=== PATIENT | male | born 1975 | race Caucasian/White ===

== ENCOUNTER 2018-10-02 03:48 | Inpatient (IN) ==
--- NOTE | 2018-10-02 04:05 | Emergency Department Note ---
ED Disposition Clinical Impression: STEMI (ST elevation myocardial infarction) Qualifiers: Involved coronary artery: unspecified coronary artery Qualified Code(s): I21.3 - ST elevation (STEMI) myocardial infarction of unspecified site Disposition: Admitted As Inpatient Condition on Discharge: Serious Referrals: Provider,Referral, [Primary Care Provider] - - Critical Care Critical Care Time: Yes Attestation: On , the high probability of a clinically significant, sudden or life threatening deterioration of the following system(s) required my full and direct attention, intervention and personal management. The time I documented below is in addition to time spent performing reported procedures but includes the following listed in this critical care notation. Total Critical Care Time: 35 Vital system(s) involved:: Circulatory Failure My critical care processes included: Assessment & monitoring of V/S, Initial and Re-exams, Data Review/Interpretation, Coordinating Care, Medication Orders and management, Documentation Medical Decision Making - Meek Inquiry Pt receiving controlled substance: No Vital Signs: 10/02/18 03:48 10/02/18 04:00 10/02/18 04:10 Temperature 98.1 F Temperature Source Temporal Artery Scan Pulse Rate Pulse Rate [Left Radial] 110 H 108 H 101 H Respiratory Rate 20 20 18 Blood Pressure Blood Pressure [Right Arm] 164/136 H 188/127 H 148/105 H Blood Pressure Mean [Right Arm] 145 147 119 Blood Pressure Source Blood Pressure Source [Right Arm] Automatic Cuff Automatic Cuff Automatic Cuff Blood Pressure Position Blood Pressure Position [Right Arm] Sitting Sitting Sitting 02 Sat by Pulse Oximetry 94 L 96 97 Oxygen Delivery Method Room Air Nasal Cannula Nasal Cannula Oxygen Flow Rate (LPM) 4 4 10/02/18 04:16 10/02/18 04:18 10/02/18 04:25 Temperature 97.9 F Temperature Source Temporal Artery Scan Pulse Rate 91 H Pulse Rate [Left Radial] 93 H 91 H Respiratory Rate 18 18 18 Blood Pressure 140/100 H Blood Pressure [Right Arm] 136/103 H 162/89 H Blood Pressure Mean [Right Arm] 114 113 Blood Pressure Source Automatic Cuff Blood Pressure Source [Right Arm] Automatic Cuff Automatic Cuff Blood Pressure Position Sitting Blood Pressure Position [Right Arm] Sitting Sitting 02 Sat by Pulse Oximetry 94 L 94 L Oxygen Delivery Method Nasal Cannula Nasal Cannula Nasal Cannula Oxygen Flow Rate (LPM) 4 4 4 - Lab Data Lab Results 10/02/18 03:58: WBC 9.2, RBC 6.23 H, Hgb 18.3 H*, Hct 52.4 H, MCV 84.0, MCH 29.3, MCHC 34.9, RDW 13.2, Plt Count 237, MPV 7.7, Neut % (Auto) 53.2, Lymph % (Auto) 36.2, [place] % (Auto) 5.6, Eos % (Auto) 3.9, Baso % (Auto) 1.1, Neut # (Auto) 4.9, Lymph # (Auto) 3.3, [place] # (Auto) 0.5, Eos # (Auto) 0.4, Baso # (Auto) 0.1 10/02/18 03:58: PT 9.7, INR 0.94, APTT 30.1 10/02/18 03:58: Sodium 133 L, Potassium 4.1, Chloride 97 L, Carbon Dioxide 27, Anion Gap 13.1, BUN 18, Creatinine 1.15, Estimated Creat Clear 99, Estimated GFR 69, Est GFR ( Amer) 83, Glucose 458 H*, Calcium 8.7, Total Creatine K inase 146, CK-MB (CK-2) 1.3, CK-MB (CK-2) Rel Index 0.9, Troponin I 0.48 H 10/02/18 04:26: Urine Opiates Screen Negative, Urine Methadone Screen Negative, Ur Barbituates Screen Negative, Ur Phencyclidine Scrn Negative, Ur Amphetamines Screen Negative, U Benzodiazepines Scrn Negative, Urine Cocaine Screen Positive H, U Marijuana (THC) Screen Positive H Result diagrams: 10/02/18 03:58 10/02/18 03:58 Orders (Tests/Meds): ED MEDICATIONS Generic Name Dose Route Start Last Admin Trade Name Freq PRN Reason Stop Dose Admin Fentanyl Citrate 25 mcg 10/02/18 04:19 Fentanyl 250mcg/5ml Vial IV 10/03/18 04:19 Q3MINP PRN Moderate to Severe Pain Fentanyl Citrate 50 mcg 10/02/18 04:19 Fentanyl 250mcg/5ml Vial IV 10/03/18 04:19 Q3MINP PRN Moderate to Severe Pain Fentanyl Citrate 50 mcg 10/02/18 04:19 Fentanyl 100mcg/2ml Vial IV 10/03/18 04:20 Q3MINP PRN Moderate to Severe Pain Fentanyl Citrate 25 mcg 10/02/18 04:19 Fentanyl 100mcg/2ml Vial IV 10/03/18 04:20 Q3MINP PRN Moderate to Severe Pain Flumazenil 0.2 mg 10/02/18 04:19 Romazicon 0.1mg/Ml 5ml Vial IV 10/02/18 23:00 NEEDED PRN Sedation Heparin Sodium (Porcine) 10,000 unit 10/02/18 04:19 Heparin 1,000 Units/Ml 10ml Vial (Merchant Seaman) IV 10/02/18 08:19 NEEDED PRN Emergency Box Tool Design Engineer Sodium Chloride 1,000 mls @ 25 mls/hr 10/02/18 04:30 10/02/18 04:37 Sod Chlor 0.9% 1000ml Bag IV 10/03/18 04:19 25 mls/hr .Q25H SANCHEZ Administration Midazolam HCl 1 mg 10/02/18 04:19 Midazolam 2mg/2ml Vial IV 10/03/18 04:19 Q3MINP PRN Sedation Midazolam HCl 1 mg 10/02/18 04:19 Midazolam 1mg/Ml 5ml Vial IV 10/03/18 04:19 Q3MINP PRN Sedation Naloxone HCl 0.4 mg 10/02/18 04:19 Narcan 0.4mg/Ml Vial IV 10/03/18 04:19 Q5MINP PRN Decreased respirations Nitroglycerin 800 mcg 10/02/18 04:19 10/02/18 04:37 Nitroglycerin 800mcg/8ml Syr (Merchant Seaman) IV 10/03/18 04:19 800 mcg NEEDED PRN Administration Emergency Box Tool Design Engineer Discontinued Medications Generic Name Dose Route Start Last Admin Trade Name Freq PRN Reason Stop Dose Admin Aspirin 324 mg 10/02/18 04:07 10/02/18 04:08 Aspirin 81mg Chewable Tablet PO 10/02/18 04:08 324 mg ONCE ONE Administration Diphenhydramine HCl 50 mg 10/02/18 04:19 10/02/18 04:37 Benadryl 50mg/1ml Vial IV 10/02/18 04:20 50 mg ONCE ONE Administration Heparin Sodium (Porcine) 8,600 unit 10/02/18 04:00 10/02/18 04:06 Heparin Sodium 5,000 Units/Ml Vial 100 unit/kg (8600 unit) 10/02/18 04:01 8,600 unit IV Administration ONCE ONE Heparin Sodium/Sodium Chloride 3,000 unit 10/02/18 04:19 10/02/18 04:37 Heparin 1000 Units/500ml Ns (Merchant Seaman) IV 10/02/18 04:20 3,000 unit ONCE ONE Administration Lidocaine HCl 20 ml 10/02/18 04:19 10/02/18 04:37 Lidocaine 1% 20ml Mdv IJ 10/02/18 04:20 10 ml ONCE ONE Administration Nitroglycerin 0.4 mg 10/02/18 04:07 10/02/18 04:07 Nitrostat 0.4mg Sl Tablet SL 10/02/18 04:08 0.4 mg ONCE ONE Administration Nitroglycerin 0.4 mg 10/02/18 04:14 10/02/18 04:15 Nitrostat 0.4mg Sl Tablet SL 10/02/18 04:15 0.4 mg ONCE ONE Administration Ticagrelor 180 mg 10/02/18 04:00 10/02/18 04:06 Brilinta 90mg Tablet PO 10/02/18 04:01 180 mg ONCE ONE Administration Verapamil HCl 2.5 mg 10/02/18 04:19 10/02/18 04:37 Verapamil 2.5mg/Ml 2ml Vial IV 10/02/18 04:20 2.5 mg ONCE ONE Administration ORDERS Category Date Time Status XR chest portable Routine Exams 10/02/18 04:00 Taken BNP [B-Type Natriuretic Peptide] Stat Lab 10/02/18 03:58 Received - Radiology Data #1 Image(s): Chest Image Reviewed: Yes I reviewed the patient's radiology image Increased interstitial markings in the bases, especially the right base - ECG Data Tracing #1 EKG interpreted by Luis E Houston MD: Rhythm: sinus tachycardia Rate: 120 Perry: normal Ectopy: none Conduction: normal ST Segment Changes: ST elevation V1, V2, V3. Minimal ST depression in V5 and V6. T Wave Changes: none Q Waves: V1, V2 ST elevation in the septal leads is new compared to most recent EKG of 2015 - Physician Consults Physician Consulted: Trisha Time: 04:00 Reason -: Cardiology Eval/Care Comment/Response: Give heparin 100 units/kg bolus, Brilinta 180 mg oral. He is coming into the emergency room. Additional Consult: David Time: 04:38 Reason -: Admission Comment/Response: Agrees to admit the patient to the hospital. We discussed the patient's clinical information, including history, exam, laboratory and radiology results and ED course. Per hospital procedure, I will write temporary bridge inpatient orders on the patient. Specific orders requested by the admitting physician: Requests admission to Dr. Muller. Sliding scale insulin. - Reevaluation(s) Time: 04:13 Reevaluation #1: Chest pain is now 5/10 after 1st ntg (/10 on arrival) - LANDY Score for Stemi Age of Patient: 40-49 years old Heart Rate: 110-149 bpm Systolic Blood Pressure: 160-199 mmHg Serum Creatinine: 0.80-1.19 mg/dl CHF [place] Class: I-No CHF Other Risk Factors: ST Segment Deviation Stemi Risk Score: 94 General Adult HPI - General Chief complaint: Chest Pain Stated complaint: Chest Pain Time Seen by Provider: 10/02/18 03:48 Mode of Arrival: Ambulatory Limitations: No Limitations Description of Symptoms (Recalled from ER Triage Doc. by RN): pt c/o chest pain in the center of his chest described as "pressure" associated diaphoresis, shortness of breath, non radiating pain, states he woke up approx 45 minutes ago to get a snack and that is when chest pain started - History of Present Illness HPI narrative: 30 to 45 minutes ago woke up from sleep to use the bathroom and get a drink. Started having precordial chest pressure, diaphoresis, shortness of breath, and nausea. Denies radiation. Feels similar to previous heart attacks. Says he has had "a few" heart attacks. He says he has 7 stents. First 2 stents were placed by Dr. Richards, the last [address] Rico. Last stent was 2014. Admits to recreational drug use. Used crack cocaine on 09/30/2018. Also uses some Percocet and took one half of a Suboxone yesterday 10/01/2018. He is a smoker. He says that he has not seen a family doctor or campus administrator in a couple of years, he was seeing Dr. Muller. The only medication he takes a daily is aspirin. He took 325 mg of aspirin 15 minutes ago prior to coming to the emergency room. - Related Data Home Medications Medication Instructions Recorded Confirmed Aspirin [Aspirin 81mg EC Tab] 81 mg PO DAILY 10/02/18 10/02/18 Allergies Allergy/AdvReac Type Severity Reaction Status Date / Time ANESTHETICS,GENERAL Allergy Unknown I-RASH Uncoded 05/25/17 14:24 [facility] History - Hepatitis A Screen Drug use history?: Yes High risk sexual behaviors?: No History of sexually transmitted infection?: No Currently employed?: No Childcare worker?: No Do you have indoor plumbing?: Yes Do you have electricity?: Yes Attestation statement:: This patient has been screened for Hepatitis A risk factors. I have reviewed the patient's past medical history: Yes - Social History Smoking Status: Current every day smoker # Packs/Day (cigarettes): 1 Alcohol Intake: never Substance Use Type: crack/cocaine, painkillers Occupational Status: other - Psychiatric History Expresses thoughts of harming self/others: None Suicide Plan Description: No Plan ROS Obtained: Yes All systems reviewed & no additional complaints - Constitutional Constitutional: Denies fever(s) - Cardiovascular Cardiovascular: Reports chest pain, Reports diaphoresis - Respiratory Respiratory: Yes dyspnea - Gastrointestinal Gastrointestingal: Reports: nausea Physical Exam - General General appearance: alert, in distress Comment: diaphoretic, in pain - Head Head exam: atraumatic, normocephalic - Eye Eye exam: Present: normal appearance, EOMI - ENT ENT exam: Present: mucous membranes moist - Neck Neck exam: Present: normal inspection, trachea midline - Chest Chest inspection: Present: normal inspection, symmetric chest wall rise - Respiratory Respiratory exam: Present: normal lung sounds bilaterally. Absent: respiratory distress - Cardiovascular Cardiovascular exam: Present: regular rate, normal rhythm, normal heart sounds - Abdominal Exam Abdominal exam: Present: soft. Absent: distention, tenderness, guarding, rebound, rigidity - Extremities Exam Extremities exam: Present: normal inspection - Neurological Exam Neurological exam: Present: alert, oriented X3 - Psychiatric Psychiatric exam: Present: anxious - Skin Skin exam: Present: diaphoresis
[2018-10-02 04:13] LABS: Basophils # 0.1 K/mm3 (0-0.2); Basophils % 1.1 % (0.1-2.0); Eosinophils # 0.4 K/mm3 (0.0-0.4); Eosinophils % 3.9 % (0.1-12.0); Hematocrit 52.4 % (42.0-52.0); Lymphocytes # 3.3 K/mm3 (0.7-4.5); Lymphocytes % 36.2 % (10-50); Mean Corpuscular HGB Conc 34.9 g/dL (31.8-35.4); Mean Corpuscular Hemoglobin 29.3 pg (27.0-31.2); Mean Platelet Volume 7.7 fl (7.4-10.4); Monocytes # 0.5 K/mm3 (0.1-1.0); Monocytes % 5.6 % (1.7-9.3); Neutrophils # 4.9 K/mm3 (1.8-7.8); Neutrophils % 53.2 % (37.0-80.0); Platelet Count 237 K/mm3 (142-424); Red Blood Count 6.23 M/mm3 (4.60-6.20); Red Cell Distribution Width 13.2 % (11.5-17.5); White Blood Count 9.2 K/mm3 (4.8-10.8)
[2018-10-02 04:17] LABS: Hemoglobin 18.3 g/dL (14.1-18.0)
[2018-10-02 04:21] LABS: Activated Partial Thrombo Time 30.1 seconds (23.6-34.0); INR 0.94 (0.9-1.1); Prothrombin Time 9.7 seconds (9.4-11.8)
[2018-10-02 04:29] LABS: Anion Gap 13.1 mEq/L (5-15); Potassium 4.1 mmoL/L (3.5-5.1)
[2018-10-02 04:37] LABS: Calcium 8.7 mg/dL (8.5-10.1)
[2018-10-02 04:42] LABS: Amphetamine/Metha Screen,Urine Negative ng/mL (<1000); Barbiturates Screen,Urine Negative ng/mL (<200); Benzodiazepines Screen,Urine Negative ng/mL (<200); Cannabinoid Screen,Urine Positive ng/mL (<50); Cocaine Screen,Urine Positive ng/mL (<300); Methadone Screen,Urine Negative ng/mL (<300); Opiate Screen,Urine Negative ng/mL (<300); Phencyclidine Screen,Urine Negative ng/mL (<25)
--- NOTE | 2018-10-02 10:55 | History & Physical Report ---
*Admission Date: 10/02/18 *Chief complaint: chest pain *History of present illness: 43 yr old male presents to ed with c/o chest pressure, diaphoresis, shortness of breath, and nausea. pt states he woke up to go to bathroom when he started having pressure and stated symptoms was like his other heart attacks.Hx of mi, states he has 7 stents. First 2 stents were placed by Dr. Richards, the last [address] Rico. Last stent was 2014. Admits to recreational drug use. Pt admitted cardiology consult, heart cath pt denies cp at this time [facility] History I have reviewed the patient's past medical history: Yes Medical History: Reports:: Diabetes Mellitus Type 2, Hyperlipidemia, Hypertension Denies:: Cancer, MRSA *Have you ever received a pneumonia vaccine?: No *Have you received a flu vaccine this season?: No Other Medical History: Reports: Arthritis Other Surgeries: Yes: Cardiac Catheterization - *Social History Educational Level: Completed High School Smoking Status: Current every day smoker Tobacco Type: cigarettes # Packs/Day (cigarettes): 1 Alcohol Intake: current Alcohol Intake Frequency:: holidays/special occasions only Substance Use Type: marijuana, crack/cocaine, amphetamines, sedatives, opiates *Occupational Status:: unemployed Household Members: spouse, children *Travel in the last 8 weeks: None - Psychiatric History Expresses thoughts of harming self/others: None Suicide Plan Description: No Plan Family Hx:: Unable to obtain Review of Systems - Review of Systems Review of systems:: pertinent systems reviewed and negative unless documented below - Constitutional Denies body ache(s) - Eyes Denies blurry vision - ENT Denies change in voice - *Cardiovascular Reports chest pain, Reports chest pain at rest, Reports chest pain with activity, Reports excessive sweating, Reports shortness of breath with activity - *Respiratory Denies chest congestion - *Gastrointestinal Denies bloating, Denies change in bowel habits - *Genitourinary Reports difficulty with ejaculations, Denies urinary frequency - *Musculoskeletal Denies decreased muscle mass - Integumentary/Breasts Denies rash - *Neurologic Denies abnormal movements - Psychiatric Denies lack of enjoyment - Endocrine Denies flushing - Hematologic/Lymphatic Denies enlarged lymph nodes - Allergic/Immunologic Denies lip swelling Meds Home Medications Medication Instructions Recorded Confirmed Type Aspirin [Aspirin 81mg EC Tab] 81 mg PO DAILY 10/02/18 10/02/18 History Allergies Allergy/AdvReac Type Severity Reaction Status Date / Time ANESTHETICS,GENERAL Allergy Unknown I-RASH Uncoded 05/25/17 14:24 Exam Vital signs and Labs for Last 24 Hours: Temp Pulse Resp BP Pulse Ox 97.8 F 79 18 142/89 H 93 L 10/02/18 10:00 10/02/18 10:00 10/02/18 10:00 10/02/18 10:00 10/02/18 10:00 Laboratory Results - last 24 hr 10/02/18 03:58: WBC 9.2, RBC 6.23 H, Hgb 18.3 H*, Hct 52.4 H, MCV 84.0, MCH 29.3, MCHC 34.9, RDW 13.2, Plt Count 237, MPV 7.7, Neut % (Auto) 53.2, Lymph % (Auto) 36.2, [place] % (Auto) 5.6, Eos % (Auto) 3.9, Baso % (Auto) 1.1, Neut # (Auto) 4.9, Lymph # (Auto) 3.3, [place] # (Auto) 0.5, Eos # (Auto) 0.4, Baso # ( Auto) 0.1 10/02/18 03:58: PT 9.7, INR 0.94, APTT 30.1 10/02/18 03:58: Sodium 133 L, Potassium 4.1, Chloride 97 L, Carbon Dioxide 27, Anion Gap 13.1, BUN 18, Creatinine 1.15, Estimated Creat Clear 99, Estimated GFR 69, Est GFR ( Amer) 83, Glucose 458 H*, Calcium 8.7, Total Creatine Kinase 146, CK-MB (CK-2) 1.3, CK-MB (CK-2) Rel Index 0.9, Troponin I 0.48 H 10/02/18 03:58: B-Natriuretic Peptide 136 H 10/02/18 04:26: Urine Opiates Screen Negative, Urine Methadone Screen Negative, Ur Barbituates Screen Negative, Ur Phencyclidine Scrn Negative, Ur Amphetamines Screen Negative, U Benzodiazepines Scrn Negative, Urine Cocaine Screen Positive H, U Marijuana (THC) Screen Positive H 10/02/18 04:42: Activated Clotting Time 258 H* 10/02/18 04:57: Activated Clotting Time 335 H* D I & O for Last 24 hours: Intake & Output 09/29/18 09/30/18 10/01/18 10/02/18 11:59 11:59 11:59 11:59 Intake Total 360 / 360 Output Total 700 / 700 Balance -340 / -340 Weight 219 lb 9.286 oz - Constitutional no acute distress - *Routine HEENT Exam Head: Present: normocephalic Eye: Present: PERRL ENT: Present: mucous membranes moist - *Routine Neck Exam Present: supple. Absent: lymphadenopathy - *Routine Respiratory Exam Present: CTA bilaterally - *Routine Cardiovascular Exam Present: RRR - *Routine Abdominal Exam Present: soft, normoactive bowel sounds. Absent: tenderness - *Routine Extremities Exam Absent: cyanosis, clubbing, edema - *Routine Skin Exam Present: warm. Absent: rash - *Routine Neurological Exam Present: alert, oriented X3 - Routine Psychiatric Exam Present: normal affect Assessment and Plan (1) Stented coronary artery Current visit: Yes Status: Acute Category: Surgical Code(s): Z95.5 - Presence of coronary angioplasty implant and graft (2) Noncompliance Current visit: Yes Status: Acute Category: Medical Code(s): Z91.19 - Patient's noncompliance with other medical treatment and regimen (3) Diabetes Current visit: Yes Status: Acute Qualifiers: Diabetes mellitus type: type 2 Diabetes mellitus snf insulin use: without vermin exterminator use Diabetes mellitus complication status: with circulatory complication Diabetes mellitus complication detail: with other circulatory complications Qualified Code(s): E11.59 - Type 2 diabetes mellitus with other circulatory complications Category: Medical Code(s): E11.9 - Type 2 diabetes mellitus without complications (4) Drug use Current visit: Yes Status: Acute Category: Medical Code(s): F19.90 - Other psychoactive substance use, unspecified, uncomplicated (5) STEMI (ST elevation myocardial infarction) Current visit: Yes Status: Acute Qualifiers: Involved coronary artery: unspecified coronary artery Qualified Code(s): I21.3 - ST elevation (STEMI) myocardial infarction of unspecified site Category: Medical Code(s): I21.3 - ST elevation (STEMI) myocardial infarction of unspecified site - Assessment and plan all Dx Assessment and Plan for all problems:: discussed with socrates, all orders per socrates crowell will round later today.
--- NOTE | 2018-10-02 12:02 | Pharmacy Consult Notes ---
[facility] Pharmacy VTE Monitoring - Patient Demographics Admission date: 10/02/18 Report Date: 10/02/18 Time: 12:02 Allergies/Adverse Reactions: Patient Allergies ANESTHETICS,GENERAL Allergy (Unknown, Uncoded 05/25/17 14:24) I-RASH Height: 1.75 m Weight: 99.6 kg Patient Problems: Current Active Problems (Updated 10/02/18 @ 11:01 by Kvng Gonsalez APRN) STEMI (ST elevation myocardial infarction) (Acute) Stented coronary artery (Acute) Noncompliance (Acute) Diabetes (Acute) Drug use (Acute) - VTE Risk Labs: VTE Related Lab Results Hgb 18.3 g/dL (14.1-18.0) H* 10/02/18 03:58 Hct 52.4 % (42.0-52.0) H 10/02/18 03:58 Plt Count 237 K/mm3 (142-424) 10/02/18 03:58 PT 9.7 seconds (9.4-11.8) 10/02/18 03:58 INR 0.94 (0.9-1.1) 10/02/18 03:58 APTT 30.1 seconds (23.6-34.0) 10/02/18 03:58 BUN 18 mg/dL (7-18) 10/02/18 03:58 Creatinine 1.15 mg/dL (0.70-1.30) 10/02/18 03:58 Estimated Creat Clear 99 mL/min (50-200) 10/02/18 03:58 Was VTE Risk Assessment Performed: Yes VTE Score: 5 VTE Risk Level: Low Risk - Prophylaxis Types of VTE Prophylaxis: TEDS Knee High (ADAMARIS HOSE ORDER PLACED)
--- NOTE | 2018-10-03 08:34 | Consult Report ---
History of Present Illness Consult date: 10/03/18 Requesting physician: Fernando Muller Consult reason: chest pain Chief complaint: STEMI Additional Medical History:: 1. CAD A. Previous coronary stents by Dr. Richards and Dr. Rico with last ones in 2014 2. Polysubstance abuse 3. Tobacco use 4. Strong FH of CAD in father and brothers in their 40's 5. Medication non-compliance 6. DM, type 2 History of present illness: 43 yr old male presents to ed with c/o chest pressure, diaphoresis, shortness of breath, and nausea. pt states he woke up to go to bathroom when he started having pressure and stated symptoms was like his other heart attacks.Hx of mi, states he has 7 stents. First 2 stents were placed by Dr. Richards, the last [address] Rico. Last stent was 2014. Admits to recreational drug use. Pt admitted cardiology consult, heart cath pt denies cp at this time The above per Kvng Gonsalez APRN for Dr. Muller Today, 10/03/2018, The patient is without chest pain and adament about going home. Relates released from incarceration 2 months ago and admits to cocaine use the night before admission. [facility] History Medical History: Reports:: Diabetes Mellitus Type 2, Hyperlipidemia, Hypertension Denies:: Cancer, MRSA *Have you ever received a pneumonia vaccine?: No *Have you received a flu vaccine this season?: No Other Medical History: Reports: Arthritis Other Surgeries: Yes: Cardiac Catheterization - *Social History Educational Level: Completed High School Smoking Status: Current every day smoker Tobacco Type: cigarettes # Packs/Day (cigarettes): 1 Alcohol Intake: current Alcohol Intake Frequency:: holidays/special occasions only Substance Use Type: marijuana, crack/cocaine, amphetamines, sedatives, opiates *Occupational Status:: unemployed Household Members: spouse, children *Travel in the last 8 weeks: None - Psychiatric History Expresses thoughts of harming self/others: None Suicide Plan Description: No Plan Family Hx:: Unable to obtain Meds Home Medications Medication Instructions Recorded Confirmed Type Aspirin [Aspirin 81mg EC Tab] 81 mg PO DAILY 10/02/18 10/02/18 History Allergies Allergy/AdvReac Type Severity Reaction Status Date / Time ANESTHETICS,GENERAL Allergy Unknown I-RASH Uncoded 05/25/17 14:24 Review of Systems - *Cardiovascular Reports chest pain, Denies shortness of breath - *Respiratory Denies cough, Denies shortness of breath - *Gastrointestinal Denies abdominal pain, Denies change in stools, Denies loose stools - *Genitourinary Denies blood in urine, Denies decreased urination - *Musculoskeletal Denies joint pain, Denies back pain - *Neurologic Denies abnormal movements, Denies loss of vision, Denies numbness Exam Vital signs and Labs for Last 24 Hours: Temp Pulse Resp BP Pulse Ox 97.8 F 60 20 103/52 L 97 10/03/18 02:27 10/03/18 06:00 10/03/18 02:27 10/03/18 06:00 10/03/18 06:00 Laboratory Results - last 24 hr 10/02/18 12:13: POC Glucose 224 H 10/02/18 16:11: POC Glucose 266 H 10/02/18 21:17: POC Glucose 293 H I & O for Last 24 hours: Intake & Output 09/30/18 10/01/18 10/02/18 10/03/18 11:59 11:59 11:59 11:59 Intake Total 360 / 360 720 / 720 Output Total 700 / 700 Balance -340 / -340 720 / 720 Weight 219 lb 9.286 oz - *Routine HEENT Exam Head: Present: normocephalic Eye: Present: EOMI, PERRL ENT: Present: mucous membranes moist - *Routine Neck Exam Present: supple. Absent: JVD, carotid bruit - *Routine Respiratory Exam Present: CTA bilaterally. Absent: accessory muscle use, rales, rhonchi, wheezes - *Routine Cardiovascular Exam Present: RRR. Absent: murmur, gallop, rubs - *Routine Abdominal Exam Present: soft. Absent: tenderness, distended, guarding - *Routine Extremities Exam Absent: edema, calf tenderness - *Routine Neurological Exam Present: alert, oriented X3, moving all extremities Assessment and Plan (1) Stented coronary artery Current visit: Yes Status: Acute Category: Surgical Code(s): Z95.5 - Presence of coronary angioplasty implant and graft (2) Noncompliance Current visit: Yes Status: Acute Category: Medical Code(s): Z91.19 - Patient's noncompliance with other medical treatment and regimen (3) Diabetes Current visit: Yes Status: Acute Qualifiers: Diabetes mellitus type: type 2 Diabetes mellitus predatory 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 insulin use: without predatory 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 use Diabetes mellitus complication status: with circulatory complication Diabetes mellitus complication detail: with other circulatory complications Qualified Code(s): E11.59 - Type 2 diabetes mellitus with other circulatory complications Category: Medical Code(s): E11.9 - Type 2 diabetes mellitus without complications (4) Drug use Current visit: Yes Status: Acute Category: Medical Code(s): F19.90 - Other psychoactive substance use, unspecified, uncomplicated (5) STEMI (ST elevation myocardial infarction) Current visit: Yes Status: Acute Qualifiers: Involved coronary artery: unspecified coronary artery Qualified Code(s): I21.3 - ST elevation (STEMI) myocardial infarction of unspecified site Category: Medical Code(s): I21.3 - ST elevation (STEMI) myocardial infarction of unspecified site - Assessment and plan all Dx Assessment and Plan for all problems:: 1. STEMI, s/p JAYDE to LAD. On ASA 81 mg daily and Brilinta 90 mgBID along with bisoprolol 5 mg daily and ramipril 5 mg daily. 2. Continue statin therapy with atorvastatin 40 mg daily. 3. Encouraged him to seek help for substance abuse and to be compliant with taking meds. 4. Preliminary echo this AM shows LVEF of 45%. 5. OK for discharge home from cardiology standpoint. Follow up in 1-2 wks in our office.
--- NOTE | 2018-10-03 09:57 | Discharge Summary ---
General - General Admission date:: 10/02/18 Discharge date: 10/03/18 HPI HPI: 43 yr old male presents to ed with c/o chest pressure, diaphoresis, shortness of breath, and nausea. pt states he woke up to go to bathroom when he started having pressure and stated symptoms was like his other heart attacks.Hx of mi, states he has 7 stents. First 2 stents were placed by Dr. Richards, the last [address] Rico. Last stent was 2014. Admits to recreational drug use. Pt admitted cardiology consult, heart cath pt denies cp at this time Hospital Course Hospital Course: pt with recent chest pain and was seen in the ed 0 to 45 minutes ago woke up from sleep to use the bathroom and get a drink. Started having precordial chest pressure, diaphoresis, shortness of breath, and nausea. Denies radiation. Feels similar to previous heart attacks. Says he has had "a few" heart attacks. He says he has 7 stents. First 2 stents were placed by Dr. Richards, the last [address] Rico. Last stent was 2014. Admits to recreational drug use. Used crack cocaine on 09/30/2018. Also uses some Percocet and took one half of a Suboxone yesterday 10/01/2018. He is a smoker. He says that he has not seen a family doctor or php engineer in a couple of years, he was seeing Dr. Muller. The only medication he takes a daily is aspirin. He took 325 mg of aspirin 15 minutes ago prior to coming to the emergency room. he had heart cath-e left main artery has a distal 10-20% stenosis 2. The left anterior descending artery has a very proximal 50-60% stenosis followed by subtotal occlusion at mid segment. The entire mid LAD is small caliber. The first diagonal artery has ostial proximal 90% stenosis. This is a small caliber vasculopathic vessel. The second diagonal artery is a larger branch and has mid vessel 70-80% stenosis and small vessel vasculopathic disease. The third diagonal artery is a small branch and patent. The distal LAD is a patent vessel and wraps the apex. The distal LAD is a small caliber vasculopathic vessel with multiple 80 and 90% stenoses in this a proximally 1 mm throughout its distal course. 3. The circumflex artery is a dominant vessel and has mid vessel diffuse 40-50% stenoses. Gives rise to a large terminal obtuse marginal artery. The mid segment of the circumflex artery has diffuse vasculopathic lesions small caliber but does open to a 2.5 mm distal terminal artery which is patent. The first obtuse marginal artery is a small to medium vessel and has diffuse vasculopathic disease from the proximal mid and distal segment 4. The right coronary artery is a nondominant 2 mm vessel and has proximal 20-30% stenoses mid vessel 40% stenoses. Distally the vessels vasculopathic with small vessel disease and poor myocardial blushing 5. The JARA ventriculogram reveals preserved 60% 6. The left ventricular end-diastolic pressure 25 mmHg ubtotal occlusion of the mid LAD with successful stenting opening the vessel to 10% stenosed. 2. 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 3. Preserved ejection fraction 4. Elevated LVEDP PLAN: 1. Brilinta and aspirin 2. LDL less than 55 3. Risk factor modification 4. Echocardiogram Wednesday 5. Beta blockers zamzam inhibitors as tolerated 6. Avoidance of tobacco products 7. Cardiac rehabilitation 8. Absolute avoidance of sympathomimetic illegal drug such as methamphetamine and crack cocaine as patient admits to using 9. Consideration to an overall and an inpatient detoxification program if vital signs suggest 10. Patient's small vessel vasculopathy will be treated medically. He does have a significant proximal LAD lesion which should be evaluated in 6 weeks with Lexiscan Myoview. Given this was not the infarct lesion I felt trying to reduce the stenosis could jeopardize the first diagonal artery and possibly extend myocardial infarction. The infarct vessel was revascularized and patient now has VIKRAM-3 flow. pt has remained stable with some sob A. Previous coronary stents by Dr. Richards and Dr. Rico with last ones in 2014 2. Polysubstance abuse 3. Tobacco use 4. Strong FH of CAD in father and brothers in their 40's 5. Medication non-compliance 6. DM, type 2 History of present illness: 43 yr old male presents to ed with c/o chest pressure, diaphoresis, shortness of breath, and nausea. pt states he woke up to go to bathroom when he started having pressure and stated symptoms was like his other heart attacks.Hx of mi, states he has 7 stents. First 2 stents were placed by Dr. Richards, the last [address] Rico. Last stent was 2014. Admits to recreational drug use. Pt admitted cardiology consult, heart cath pt denies cp at this time The above per Kvng Gonsalez APRN for Dr. Muller Today, 10/03/2018, The patient is without chest pain and adament about going home. Relates released from incarceration 2 months ago and admits to cocaine use the night before admission. s/p JAYDE to LAD. On ASA 81 mg daily and Brilinta 90 mgBID along with bisoprolol 5 mg daily and ramipril 5 mg daily. 2. Continue statin therapy with atorvastatin 40 mg daily. 3. Encouraged him to seek help for substance abuse and to be compliant with taking meds. 4. Preliminary echo this AM shows LVEF of 45%. 5. OK for discharge home from cardiology standpoint. Follow up in 1-2 wks in our office. pt will be d/c and we discussed drug use and tob use and compliance Objective Vital signs: Temp Pulse Resp BP Pulse Ox 97.8 F 60 20 103/52 L 97 10/03/18 02:27 10/03/18 06:00 10/03/18 02:27 10/03/18 06:00 10/03/18 06:00 no acute distress, obese - *Routine HEENT Exam Head: Present: normocephalic Eye: Present: EOMI, PERRL ENT: Present: mucous membranes dry - *Routine Neck Exam Present: supple - *Routine Respiratory Exam Present: CTA bilaterally - *Routine Cardiovascular Exam Present: RRR, murmur - *Routine Abdominal Exam Present: soft - *Routine Extremities Exam Present: full ROM - *Routine Skin Exam Present: intact - *Routine Neurological Exam Present: alert, oriented X3, CN II-XII intact - Routine Psychiatric Exam Present: normal affect Results Labs on day of discharge: Labs from last 24 hours 10/03/18 10/02/18 10/02/18 06:29 21:17 16:11 POC Glucose 196 H 293 H 266 H 10/02/18 12:13 POC Glucose 224 H DS: Diagnosis - Discharge Diagnosis (1) Stented coronary artery Status: Acute (2) Noncompliance Status: Acute (3) Diabetes Status: Acute (4) Drug use Status: Acute (5) STEMI (ST elevation myocardial infarction) Status: Acute (6) Obesity (BMI 30.0-34.9) Status: Acute (7) Interstitial pulmonary disease Status: Acute (8) Cocaine abuse Status: Acute (9) Tobacco use Status: Acute (10) Hyperlipidemia Status: Acute (11) HTN (hypertension) Status: Acute Discharge Plan - Patient Discharge Instructions ACTIVITY: Continue current activity DIET: continue same diet Patient Instructions: Heart Attack, Drug Abuse and Drug Addiction, Cardiac Catheterization, Heart-Healthy Diet, DI for Cardiac Catheterization, DI for Surgical Site Infection, Surgical Site Infection - Follow up Plan Follow up with: Provider,Referral, MD [Primary Care Provider] - Disposition: Home, Self-[facility] Medications: Home Medications Medication Instructions Recorded Confirmed Type Aspirin [Aspirin 81mg EC Tab] 81 mg PO DAILY 10/02/18 10/02/18 History Aspirin [Aspirin 81mg EC Tab] 81 mg PO DAILY #90 tablet. 10/03/18 Rx Atorvastatin Calcium [Lipitor 40mg 40 mg PO HS #90 tab 10/03/18 Rx Tablet] Bisoprolol Fumarate [Zebeta 5mg 5 mg PO QD #90 tab 10/03/18 Rx tablet] Clopidogrel Bisulfate [Plavix 75mg 75 mg PO DAILY #30 tab 10/03/18 Rx Tab] Nicotine [Nicoderm 21mg/24hr 21 mg TD DAILYP PRN #30 patch.td24 10/03/18 Rx patch] Ramipril [Altace 5mg capsule] 5 mg PO DAILY #90 cap 10/03/18 Rx Prescriptions/Medication Reconciliation: New Aspirin [Aspirin 81mg EC Tab] 81 mg PO DAILY #90 tablet. Atorvastatin Calcium [Lipitor 40mg Tablet] 40 mg PO HS #90 tab Nicotine [Nicoderm 21mg/24hr patch] 21 mg TD DAILYP PRN #30 patch.td24 PRN Reason: Nicotine Cravings Clopidogrel Bisulfate [Plavix 75mg Tab] 75 mg PO DAILY #30 tab Ramipril [Altace 5mg capsule] 5 mg PO DAILY #90 cap Bisoprolol Fumarate [Zebeta 5mg tablet] 5 mg PO QD #90 tab Continued Aspirin [Aspirin 81mg EC Tab] 81 mg PO DAILY
--- NOTE | 2018-10-03 18:40 | Cardiology Report ---
PROCEDURE: 2-D M-mode and color Doppler study INDICATIONS FOR THE TEST: Chest pain+ COPD Heart Murmur Tobacco Smoking+ Palpitations Fatigue Syncope Edema Hypertension+Diabetes Mellitus+ Rheumatic Fever SOB+BUENO Obesity Hyperlipidemia+ Family History HD Additional History STENTS, DRUG USE PATIENT INFORMATION HEIGHT:69 WEIGHT:219 GENDER: Male B/P:142/89 2-D/M-MODE INTERPRETATION: 2-D MEASUREMENTS OBSERVED VALUES IN CMS Right Ventricular Dimension (RVDd) 2.2 Interventricular Septum (Thickness)(IVsd) 1.7 Left Ventricular Internal Dimensions(LVIDd) 6.3 Left Ventricular Posterior Wall (Thickness)(LVPWd) 1.2 Aortic Root 3.0 Aortic Cusp Separation 2.0 Left Atrial Dimensions (LAD) 5.7 2D 1. Left atrium is moderately enlarged, left ventricle is mildly dilated, mild concentric left ventricular hypertrophy, visually estimated ejection fraction 45%, there is moderate hypokinesis involving the distal septum and apical wall. 2. The right atrium and right ventricle are normal size and contractility. 3. The aortic valve is minimally thickened and fibrosed. 4. The mitral and tricuspid valve leaflets are minimally thickened. 5. The pulmonic valve is poorly visualized. 6. No significant pericardial effusion noted. DOPPLER INTERROGATION: Doppler interrogation of the aortic, mitral and tricuspid valvular presence of moderate mitral and mild tricuspid regurgitation, tricuspid regurgitation jet velocity is inadequate for calculation of the right ventricle is pressure, grade 1 diastolic dysfunction seen with tissue Doppler evidence of raised left atrial pressure. CONCLUSION: 1. Moderately enlarged left atrium, mildly dilated ventricle, mild concentric left ventricular hypertrophy, visually estimated ejection fraction 45% with multiple segmental wall motion abnormality described above, grade 1 diastolic dysfunction seen with tissue Doppler evidence of raised left atrial pressure. 2. Moderate mitral and mild tricuspid regurgitation 3. No significant pericardial effusion noted.
== END 2018-10-03 10:40 | disposition home or self-care (01) | DRG 247 ==
LOC: ER 03:48 → CATHLAB 04:49 → 2ND 05:35
PROVIDERS: ADMIT Internal Medicine Adolescent Medicine; ATTEND Emergency Medicine
CPT/HCPCS: 71010; 71045; 80048; 80305; 82550; 82553; 82962; 83880; 84484; 85025; 85347; 85610; 85730; 92928; 93005; 93306; 93458; 96374; 96375; 99152; 99285; C1725; C1769; C1876; C9600; J1644; Q9967

== ENCOUNTER → 2018-10-11 10:12 | Outpatient (CLI) | payer MEDICAID, SELFPAY ==
[2018-10-11 11:00] LABS: Basophils # 0.1 K/mm3 (0-0.2); Basophils % 1.4 % (0.1-2.0); Eosinophils # 0.2 K/mm3 (0.0-0.4); Eosinophils % 2.5 % (0.1-12.0); Hematocrit 50.3 % (42.0-52.0); Hemoglobin 17.8 g/dL (14.1-18.0); Lymphocytes # 2.9 K/mm3 (0.7-4.5); Mean Corpuscular HGB Conc 35.5 g/dL (31.8-35.4); Mean Corpuscular Hemoglobin 29.4 pg (27.0-31.2); Mean Corpuscular Volume 82.8 fl (80-94); Mean Platelet Volume 7.9 fl (7.4-10.4); Monocytes # 0.5 K/mm3 (0.1-1.0); Monocytes % 6.6 % (1.7-9.3); Neutrophils # 4.3 K/mm3 (1.8-7.8); Neutrophils % 53.5 % (37.0-80.0); Platelet Count 225 K/mm3 (142-424); Red Blood Count 6.07 M/mm3 (4.60-6.20); Red Cell Distribution Width 13.1 % (11.5-17.5); White Blood Count 8.1 K/mm3 (4.8-10.8)
[2018-10-11 12:13] LABS: Anion Gap 11.3 mEq/L (5-15); Blood Urea Nitrogen 16 mg/dL (7-18); Calcium 9.2 mg/dL (8.5-10.1); Carbon Dioxide 31 mmol/L (21.0-32.0); Chloride 95 mmol/L (98-107); Creatinine,Serum 1.01 mg/dL (0.70-1.30); Estimated Glomerular Filt Rate 80 ml/min (>60); GFR (African American) 97 ML/MIN (>60); Glucose 312 mg/dL (74-106); Potassium 4.3 mmoL/L (3.5-5.1); Sodium 133 mmol/L (136-145)
== END ==
PROVIDERS: Visit Provider Nurse Practitioner Family
DX: E11.9 Type 2 diabetes mellitus without complications (principal); E78.5 Hyperlipidemia, unspecified; F19.90 Other psychoactive substance use, unspecified, uncomplicated; I10 Essential (primary) hypertension; Z95.5 Presence of coronary angioplasty implant and graft
CPT/HCPCS: 36415; 80048; 83880; 85025

== ENCOUNTER 2019-05-14 01:22 | Inpatient (IN) ==
[2019-05-14 02:07] LABS: Microscopic, Urine URINE MICROSCOPIC (MICROSCOPIC)
[2019-05-14 02:10] LABS: Basophils # 0.1 K/mm3 (0-0.2); Basophils % 1.1 % (0.1-2.0); Eosinophils # 0.3 K/mm3 (0.0-0.4); Eosinophils % 3.8 % (0.1-12.0); Hematocrit 51.9 % (42.0-52.0); Hemoglobin 17.4 g/dL (14.1-18.0); Lymphocytes # 2.7 K/mm3 (0.7-4.5); Lymphocytes % 31.5 % (10-50); Mean Corpuscular HGB Conc 33.5 g/dL (31.8-35.4); Mean Corpuscular Volume 90.2 fl (80-94); Mean Platelet Volume 8.7 fl (7.4-10.4); Monocytes # 0.5 K/mm3 (0.1-1.0); Neutrophils # 4.9 K/mm3 (1.8-7.8); Neutrophils % 57.6 % (37.0-80.0); Platelet Count 192 K/mm3 (142-424); Red Blood Count 5.76 M/mm3 (4.60-6.20); Red Cell Distribution Width 13.1 % (11.5-17.5); White Blood Count 8.6 K/mm3 (4.8-10.8)
[2019-05-14 02:12] LABS: Appearance,Urine CLEAR (Clear); Bilirubin,Urine Negative (Negative); Blood, Urine TRACE-I (Negative); Color,Urine YELLOW (Yellow); Glucose,Urine (UA) 3+ (Negative); Ketones,Urine Negative (Negative); Leukocyte Esterase,Urine Negative (Negative); Protein,Urine TRACE (Negative); Specific Gravity, Urine <= 1.005 (1.005-1.030); Urobilinogen,Urine 0.2 EU/dl (0.2)
[2019-05-14 02:17] LABS: Amorphous Sediment,Urine Trace /lpf
[2019-05-14 02:26] LABS: Calcium 8.7 mg/dL (8.5-10.1)
[2019-05-14 02:30] LABS: C-Reactive Protein < 0.2 mg/dL (0.0-0.9)
--- NOTE | 2019-05-14 02:55 | Emergency Department Note ---
ED Disposition Clinical Impression: Tobacco use Chest pain Qualifiers: Chest pain type: precordial pain Qualified Code(s): R07.2 - Precordial pain A-fib Qualifiers: Atrial fibrillation type: unspecified Qualified Code(s): I48.91 - Unspecified atrial fibrillation CAP (community acquired pneumonia) Qualifiers: Laterality: right Lung location: middle lobe of lung Qualified Code(s): J18.9 - Pneumonia, unspecified organism Diabetes Qualifiers: Diabetes mellitus type: type 2 Diabetes mellitus intermediate designer insulin use: unspecified retirement insulin use status Diabetes mellitus complication status: without complication Qualified Code(s): E11.9 - Type 2 diabetes mellitus without complications Disposition: Admitted as Observation Condition on Discharge: Good Referrals: Provider,Referral, MD [Primary Care Provider] - - Critical Care Critical Care Time: No Attestation: On 05/14/19, the high probability of a clinically significant, sudden or life threatening deterioration of the following system(s) required my full and direct attention, intervention and personal management. The time I documented below is in addition to time spent performing reported procedures but includes the following listed in this critical care notation. Medical Decision Making - Medical Records Medical records reviewed: Yes: I reviewed the patient's medical records. - [place] Inquiry Pt receiving controlled substance: No Vital Signs: 05/14/19 01:23 05/14/19 02:24 Temperature 97.8 F Temperature Source Oral Pulse Rate [Left Radial] 144 H 79 Respiratory Rate 16 15 Blood Pressure [Right Arm] 145/101 H 105/69 L Blood Pressure Mean [Right Arm] 115 81 Blood Pressure Source [Right Arm] Automatic Cuff Automatic Cuff Blood Pressure Position [Right Arm] Sitting Supine 02 Sat by Pulse Oximetry 91 L 97 Oxygen Delivery Method Room Air Room Air - Lab Data Lab results reviewed: Yes: I reviewed the patient's lab results. Lab Results 05/14/19 01:45: Urine Color Yellow, Urine Appearance Clear, Urine pH 6.0, Ur Specific [place] <= 1.005, Urine Protein Trace, Urine Glucose (UA) 3+, Urine Ketones Negative, Urine Blood Trace-i, Urine Nitrate Negative, Urine Bilirubin Negative, Urine Urobilinogen 0.2, Ur Leukocyte Esterase Negative, Urine RBC 3-5, Amorphous Sediment Trace 05/14/19 01:45: WBC 8.6, RBC 5.76, Hgb 17.4, Hct 51.9, MCV 90.2, MCH 30.2, MCHC 33.5, RDW 13.1, Plt Count 192, MPV 8.7, Neut % (Auto) 57.6, Lymph % (Auto) 31.5, [place] % (Auto) 6.0, Eos % (Auto) 3.8, Baso % (Auto) 1.1, Neut # (Auto) 4.9, Lymph # (Auto) 2.7, [place] # (Auto) 0.5, Eos # (Auto) 0.3, Baso # (Auto) 0.1 05/14/19 01:45: Sodium 138, Potassium 4.0, Chloride 100, Carbon Dioxide 24, Anion Gap 18.0 H, BUN 22 H, Creatinine 0.97, Estimated Creat Clear 89, Estimated GFR 84, Est GFR ( Amer) 101, Glucose 419 H*, Calcium 8.7 05/14/19 01:45: Urine Opiates Screen Negative, Urine Methadone Screen Negative, Ur Barbituates Screen Negative, Ur Phencyclidine Scrn Negative, Ur Amphetamines Screen Negative, U Benzodiazepines Scrn Negative, Urine Cocaine Screen Negative, U Marijuana (THC) Screen Positive H 05/14/19 01:57: ESR 3 05/14/19 01:57: Troponin I 0.08 H, C-Reactive Protein < 0.2 05/14/19 01:57: TSH 4.07 H, Thyroxine (T4) 7.7 05/14/19 01:57: Hemoglobin A1c 8.9 H Result diagrams: 05/14/19 01:45 05/14/19 01:45 Orders (Tests/Meds): ED MEDICATIONS Generic Name Dose Route Start Last Admin Trade Name Freq PRN Reason Stop Dose Admin Sodium Chloride 3 ml 05/14/19 02:34 Sodium Chloride 3% 15ml Neb IH 06/13/19 02:33 ONCE PRN INDUCE SPUTUM COLLECTION Discontinued Medications Generic Name Dose Route Start Last Admin Trade Name Freq PRN Reason Stop Dose Admin Aspirin 81 mg 05/14/19 01:47 05/14/19 01:48 Aspirin 81mg Chewable Tablet PO 05/14/19 01:48 81 mg ONCE ONE Administration Ioversol 70 ml 05/14/19 04:15 05/14/19 04:17 Rad-Optiray 350 100ml Vial IV 05/14/19 04:16 70 ml ONCE ONE Administration Protocol Nitroglycerin 0.4 mg 05/14/19 01:47 05/14/19 01:48 Nitrostat 0.4mg Sl Tablet SL 05/14/19 01:48 0.4 % ONCE ONE Administration Sodium Chloride 40 ml 05/14/19 04:15 05/14/19 04:17 Rad-Ns 50ml Vial IV 05/14/19 04:16 40 ml ONCE ONE Administration Sodium Chloride 10 ml 05/14/19 04:15 05/14/19 04:17 Rad-Saline Flush 10ml Syringe IV 05/14/19 04:16 10 ml ONCE ONE Administration ORDERS Category Date Time Status CT Chest w/PE protocol [CT angio chest] Stat Cat Scan 05/14/19 03:32 Taken XR chest 2V Stat Exams 05/14/19 02:01 Taken Troponin I Q3H Lab 05/14/19 05:15 Ordered Troponin I Q3H Lab 05/14/19 08:15 Ordered Sputum Culture & Gram Stain Stat Micro 05/14/19 01:46 Results - Radiology Data #1 Image(s): Chest Image Reviewed: Yes I reviewed the patient's radiology image Preliminary Findings: Abnormal (fluid in fissure) - CT Data CT Scan: Chest Time Received: 04:[address] Reviewed: Yes: I have viewed the radiologist's interpretation Preliminary Findings: Abnormal (rml inflitrate ) - ECG Data Tracing #1 Arrhythmias present: afib Ischemic changes: non-specific ST-T wave changes Tracing #2 Arrhythmias present: afib Ischemic changes: non-specific ST-T wave changes Chest Pain HPI - General Chief Complaint: Chest Pain Stated Complaint: chest pain Time Seen by Provider: 05/14/19 01:45 Mode of Arrival: Ambulatory Source of Information: Patient, Medical Record Limitations: No Limitations Description of Symptoms (Recalled from ER Triage Doc. by RN): pt stated he started having chest pain about an hour ago that he described as a tight/ pressure like pain currently rating a 7. pt also stated he has been spitting up blood since yesterday. - History of Present Illness HPI narrative: pt with episode of chest tightness tonight - known hx of cardiac disease - also has few episodes of hemoptysis - no fever and no melena - pt reports compliant with meds - MD complaint: chest pain indicative of cardiac Onset (ago): hour(s) Duration: now resolved Activity at onset: during rest Pain location: substernal Severity: similar to previous episodes Quality: tightness Relieving factors: nitroglycerin Risk Factors for CAD: Hypertension, Hypercholesterolemia, Family Hx of CAD, Diabetes, Smoking Treatments prior to or on arrival for Cardiac Chest Pain: aspirin - LANDY Score for Non-Stemi Age of Patient: 40-49 years old Heart Rate: 110-149 bpm Systolic Blood Pressure: 140-159 mmHg Serum Creatinine: 0.80-1.19 mg/dl CHF [place] Class: I-No CHF Other Risk Factors: None Non-Stemi Risk Score: 80 - Related Data Prior Cardiac Testing/Procedures: Stenting Home Medications Medication Instructions Recorded Confirmed Aspirin [Aspirin 81mg EC Tab] 81 mg PO DAILY 05/14/19 05/14/19 Atorvastatin Calcium [Lipitor 40mg 40 mg PO HS 05/14/19 05/14/19 Tablet] Clopidogrel Bisulfate [Plavix 75mg 75 mg PO DAILY 05/14/19 05/14/19 Tab] Furosemide [Furosemide 20mg Tab] 20 mg PO DAILY 05/14/19 05/14/19 Gabapentin [Gabapentin 300mg Cap] 300 mg PO BID 05/14/19 05/14/19 Metformin HCl [Metformin 1000mg 1,000 mg PO BID 05/14/19 05/14/19 Tablets] Nicotine [Nicotine Patch 1 patch TRANSDERMAL DAILY 05/14/19 05/14/19 21mg/24hrs] Ramipril 10 mg PO DAILY 05/14/19 05/14/19 Spironolactone [Spironolactone 25 mg PO DAILY 05/14/19 05/14/19 25mg Tablet] bisoproloL fumarate [Zebeta 5mg 5 mg PO QD 05/14/19 05/14/19 tablet] glipiZIDE [Glucotrol] 5 mg PO DAILY 05/14/19 05/14/19 Previous Rx's Medication Instructions Recorded Nicotine [Nicoderm 21mg/24hr 21 mg TD DAILYP PRN #30 patch.td24 10/03/18 patch] Allergies Allergy/AdvReac Type Severity Reaction Status Date / Time ANESTHETICS,GENERAL Allergy Unknown I-RASH Uncoded 04/04/19 13:38 [facility] History - Hepatitis A Screen Drug use history?: No High risk sexual behaviors?: No History of sexually transmitted infection?: No Currently employed?: No Childcare worker?: No Do you have indoor plumbing?: Yes Do you have electricity?: Yes Attestation statement:: This patient has been screened for Hepatitis A risk factors. I have reviewed the patient's past medical history: Yes Medical History: Reports:: Coronary Artery Disease, Diabetes Mellitus Type 2, Heart Murmur, Hyperlipidemia, Hypertension Denies:: Cancer, MRSA Other Medical History: Reports: Arthritis Other Surgeries: Yes: Cardiac Catheterization, Coronary Stent Amputation: No Fractures: No - Social History Smoking Status: Current every day smoker Tobacco Type: cigarettes # Packs/Day (cigarettes): 1 #Yrs smoked (if former smoker): 31 Alcohol Intake: never Alcohol Intake Frequency:: holidays/special occasions only Substance Use Type: marijuana, crack/cocaine, amphetamines, sedatives, opiates, former substance user Occupational Status: unemployed Household Members: spouse, children Family Hx:: Coronary Artery Disease, Heart Attack Comment: Maternal Uncle- of [email or web address]. Maternal Grandmother-CHF. M aternal Aunt-CAD ROS Obtained: Yes All systems reviewed & no additional complaints - Constitutional Constitutional: Denies fever(s) - Eyes Eyes: Denies change in vision - ENT Ears, Nose, Mouth, and Throat: Denies sore throat - Cardiovascular Cardiovascular: Reports chest pain, Reports chest pain at rest, Denies dyspnea, Reports rapid heart rate - Respiratory Respiratory: Yes as per HPI, No cough, Yes coughing up blood - Gastrointestinal Gastrointestingal: Denies: abdominal pain, vomiting - Genitourinary Male Genitourinary: Denies hematuria - Musculoskeletal Musculoskeletal: Denies joint pain - Integumentary/Breasts Skin/Breast: Denies rash - Neurologic Neurologic: Denies seizure-like activity Physical Exam - General General appearance: alert - Head Head exam: normocephalic - Eye Eye exam: Present: PERRL, EOMI. Absent: scleral icterus - ENT ENT exam: Present: mucous membranes dry - Neck Neck exam: Present: trachea midline - Respiratory Respiratory exam: Present: other (rhonchi). Absent: respiratory distress - Cardiovascular Cardiovascular exam: Present: irregular rhythm, systolic murmur, +S4 - Abdominal Exam Abdominal exam: Present: soft - Extremities Exam Extremities exam: Absent: calf tenderness - Neurological Exam Neurological exam: Present: alert, oriented X3, CN II-XII intact - Psychiatric Psychiatric exam: Present: normal affect - Skin Skin exam: Absent: rash
[2019-05-14 03:11] LABS: Amphetamine/Metha Screen,Urine Negative ng/mL (<1000); Barbiturates Screen,Urine Negative ng/mL (<200); Benzodiazepines Screen,Urine Negative ng/mL (<200); Cannabinoid Screen,Urine Positive ng/mL (<50); Cocaine Screen,Urine Negative ng/mL (<300); Methadone Screen,Urine Negative ng/mL (<300); Opiate Screen,Urine Negative ng/mL (<300); Phencyclidine Screen,Urine Negative ng/mL (<25)
[2019-05-14 03:41] LABS: Thyroid Stimulating Hormone 4.07 uIU/ml (0.358-3.740)
--- NOTE | 2019-05-14 07:13 | H&P/Discharge Summary ---
General - General Admission date:: 05/14/19 Discharge date: 05/14/19 *Admission Date: 05/14/19 *Chief complaint: chest pain *History of present illness: pt with chest pain and has hx of cad - pt was noted to have new onset of a fib and also had cough - nonproductive - he had issue of hemoptysis- pt had ct chest in ed with rml cap but no pul emboli- had wells score of 5 - [facility] History Medical History: Reports:: Coronary Artery Disease, Diabetes Mellitus Type 2, Heart Murmur, Hyperlipidemia, Hypertension Denies:: Cancer, MRSA *Have you ever received a pneumonia vaccine?: No *Have you received a flu vaccine this season?: No Other Medical History: Reports: Arthritis Other Surgeries: Yes: Cardiac Catheterization, Coronary Stent Amputation: No Fractures: No - *Social History Smoking Status: Current every day smoker Tobacco Type: cigarettes # Packs/Day (cigarettes): 1 #Yrs smoked (if former smoker): 31 Alcohol Intake: never Alcohol Intake Frequency:: holidays/special occasions only Substance Use Type: marijuana, crack/cocaine, amphetamines, sedatives, opiates, former substance user *Occupational Status:: unemployed Household Members: spouse, children *Travel in the last 8 weeks: None Family Hx:: Coronary Artery Disease, Heart Attack Review of Systems - *Neurologic Denies seizure-like activity Exam Vital signs and Labs for Last 24 Hours: Temp Pulse Resp BP Pulse Ox 97.8 F 79 15 105/69 L 97 05/14/19 06:57 05/14/19 06:57 05/14/19 06:57 05/14/19 06:57 05/14/19 02:24 Laboratory Results - last 24 hr 05/14/19 01:45: Urine Color Yellow, Urine Appearance Clear, Urine pH 6.0, Ur Sp ecific [place] <= 1.005, Urine Protein Trace, Urine Glucose (UA) 3+, Urine Ketones Negative, Urine Blood Trace-i, Urine Nitrate Negative, Urine Bilirubin Negative, Urine Urobilinogen 0.2, Ur Leukocyte Esterase Negative, Urine RBC 3-5, Amorphous Sediment Trace 05/14/19 01:45: WBC 8.6, RBC 5.76, Hgb 17.4, Hct 51.9, MCV 90.2, MCH 30.2, MCHC 33.5, RDW 13.1, Plt Count 192, MPV 8.7, Neut % (Auto) 57.6, Lymph % (Auto) 31.5, [place] % (Auto) 6.0, Eos % (Auto) 3.8, Baso % (Auto) 1.1, Neut # (Auto) 4.9, Lymph # (Auto) 2.7, [place] # (Auto) 0.5, Eos # (Auto) 0.3, Baso # (Auto) 0.1 05/14/19 01:45: Sodium 138, Potassium 4.0, Chloride 100, Carbon Dioxide 24, Anion Gap 18.0 H, BUN 22 H, Creatinine 0.97, Estimated Creat Clear 89, Estimated GFR 84, Est GFR ( Amer) 101, Glucose 419 H*, Calcium 8.7 05/14/19 01:45: Urine Opiates Screen Negative, Urine Methadone Screen Negative, Ur Barbituates Screen Negative, Ur Phencyclidine Scrn Negative, Ur Amphetamines Screen Negative, U Benzodiazepines Scrn Negative, Urine Cocaine Screen Negative, U Marijuana (THC) Screen Positive H 05/14/19 01:57: ESR 3 05/14/19 01:57: Troponin I 0.08 H, C-Reactive Protein < 0.2 05/14/19 01:57: TSH 4.07 H, Thyroxine (T4) 7.7 05/14/19 01:57: Hemoglobin A1c 8.9 H 05/14/19 05:35: Troponin I 2.13 H I & O for Last 24 hours: Intake & Output 05/11/19 05/12/19 05/13/19 05/14/19 11:59 11:59 11:59 11:59 Weight 200 lb Microbiology Reports for the Last 24 Hours: Microbiology 05/14/19 01:46 Sputum - Expectorated Sputum Gram Stain - Final Results Labs on day of discharge: Labs from last 24 hours 05/14/19 05/14/19 05/14/19 05:35 01:57 01:57 WBC RBC Hgb Hct MCV MCH MCHC RDW Plt Count MPV Neut % (Auto) Lymph % (Auto) [place] % (Auto) Eos % (Auto) Baso % (Auto) Neut # (Auto) Lymph # (Auto) [place] # (Auto) Eos # (Auto) Baso # (Auto) ESR Sodium Potassium Chloride Carbon Dioxide Anion Gap BUN Creatinine Estimated Creat Clear Estimated GFR Est GFR ( Amer) Glucose Hemoglobin A1c 8.9 H Calcium Troponin I 2.13 H C-Reactive Protein TSH 4.07 H Thyroxine (T4) 7.7 Urine Color Urine Appearance Urine pH Ur Specific [place] Urine Protein Urine Glucose (UA) Urine Ketones Urine Blood Urine Nitrate Urine Bilirubin Urine Urobilinogen Ur Leukocyte Esterase Urine RBC Amorphous Sediment Urine Opiates Screen Urine Methadone Screen Ur Barbituates Screen Ur Phencyclidine Scrn Ur Amphetamines Screen U Benzodiazepines Scrn Urine Cocaine Screen U Marijuana (THC) Screen 05/14/19 05/14/19 05/14/19 01:57 01:57 01:45 WBC RBC Hgb Hct MCV MCH MCHC RDW Plt Count MPV Neut % (Auto) Lymph % (Auto) [place] % (Auto) Eos % (Auto) Baso % (Auto) Neut # (Auto) Lymph # (Auto) [place] # (Auto) Eos # (Auto) Baso # (Auto) ESR 3 Sodium Potassium Chloride Carbon Dioxide Anion Gap BUN Creatinine Estimated Creat Clear Estimated GFR Est GFR ( Amer) Glucose Hemoglobin A1c Calcium Troponin I 0.08 H C-Reactive Protein < 0.2 TSH Thyroxine (T4) Urine Color Urine Appearance Urine pH Ur Specific [place] Urine Protein Urine Glucose (UA) Urine Ketones Urine Blood Urine Nitrate Urine Bilirubin Urine Urobilinogen Ur Leukocyte Esterase Urine RBC Amorphous Sediment Urine Opiates Screen Negative Urine Methadone Screen Negative Ur Barbituates Screen Negative Ur Phencyclidine Scrn Negative Ur Amphetamines Screen Negative U Benzodiazepines Scrn Negative Urine Cocaine Screen Negative U Marijuana (THC) Screen Positive H 05/14/19 05/14/19 05/14/19 01:45 01:45 01:45 WBC 8.6 RBC 5.76 Hgb 17.4 Hct 51.9 MCV 90.2 MCH 30.2 MCHC 33.5 RDW 13.1 Plt Count 192 MPV 8.7 Neut % (Auto) 57.6 Lymph % (Auto) 31.5 [place] % (Auto) 6.0 Eos % (Auto) 3.8 Baso % (Auto) 1.1 Neut # (Auto) 4.9 Lymph # (Auto) 2.7 [place] # (Auto) 0.5 Eos # (Auto) 0.3 Baso # (Auto) 0.1 ESR Sodium 138 Potassium 4.0 Chloride 100 Carbon Dioxide 24 Anion Gap 18.0 H BUN 22 H Creatinine 0.97 Estimated Creat Clear 89 Estimated GFR 84 Est GFR ( Amer) 101 Glucose 419 H* Hemoglobin A1c Calcium 8.7 Troponin I C-Reactive Protein TSH Thyroxine (T4) Urine Color Yellow Urine Appearance Clear Urine pH 6.0 Ur Specific [place] <= 1.005 Urine Protein Trace Urine Glucose (UA) 3+ Urine Ketones Negative Urine Blood Trace-i Urine Nitrate Negative Urine Bilirubin Negative Urine Urobilinogen 0.2 Ur Leukocyte Esterase Negative Urine RBC 3-5 Amorphous Sediment Trace Urine Opiates Screen Urine Methadone Screen Ur Barbituates Screen Ur Phencyclidine Scrn Ur Amphetamines Screen U Benzodiazepines Scrn Urine Cocaine Screen U Marijuana (THC) Screen Discharge Plan - Patient Discharge Instructions - Follow up Plan Home Medications: Home Medications Medication Instructions Recorded Confirmed Type Nicotine [Nicoderm 21mg/24hr 21 mg TD DAILYP PRN #30 patch.td24 10/03/18 05/14/19 Rx patch] Aspirin [Aspirin 81mg EC Tab] 81 mg PO DAILY 05/14/19 05/14/19 History Atorvastatin Calcium [Lipitor 40mg 40 mg PO HS 05/14/19 05/14/19 History Tablet] Clopidogrel Bisulfate [Plavix 75mg 75 mg PO DAILY 05/14/19 05/14/19 History Tab] Furosemide [Furosemide 20mg Tab] 20 mg PO DAILY 05/14/19 05/14/19 History Gabapentin [Gabapentin 300mg Cap] 300 mg PO BID 05/14/19 05/14/19 History Metformin HCl [Metformin 1000mg 1,000 mg PO BID 05/14/19 05/14/19 History Tablets] Nicotine [Nicotine Patch 1 patch TRANSDERMAL DAILY 05/14/19 05/14/19 History 21mg/24hrs] Ramipril 10 mg PO DAILY 05/14/19 05/14/19 History Spironolactone [Spironolactone 25 mg PO DAILY 05/14/19 05/14/19 History 25mg Tablet] bisoproloL fumarate [Zebeta 5mg 5 mg PO QD 05/14/19 05/14/19 History tablet] glipiZIDE [Glucotrol] 5 mg PO DAILY 05/14/19 05/14/19 History Prescriptions/Medication Reconciliation: No Action Nicotine [Nicoderm 21mg/24hr patch] 21 mg TD DAILYP PRN #30 patch.td24 PRN Reason: Nicotine Cravings Ramipril 10 mg PO DAILY Nicotine [Nicotine Patch 21mg/24hrs] 1 patch TRANSDERMAL DAILY glipiZIDE [Glucotrol] 5 mg PO DAILY Gabapentin [Gabapentin 300mg Cap] 300 mg PO BID Furosemide [Furosemide 20mg Tab] 20 mg PO DAILY Clopidogrel Bisulfate [Plavix 75mg Tab] 75 mg PO DAILY bisoproloL fumarate [Zebeta 5mg tablet] 5 mg PO QD Atorvastatin Calcium [Lipitor 40mg Tablet] 40 mg PO HS Spironolactone [Spironolactone 25mg Tablet] 25 mg PO DAILY Metformin HCl [Metformin 1000mg Tablets] 1,000 mg PO BID Aspirin [Aspirin 81mg EC Tab] 81 mg PO DAILY - Problem Reconciliation Problems Reviewed?: Yes
--- NOTE | 2019-05-14 09:14 | History & Physical Report ---
*Admission Date: 05/14/19 *Chief complaint: chest pain *History of present illness: this pt presents with episode of chest pain at home and presented to ed -pt with known card dis and has tob use and diabetes - pt with irreg heart rhythm - pt was admitted for card eval and treated for a fib [facility] History I have reviewed the patient's past medical history: Yes Medical History: Reports:: Coronary Artery Disease, Diabetes Mellitus Type 2, Heart Murmur, Hyperlipidemia, Hypertension Denies:: Cancer, MRSA *Have you ever received a pneumonia vaccine?: No *Have you received a flu vaccine this season?: No Other Medical History: Reports: Arthritis Other Surgeries: Yes: Cardiac Catheterization, Coronary Stent Amputation: No Fractures: No - *Social History Educational Level: Completed High School Smoking Status: Current every day smoker Tobacco Type: cigarettes # Packs/Day (cigarettes): 25 #Yrs smoked (if former smoker): 31 Alcohol Intake: never Alcohol Intake Frequency:: 0-2 drinks per day Substance Use Type: marijuana, crack/cocaine, opiates, other *Occupational Status:: unemployed Household Members: spouse, children *Travel in the last 8 weeks: None Family Hx:: Coronary Artery Disease, Heart Attack Review of Systems - Review of Systems Review of systems:: pertinent systems reviewed and negative unless documented below - Constitutional Denies fever(s) - Eyes Denies change in vision - ENT Denies sore throat - *Cardiovascular Reports chest pain at rest, Reports rapid, pounding, or irregular heartbeat - *Respiratory Denies cough - *Gastrointestinal Denies abdominal pain - *Genitourinary Denies blood in urine - *Musculoskeletal Denies joint pain - Integumentary/Breasts Denies lesions - *Neurologic Denies seizure-like activity Meds Home Medications Medication Instructions Recorded Confirmed Type Nicotine [Nicoderm 21mg/24hr 21 mg TD DAILYP PRN #30 patch.td24 10/03/18 05/14/19 Rx patch] Aspirin [Aspirin 81mg EC Tab] 81 mg PO DAILY 05/14/19 05/14/19 History Atorvastatin Calcium [Lipitor 40mg 40 mg PO HS 05/14/19 05/14/19 History Tablet] Clopidogrel Bisulfate [Plavix 75mg 75 mg PO DAILY 05/14/19 05/14/19 History Tab] Furosemide [Furosemide 20mg Tab] 20 mg PO DAILY 05/14/19 05/14/19 History Gabapentin [Gabapentin 300mg Cap] 300 mg PO BID 05/14/19 05/14/19 History Metformin HCl [Metformin 1000mg 1,000 mg PO BID 05/14/19 05/14/19 History Tablets] Nicotine [Nicotine Patch 1 patch TRANSDERMAL DAILY 05/14/19 05/14/19 History 21mg/24hrs] Ramipril 10 mg PO DAILY 05/14/19 05/14/19 History Spironolactone [Spironolactone 25 mg PO DAILY 05/14/19 05/14/19 History 25mg Tablet] bisoproloL fumarate [Zebeta 5mg 5 mg PO QD 05/14/19 05/14/19 History tablet] glipiZIDE [Glucotrol] 5 mg PO DAILY 05/14/19 05/14/19 History Allergies Allergy/AdvReac Type Severity Reaction Status Date / Time ANESTHETICS,GENERAL Allergy Unknown I-RASH Uncoded 04/04/19 13:38 Exam Vital signs and Labs for Last 24 Hours: Temp Pulse Resp BP Pulse Ox 98.0 F 72 18 125/59 L 97 05/14/19 08:12 05/14/19 08:12 05/14/19 08:12 05/14/19 08:12 05/14/19 08:12 Laboratory Results - last 24 hr 05/14/19 01:45: Urine Color Yellow, Urine Appearance Clear, Urine pH 6.0, Ur Specific [place] <= 1.005, Urine Protein Trace, Urine Glucose (UA) 3+, Urine Ketones Negative, Urine Blood Trace-i, Urine Nitrate Negative, Urine Bilirubin Negative, Urine Urobilinogen 0.2, Ur Leukocyte Esterase Negative, Urine RBC 3-5, Amorphous Sediment Trace 05/14/19 01:45: WBC 8.6, RBC 5.76, Hgb 17.4, Hct 51.9, MCV 90.2, MCH 30.2, MCHC 33.5, RDW 13.1, Plt Count 192, MPV 8.7, Neut % (Auto) 57.6, Lymph % (Auto) 31.5, [place] % (Auto) 6.0, Eos % (Auto) 3.8, Baso % (Auto) 1.1, Neut # (Auto) 4.9, Lymph # (Auto) 2.7, [place] # (Auto) 0.5, Eos # (Auto) 0.3, Baso # (Auto) 0.1 05/14/19 01:45: Sodium 138, Potassium 4.0, Chloride 100, Carbon Dioxide 24, Anion Gap 18.0 H, BUN 22 H, Creatinine 0.97, Estimated Creat Clear 89, Estimated GFR 84, Est GFR ( Amer) 101, Glucose 419 H*, Calcium 8.7 05/14/19 01:45: Urine Opiates Screen Negative, Urine Methadone Screen Negative, Ur Barbituates Screen Negative, Ur Phencyclidine Scrn Negative, Ur Amphetamines Screen Negative, U Benzodiazepines Scrn Negative, Urine Cocaine Screen Negative, U Marijuana (THC) Screen Positive H 05/14/19 01:57: ESR 3 05/14/19 01:57: Troponin I 0.08 H, C-Reactive Protein < 0.2 05/14/19 01:57: TSH 4.07 H, Thyroxine (T4) 7.7 05/14/19 01:57: Hemoglobin A1c 8.9 H 05/14/19 05:35: Troponin I 2.13 H I & O for Last 24 hours: Intake & Output 05/11/19 05/12/19 05/13/19 05/14/19 11:59 11:59 11:59 11:59 Weight 218 lb 3 oz Microbiology Reports for the Last 24 Hours: Microbiology 05/14/19 01:46 Sputum - Expectorated Sputum Gram Stain - Final - Constitutional no acute distress - *Routine HEENT Exam Head: Present: normocephalic Eye: Present: EOMI, PERRL. Absent: conjunctival icterus ENT: Present: mucous membranes dry - *Routine Neck Exam Present: supple. Absent: JVD - *Routine Respiratory Exam Present: CTA bilaterally - *Routine Cardiovascular Exam Present: murmur, S4, irregular rhythm - *Routine Abdominal Exam Present: soft - *Routine Extremities Exam Absent: calf tenderness - *Routine Skin Exam Present: intact - *Routine Neurological Exam Present: alert, oriented X3, CN II-XII intact - Routine Psychiatric Exam Present: normal affect Assessment and Plan (1) Overweight (BMI 25.0-29.9) Current visit: Yes Status: Acute Category: Medical Code(s): E66.3 - Overweight (2) Tobacco use Current visit: Yes Status: Acute Category: Medical Code(s): Z72.0 - Tobacco use (3) Chest pain Current visit: Yes Status: Acute Qualifiers: Chest pain type: precordial pain Qualified Code(s): R07.2 - Precordial pain Category: Medical Code(s): R07.9 - Chest pain, unspecified (4) A-fib Current visit: Yes Status: Acute Qualifiers: Atrial fibrillation type: unspecified Qualified Code(s): I48.91 - Unspecified atrial fibrillation Category: Medical Code(s): I48.91 - Unspecified atrial fibrillation (5) CAP (community acquired pneumonia) Current visit: Yes Status: Acute Qualifiers: Laterality: right Lung location: middle lobe of lung Qualified Code(s): J18.9 - Pneumonia, unspecified organism Category: Medical Code(s): J18.9 - Pneumonia, unspecified organism (6) Diabetes Current visit: Yes Status: Chronic Qualifiers: Diabetes mellitus type: type 2 Diabetes mellitus long-term insulin use: unspecified long-term insulin use status Diabetes mellitus complication status: without complication Qualified Code(s): E11.9 - Type 2 diabetes mellitus without complications Category: Medical Code(s): E11.9 - Type 2 diabetes mellitus without complications (7) Hyperlipidemia Current visit: No Status: Chronic Qualifiers: Hyperlipidemia type: unspecified Qualified Code(s): E78.5 - Hyperlipidemia, unspecified Category: Medical Code(s): E78.5 - Hyperlipidemia, unspecified (8) Elevated troponin Current visit: Yes Status: Acute Category: Medical Code(s): R79.89 - Other specified abnormal findings of blood chemistry
--- NOTE | 2019-05-14 11:50 | Pharmacy Consult Notes ---
[facility] Pharmacy VTE Monitoring - Patient Demographics Admission date: 05/14/19 Report Date: 05/14/19 Time: 11:49 Allergies/Adverse Reactions: Patient Allergies ANESTHETICS,GENERAL Allergy (Unknown, Uncoded 04/04/19 13:38) I-RASH Height: 1.83 m Weight: 98.968 kg Patient Problems: Current Active Problems Tobacco use (Acute) Chest pain (Acute) A-fib (Acute) CAP (community acquired pneumonia) (Acute) Overweight (BMI 25.0-29.9) (Acute) Elevated troponin (Acute) Diabetes (Chronic) - VTE Risk Labs: VTE Related Lab Results Hgb 17.4 g/dL (14.1-18.0) 05/14/19 01:45 Hct 51.9 % (42.0-52.0) 05/14/19 01:45 Plt Count 192 K/mm3 (142-424) 05/14/19 01:45 BUN 22 mg/dL (7-18) H 05/14/19 01:45 Creatinine 0.97 mg/dL (0.70-1.30) 05/14/19 01:45 Estimated Creat Clear 89 mL/min (50-200) 05/14/19 01:45 Was VTE Risk Assessment Performed: Yes VTE Score: 5 VTE Risk Level: Low Risk - Prophylaxis VTE Prophylaxis Ordered?: Yes Types of VTE Prophylaxis: Pharmacological (1 DOSE OF LOVENOX, THEN XARELTO 20 MG DAILY) Location of Applied Device: Not Applicable Pharmacologic Type: Other (XARELTO)
--- NOTE | 2019-05-14 16:50 | Electrocardiograph Report ---
APPROVED REPORT Exam: Resting ECG HR:91 bpm ECG Measurements Heart Rate 91 AXES QRSd 90 QRS 5 QT 356 T123 QTc 437 <Conclusion> Atrial fibrillation Minimal voltage criteria for LVH, may be normal variant Inferior infarct, old ST & T wave abnormality, consider lateral ischemia or digitalis effect Abnormal ECG Electronically signed by : Gustavo Bingham, 05/14/2019 16:50:17
--- NOTE | 2019-05-15 07:47 | Consult Report ---
History of Present Illness Consult date: 05/15/19 Requesting physician: Fernando Muller Consult reason: chest pain Chief complaint: NSTEMI, A. fib with RVR Additional Medical History:: 1. CAD A. Previous coronary stents by Dr. Richards and Dr. Rico with last ones in 2014 B. STEMI, 09/2018 C. C, 09/2018, ANGIOGRAPHIC RESULTS: 1. The left main artery has a distal 10-20% stenosis 2. The left anterior descending artery has a very proximal 50-60% stenosis followed by subtotal occlusion at mid segment. The entire mid LAD is small caliber. The first diagonal artery has ostial proximal 90% stenosis. This is a small caliber vasculopathic vessel. The second diagonal artery is a larger branch and has mid vessel 70-80% stenosis and small vessel vasculopathic disease. The third diagonal artery is a small branch and patent. The distal LAD is a patent vessel and wraps the apex. The distal LAD is a small caliber vasculopathic vessel with multiple 80 and 90% stenoses in this a proximally 1 mm throughout its distal course. 3. The circumflex artery is a dominant vessel and has mid vessel diffuse 40-50% stenoses. Gives rise to a large terminal obtuse marginal artery. The mid segment of the circumflex artery has diffuse vasculopathic lesions small caliber but does open to a 2.5 mm distal terminal artery which is patent. The first obtuse marginal artery is a small to medium vessel and has diffuse vasculopathic disease from the proximal mid and distal segment 4. The right coronary artery is a nondominant 2 mm vessel and has proximal 20-30% stenoses mid vessel 40% stenoses. Distally the vessels vasculopathic with small vessel disease and poor myocardial blushing 5. The JARA ventriculogram reveals preserved 60% 6. The left ventricular end-diastolic pressure 25 mmHg IMPRESSION: 1. Subtotal occlusion of the mid LAD with successful stenting opening the vessel to 10% stenosed. 2. 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 3. Preserved ejection fraction 4. Elevated LVEDP 2. Polysubstance abuse including cocaine 3. Tobacco use, continued with previous 1.5-2 ppd use 4. Strong FH of CAD in father and brothers in their 40's 5. Medication non-compliance 6. DM, type 2, treated for a couple of years 7. Hemoptysis, 05/2019 A. Pneumonia, 05/[address] of chest, 05/2019, 1. Right middle lobe pneumonia. 2. There are few other small parenchymal opacities in the right upper lobe, superior segment right lower lobe, and left upper lobe which could be due to inflammatory/infectious changes as well. Recommend 3 month follow-up to confirm resolution. 3. Scattered small axillary lymph nodes. Residual thymic tissue suspected 8. HTN A. Echo, 05/2019, 2D 1. Left atrium is moderately enlarged, left ventricle is mildly dilated, mild concentric left ventricular hypertrophy, visually estimated ejection fraction 45%, there is moderate hypokinesis involving the distal septum and apical wall. 2. The right atrium and right ventricle are normal size and contractility. 3. The aortic valve is minimally thickened and fibrosed. 4. The mitral and tricuspid valve leaflets are minimally thickened. 5. The pulmonic valve is poorly visualized. 6. No significant pericardial effusion noted. DOPPLER INTERROGATION: Doppler interrogation of the aortic, mitral and tricuspid valvular presence of moderate mitral and mild tricuspid regurgitation, tricuspid regurgitation jet velocity is inadequate for calculation of the right ventricle is pressure, grade 1 diastolic dysfunction seen with tissue Doppler evidence of raised left atrial pressure. CONCLUSION: 1. Moderately enlarged left atrium, mildly dilated ventricle, mild concentric left ventricular hypertrophy, visually estimated ejection fraction 45% with multiple segmental wall motion abnormality described above, grade 1 diastolic dysfunction seen with tissue Doppler evidence of raised left atrial pressure. 2. Moderate mitral and mild tricuspid regurgitation 3. No significant pericardial effusion noted 9. Hyperlipidemia 10. New onset A. fib with RVR, 05/2019 A. CHADS-VASC score of 2 (HTN, CAD) History of present illness: 43-year-old white male with known coronary artery disease presented to the hospital for evaluation of chest pressure/tightness reminiscent of prior myocardial infarctions. Patient recently had an ST elevation IA earlier this year with subsequent LAD stenting. He has maintained compliance on aspirin and Plavix. He previously had admitted to cocaine use but denies any since his admission earlier this year for STEMI. He does take Suboxone. Recently was seen in the office and [facility] on remaining coronary artery disease but never did follow through with this and relates chest discomfort with exertion that resolves with rest recently. The patient does continue to smoke. On admission to the ER patient did have atrial Fib with a rapid ventricular response which has spontaneously converted to sinus rhythm during his stay. Symptoms of chest pressure resolved with nitroglycerin in the ER. He's had no further chest discomfort during his hospital stay. His troponin peak is 3.8. EKG's showed atrial fibrillation with rapid ventricular response. Telemetry shows A. fib that is converted to sinus rhythm. No acute ST segment changes are noted. Cardiology consulted for evaluation and recommendations. Patient relates some blood tinged phlegm with cough recently as well. [facility] History Medical History: Reports:: Coronary Artery Disease, Diabetes Mellitus Type 2, Heart Murmur, Hyperlipidemia, Hypertension Denies:: Cancer, MRSA *Have you ever received a pneumonia vaccine?: No *Have you received a flu vaccine this season?: No Other Medical History: Reports: Arthritis Other Surgeries: Yes: Cardiac Catheterization, Coronary Stent Amputation: No Fractures: No - *Social History Educational Level: Completed High School Smoking Status: Current every day smoker Tobacco Type: cigarettes # Packs/Day (cigarettes): 25 #Yrs smoked (if former smoker): 31 Alcohol Intake: never Alcohol Intake Frequency:: 0-2 drinks per day Substance Use Type: marijuana, crack/cocaine, opiates, other *Occupational Status:: unemployed Household Members: spouse, children *Travel in the last 8 weeks: None Family Hx:: Coronary Artery Disease, Heart Attack Meds Home Medications Medication Instructions Recorded Confirmed Type Nicotine [Nicoderm 21mg/24hr 21 mg TD DAILYP PRN #30 patch.td24 10/03/18 05/14/19 Rx patch] Aspirin [Aspirin 81mg EC Tab] 81 mg PO DAILY 05/14/19 05/14/19 History Atorvastatin Calcium [Lipitor 40mg 40 mg PO HS 05/14/19 05/14/19 History Tablet] Buprenorphine HCl/Naloxone HCl 2 tab SL DAILY 05/14/19 05/14/19 History [Buprenorphin-Naloxon 8-2 mg Sl] Clopidogrel Bisulfate [Plavix 75mg 75 mg PO DAILY 05/14/19 05/14/19 History Tab] Furosemide [Furosemide 20mg Tab] 20 mg PO DAILY 05/14/19 05/14/19 History Gabapentin [Gabapentin 300mg Cap] 300 mg PO BID 05/14/19 05/14/19 History Metformin HCl [Metformin 1000mg 1,000 mg PO BID 05/14/19 05/14/19 History Tablets] Ramipril 10 mg PO DAILY 05/14/19 05/14/19 History Spironolactone [Spironolactone 25 mg PO DAILY 05/14/19 05/14/19 History 25mg Tablet] bisoproloL fumarate [Zebeta 5mg 5 mg PO DAILY 05/14/19 05/14/19 History tablet] glipiZIDE [Glucotrol] 5 mg PO DAILY 05/14/19 05/14/19 History Allergies Allergy/AdvReac Type Severity Reaction Status Date / Time ANESTHETICS,GENERAL Allergy Unknown I-RASH Uncoded 04/04/19 13:38 Review of Systems - Review of Systems Review of systems:: pertinent systems reviewed and negative unless documented below - *Cardiovascular Reports chest pain, Reports chest pain with activity, Reports shortness of breath with activity - *Respiratory Reports cough, Reports shortness of breath with activity, Reports coughing up blood - *Gastrointestinal Denies abdominal pain, Denies nausea, Denies vomiting - *Genitourinary Denies blood in urine - *Musculoskeletal Denies joint pain, Denies back pain - *Neurologic Denies dizziness, Denies seizure-like activity, Denies fainting Exam Vital signs and Labs for Last 24 Hours: Temp Pulse Resp BP Pulse Ox 97.6 F 58 L 18 108/63 L 95 05/15/19 04:00 05/15/19 04:00 05/15/19 04:00 05/15/19 04:00 05/15/19 04:00 Laboratory Results - last 24 hr 05/14/19 08:16: Troponin I 3.80 H 05/14/19 10:33: POC Glucose 259 H 05/14/19 17:16: POC Glucose 164 H 05/14/19 20:03: POC Glucose 237 H 05/15/19 05:24: POC Glucose 165 H 05/15/19 06:30: Magnesium 1.5 I & O for Last 24 hours: Intake & Output 05/12/19 05/13/19 05/14/19 05/15/19 11:59 11:59 11:59 11:59 Intake Total 9309 / 2769 Balance 2769 / 2769 Weight 218 lb 3 oz 215 lb 8 oz Microbiology Reports for the Last 24 Hours: Microbiology 05/14/19 01:46 Sputum - Expectorated Sputum Gram Stain - Final - *Routine Neck Exam Present: supple. Absent: JVD, carotid bruit - *Routine Respiratory Exam Present: CTA bilaterally. Absent: accessory muscle use, rales, rhonchi, wheezes - *Routine Cardiovascular Exam Present: RRR. Absent: murmur, gallop, rubs - *Routine Abdominal Exam Present: soft. Absent: tenderness, distended, guarding - *Routine Extremities Exam Absent: edema, calf tenderness - *Routine Neurological Exam Present: alert, oriented X3, moving all extremities Assessment and Plan (1) Overweight (BMI 25.0-29.9) Current visit: Yes Status: Acute Category: Medical Code(s): E66.3 - Ove rweight (2) Tobacco use Current visit: Yes Status: Acute Category: Medical Code(s): Z72.0 - Tobacco use (3) Chest pain Current visit: Yes Status: Acute Qualifiers: Chest pain type: precordial pain Qualified Code(s): R07.2 - Precordial pain Category: Medical Code(s): R07.9 - Chest pain, unspecified (4) A-fib Current visit: Yes Status: Acute Qualifiers: Atrial fibrillation type: unspecified Qualified Code(s): I48.91 - Unspecified atrial fibrillation Category: Medical Code(s): I48.91 - Unspecified atrial fibrillation (5) CAP (community acquired pneumonia) Current visit: Yes Status: Acute Qualifiers: Laterality: right Lung location: middle lobe of lung Qualified Code(s): J18.9 - Pneumonia, unspecified organism Category: Medical Code(s): J18.9 - Pneumonia, unspecified organism (6) Diabetes Current visit: Yes Status: Chronic Qualifiers: Diabetes mellitus type: type 2 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 Diabetes mellitus complication status: without complication Qualified Code(s): E11.9 - Type 2 diabetes mellitus without complications Category: Medical Code(s): E11.9 - Type 2 diabetes mellitus without complications (7) Hyperlipidemia Current visit: No Status: Chronic Qualifiers: Hyperlipidemia type: unspecified Qualified Code(s): E78.5 - Hyperlipidemia, unspecified Category: Medical Code(s): E78.5 - Hyperlipidemia, unspecified (8) Elevated troponin Current visit: Yes Status: Acute Category: Medical Code(s): R79.89 - Other specified abnormal findings of blood chemistry - Assessment and plan all Dx Assessment and Plan for all problems:: 1. Non-ST elevation IA. Recommend proceeding with cardiac catheterization to reevaluate coronary artery disease. Continue aspirin and Plavix along with statin beta-troy, MAX inhibitor and diltiazem. 2. New onset atrial fibrillation, converted to sinus rhythm on medical therapy. Will need consideration for long-term anticoagulation therapy versus outpatient monitoring for recurrent A. fib. Will discuss after cardiac catheterization. 3. Tobacco cessation recommended. 4. Pneumonia, treatment per Dr. Muller 5. Diabetes mellitus, will hold metformin post-cath. Continue insulin and glipizide. 6. Further recommendations to follow pending cardiac cath results.
--- NOTE | 2019-05-15 14:10 | Discharge Summary ---
General - General Admission date:: 05/14/19 Discharge date: 05/15/19 HPI HPI: this pt presents with episode of chest pain at home and presented to ed -pt with known card dis and has tob use and diabetes - pt with irreg heart rhythm - pt was admitted for card eval and treated for a fib Hospital Course Hospital Course: pt has did well in hospital and no pain and converted to nsr - he was seen by card-ief complaint: NSTEMI, A. fib with RVR Additional Medical History:: 1. CAD A. Previous coronary stents by Dr. Richards and Dr. Rico with last ones in 2014 B. STEMI, 09/2018 C. LHC, 09/2018, ANGIOGRAPHIC RESULTS: 1. The left main artery has a distal 10-20% stenosis 2. The left anterior descending artery has a very proximal 50-60% stenosis followed by subtotal occlusion at mid segment. The entire mid LAD is small caliber. The first diagonal artery has ostial proximal 90% stenosis. This is a small caliber vasculopathic vessel. The second diagonal artery is a larger branch and has mid vessel 70-80% stenosis and small vessel vasculopathic disease. The third diagonal artery is a small branch and patent. The distal LAD is a patent vessel and wraps the apex. The distal LAD is a small caliber vasculopathic vessel with multiple 80 and 90% stenoses in this a proximally 1 mm throughout its distal course. 3. The circumflex artery is a dominant vessel and has mid vessel diffuse 40-50% stenoses. Gives rise to a large terminal obtuse marginal artery. The mid segment of the circumflex artery has diffuse vasculopathic lesions small caliber but does open to a 2.5 mm distal terminal artery which is patent. The first obtuse marginal artery is a small to medium vessel and has diffuse vasculopathic disease from the proximal mid and distal segment 4. The right coronary artery is a nondominant 2 mm vessel and has proximal 20-30% stenoses mid vessel 40% stenoses. Distally the vessels vasculopathic with small vessel disease and poor myocardial blushing 5. The JARA ventriculogram reveals preserved 60% 6. The left ventricular end-diastolic pressure 25 mmHg IMPRESSION: 1. Subtotal occlusion of the mid LAD with successful stenting opening the vessel to 10% stenosed. 2. 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 3. Preserved ejection fraction 4. Elevated LVEDP olysubstance abuse including cocaine 3. Tobacco use, continued with previous 1.5-2 ppd use 4. Strong FH of CAD in father and brothers in their 40's 5. Medication non-compliance 6. DM, type 2, treated for a couple of years 7. Hemoptysis, 05/2019 A. Pneumonia, 05/[address] of chest, 05/2019, 1. Right middle lobe pneumonia. 2. There are few other small parenchymal opacities in the right upper lobe, superior segment right lower lobe, and left upper lobe which could be due to inflammatory/infectious changes as well. Recommend 3 month follow-up to confirm resolution. 3. Scattered small axillary lymph nodes. Residual thymic tissue suspected 8. HTN A. Echo, 05/2019, 2D 1. Left atrium is moderately enlarged, left ventricle is mildly dilated, mild concentric left ventricular hypertrophy, visually estimated ejection fraction 45%, there is moderate hypokinesis involving the distal septum and apical wall. 2. The right atrium and right ventricle are normal size and contractility. 3. The aortic valve is minimally thickened and fibrosed. 4. The mitral and tricuspid valve leaflets are minimally thickened. 5. The pulmonic valve is poorly visualized. 6. No significant pericardial effusion noted. DOPPLER INTERROGATION: Doppler interrogation of the aortic, mitral and tricuspid valvular presence of moderate mitral and mild tricuspid regurgitation, tricuspid regurgitation jet velocity is inadequate for calculation of the right ventricle is pressure, grade 1 diastolic dysfunction seen with tissue Doppler evidence of raised left atrial pressure. ONCLUSION: 1. Moderately enlarged left atrium, mildly dilated ventricle, mild concentric left ventricular hypertrophy, visually estimated ejection fraction 45% with multiple segmental wall motion abnormality described above, grade 1 diastolic dysfunction seen with tissue Doppler evidence of raised left atrial pressure. 2. Moderate mitral and mild tricuspid regurgitation 3. No significant pericardial effusion noted 9. Hyperlipidemia 10. New onset A. fib with RVR, 05/2019 A. CHADS-VASC score of 2 (HTN, CAD) History of present illness: 43-year-old white male with known coronary artery disease presented to the hospital for evaluation of chest pressure/tightness reminiscent of prior myocardial infarctions. Patient recently had an ST elevation FL earlier this year with subsequent LAD stenting. He has maintained compliance on aspirin and Plavix. He previously had admitted to cocaine use but denies any since his admission earlier this year for STEMI. He does take Suboxone. Recently was seen in the office and [facility] remaining coronary artery disease but never did follow through with this and relates chest discomfort with exertion that resolves with rest recently. The patient does continue to smoke. On admission to the ER patient did have atrial Fib with a rapid ventricular response which has spontaneously converted to sinus rhythm during his stay. Symptoms of chest pressure resolved with nitroglycerin in the ER. He's had no further chest discomfort during his hospital stay. His troponin peak is 3.8. EKG's showed atrial fibrillation with rapid ventricular response. Telemetry shows A. fib that is converted to sinus rhythm. No acute ST segment changes are noted. Cardiology consulted for evaluation and recommendations. Patient relates some blood tinged phlegm with cough recently as well. Non-ST elevation FL. Recommend proceeding with cardiac catheterization to reevaluate coronary artery disease. Continue aspirin and Plavix along with statin beta-troy, MAX inhibitor and diltiazem. 2. New onset atrial fibrillation, converted to sinus rhythm on medical therapy. Will need consideration for long-term anticoagulation therapy versus outpatient monitoring for recurrent A. fib. Will discuss after cardiac catheterization. 3. Tobacco cessation recommended. 4. Pneumonia, treatment per Dr. Muller 5. Diabetes mellitus, will hold metformin post-cath. Continue insulin and glipizide. 6. Further recommendations to follow pending cardiac cath results. pt had card cath he left main artery Has a distal 40% stenosis The left anterior descending artery Has proximal eccentric 40 to 50% stenosis followed by mid vessel stent which has severe greater than 90% in-stent restenosis. Distally the vessel is patent however VIKRAM II flow is present. A large first diagonal artery has proximal 90% stenosis. The circumflex artery Is a codominant vessel and has an ostial 30% stenosis with diffuse mid vessel 30% stenoses. Distally in the vessel there is a 60 and 70% stenosis in the proximal portion of the terminal obtuse marginal artery The right coronary artery Is codominant and has a mid vessel 80% stenosis within a stent. Distally there is an 80 to 90% stenosis also representing in-stent restenosis. The distal branches of the right coronary artery has proximal 90% stenosis. There is a large proximal branch which appears to be the posterior descending artery which has proximal 80 to 90% stenosis and a mid vessel 90% stenosis. This is a large branch The JARA ventriculogram reveals Left ventricular dilatation with ejection fraction of 40% The left ventricular end-diastolic pressure 30 mmHg IMPRESSION Severe coronary artery disease as described above Reduced ejection fraction Elevated LVEDP PLAN 1. Patient should be transferred to [facility] for surgical revascularization consideration 2. Recommend avoidance of polysubstance abuse which is in patient's history 3. LDL less than 55 4. Avoidance of tobacco products Objective Vital signs: Temp Pulse Resp BP Pulse Ox 97.8 F 58 L 19 148/79 H 96 05/15/19 12:05 05/15/19 12:05 05/15/19 12:05 05/15/19 12:05 05/15/19 12:05 no acute distress - *Routine HEENT Exam Head: Present: normocephalic Eye: Present: EOMI, PERRL ENT: Present: mucous membranes dry - *Routine Neck Exam Present: supple. Absent: JVD - *Routine Respiratory Exam Present: CTA bilaterally - *Routine Cardiovascular Exam Present: RRR, murmur - *Routine Abdominal Exam Present: soft - *Routine Extremities Exam Absent: calf tenderness - *Routine Skin Exam Present: intact - *Routine Neurological Exam Present: alert, oriented X3, CN II-XII intact - Routine Psychiatric Exam Present: anxious. Absent: good insight Results Labs on day of discharge: Labs from last 24 hours 05/15/19 05/15/19 05/15/19 11:39 08:50 06:30 POC Glucose 181 H Magnesium 1.5 Troponin I 1.86 H 05/15/19 05/14/19 05/14/19 05:24 20:03 17:16 POC Glucose 165 H 237 H 164 H Magnesium Troponin I Preliminary micro results at discharge 05/14/19 01:46 Sputum Culture - Preliminary Sputum - Expectorated Sputum DS: Diagnosis - Discharge Diagnosis (1) Overweight (BMI 25.0-29.9) Status: Acute (2) Tobacco use Status: Acute (3) Chest pain Status: Acute (4) A-fib Status: Acute (5) CAP (community acquired pneumonia) Status: Acute (6) Diabetes Status: Chronic (7) Hyperlipidemia Status: Chronic (8) Elevated troponin Status: Acute (9) CAD (coronary artery disease) Status: Acute (10) Non-ST elevated myocardial infarction (non-STEMI) Status: Acute Discharge Plan - Patient Discharge Instructions ACTIVITY: Continue current activity DIET: continue same diet Patient Instructions: Atrial Fibrillation, DI for Atrial Fibrillation, DI for Chest Pain - Follow up Plan Disposition: Xfer Short-Term Hosp Home Medications: Home Medications Medication Instructions Recorded Confirmed Type Nicotine [Nicoderm 21mg/24hr 21 mg TD DAILYP PRN #30 patch.td24 10/03/18 05/14/19 Rx patch] Aspirin [Aspirin 81mg EC Tab] 81 mg PO DAILY 05/14/19 05/14/19 History Atorvastatin Calcium [Lipitor 40mg 40 mg PO HS 05/14/19 05/14/19 History Tablet] Buprenorphine HCl/Naloxone HCl 2 tab SL DAILY 05/14/19 05/14/19 History [Buprenorphin-Naloxon 8-2 mg Sl] Clopidogrel Bisulfate [Plavix 75mg 75 mg PO DAILY 05/14/19 05/14/19 History Tab] Furosemide [Furosemide 20mg Tab] 20 mg PO DAILY 05/14/19 05/14/19 History Gabapentin [Gabapentin 300mg Cap] 300 mg PO BID 05/14/19 05/14/19 History Metformin HCl [Metformin 1000mg 1,000 mg PO BID 05/14/19 05/14/19 History Tablets] Ramipril 10 mg PO DAILY 05/14/19 05/14/19 History Spironolactone [Spironolactone 25 mg PO DAILY 05/14/19 05/14/19 History 25mg Tablet] bisoproloL fumarate [Zebeta 5mg 5 mg PO DAILY 05/14/19 05/14/19 History tablet] glipiZIDE [Glucotrol] 5 mg PO DAILY 05/14/19 05/14/19 History Prescriptions/Medication Reconciliation: New dilTIAZem HCL [Cardizem 180mg ER capsule] 180 mg PO DAILY cap.er.24h Levofloxacin/D5w [Levaquin 500mg/100mL Premix IVPB] 500 mg IV Q24H piggyback Levofloxacin/D5w [Levaquin 500mg/100mL Premix IVPB] 500 mg IV Q24H piggyback buprenorphine HCL [Subutex 8mg ODT] 16 mg SL DAILY tab.subl Rivaroxaban [Xarelto 10mg tablet] 20 mg PO DAILY tablet Continued Nicotine [Nicoderm 21mg/24hr patch] 21 mg TD DAILYP PRN #30 patch.td24 PRN Reason: Nicotine Cravings Ramipril 10 mg PO DAILY glipiZIDE [Glucotrol] 5 mg PO DAILY Gabapentin [Gabapentin 300mg Cap] 300 mg PO BID Furosemide [Furosemide 20mg Tab] 20 mg PO DAILY Clopidogrel Bisulfate [Plavix 75mg Tab] 75 mg PO DAILY bisoproloL fumarate [Zebeta 5mg tablet] 5 mg PO DAILY Atorvastatin Calcium [Lipitor 40mg Tablet] 40 mg PO HS Buprenorphine HCl/Naloxone HCl [Buprenorphin-Naloxon 8-2 mg Sl] 2 tab SL DAILY Spironolactone [Spironolactone 25mg Tablet] 25 mg PO DAILY Aspirin [Aspirin 81mg EC Tab] 81 mg PO DAILY Discontinued Metformin HCl [Metformin 1000mg Tablets] 1,000 mg PO BID - Problem Reconciliation Problems Reviewed?: Yes
--- OUTSIDE RECORDS SUMMARY | 2019-05-15 15:23 | External Medical Summary | Continuity of Care Document ---
:1975 Author Organization [facility] Address [address] [facility] [address] [place] [address] Phone Care Team Providers Name Role Phone Remington Muller Primary Care Provider Remington Muller Attending Provider Allergies, Adverse Reactions, Alerts Allergen Type Severity Reaction Last Updated Verified Status ANESTHETICS,G Allergy Unknown I-RASH No Active ENERAL Medications Medication Status Dose Units Route Sig Qty Days Start End Instruct ions Date Date Nicotine Active 21 MG TRANSDERM Daily 04 October as 2018 10:06am Aspirin Active 81 MG Oral Daily May 14, 2019 3:01am Atorvastatin Active 40 MG Oral At May Calcium bedtime 2018 nightly 3:01am Bisoprolol Active 5 MG Oral Daily May 3:01am Furosemide Active 20 MG Oral Daily May 14, 2019 3:01am Gabapentin Active 300 MG Oral Twice a May 3:01am Glipizide Active 5 MG Oral Daily May 14, 2019 3:01am Metformin Hcl Active 1000 MG Oral Twice a May 3:01am Clopidogrel Active 75 MG Oral Daily May Bisulf2018 3:01am Ramipril Active 10 MG Oral Daily May 14, 2019 3:01am Spironolactone Active 25 MG Oral Daily May 14, 2019 3:01am Buprenorphine Active 2 TAB SUBLINGUA Daily May SUBOXONE 01/06 Hcl/Naloxone L 2018 MG TABLETS. Hcl 10:10am TAKE 2 TABLETS DAILY PER [facility] ([place]). Problems Active Problems Medical Problem Onset Date Status Noncompliance Active Stented coronary artery Active Diabetes Active Cocaine abuse Active CAD (coronary artery disease) Active CAD (coronary artery disease) Active A-fib Active Pulmonary HTN Active History of abuse of recreational Active drug Recent ST elevation myocardial Active infarction (STEMI) Hyperlipidemia Active CAP (community acquired pneumonia) Activ e Obesity (BMI 30.0-34.9) Active Non-ST elevated myocardial Active infarction (non-STEMI) STEMI (ST elevation myocardial Active infarction) Elevated troponin Active Tobacco abuse Active LV dysfunction Active Overweight (BMI 25.0-29.9) Active Drug use Active Tobacco use Active Chest pain Active HTN (hypertension) Active Interstitial pulmonary disease Active Procedures Procedure Date Performed Status XR chest 2V May 14, 2019 completed ECG initial Zachery May 14, [address] angio chest May 14, 2019 completed ECG Request by /Chi May 15, 2019 active ECG repeat same Zachery May 14, 2019 completed Gram Stain May 14, 2019 completed Sputum Culture May 14, 2019 active Cardiac Cath May 15, 2019 9:45am completed Relevant Diagnostic Tests and/or Laboratory Data Laboratory Results Test Date/Time Result Interpretation Reference Result Comment Performing Range Site Glucose March 280 (Fingerstick) 2018 1:46pm White Blood May 8.6 K/mm3 4.8-10.8 [place] [address] E Count 2018 José PACHECO [address] 1:45am Red Blood Count May 5.76 4.60-6.20 [facility], [address] [place] [address] 36 E 2018 M/mm3 José [place] 22614 1:45am Hemoglobin May 17.4 g/dL 14.1-18.[address] 36 E 2018 José [place] [address] 1:45am Hematocrit May 51.9 % 42.0-52.0 [place] [address] E 2018 José PACHE[place] [address]43 1:45am Mean Corpuscular May 90.2 fl 80-94 [place] [address] E Volume 2018 José PACHE[place] [address]141 1:45am Mean Corpuscular May 30.2 pg 27.0-31.[address] 36 E Hemoglobin 2018 [place] [address] 1:45am Mean Corpuscular Madhu 33.5 g/dL 31.8-35.4 [facility], [address] [place] [address] 36 E Hemoglobin 2018 [place] [address] Concent 1:45am Red Cell Madhu 13.1 % 11.5-17.5 [facility], [address] [place] [address] 36 E Distribution 2018 Alfredachelsie PACHE[place] [address] Width 1:45am Platelet Count May 192 K/mm3 142-424 [facility], [address] [place] [address] 36 E 2018 [place] [address] 1:45am Mean Platelet Madhu 8.7 fl 7.4-10.4 [facility], [address] [place] [address] 36 E Volume 2018 [place] [address] 1:45am Neutrophils (%) May 57.6 % 37.0-80.0 [facility], [address] [place] [address] 36 E (Auto) 2018 [place] 31 1:45am Lymphocytes (%) May 31.5 % 10-50 [facility], [address] [place] [address] 36 E (Auto) 2018 [place] [address] 1:45am Monocytes (%) Madhu 6.0 % 1.7-9.3 [facility], [address] [place] [address] 36 E (Auto) 2018 [place] [address] 1:45am Eosinophils (%) Madhu 3.8 % 0.1-12.0 [facility], [address] [place] [address] 36 E (Auto) 2018 [place] 31 1:45am Basophils (%) Madhu 1.1 % 0.1-2.0 [facility], [address] [place] [address] 36 E (Auto) 2018 [place] 31 1:45am Neutrophils # Madhu 4.9 K/mm3 1.8-7.8 [facility], [address] [place] [address] 36 E (Auto) 2018 [place] 31 1:45am Lymphocytes # Madhu 2.7 K/mm3 0.7-4.5 [facility], [address] [place] [address] 36 E (Auto) 2018 [place] 31 1:45am Monocytes # Madhu 0.5 K/mm3 0.1-1.0 [facility], [address] 36 E (Auto) 2018 José [place] [address] 1:45am Eosinophils # Madhu 0.3 K/mm3 0.0-0.4 [facility], [address] [place] [address] 36 E (Auto) 2018 [place] [address] 1:45am Basophils # Madhu 0.1 K/mm3 0-0.2 [facility], [address] [place] [address] 36 E (Auto) 2018 José [place] [address] 1:45am Erythrocyte Madhu 3 mm/hr 0-15 [facility], [address] [place] [address] 36 E Sedimentation 2018 Ramy [place] [address] Rate 1:57am Urine Color Amdhu Yellow Yellow [facility], [address] [place] [address] 36 E 2018 José [place] [address] 1:45am Urine Appearance Madhu Clear Clear Sandoval [facility], [address] [place] [address] 36 E 2018 José [place] [address] 1:45am Urine pH Madhu 6.0 5.0-8.5 [facility], [address] [place] [address] 36 E 2018 José [place] [address] 1:45am Urine Specific Madhu <= 1.005 1.005-1.03 [facility], [address] [place] [address] 36 E [place] 2018 0 José [place] [address] 1:45am Urine Protein Madhu Trace Negative [facility], [address] [place] [address] 36 E 2018 José [place] [address] 1:45am Urine Glucose Madhu 3+ Negative [facility], [address] [place] [address] 36 E (UA) 2018 José [place] [address] 1:45am Urine Ketones Madhu Negative Negative [facility], [address] [place] [address] 36 E 2018 José [place] [address] 1:45am Urine Blood Madhu Trace-i Negative [facility], [address] [place] [address] 36 E 2018 José [place] [address] 1:45am Urine Nitrate Madhu Negative Negative [facility], [address] [place] [address] 36 E 2018 José [place] [address] 1:45am Urine Bilirubin Madhu Negative Negative [facility], [address] [place] [address] 36 E 2018 José [place] [address] 1:45am Urine Madhu 0.2 EU/dl [facility], [address] [place] [address] 36 E Urobilinogen 2018 Alfreda [place] [address] 1:45am Urine Leukocyte May Negative Negative [facility], [address] [place] [address] 36 E Esterase 2018 José [place] [address] 1:45am Urine RBC May 3-5 #/hpf [facility], [address] [place] [address] 36 E 2018 [place] [address] 1:45am Urine Amorphous May Trace None [facility], [address] [place] [address] E Sediment 2018 /lpf José [place] [address] 1:45am Troponin I May 1.86 0.00-0.06 [facility], [address] [place] [address] E 2018 ng/ml CRITICAL [place] [facility] 8:50am RESULT Results called to: ERIKA by Karen Knox 0956 on 05/15/19>0.5 is consistent with Myocardial Ischemiaor infarction. Sodium Level May 138 136-145 [facility], [address] [place] [address] 36 E 2018 mmol/[place] [address] 1:45am Potassium Level May 4.0 3.5-5.1 [facility], [address] [place] [address] 36 E 2018 mmoL/L [place] [address] 1:45am Chloride Level May 100 98-107 [facility], [address] [place] [address] 36 E 2018 mmol/L [place] [address] 1:45am Carbon Dioxide May 24 mmol/L 21.0-32.0 [facility], [address] [place] [address] 36 E Level 2018 José [place] [address] 1:45am Anion Gap May 18.0 5-15 [facility], [address] [place] [address] E 2018 mEq/L [place] [address] 1:45am Blood Urea May 22 mg/dL 7-18 [facility], [address] [place] [address] 36 E Nitrogen 2018 José [place] [address] 1:45am Creatinine May 0.97 0.70-1.30 [facility], [address] [place] [address] E 2018 mg/[place] [address] 1:45am Estimated Madhu 89 mL/min 0-300 [facility], [address] [place] [address] 36 E Creatinine 2018 [place] [address] Clearance 1:45am Estimated GFR May 101 >59 [facility], [address] [place] [address] 36 E ( 2018 ML/MIN [place] [address] [facility] [place]) 1:45am Estimat May 84 ml/min >59 [facility], [address] [place] [address] 36 E Glomerular 2018 [place] [address] Filtration Rate 1:45am Glucose Level May 419 mg/dL 74-106 [facility], [address] [place] [address] 36 E 2018 CRITICAL José [place] [address] 1:45am RESULT Results called to: Nati ANAND RN by Joe Greene 0224 on 05/14/19 Bedside Glucose May 181 70-110 [facility] 2018 re (RALS) 11:39am Hemoglobin A1c May 8.9 % 0.0-7.0 < 6% [facility], [address] [place] [address] 36 E 2018 Non-Diabetic Alfreda partha [place] [address] 1:57am Level< 7% Controlled Diabetic Level> 8% Poorly Controlled Diabetic Level Calcium Level May 8.7 mg/dL 8.5-10.1 SERUM [facility], [address] [place] [address] 36 E 2018 [place] [address] 1:45am LIPEMIC Magnesium Level May 1.5 mg/dL 1.4-2.2 [facility], [address] [place] [address] 36 E 2018 [place] [address] 6:30am C-Reactive Madhu < 0.2 0.0-0.[address] 36 E Protein 2018 mg/[place] [address] 1:57am LIPEMIC Thyroxine (T4) May 7.7 ug/dl 4.7-13.3 [facility], [address] [place] [address] 36 E 2018 [place] [address] 1:57am Thyroid May 4.07 0.358-3.74 serum [facility], [address] [place] [address] 36 E Stimulating 2018 uIU/ml 0 [place] [address] Hormone (TSH) 1:57am lipemicPlease note the potential for biotin to falsely depress the TSH result when high levels of biotin surpassing the daily recommended dose are administered. Urine Opiates Madhu Negative [facility], [address] [place] [address] 36 E Screen 2018 ng/[place] [address] 1:45am Urine Madhu Negative [facility], [address] [place] [address] 36 E Barbituates 2018 ng/[place] [address] Screen 1:45am Urine Madhu Negative [facility], [address] [place] [address] 36 E Phencyclidine 2018 ng/[place] [address] Screen 1:45am Urine Madhu Negative [facility], [address] [place] [address] 36 E Amphetamines 2018 ng/[place] [address] Screen 1:45am Urine Methadone Madhu Negative [facility], [address] [place] [address] [facility] [place] 36 E Screen 2018 ng/[place] [address] 1:45am Urine Madhu Negative [facility], [address] [place] [address] 36 E Benzodiazepines 2018 ng/[place] [address] Screen 1:45am Urine Cocaine Madhu Negative [facility], [address] [place] [address] [facility] [place] 36 E Screen 2018 ng/[place] [address] 1:45am Urine Marijuana May Positive This is an [facility], [address] [place] [address] 36 E (THC) Screen 2018 ng/[place] [address] 1:45am result. This result is for medical purposes and/or treatment only. Microbiology Results Procedure Source Result Collection Result Result Performin g Date/Time Date/Time Comment Site Gram Stain Sputum, May 14May [facility] [place] [facility] [place] 36 E Expectorated 2018 1:46am 2018 [place] [address] Sputum 3:13am Diagnostic Imaging Reports Report Dictated Date/Time Dictated By Status Radiology Report May 14, 2019 Anand Crowder MD completed 2:10am [address] 36 [place] [address] XRay R eport Sig felicita Patient: Sixto Rodriguez MR#: [id number] : 1975 Acct:[id number] Age/Sex: 43 / M ADM Date: 9 Loc: 2ND I-[address]: Fernando Muller MD Ordering Physician: Fernando Muller MD Date of Service: 05/14/19 Procedure(s): XR chest 2V Accession Number(s): [id number] cc: Anand Crowder MD; Fernando Muller MD~ PROCEDURE: XR CHEST 2V CLINICAL HISTORY: chest pain Left lower chest pain, heart disease, s moker COMPARISON: CXR CHEST(2 VIEWS-NOT PORT ABLE) from 11/04/2014 CXR CHEST(2 VIEWS-NOT PORTABLE) from 11/22/2014 FINDINGS: The cardiomediastinal silhouette and pu lmonary vascularity are within normal limits. There is consolidation within the super ior aspect of the right middle lobe consistent with pneumonia. No eff usions. Coronary artery stents are noted No acute bony abnormalities. IMPRESSION: Right middle lobe pneumonia. Recommend following till clear Dictated by: Anand Crowder MD 05/14/2019 06:16 Electronically signed by Anand Crowder in OV 05/14/2019 06:16 Radiology Report May 14, 2019 Anand Crowder MD completed 3:58am [facility] [address] [place] [facility] [address] E [place] [address] [address] Scan Report Sig felicita Patient: Sixto Rodriguez MR#: [id number] : 1975 Acct:[id number] Age/Sex: 43 / M ADM Date: 9 Loc: 2ND 201I-[address]: Fernando Muller MD Ordering Physician: Fernando Muller MD Date of Service: 05/14/19 Procedure(s): CT angio chest Accession Number(s): [id number] cc: Anand Crowder MD; Fernando Muller MD~ PROCEDURE: CT ANGIO CHEST CLINCIAL INDICATION: sob/hemoptysis Left lower chest pain with hemoptysis a nd shortness of breath COMPARISON: CXR CHEST(2 VIEWS-NOT PORT ABLE) from 11/22/2014 TECHNIQUE: IV Contrast: 70ML OPTIRAY 350 Axial images obtained with sagittal and coronal reformats. All CT scans at the facility use one or more d ose reduction, viz: automated exposure control, ma/kV adjustment per patient size (including targeted exams where dose is matched to indication, i.e. head), or iterative reconstruction technique. FINDINGS: There is mild atheromatous changes of t he aorta. No evidence of aortic dissection or aneurysm. No evid ence of pulmonary embolus. Scattered small nodes are present in th e axilla. There is consolidation in the posterior aspect o f the right middle lobe consistent with pneumonia. Patchy infi ltrate is present in the superior segment of the right lower lob e and there are few other small parenchymal opacities in the righ t upper lobe as well as the left upper lobe which may be due to are as of inflammation/infection. Follow-up suggested to confirm resoluti on. There is slight increased density within the anterior mediastinal fat. This is nonspecific and may be related to residual thymic tissu e. There is mild bronchial thickening in the right perihilar regio n. Upper abdominal images show no acute finding There is mild wedging involving the T6 vertebral body which may be chronic. IMPRESSION: 1. Right middle lobe pneumonia. 2. There are few other small parenchyma l opacities in the right upper lobe, superior segment right lower lobe , and left upper lobe which could be due to inflammatory/infectious changes as well. Recommend 3 month follow-up to confirm resolution. 3. Scattered small axillary lymph nodes . Residual thymic tissue suspected Dictated by: Anand Crowder MD 05/14/2019 07:24 Electronically signed by Anand Crowder in OV 05/14/2019 07:24 Interventional Radiology May 15, 2019 randi Bailey ompleted Report 11:30am [facility] [address] [facility] [address] [place] [address] Interventional Radiology Rpt Sig felicita Patient: Sixto Rodriguez MR#: [id number] : 1975 Acct:[id number] Age/Sex: 43 / M ADM Date: 9 Loc: 2ND 201I-[address]: Fernando Muller MD Ordering Physician: Zhou Rico MD Date of Service: 05/15/19 Procedure(s): CL lhc w ventricle Accession Number(s): [id number] cc: Fernando Muller MD; Jennifer Rico MD~ APPROVED REPORT -------- ------ Patient Location: Inpatient Supervisor [facility] Track Vehicle: Nati Augustin RN ACCESS RT (R) PROCEDURES Left heart catheterization Left ventri culogram Selective coronary angiogram INDICATION Known coronary artery disease, Acute no n-ST elevation myocardial infarction Informed consent was obtained prior to the procedure. COMPLICATIONS None Estimated Blood Loss: less than 10 ml TECHNIQUE One percent lidocaine used to anestheti ze the right anterior aspect of the wrist. The right radial artery w as accessed via the Seldinger technique. A [address] d in the right radial artery. 2.5 mg of verapamil, 800 mcg of nitrogl ycerin, 1mg Lidocaine and 5000 U Heparin were given through the arteri al sheath. The trap catheter and 6 Swiss JL 3 catheter were also us ed to perform left heart catheterization, left ventriculogram an d selective coronary angiogram. At the end of the procedur e the sheath was removed good hemostasis was achieved using Traclet b and, patient was transferred to the postop holding area in stable co ndition. ANGIOGRAPHIC RESULTS The left main artery Has a distal 40% s tenosis The left anterior descending artery Has proximal eccentric 40 to 50% stenosis followed by mid vessel stent w hich has severe greater than 90% in-stent restenosis. Distally the vessel is patent however VIKRAM II flow is present. A large first diag onal artery has proximal 90% stenosis. The circumflex artery Is a codominant v essel and has an ostial 30% stenosis with diffuse mid vessel 30% st enoses. Distally in the vessel there is a 60 and 70% stenosis i n the proximal portion of the terminal obtuse marginal artery The right coronary artery Is codominant and has a mid vessel 80% stenosis within a stent. Distally ther e is an 80 to 90% stenosis also representing in-stent restenosis. The distal branches of the right coronary artery has proximal 90% stenosis. There is a large proximal branch which appears to be the posterior descending artery which has proximal 80 to 90% stenosis a nd a mid vessel 90% stenosis. This is a large branch The JARA ventriculogram reveals Left fabian tricular dilatation with ejection fraction of 40% The left ventricular end-diastolic pres sure 30 mmHg IMPRESSION Severe coronary artery disease as descr ibed above Reduced ejection fraction Elevated LVEDP PLAN 1. Patient should be transferred to [facility] for surgical revascularization consideratio n 2. Recommend avoidance of polysubstance abuse which is in patient's history 3. LDL less than 55 4. Avoidance of tobacco products 5. Aggressive risk factor modification Electronically signed by : Zhou Espinoza muna, 05/15/2019 11:07:46 Advance Directives Advance Directive Response Recorded Date/Time Living Will No May 14, 2019 5 :27am Does the patient have an No April 04 019 5:26pm advanced directive on file? Living Will No April 04, 2019 5 :26pm Chief Complaint and Reason for Visit Chief Complaint 3 month follow up New onset of A Fib,Community Acquired Pneumonia Reason for Visit A-fib CAD (coronary artery disease ) CAP (community acquired pneu monia) Chest pain Elevated troponin Non-ST elevated myocardial i nfarction (non-STEMI) Overweight (BMI 25.0-29.9) Tobacco use Diabetes Encounters Encounter Location(s) Arrival/Admit Date Discharge/Depart Date Provider(s) Departed [facility] Physician April 04, 2019 April 04, 2019 Delphine Macedo Physician/Provi Group-Primary 1:05pm 2:13pm MD Renzo claudia Office Care-Renzo Visit Admitted [facility] Physician May 14, 2019 Fernando Macedo Inpatient Group-Second 7:00am MD Renzo Floor Registered [facility] Physician May 15, 2019 Fernando Macedo Inpatient Group- 3:18pm MD Renzo Recent Diagnosis Onset Date A-fib CAD (coronary artery disease) CAP (community acquired pneumonia) Chest pain Elevated troponin Non-ST elevated myocardial infarction (non-STEMI) Overweight (BMI 25.0-29.9) Tobacco use Diabetes Assessments See care plan goals Functional Status Observation Response Date Recorded Oral Care Ability Independent May 14, 2019 5 :27am Bathing Ability Independent May 14, 2019 5 :27am Eating (Feeding) Ability Independent May 14 019 5:27am Toileting Ability Independent May 14, 2019 5 :27am Ambulation Ability Independent May 14, 2019 5 :27am Functional status ambulatory April 04, 2019 5 :26pm Goals Acute Goals Nursing Diagnosis: Knowledge Deficit D isease/Condition Goal(s): Education of di sease process Instruction(s): Follow provider p tree/instructions (See attached discharge education) Follow/up with primary care provider as instructed in discharge packet Ambulatory Goals Pt verbalized understanding of disease p rocess. Pt to follow plan of care. Education provided. Immunizations Immunization Event Date Not Given Dose Logistics Project Manager Lot Vac cine Reason Number Number Informatio n Statement (VIS) Deta il Hepatitis A November Vaccine, adult 2017 dosage Mental Status Observation Response Date Recorded Comprehension Ability No Impairment May 15, 2019 3:07pm Able to Read Yes May 14, 2019 5 :27am Able to Write Yes May 14, 2019 5 :27am Ability to Follow Directions Good May 5:27am Eye Contact No Eye Contact May 14, 2019 5 :27am Oral Expression Ability No Impairment May 14 5:27am Medical Equipment Implanted Devices Device Date Implanted ALINA Number RESOLUTE ONIEL STENT 2.50 X 38 October 02, 2018 Insurance Providers Guarantor Sixto Rodriguez Address [address] [place] [address] Contact Info. Home Phone: Payer Policy Id Coverage Id Subscriber's Subscriber Effective Expi ration Name Id Date Date [employer] [id number] Sixto Walker [id number] [facility] [id number] Sixto Walker [id number] July [employer] Plan Rodriguez 2015 Self Pay Self N/A Plan of Treatment Follow up as ordered by primary care provider will add glipizide and refill meds Future Tests Future scheduled test information is unavailable Pending Tests Pending diagnostic test information is unavailable Future Visits Future appointment information is unavailable Referrals to Other Providers Reason for Referral Start Provider Provider Contact Provider Address Referral Date Information Admission to [facility] May [address] Future Procedures Future procedure information is unavailable Future Medications Future medication information is unavailable Patient Instructions Peripheral Neuropathy Type 2 Diabetes Nicotine Addiction Balanced Diet How to Quit Smoking Atrial Fibrillation DI for Atrial Fibrillation DI for Chest Pain Social History Assigned Sex Male Vital Signs Vital Reading Result Reference Range Collection Date/ Time Height 180.34 cm April 04 1:26pm Weight 99.79 kg April 04 1:26pm Body Temperature 96.8 [degF] 97.6-99.6 April 04, 2 019 1:26pm Heart Rate 88 /min 60-90 April 04 1:26pm Respiratory rate 16 /min 12-24 October 29th, 2 019 1:26pm Oxygen saturation by 98 % 95-100 March Pulse oximetry 1:26pm BP Systolic 142 mm[Hg] 110-140 April 04 1:26pm BP Diastolic 82 mm[Hg] 60-90 April 04 1:26pm BMI (Body Mass Index) 30.7 kg/m2 April 042018 1:26pm Height 182.88 cm May 15 6:52am Weight 97.74 kg May 15 6:52am Body Temperature 97.8 [degF] 97.6-99.6 May 15, 2 019 12:05pm Heart Rate 58 /min -May 15 12:05pm Respiratory rate 19 /min 05-30May 15, 2 019 12:05pm Oxygen saturation by 96 % 95-100 May Pulse oximetry 12:05pm BP Systolic 148 mm[Hg] 110-140 May 15 12:05pm BP Diastolic 79 mm[Hg] 60-90 May 15 12:05pm BMI (Body Mass Index) 29.2 kg/m2 May 152018 6:52am
--- NOTE | 2019-05-16 07:35 | Progress Note ---
Subjective Date: 05/16/19 Time: 07:31 Principal diagnosis: NSTEMI Interval history: 43 yo WM at bedside in NAD. No complaints overnight. called recently with bed so patient awaiting transfer. Exam Vital signs and Labs for Last 24 Hours: Temp Pulse Resp BP Pulse Ox 97.8 F 60 17 144/74 H 96 05/16/19 04:00 05/16/19 04:00 05/16/19 04:00 05/16/19 04:00 05/16/19 04:00 Laboratory Results - last 24 hr 05/15/19 08:50: Troponin I 1.86 H 05/15/19 11:39: POC Glucose 181 H 05/15/19 16:31: POC Glucose 184 H 05/15/19 20:49: POC Glucose 163 H 05/16/19 06:10: POC Glucose 244 H I & O for Last 24 hours: Intake & Output 05/13/19 05/14/19 05/15/19 05/16/19 11:59 11:59 11:59 11:59 Intake Total 3349 / 3349 960 / 960 Balance 3349 / 3349 960 / 960 Weight 218 lb 3 oz 215 lb 8 oz 215 lb 8 oz Microbiology Reports for the Last 24 Hours: Microbiology 05/14/19 01:46 Sputum - Expectorated Sputum Gram Stain - Final 05/14/19 01:46 Sputum - Expectorated Sputum Sputum Culture - Preliminary - *Routine Respiratory Exam Present: CTA bilaterally. Absent: accessory muscle use, rales, rhonchi, wheezes - *Routine Cardiovascular Exam Present: RRR. Absent: murmur, gallop, rubs Progress Note: A&P (1) Overweight (BMI 25.0-29.9) Status: Acute Current Visit: Yes (2) Tobacco use Status: Acute Current Visit: Yes (3) Chest pain Status: Acute Current Visit: Yes (4) A-fib Status: Acute Current Visit: Yes (5) CAP (community acquired pneumonia) Status: Acute Current Visit: Yes (6) Diabetes Status: Chronic Current Visit: Yes (7) Hyperlipidemia Status: Chronic Current Visit: No (8) Elevated troponin Status: Acute Current Visit: Yes Assessment and Plan for All Diagnoses:: Transfer to Cardiology for CABG. On ASA, plavix, bisoprolol, altace, diltiazem, furosemide, spironolactone and atorvastatin. Last dose of Xarelto was 05/14/2019.
--- NOTE | 2019-05-16 17:51 | Electrocardiograph Report ---
APPROVED REPORT Exam: Resting ECG HR:113 bpm ECG Measurements Heart Rate 113 AXES QRSd 94 QRS 5 QT 346 T72 QTc 474 <Conclusion> Atrial fibrillation with rapid ventricular response with premature ventricular or aberrantly conducted beats Poor R Wave Progression Abnormal ECG Electronically signed by : Gustavo Bingham, 05/16/2019 17:51:27
--- NOTE | 2019-05-16 17:52 | Electrocardiograph Report ---
APPROVED REPORT Exam: Resting ECG HR:113 bpm ECG Measurements Heart Rate 113 AXES QRSd 94 QRS 5 QT 346 T72 QTc 474 <Conclusion> Atrial fibrillation with rapid ventricular response with premature ventricular or aberrantly conducted complexes Poor R Wave Progression Abnormal ECG Electronically signed by : Gustavo Bingham, 05/16/2019 17:52:22
== END 2019-05-16 11:10 | disposition short-term general hospital (02) | DRG 280 ==
LOC: ER 01:22 → 2ND 01:22 → OBSVTOIN 07:00
PROVIDERS: ADMIT Emergency Medicine; ATTEND Emergency Medicine
CPT/HCPCS: 36415; 71020; 71046; 71275; 80048; 80305; 81001; 82962; 83036; 83735; 84436; 84443; 84484; 85025; 85651; 86140; 87070; 87205; 93005; 93458; 96365; 96366; 96372; 99152; 99285; C1725; C1769; J0571; J1644; J1956; Q9967

== ENCOUNTER → 2019-06-19 11:49 | Outpatient (CLI) | payer OTHER, SELFPAY ==
[2019-06-19 12:28] LABS: Basophils # 0.1 K/mm3 (0-0.2); Eosinophils # 2.7 K/mm3 (0.0-0.4); Eosinophils % 23.9 % (0.1-12.0); Hematocrit 40.6 % (42.0-52.0); Lymphocytes # 2.1 K/mm3 (0.7-4.5); Lymphocytes % 18.7 % (10-50); Mean Corpuscular HGB Conc 31.9 g/dL (31.8-35.4); Mean Corpuscular Hemoglobin 28.2 pg (27.0-31.2); Mean Corpuscular Volume 88.2 fl (80-94); Mean Platelet Volume 7.5 fl (7.4-10.4); Monocytes # 0.6 K/mm3 (0.1-1.0); Monocytes % 4.9 % (1.7-9.3); Neutrophils # 5.8 K/mm3 (1.8-7.8); Neutrophils % 51.5 % (37.0-80.0); Platelet Count 333 K/mm3 (142-424); Red Blood Count 4.61 M/mm3 (4.60-6.20); Red Cell Distribution Width 12.9 % (11.5-17.5); White Blood Count 11.3 K/mm3 (4.8-10.8)
[2019-06-19 13:09] LABS: Anion Gap 17.1 mEq/L (5-15); Blood Urea Nitrogen 22 mg/dL (7-18); Calcium 9.1 mg/dL (8.5-10.1); Carbon Dioxide 25 mmol/L (21.0-32.0); Chloride 96 mmol/L (98-107); Creatinine,Serum 0.84 mg/dL (0.70-1.30); Estimated Glomerular Filt Rate 99 ml/min (>60); GFR (African American) 120 ML/MIN (>60); Glucose 272 mg/dL (74-106); Potassium 4.1 mmoL/L (3.5-5.1); Sodium 134 mmol/L (136-145)
== END ==
PROVIDERS: Visit Provider Thoracic Surgery (Cardiothoracic Vascular Surgery)
DX: I25.10 Atherosclerotic heart disease of native coronary artery without angina pectoris (principal)
CPT/HCPCS: 36415; 80048; 85025

== ENCOUNTER 2019-08-11 13:36 | Outpatient (RCR) | payer OTHER, SELFPAY | END 2019-09-06 10:28 | disposition home or self-care (01) | LOC: PT 13:36 | PROVIDERS: Visit Provider Thoracic Surgery (Cardiothoracic Vascular Surgery) | DX: Z95.1 Presence of aortocoronary bypass graft (principal) | CPT/HCPCS: 93798 ==

== ENCOUNTER → 2020-11-05 14:06 | Outpatient (CLI) | payer OTHER, SELFPAY ==
[2020-11-05 16:52] LABS: Barbiturates Screen,Urine Negative ng/ml (<200)
[2020-11-05 16:53] LABS: Benzodiazepines Screen,Urine Negative ng/ml (<200)
[2020-11-05 16:54] LABS: Cannabinoid Screen,Urine Negative ng/ml (<50); Cocaine Screen,Urine Negative ng/ml (<300)
[2020-11-05 16:55] LABS: Methadone Screen,Urine Negative ng/ml (<300)
[2020-11-05 16:56] LABS: Opiate Screen,Urine Negative ng/ml (<300)
[2020-11-05 21:18] LABS: Amphetamine/Metha Screen,Urine Negative ng/ml (<1000); Phencyclidine Screen,Urine Negative ng/ml (<25)
== END ==
PROVIDERS: Visit Provider Emergency Medicine
DX: M54.9 Dorsalgia, unspecified (principal)
CPT/HCPCS: 80305

== ENCOUNTER → 2021-02-03 08:09 | Outpatient (CLI) | payer OTHER, SELFPAY ==
[2021-02-03 08:50] LABS: Basophils # 0.1 K/mm3 (0-0.2); Basophils % 1.4 % (0.1-2.0); Eosinophils # 0.3 K/mm3 (0.0-0.4); Eosinophils % 3.9 % (0.1-12.0); Hematocrit 47.7 % (42.0-52.0); Hemoglobin 16.3 g/dL (14.1-18.0); Lymphocytes # 2.9 K/mm3 (0.7-4.5); Lymphocytes % 34.2 % (10-50); Mean Corpuscular HGB Conc 34.2 g/dL (31.8-35.4); Mean Corpuscular Volume 87.8 fl (80-94); Mean Platelet Volume 8.9 fl (7.4-10.4); Monocytes # 0.5 K/mm3 (0.1-1.0); Monocytes % 6.1 % (1.7-9.3); Neutrophils # 4.6 K/mm3 (1.8-7.8); Neutrophils % 54.4 % (37.0-80.0); Platelet Count 236 K/mm3 (142-424); Red Blood Count 5.43 M/mm3 (4.60-6.20); White Blood Count 8.4 K/mm3 (4.8-10.8)
[2021-02-03 09:09] LABS: Chloride 99 mmol/L (98-107); Sodium 137 mmol/L (136-145)
[2021-02-03 09:12] LABS: Alanine Aminotransferase 33 U/L (12-78); Alkaline Phosphatase 76 U/L (38-126); Aspartate Amino Transferase 27 U/L (17-59); Bilirubin,Total 0.6 mg/dl (0.2-1.3); Blood Urea Nitrogen 17 mg/dl (9-20); Carbon Dioxide 25 mmol/L (22.0-30.0); Estimated Glomerular Filt Rate 121 ml/min (>60); GFR (African American) 146 ML/MIN (>60)
[2021-02-03 09:13] LABS: Albumin Level 4.6 g/dl (3.5-5.0); Albumin/Globulin Ratio 1.5 (1.1-1.8); Calcium 9.4 mg/dl (8.4-10.2); Globulin 3.1 g/dL (1.3-3.2); Glucose 232 mg/dl (74-100); Total Protein,Serum 7.7 g/dl (6.3-8.2)
[2021-02-04 11:14] LABS: HIV Screen 4th Generation wRfx Non Reactive (Non Reactive); Hep A Ab, IgM Negative (Negative); Hepatitis B Core Antibody IgM Positive (Negative); Hepatitis B Surface Antigen Negative (Negative); Hepatitis C Antibody 0.2 s/co ratio (0.0-0.9)
== END ==
PROVIDERS: Visit Provider Nurse Practitioner Family
DX: Z01.89 Encounter for other specified special examinations (principal); Z11.4 Encounter for screening for human immunodeficiency virus [HIV]
CPT/HCPCS: 36415; 80053; 80074; 85025; 86703; G0432

== ENCOUNTER 2022-06-12 16:36 | Emergency (ER) | payer OTHER, SELFPAY ==
[2022-06-12 17:00] VITALS: BP 149/85; PULSE 76; RESP 19; TEMP 37.4; O2SAT 98; BMI 29.5
--- NOTE | 2022-06-12 17:19 | EXP.UTC ---
Discharge Plan Disposition Patient Disposition: Home, Self-Care Condition: Good Prescriptions Prescriptions: New clindamycin HCl 300 mg capsule 300 mg PO Q8H 10 Days Qty: 30 0RF mupirocin 2 % ointment 1 applic topical TID 10 Days Qty: 22 0RF Rx Instructions: apply to lesions on hand No Action buprenorphine-naloxone 8-2 mg tablet, sublingual SUBLINGUAL Label Comments: DISSOLVE 2 TABLETS SUBLINGUALLY EVERY DAY ondansetron HCl [Zofran] 4 mg tablet 4 mg PO Q8H PRN (Reason: nausea and vomiting) Qty: 14 0RF nicotine 21 mg/24 hr patch 24 hour See Rx Instructions .Route .COMPLEX Qty: 28 1RF Rx Instructions: USE 1 PATCH DAILY DIRECTED (DME) lancets 30 gauge misc 1 gauge .ROUTE .MEDSUPPLY Qty: 25 Rx Instructions: As directed (DME) OneTouch Verio test strips Strip See Rx Instructions .ROUTE .MEDSUPPLY Qty: 100 12RF Rx Instructions: As directed gabapentin 600 mg tablet 600 mg PO TID Qty: 90 0RF lorazepam [Ativan] 0.5 mg tablet 0.5 mg PO BID Qty: 60 0RF amlodipine 10 mg tablet See Rx Instructions .ROUTE .COMPLEX Qty: 90 3RF Dose Instruction: TAKE ONE TABLET BY MOUTH ONCE A DAY Rx Instructions: TAKE ONE TABLET BY MOUTH ONCE A DAY insulin lispro protamin-lispro [Humalog Mix 75-25 KwikPen] 100 unit/mL (75-25) insulin pen See Rx Instructions .ROUTE .COMPLEX Qty: 15 2RF Dose Instruction: INJECT 30 UNITS SUBCUTANEOUSLY EVERY MORNING AND 28 UNITS AT BEDTIME (NEED TO MAKE APPT) Rx Instructions: INJECT 30 UNITS SUBCUTANEOUSLY EVERY MORNING AND 28 UNITS AT BEDTIME (NEED TO MAKE APPT) ramipril 10 mg capsule See Rx Instructions .ROUTE .COMPLEX Qty: 60 2RF Dose Instruction: TAKE ONE CAPSULE BY MOUTH 2 TIMES A DAY Rx Instructions: TAKE ONE CAPSULE BY MOUTH 2 TIMES A DAY furosemide 40 mg tablet See Rx Instructions .ROUTE .COMPLEX Qty: 30 2RF Dose Instruction: TAKE ONE TABLET BY MOUTH ONCE A DAY FOR DIURETIC Rx Instructions: TAKE ONE TABLET BY MOUTH ONCE A DAY FOR DIURETIC aspirin 81 mg tablet,chewable See Rx Instructions .ROUTE .COMPLEX Qty: 30 2RF Dose Instruction: CHEW 1 TABLET BY MOUTH ONCE A DAY FOR ANTIPLATELET Rx Instructions: CHEW 1 TABLET BY MOUTH ONCE A DAY FOR ANTIPLATELET (DME) pen needle, diabetic [BD Ultra-Fine Pearl Pen Needle] 32 gauge x /32 needle See Rx Instructions .ROUTE .COMPLEX Qty: 100 2RF Dose Instruction: USE DIRECTED Rx Instructions: USE DIRECTED atorvastatin 80 mg tablet See Rx Instructions .ROUTE .COMPLEX Qty: 30 3RF Dose Instruction: TAKE ONE TABLET BY MOUTH ONCE A DAY FOR CHOLESTEROL Rx Instructions: TAKE ONE TABLET BY MOUTH ONCE A DAY FOR CHOLESTEROL metoprolol tartrate 50 mg tablet See Rx Instructions .ROUTE .COMPLEX Qty: 90 3RF Dose Instruction: TAKE 1 & 1/2 TABLETS BY MOUTH EVERY 12 HOURS FOR BETA VY Rx Instructions: TAKE 1 & 1/2 TABLETS BY MOUTH EVERY 12 HOURS FOR BETA VY (DME) blood sugar diagnostic 1 EACH strip See Rx Instructions .Route .MEDSUPPLY Rx Instructions: check sugar twice daily Referrals Follow up/Referrals: Fernando Muller MD [Primary Care Provider] - See instructions Activity Restrictions/Add. Instructions Additional Instructions/Restrictions: *Start antibiotic(s) immediately and be sure to take as ordered for the FULL length of time although you may be feeling better or start to see improvement in the next 24-48 hours *Monitor closely. Outlined redness so that you can monitor easier. Follow up immediately for new or worsening symptoms including but not limited to redness, swelling, streaking from site fever or chills. *Warm compress 15 minutes 3-4 times day *Never squeeze or pop these on your own. Seek immediate medical attention next time this occurs *Monitor Temp. Tylenol every 4 hours as needed and ibuprofen every 6 hours
[2022-06-12 17:32] VITALS: BP 149/85; PULSE 76; RESP 19; TEMP 37.4; O2SAT 98
== END 2022-06-12 17:35 | disposition home or self-care (01) ==
PROVIDERS: Emergency Provider Nurse Practitioner; PCP Emergency Medicine
DX: L03.114 Cellulitis of left upper limb (principal)
CPT/HCPCS: 99212; G0463

== ENCOUNTER 2023-09-07 14:59 | Inpatient (IN) | payer MEDICAID, SELFPAY ==
[2023-09-07] VITALS (10 sets, daily range): BP systolic 118–142; BP diastolic 85–102; PULSE 62–104; RESP 19–26; TEMP 36.2–36.9; O2SAT 94–99; BMI 27.8; BMI 29.5
--- NOTE | 2023-09-07 14:32 | ECG_ITS ---
APPROVED REPORT Exam: Resting ECG HR:100 bpm ECG Measurements Heart Rate 100 AXES HI 165 P 66 QRSd 107 QRS 137 QT 370 T 47 QTc 427 Conclusion SINUS TACHYCARDIA POSSIBLE LEFT ATRIAL ENLARGEMENT [-0.1mV P-WAVE IN V1/V2] POSSIBLE RIGHT VENTRICULAR HYPERTROPHY [SOME/ALL OF: PROMINENT R IN V1, LATE TRANSITION, RAD, MARLENE, SSS] POSSIBLE ANTERIOR MYOCARDIAL INFARCTION , OF INDETERMINATE AGE [30 ms Q WAVE IN V3/V4, OR R < 0.2 mV IN V4] No significant changes from prior EKG Electronically signed by : NAVIN CAPONE, 09/07/2023 23:06:43
--- NOTE | 2023-09-07 15:19 | XR_ITS ---
PROCEDURE INFORMATION: Exam: XR Chest Exam date and time: 09/07/2023 4:49 PM Age: 47 years old Clinical indication: Shortness of breath; Additional info: SOA TECHNIQUE: Imaging protocol: Radiologic exam of the chest. Views: 2 views. COMPARISON: CR XR CHEST 2V 07/07/2019 2:58 AM FINDINGS: Lungs: Faint airspace disease in the right middle lobe. Pleural spaces: Unremarkable. No pleural effusion. No pneumothorax. Heart/Mediastinum: Cardiomegaly. Bones/joints: Median sternotomy. IMPRESSION: Faint right middle lobe airspace disease may represent pneumonia.
[2023-09-07] MEDS: IPRATROPIUM/ALBUTEROL 3 ML NEB IH (15:21)
--- NOTE | 2023-09-07 15:22 | [facility].EDCP ---
Discharge Plan Disposition Patient Disposition: Admitted Condition: Fair Clinical Impressions Clinical Impression: Acute heart failure, Pulmonary embolism on right Discharge ED Provider: Rosa Elena Birch HPI General Chief Complaint: Shortness of Breath/Dyspnea Stated Complaint: cough, soa, leg swelling Time Seen by Provider: 09/07/23 15:03 Mode of Arrival: Wheelchair Source of Information: Patient and Significant Other Limitations: No Limitations Description of Symptoms (Recalled from ER Triage Doc. by RN): c/o abdomen and leg swelling for the past couple of days. Pt reports that his legs has cracks in them with some soa and cough, states the soa gets worse with sitting straight up. History of Present Illness HPI narrative: This patient is a 47-year-old male with a history of CAD status post CABG, hypertension, hyperlipidemia, insulin-dependent diabetes, medication noncompliance, tobacco dependence, and substance abuse presenting with concern for cough, chest tightness, shortness of breath, swelling in his abdomen and lower extremities, and cracking of the skin in his lower extremities. Patient reports that he has been feeling bad for approximately 10 days, but it got worse over the last 2 days. He notes that he has not been compliant with his medications. He states has been taking his fluid medication, Lasix, but he has not been taking his metoprolol or other medications. He admits that he smokes methamphetamine, but he has not done so in a few days. He denies any fevers, chills, vomiting, changes in bowel movements, or other concerns. He denies any history of IV drug use. Related Data Home Medications Medication Instructions Recorded Confirmed lancets 30 gauge #25 ea 07/03/19 09/07/23 blood sugar diagnostic 07/07/19 09/07/23 buprenorphine 8 mg-naloxone 2 mg 2 tab sublingual DAILY 09/25/19 09/07/23 sublingual tablet amlodipine 10 mg tablet 10 mg PO DAILY 09/07/23 09/07/23 aspirin 81 mg chewable tablet 81 mg PO DAILY 09/07/23 09/07/23 atorvastatin 80 mg tablet 80 mg PO HS 09/07/23 09/07/23 furosemide 40 mg tablet 40 mg PO DAILY 09/07/23 09/07/23 insulin lispro protamine-lispro 28 unit SQ HS 09/07/23 09/07/23 100 unit/mL (75-25) subcutaneous pen insulin lispro protamine-lispro 30 unit SQ AM 09/07/23 09/07/23 100 unit/mL (75-25) subcutaneous pen (Humalog Mix 75-25 KwikPen) metoprolol tartrate 50 mg tablet 75 mg PO BID 09/07/23 09/07/23 nicotine 21 mg/24 hr daily 1 patch transdermal DAILY nicotine 09/07/23 09/07/23 transdermal patch replacement ramipril 10 mg capsule 10 mg PO BID 09/07/23 09/07/23 Previous Rx's Medication Instructions Recorded blood sugar diagnostic (OneTouch #100 ea 02/02/20 Verio test strips) ondansetron HCl 4 mg tablet 4 mg PO Q8H PRN nausea and 05/21/20 (Zofran) vomiting #14 tabs gabapentin 600 mg tablet 600 mg PO TID #90 tabs 04/08/21 lorazepam 0.5 mg tablet (Ativan) 0.5 mg PO BID #60 tabs 04/08/21 pen needle, diabetic 32 gauge x ##100 05/11/2232 (BD Ultra-Fine Pearl Pen Needle) clindamycin HCl 300 mg capsule 300 mg PO Q8H 10 days #30 caps 06/12/22 mupirocin 2 % topical ointment 1 applic topical TID 10 days #22 06/12/22 grams Allergies Allergy/AdvReac Type Severity Reaction Status Date / Time ANESTHETICS,GENERAL Allergy Unknown I-RASH Uncoded 01/28/21 09:54 PFSH [facility] Disclaimer: The information contained in this section may have been updated after the patient was seen, as this information can be updated by other users. Medical History (Updated 09/07/23 @ 22:10 by Rosa Elena Birch DO) Heart failure Low Back Pain History of abuse of recreational drug Tobacco abuse Pulmonary HTN Recent ST elevation myocardial infarction (STEMI) CAD (coronary artery disease) HTN (hypertension) Hyperlipidemia Diabetes Family History (Updated 09/07/23 @ 18:00 by Anne Avery RN) Other No significant family history Social History (Updated 09/07/23 @ 18:01 by Anne Avery RN) Smoking Status: Current every day smoker tobacco type: cigarettes packs per day: 1 alcohol intake: former substance use type: former substance user, marijuana, crack/cocaine, amphetamines and opiates current occupational status: unemployed Travel in the last 8 weeks: None household members: spouse and children caffeine: Yes ROS Obtained: Yes All systems reviewed & no additional complaints except as documented Physical Exam General General appearance: alert and in no apparent distress Head Head exam: atraumatic and normocephalic Eye Eye exam: Present normal appearance, PERRL and EOMI ENT ENT exam: Present normal exam, normal oropharynx, mucous membranes moist and normal external ear exam Neck Neck exam: Present normal inspection, full ROM and trachea midline; Absent tenderness Chest Chest inspection: Present normal inspection and symmetric chest wall rise; Absent tenderness Respiratory Respiratory exam: Present wheezes; Absent respiratory distress, stridor, accessory muscle use or prolonged expiratory phase Cardiovascular Cardiovascular exam: Present regular rate and normal rhythm Abdominal Exam Abdominal exam: Present soft; Absent distention, tenderness, guarding or rebound Extremities Exam Extremities exam: Present full ROM, normal capillary refill and edema (Symmetric bilateral lower extremity edema with chronic skin changes overlying as well as areas of excoriation); Absent tenderness Back Exam Back exam: Present normal inspection and full ROM; Absent tenderness Neurological Exam Neurological exam: Present alert, oriented X3, CN II-XII intact and normal gait; Absent motor sensory deficit Psychiatric Psychiatric exam: Present normal affect and normal mood Skin Skin exam: Present warm, dry and other (Skin changes to the bilateral lower extremities with concerns for venous stasis as well as excoriations from scratching) HEART Score HEART Score HEART Score assessment performed?: Yes History (anamnesis): Moderately suspicious ECG: Non-specific disturbance Age: 45-65 years Risk factors: Atherosclerosis history Troponin: > 3x normal limit HEART Score: 7 Procedures Limited Ultrasound Findings:: Limited cardiac ultrasound Indication: Shortness of breath, chest pain, swelling Identified cardiac views: [-Cardiac parasternal long axis] [-Cardiac parasternal short axis] [-Cardiac apical four-chamber] [-Cardiac subxiphoid] Findings: [-Cardiac activity present -Gross wall motion abnormal-globally reduced -Pericardial effusion absent -Right heart strain absent] Impression: -[From above] Images [were saved] to permanent archive The study [was] technically adequate CPT: 27213 This study was performed by me, and I personally interpreted all images/videos. Based on my clinical judgement, these images were [adequate] and [did not] necessitate further imaging. Critical Care Critical Care Time Critical Care Time: No Medical Decision Making Meek Inquiry Pt receiving controlled substance: No Vital Signs Vital Signs: 09/07/23 15:01 09/07/23 15:30 09/07/23 16:00 Temperature Temperature Source Pulse Rate 98 H 104 H Pulse Rate [Left Radial] 99 H Respiratory Rate 19 20 20 Blood Pressure 126/96 H 128/99 H Blood Pressure [Right Arm] 124/100 H Blood Pressure Mean 103 110 Blood Pressure Mean [Right Arm] 108 Blood Pressure Source Blood Pressure Position Blood Pressure Position [Right Arm] Sitting 02 Sat by Pulse Oximetry 95 98 99 Oxygen Delivery Method Room Air 09/07/23 16:30 09/07/23 17:31 09/07/23 17:49 Temperature 97.2 F L 98.5 F Temperature Source Oral Oral Pulse Rate 98 H 99 H Pulse Rate [Left Radial] Respiratory Rate 20 Blood Pressure 127/101 H 138/93 H Blood Pressure [Right Arm] Blood Pressure Mean 107 Blood Pressure Mean [Right Arm] Blood Pressure Source Automatic Cuff Blood Pressure Position Sitting Blood Pressure Position [Right Arm] 02 Sat by Pulse Oximetry 99 Oxygen Delivery Method Room Air Room Air Lab Data Labs: Lab Results 09/07/23 15:10: WBC 9.2, RBC 6.18, Hgb 17.9, Hct 57.4 H, MCV 92.9, MCH 28.9, MCHC 31.1 L, RDW 14.5, Plt Count 202, MPV 9.3, Neut % (Auto) 64.7, Lymph % (Auto) 25.4, [place] % (Auto) 6.3, Eos % (Auto) 1.5, Baso % (Auto) 2.1 H, Neut # (Auto) 6.0, Lymph # (Auto) 2.3, [place] # (Auto) 0.6, Eos # (Auto) 0.1, Baso # (Auto) 0.2, PT 15.0 H, INR 1.42 H, D-Dimer 1.18 H, Sodium 132 L, Potassium 4.1, Chloride 99, Carbon Dioxide 27, Anion Gap 10.1, BUN 28 H, Creatinine 1.40 H, Estimated Creat Clear 82, Estimated GFR 54 L, Est GFR ( Amer) 65, Glucose 241 H, Calcium 9.1, Total Bilirubin 2.2 H, AST 58, ALT 51, Alkaline Phosphatase 189 H, Troponin I 0.59 H, NT-Pro-B Natriuret Pep 3420 H, Total Protein 6.7, Albumin 3.5, Globulin 3.2, Albumin/Globulin Ratio 1.1, TSH 6.00 H, Thyroxine (T4) 6.1 09/07/23 15:38: SARS-CoV-2 (PCR) Not detected, Influenza A Untype (PCR) Not detected, Influenza Type B (PCR) Not detected 09/07/23 15:10 09/07/23 15:10 Response Orders (Tests/Meds): ED MEDICATIONS Generic Name Dose Route Start Last Admin Trade Name Freq PRN Reason Stop Dose Admin Acetaminophen 650 mg 09/07/23 17:39 Acetaminophen 325mg Tab PO 10/07/23 17:38 Q4HP PRN Fever or Mild Pain (1-3) Albuterol/Ipratropium 3 ml 09/08/23 00:00 Ipratropium/Albuterol 3 Ml Neb IH 10/08/23 00:00 Q6RT SANCHEZ Amlodipine Besylate 10 mg 09/07/23 20:55 09/07/23 21:46 Amlodipine 10mg Tablet PO 10/07/23 20:54 10 mg DAILY SANCHEZ Administration Aspirin 81 mg 09/08/23 09:00 Aspirin 81mg Chewable Tablet PO 10/08/23 08:59 DAILY SANCHEZ Atorvastatin Calcium 80 mg 09/07/23 21:00 09/07/23 21:36 Atorvastatin 40mg Tablet PO 10/07/23 20:59 80 mg HS SANCHEZ Administration Furosemide 40 mg 09/07/23 21:00 09/07/23 21:36 Furosemide 40 Mg Tablet PO 10/07/23 20:59 40 mg DAILY SANCHEZ Administration Gabapentin 600 mg 09/07/23 21:00 09/07/23 21:36 Gabapentin 600mg Tablet PO 10/07/23 20:59 600 mg TID SANCHEZ Administration Heparin Sodium (Porcine) 5,000 unit 09/07/23 17:45 09/07/23 18:09 Heparin Sodium 5,000 Unit/Ml Vial SQ 10/07/23 17:44 5,000 unit Q8H SANCHEZ Administration Insulin Human Lispro 0 unit 09/07/23 21:00 09/07/23 21:39 Humalog 100 Units/Ml 3ml Vial (Ssi) SQ 10/07/23 20:59 2 unit ACHS SANCHEZ Administration Protocol Insulin Lispro Protam/Lispro Human 30 unit 09/08/23 07:00 Humalog Mix 75/25 3ml Flexpen SQ 10/08/23 06:59 AM SANCHEZ Insulin Lispro Protam/Lispro Human 28 unit 09/07/23 21:00 09/07/23 21:38 Humalog Mix 75/25 3ml Flexpen SQ 10/07/23 20:59 28 units HS SANCHEZ Administration Lorazepam 0.5 mg 09/07/23 17:44 09/07/23 17:47 Lorazepam 0.5mg Tablet PO 09/07/23 17:45 0.5 mg ONCE ONE Administration Lorazepam 0.5 mg 09/07/23 21:00 09/07/23 21:36 Lorazepam 0.5mg Tablet PO 10/07/23 20:59 0.5 mg BID SANCHEZ Administration Metoprolol Tartrate 75 mg 09/07/23 21:00 09/07/23 21:46 Metoprolol Tartrate 50mg Tablet PO 10/07/23 20:59 75 mg BID SANCHEZ Administration Nicotine 21 mg 09/07/23 21:00 09/07/23 21:40 Nicotine 21mg/24hr Patch TD 10/07/23 20:59 21 mg DAILY SANCHEZ Administration Ramipril 10 mg 09/07/23 21:00 09/07/23 21:45 Ramipril 10mg Capsule PO 10/07/23 20:59 10 mg BID SANCHEZ Administration Sodium Chloride 10 ml 09/07/23 17:04 09/07/23 17:05 Sodium Chloride 0.9% 10ml Syr (Rad Only) IV 10/07/23 17:03 10 ml NEEDED PRN Administration Maintain IV Site Discontinued Medications Generic Name Dose Route Start Last Admin Trade Name Freq PRN Reason Stop Dose Admin Albuterol/Ipratropium 3 ml 09/07/23 15:19 09/07/23 15:21 Ipratropium/Albuterol 3 Ml Neb IH 09/07/23 15:20 3 ml ONCE ONE Administration Furosemide 40 mg 09/07/23 16:45 09/07/23 16:53 Furosemide 40mg/4ml Vial IV 09/07/23 16:46 40 mg ONCE ONE Administration Iopamidol 75 ml 09/07/23 17:04 09/07/23 17:05 Iopamidol-370 (76%);100ml Bottle IV 09/07/23 17:05 75 ml ONCE ONE Administration Perflutren Lipid Microsphere 2 mg 09/07/23 16:46 09/07/23 16:49 Definity Us Echo Contrast 2ml Inj IV 09/07/23 16:47 2 mg ONCE ONE Administration Sodium Chloride 50 ml 09/07/23 17:04 09/07/23 17:05 0.9 % Sodium Chloride 50 Ml Vial IV 09/07/23 17:05 50 ml ONCE ONE Administration ORDERS Category Date Time Status CT angio chest PE protocol Stat Cat Scan 09/07/23 15:54 Completed POCUS Point of Care (ER Only) Stat Exams 09/07/23 15:38 Completed XR chest 2V Stat Exams 09/07/23 15:19 Completed Basic Metabolic Panel AMLAB Lab 09/08/23 06:00 Ordered Basic Metabolic Panel AMLAB Lab 09/09/23 06:00 Ordered Basic Metabolic Panel AMLAB Lab 09/10/23 06:00 Ordered Complete Blood Count Auto Diff AMLAB Lab 09/08/23 06:00 Ordered Complete Blood Count Auto Diff AMLAB Lab 09/09/23 06:00 Ordered Complete Blood Count Auto Diff AMLAB Lab 09/10/23 06:00 Ordered Complete Blood Count Auto Diff Stat Lab 09/07/23 15:10 Completed Comprehensive Metabolic Panel Stat Lab 09/07/23 15:10 Completed D-Dimer Stat Lab 09/07/23 15:10 Completed NT Pro Brain Natriuretic Pep. Stat Lab 09/07/23 15:10 Completed PT/INR [Prothrombin Time INR] Stat Lab 09/07/23 15:10 Completed Rapid PCR Covid and Flu A/B Stat Lab 09/07/23 15:38 Completed T4 (Thyroxine) Stat Lab 09/07/23 15:10 Completed Thyroid Stimulating Hormone Stat Lab 09/07/23 15:10 Completed Troponin I Q3H Lab 09/07/23 18:33 Completed Troponin I Q3H Lab 09/07/23 21:30 Received Troponin I Q6H Lab 09/08/23 02:45 Ordered Troponin I Stat Lab 09/07/23 15:10 Completed CA echo doppler complete Stat Y 09/07/23 15:58 Completed ECG Data Tracing #1: Attestation: I reviewed this ECG and interpreted as documented below: ECG Narrative: Sinus tachycardia with a ventricular rate of 100 bpm. No acute STEMI. No changes from prior EKG. ECG initial impression date: 09/07/23 ECG initial impression time: 15:36 MDM Narrative Medical Decision Narrative: In summary, this patient is a 47-year-old male presenting to the Emergency Department for evaluation of chest pain, cough, shortness of breath, leg swelling. He has not been compliant with his medications. differential diagnoses considered include but are not limited to CHF exacerbation, COPD exacerbation pneumonia, viral syndrome, respiratory failure. Ruling out the most morbid conditions drove assessment. It should be noted patient's history includes substance abuse, CAD status post CABG, medication noncompliance which are not at goal therapy. This complicates all aspects of care by increasing patient's risk for morbidity. On exam, the patient is nontoxic-appearing and is in no acute distress. Vitals are reassuring cardiac telemetry. He does have lower extremity edema as well as wheezing and rhonchi noted bilaterally. He has no increased work of breathing. He does have history of substance abuse, he denies any IV drug use that would put him at increased risk of endocarditis. Workup included CBC, CMP, troponin, BNP, chest x-ray, and EKG. Patient was given a DuoNeb to assess for symptomatic improvement of wheezing. I performed a bedside ultrasound which demonstrated globally reduced cardiac function. No obvious pericardial effusion or right heart strain. Labs were obtained that demonstrated elevated troponin, elevated D-dimer, elevated BNP, and CHRISTOPHER. Given elevated D-dimer, CT PE protocol was ordered. I independently interpreted x-ray prior to the radiologist read and noted no obvious large area of focal consolidation. I had an interactive discussion with radiologist who read the patient's CT PE protocol who noted he has distal PE with no right heart strain. He is hemodynamically stable and is resting comfortably on room air. I had an interactive discussion with the steerer, Dr. Rico, who advised obtaining formal echocardiogram and diuresing the patient with Lasix. I gave the patient 80 of IV Lasix. I had an interactive discussion with the hospitalist who is to admit the patient for further evaluation and management. Given that the patient is being admitted at this time, I deferred ordering anticoagulation to the hospitalist. patient was admitted in stable condition.
[2023-09-07 15:31] LABS: Basophils # 0.2 K/mm3 (0-0.2); Basophils % 2.1 % (0.1-2.0); Eosinophils # 0.1 K/mm3 (0.0-0.4); Eosinophils % 1.5 % (0.1-12.0); Hematocrit 57.4 % (42.0-52.0); Hemoglobin 17.9 g/dL (14.1-18.0); Lymphocytes # 2.3 K/mm3 (0.7-4.5); Lymphocytes % 25.4 % (10-50); Mean Corpuscular HGB Conc 31.1 g/dL (31.8-35.4); Mean Corpuscular Hemoglobin 28.9 pg (27.0-31.2); Mean Corpuscular Volume 92.9 fl (80-94); Mean Platelet Volume 9.3 fl (7.4-10.4); Monocytes # 0.6 K/mm3 (0.1-1.0); Monocytes % 6.3 % (1.7-9.3); Neutrophils % 64.7 % (37.0-80.0); Platelet Count 202 K/mm3 (142-424); Red Blood Count 6.18 M/mm3 (4.60-6.20); Red Cell Distribution Width 14.5 % (11.5-17.5); White Blood Count 9.2 K/mm3 (4.8-10.8)
[2023-09-07 15:35] LABS: Chloride 99 mmol/L (98-107)
[2023-09-07 15:36] LABS: INR 1.42 (0.9-1.1); Potassium 4.1 mmoL/L (3.5-5.1); Sodium 132 mmol/L (136-145)
[2023-09-07 15:38] LABS: Alanine Aminotransferase 51 U/L (12-78); Aspartate Amino Transferase 58 U/L (17-59); Blood Urea Nitrogen 28 mg/dl (9-20); Creatinine Clearance Estimated 82 mL/min (50-200); Estimated Glomerular Filt Rate 54 ml/min (>60); GFR (African American) 65 ML/MIN (>60)
[2023-09-07 15:39] LABS: Albumin Level 3.5 g/dl (3.5-5.0); Albumin/Globulin Ratio 1.1 (1.1-1.8); Alkaline Phosphatase 189 U/L (38-126); Anion Gap 10.1 mEq/L (5-15); Bilirubin,Total 2.2 mg/dl (0.2-1.3); Calcium 9.1 mg/dl (8.4-10.2); Carbon Dioxide 27 mmol/L (22.0-30.0); Globulin 3.2 g/dL (1.3-3.2); Glucose 241 mg/dl (74-100); Total Protein,Serum 6.7 g/dl (6.3-8.2)
[2023-09-07 15:41] LABS: Coronavirus 19, PCR Not Detected (NotDetected); Influenza A, PCR Not Detected (NotDetected); Influenza B, PCR Not Detected (NotDetected)
[2023-09-07 15:49] LABS: NT Pro Brain Natriuretic Pep. 3420 pg/mL (0-125)
[2023-09-07 15:52] LABS: D-Dimer 1.18 ug/mL (0.0-0.5)
--- NOTE | 2023-09-07 15:54 | CT_ITS ---
PROCEDURE INFORMATION: Exam: CTA Chest With Contrast Exam date and time: 09/07/2023 5:03 PM Age: 47 years old Clinical indication: Shortness of breath; Additional info: SOA, elevated d-dimer TECHNIQUE: Imaging protocol: Computed tomographic angiography of the chest with contrast. Exam focused on the arteries. 3D rendering (Not supervised by radiologist): MIP and/or 3D reconstructed images were created by the technologist. Radiation optimization: All CT scans at this facility use at least one of these dose optimization techniques: automated exposure control; mA and/or kV adjustment per patient size (includes targeted exams where dose is matched to clinical indication); or iterative reconstruction. Contrast material: ISOVUE 370; Contrast volume: 75 ml; Contrast route: INTRAVENOUS (IV); COMPARISON: CT ANGIO CHEST 05/14/2019 3:54 AM FINDINGS: Pulmonary arteries: Peripheral right lower lobe pulmonary emboli. Aorta: Mild atherosclerotic changes are seen within the thoracic aorta without evidence of aneurysm. Veins: Reflux of contrast into the IVC and hepatic veins. Lungs: Minor atelectasis in the right middle lobe and left upper lobe. No acute airspace consolidation. Prominence of the pulmonary interstitium. Pleural spaces: Bilateral pleural effusions, larger on the right. Heart: Cardiomegaly. Lymph nodes: Unremarkable. No enlarged lymph nodes. Liver: Liver morphology is consistent with underlying cirrhosis. Intraperitoneal space: Upper abdominal ascites. Bones/joints: Unremarkable. No acute fracture. Soft tissues: Unremarkable. IMPRESSION: 1. Peripheral right lower lobe pulmonary emboli. RV/LV ratio is 0.8. 2. Cardiomegaly with possible mild changes of pulmonary edema. 3. Bilateral pleural effusions. 4. Cirrhosis and ascites.
--- NOTE | 2023-09-07 15:58 | CA_ITS ---
APPROVED REPORT EXAM: Comprehensive 2D, Doppler, and color-flow Echocardiogram Supervisor Estimator And Drafter: Jacy Thompson RVT Ht: 5 ft 11 in Wt: 200lbs BSA: 2.11 BP: 124/100 mmHg Indications: SOA,CAD,CABG,PHTN,CM,DM,HTN.HLD,CP Echo Enhancing Agent Indication: Endocardial border delineation Agent(s) / Amount(s) Used: Definity 2 cc M-Mode Dimensions RVDd 3.94 cm (0.9-2.6) LA Diam 4.90 cm (1.9-4.0) LVDd 5.91 cm (3.5-5.7) LVDs 5.35 cm (3.5-5.7) IVSd 1.08 cm (0.6-1.1) PWd 1.08 cm (0.6-1.1) EF (Teich) 20.50% FS 9.50% EDV (Teich) 173.90 mL ESV (Teich) 138.30 mL LV Diastology E Decel Time 110 (160-240 msec) E/A Ratio 2.4 Aortic Valve KHALIF Index 1.38 cm2/m2 AoV Peak Armond. 74.0 (50-130 cm/s) AO Peak GR. 2.20 mmHg AO Mean GR. 1.40 (<5 mmHg) AO VTI 9.0 (18-25 cm) KHALIF (VTI) 2.99 (2.5-4.5 cm2) Mitral Valve MV E Max Armond. 110.0 (40-130 cm/s) MV A Velocity 46.0 (40-130 cm/s) E/A Ratio 2.41 MV PHT 32.0 ms Pulmonary Valve PV Peak Velocity 66.0 (50-150 cm/s) Tricuspid Valve TR P. Velocity 339.00 cm/s RAP Estimate 10.00 mmHg RVSP 55.80 mmHg Left Ventricle The left ventricle is normal size. Left ventricular systolic function is severely decreased. There is normal left ventricular wall thickness. There is severe global hypokinesis present. The septal wall appears akinetic. There is septal flattening present, consistent with RV pressure/volume overload. Grade 3 diastolic dysfunction is present. LVEF is 15%. Right Ventricle Right ventricle is severely dilated. Right ventricle is severely hypokinetic. Atria Left atrium is severely dilated. Right atrium is severely dilated. There is no Doppler evidence of interatrial shunt. Aortic Valve The aortic valve is mildly thickened. There is no aortic valvular stenosis. Trace aortic regurgitation. Mitral Valve Mild mitral annular calcification. The mitral valve leaflets are mildly thickened. The posterior leaflet appears tethered and restricted in motion. No evidence of mitral valve stenosis. Moderate to severe mitral regurgitation. The MR jet is eccentric and posteriorly directed. The mechanism of MR is likely due to tethering of the posterior leaflet (Zaid class IIIB). Tricuspid Valve The tricuspid valve leaflets are thin and pliable. Moderate tricuspid regurgitation. RVSP is 45-50 mmHg. Pulmonic Valve The pulmonary valve is normal in structure. Trace pulmonic regurgitation. Great Vessels The aortic root is normal in size. The ascending aorta is not well-visualized. The IVC is plethoric. Pericardium There is no pericardial effusion. Other Information Study Quality: Fair Conclusion Normal LV size with severe reduction in LV systolic function (LVEF 15%). Septal wall appears akinetic. Severe RV dilation with severe reduction in RV function. Severe biatrial dilation. Moderate to severe MR. The mechanism of MR is likely related to tethering of the posterior MV leaflets (Zaid class IIIB). Moderate TR. In the setting of severe biventricular cardiomyopathy and known CAD, further evaluation for ischemia is recommended. Also, to further evaluate mechanism and severity of MR, outpatient MAYKEL is recommended when patient euvolemic and on optimal GDMT. Electronically signed by : Heidy Ponce MD 09/08/2023 23:44:05
--- NOTE | 2023-09-07 16:00 | PC.NURSE ---
Leisa in echo aware of order for pt
[2023-09-07 16:06] LABS: T4 (Thyroxine) 6.1 ug/dl (5.53-11.0)
[2023-09-07 16:32] LABS: Troponin I 0.59 ng/ml (0.00-0.034)
--- NOTE | 2023-09-07 16:33 | PC.NURSE ---
LAB CALLED WITH TROP OF 0.59 DR CAPONE NOTIFIED
[2023-09-07] MEDS: DEFINITY US ECHO CONTRAST 2ML INJ 2 MG IV (16:49)
[2023-09-07] MEDS: FUROSEMIDE 40MG/4ML VIAL 40 MG IV (16:53)
[2023-09-07] MEDS: IOPAMIDOL-370 (76%);100ML BOTTLE 75 ML IV (17:05)
[2023-09-07] MEDS: SODIUM CHLORIDE 0.9% 10ML SYR (RAD ONLY) 10 ML IV (17:05)
[2023-09-07] MEDS: 0.9 % SODIUM CHLORIDE 50 ML VIAL IV (17:05)
--- NOTE | 2023-09-07 17:32 | PC.NURSE ---
Unable to reach Dr. Rios. Reached out to supervisor bottle house cleaners to attempt to locate
--- NOTE | 2023-09-07 17:45 | PC.NURSE ---
House notified for bed
[2023-09-07] MEDS: LORazepam 0.5MG TABLET 0.5 MG PO ×2 (17:47→21:36)
--- NOTE | 2023-09-07 17:49 | PC.NURSE ---
Report to Flower Tran RN; Awaiting transport
[2023-09-07] MEDS: HEPARIN SODIUM 5,000 UNIT/ML VIAL 5000 UNIT SQ (18:09)
--- NOTE | 2023-09-07 18:24 | PC.WOUNDNOTE ---
SCABBED AREAS, REDNESS, PITTING EDEMA TO BLE
--- NOTE | 2023-09-07 19:38 | PC.NURSE ---
LAb reported critical troponin of 0.54
[2023-09-07 19:39] LABS: Troponin I 0.54 ng/ml (0.00-0.034)
--- NOTE | 2023-09-07 19:48 | PC.NURSE ---
Attempted to contact Hospitalist at this time no answer on mobile ex [phone]
[2023-09-07 20:40] LABS: POC Glucose,Bedside 186 (70-110)
--- NOTE | 2023-09-07 20:48 | P.HP_ITS ---
History of Present Illness *Admission Date: 09/07/23 *Reason for visit:: SOA *History of present illness: This is a 47-year-old male with a PMHx of CAD status post CABG, hypertension, hyperlipidemia, insulin-dependent diabetes, medication noncompliance, tobacco dependence, and substance abuse presenting with concern for cough, chest tightness, shortness of breath, swelling in his abdomen and lower extremities, and cracking of the skin in his lower extremities. Patient reports that he has been feeling bad for approximately 10 days, but it got worse over the last 2 days. He notes that he has not been compliant with his medications. He states has been taking his fluid medication, Lasix, but he has not been taking his metoprolol or other medications. He admits that he smokes methamphetamine, but he has not done so in a few days. He denies any fevers, chills, vomiting, changes in bowel movements, or other concerns. He denies any history of IV drug use. Admitted for further treatment and management. [facility] Disclaimer: The information contained in this section may have been updated after the patient was seen, as this information can be updated by other users. Medical History (Updated 09/07/23 @ 23:40 by Xu Soto APRN) Heart failure Low Back Pain History of abuse of recreational drug Tobacco abuse Pulmonary HTN Recent ST elevation myocardial infarction (STEMI) CAD (coronary artery disease) HTN (hypertension) Hyperlipidemia Diabetes Family History (Updated 09/07/23 @ 18:00 by Anne Avery RN) Other No significant family history Social History (Updated 09/07/23 @ 18:01 by Anne Avery RN) Smoking Status: Current every day smoker tobacco type: cigarettes packs per day: 1 alcohol intake: former substance use type: former substance user, marijuana, crack/cocaine, amphetamines and opiates current occupational status: unemployed Travel in the last 8 weeks: None household members: spouse and children caffeine: Yes Review of Systems Review of Systems Review of systems:: pertinent systems reviewed and negative unless documented below Meds Home Medications and Allergies Home Medications Medication Instructions Recorded Confirmed Type lancets 30 gauge #25 ea 07/03/19 09/07/23 History blood sugar diagnostic 07/07/19 09/07/23 History buprenorphine 8 mg-naloxone 2 mg 2 tab sublingual DAILY 09/25/19 09/07/23 History sublingual tablet blood sugar diagnostic (OneTouch #100 ea 02/02/20 09/07/23 Rx Verio test strips) ondansetron HCl 4 mg tablet 4 mg PO Q8H PRN nausea and 05/21/20 09/07/23 Rx (Zofran) vomiting #14 tabs gabapentin 600 mg tablet 600 mg PO TID #90 tabs 04/08/21 09/07/23 Rx lorazepam 0.5 mg tablet (Ativan) 0.5 mg PO BID #60 tabs 04/08/21 09/07/23 Rx pen needle, diabetic 32 gauge x ##100 05/11/22 09/07/23 Rx 32 (BD Ultra-Fine Pearl Pen Needle) clindamycin HCl 300 mg capsule 300 mg PO Q8H 10 days #30 caps 06/12/22 09/07/23 Rx mupirocin 2 % topical ointment 1 applic topical TID 10 days #22 06/12/22 09/07/23 Rx grams amlodipine 10 mg tablet 10 mg PO DAILY 09/07/23 09/07/23 History aspirin 81 mg chewable tablet 81 mg PO DAILY 09/07/23 09/07/23 History atorvastatin 80 mg tablet 80 mg PO HS 09/07/23 09/07/23 History furosemide 40 mg tablet 40 mg PO DAILY 09/07/23 09/07/23 History insulin lispro protamine-lispro 28 unit SQ HS 09/07/23 09/07/23 History 100 unit/mL (75-25) subcutaneous pen insulin lispro protamine-lispro 30 unit SQ AM 09/07/23 09/07/23 History 100 unit/mL (75-25) subcutaneous pen (Humalog Mix 75-25 KwikPen) metoprolol tartrate 50 mg tablet 75 mg PO BID 09/07/23 09/07/23 History nicotine 21 mg/24 hr daily 1 patch transdermal DAILY nicotine 09/07/23 09/07/23 History transdermal patch replacement ramipril 10 mg capsule 10 mg PO BID 09/07/23 09/07/23 History New Prescriptions to Start Prescriptions: Allergies Allergy/AdvReac Type Severity Reaction Status Date / Time ANESTHETICS,GENERAL Allergy Unknown I-RASH Uncoded 01/28/21 09:54 Exam Data for Last 24 hours Vital signs and Labs for Last 24 Hours: Temp Pulse Resp BP Pulse Ox O2 Del Method 98.0 F 94 H 22 142/101 H 94 L Room Air 09/07/23 19:54 09/07/23 19:54 09/07/23 19:54 09/07/23 19:54 09/07/23 19:54 09/07/23 19:54 Laboratory Results - last 24 hr 09/07/23 15:10: WBC 9.2, RBC 6.18, Hgb 17.9, Hct 57.4 H, MCV 92.9, MCH 28.9, MCHC 31.1 L, RDW 14.5, Plt Count 202, MPV 9.3, Neut % (Auto) 64.7, Lymph % (Auto) 25.4, Mcintosh % (Auto) 6.3, Eos % (Auto) 1.5, Baso % (Auto) 2.1 H, Neut # (Auto) 6.0, Lymph # (Auto) 2.3, Mcintosh # (Auto) 0.6, Eos # (Auto) 0.1, Baso # (Auto) 0.2, PT 15.0 H, INR 1.42 H, D-Dimer 1.18 H, Sodium 132 L, Potassium 4.1, Chloride 99, Carbon Dioxide 27, Anion Gap 10.1, BUN 28 H, Creatinine 1.40 H, Estimated Creat Clear 82, Estimated GFR 54 L, Est GFR ( Amer) 65, Glucose 241 H, Calcium 9.1, Total Bilirubin 2.2 H, AST 58, ALT 51, Alkaline Phosphatase 189 H, Troponin I 0.59 H, NT-Pro-B Natriuret Pep 3420 H, Total Protein 6.7, Albumin 3.5, Globulin 3.2, Albumin/Globulin Ratio 1.1, TSH 6.00 H, Thyroxine (T4) 6.1 09/07/23 15:38: SARS-CoV-2 (PCR) Not detected, Influenza A Untype (PCR) Not detected, Influenza Type B (PCR) Not detected 09/07/23 18:33: Troponin I 0.54 H 09/07/23 20:22: POC Glucose 186 H I & O for Last 24 hours: Intake & Output 03/30/24 03/31/24 04/01/24 04/02/24 23:59 23:59 23:59 23:59 Intake Total 360 / 360 Output Total 0 / 0 Balance 360 / 360 Weight 96.247 kg Constitutional Constitutional: mild distress and cooperative *Routine HEENT Exam Head: Present normocephalic Eye: Present EOMI and PERRL ENT: Present mucous membranes moist *Routine Neck Exam Neck: Present supple; Absent lymphadenopathy *Routine Respiratory Exam Respiratory: Present CTA bilaterally, distant breath sounds, diminished air movement and symmetric chest movement; Absent respiratory distress *Routine Cardiovascular Exam Cardiovascular: Present RRR *Routine Abdominal Exam Abdominal: Present soft and normoactive bowel sounds; Absent tenderness *Routine Rectal Exam Rectal:: deferred *Routine Genitalia Exam Genitalia:: deferred *Routine Extremities Exam Extremities: Absent cyanosis, clubbing or edema *Routine Skin Exam Skin: Present warm; Absent rash *Routine Neurological Exam Neurological: Present alert and oriented X3 H&P: Result Imaging and Cardiology EKG: Status: image reviewed by me, Preliminary report and final report Chest x-ray: Status: image reviewed by me, Preliminary report and final report CT scan - chest: Status: image reviewed by me, Preliminary report and final report Assessment and Plan *Assessment and plan (1) Pulmonary embolism on right: Status: Acute Category: Medical Code(s): I26.99 - Other pulmonary embolism without acute cor pulmonale (2) Acute heart failure: Status: Acute Qualifiers: Heart failure type: unspecified Qualified Code(s): I50.9 - Heart failure, unspecified Category: Medical Code(s): I50.9 - Heart failure, unspecified (3) Recent myocardial infarction: Status: Acute Category: Medical (4) COPD (chronic obstructive pulmonary disease): Status: Acute Qualifiers: COPD type: unspecified COPD Qualified Code(s): J44.9 - Chronic obstructive pulmonary disease, unspecified Category: Medical Code(s): J44.9 - Chronic obstructive pulmonary disease, unspecified (5) CAD (coronary artery disease): Status: Acute Qualifiers: Associated angina: with unspecified angina Coronary Disease-Associated Artery/Lesion type: unspecified vessel or lesion type [place] vs. 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 insulin use: unspecified retirement insulin use status Diabetes mellitus complication status: without complication Qualified Code(s): E11.9 - Type 2 diabetes mellitus without complications Category: Medical Code(s): E11.9 - Type 2 diabetes mellitus without complications (8) Non compliance with medical treatment: Status: Acute Category: Medical Code(s): Z91.199 - Patient's noncompliance with other medical treatment and regimen due to unspecified reason (9) Polysubstance (including opioids) dependence without physiological dependence: Status: Acute Category: Medical Code(s): F19.20 - Other psychoactive substance dependence, uncomplicated Plan 47-year-old male with a PMHx of CAD status post CABG, hypertension, hyperlipidemia, insulin-dependent diabetes, medication noncompliance, tobacco dependence, and substance abuse presenting with concern for cough, chest tightness, shortness of breath, swelling in his abdomen and lower extremities, and cracking of the skin in his lower extremities. initial work up included Labs that demonstrated elevated troponin, elevated D- dimer, elevated BNP, and CHRISTOPHER. Given elevated D-dimer, CT PE protocol was ordered. X-ray showed no obvious large area of focal consolidation. ED provider had an interactive discussion with radiologist who read the patient's CT PE protocol who noted he has distal PE with no right heart strain. He is hemodynamically stable and is resting comfortably on room air. As well as a lengthy discussion with the chicken sexer, Dr. Rico, who advised obtaining formal echocardiogram and diuresing the patient with Lasix. all previous findings were discussed with the ED as well for detailed management. afterward we agreed for admission. Patient hemodinamically stable plan as follow: - Acute right PE. no right heart stream. hemodinamically stable: acute on chronic CHF Admit patient for medical treatment monitor for O2 sat. currently on RA. O2 PRN Cardiology and pulmonology consult started on full dose lovenox. elevated d-dimer NM confirmed. ECHO done. pending official reading. last on record form 2019 showed diminished EF 45%, with grade 1 diastolic disfunction CTA of chest reviewed CXR reviewed started on levaquin empirically lasix IV given. elevtated BNP. echo pending resume lasix 40mg PO BID. monitor for urinary output tessalon TID for cough Duoneb PRN for wheezing - Hx of CAD with recent STEMI., COPD, HTN: conditions reviewed reconciled home regimen optimize o2 sat monitor VS per unit protocols repeat and monitor morning labs, included lipid profile IDDM: suspected uncontrolled. last A1c 8.9. accucheck before meals. resume home insuline on sliding scale obtain a1c patient medically non complaint, with hx of polysubstance abuse, will complicate all aspect of care. pharmacy to verify suboxone. on nicotine patch on full dose lovenox. Protonix for Gi bleed ppx Full code
--- NOTE | 2023-09-07 20:48 | PC.NURSE ---
Pt reports cough, excessive dry cough noted at this time. Contacted EQ, SEAPORT PLANNING MANAGER, to make aware, no new orders at this time.
[2023-09-07] MEDS: ATORVASTATIN 40MG TABLET 80 MG PO (21:36)
[2023-09-07] MEDS: GABAPENTIN 600MG TABLET 600 MG PO (21:36)
[2023-09-07] MEDS: FUROSEMIDE 40 MG TABLET PO (21:36)
[2023-09-07] MEDS: humaLOG MIX 75/25 3ML FLEXPEN 28 UNIT SQ (21:38)
[2023-09-07] MEDS: humaLOG 100 UNITS/ML 3ML VIAL (SSI) SQ (21:39)
[2023-09-07] MEDS: NICOTINE 21MG/24HR PATCH 21 MG TD (21:40)
[2023-09-07] MEDS: RAMIPRIL 10MG CAPSULE 10 MG PO (21:45)
[2023-09-07] MEDS: AMLODIPINE 10MG TABLET 10 MG PO (21:46)
[2023-09-07] MEDS: METOPROLOL TARTRATE 50MG TABLET 75 MG PO (21:46)
[2023-09-07 22:06] LABS: Troponin I 0.53 ng/ml (0.00-0.034)
--- NOTE | 2023-09-07 22:20 | PC.NURSE ---
Lab reported critical trop of 0.53, Notified EQ, PETROLOGIST at this time.
--- NOTE | 2023-09-07 22:52 | PC.NURSE ---
Notified EQ, HANDLE BAR ASSEMBLER notified of critical trop at this time
[2023-09-07] MEDS: BENZONATATE 100MG CAPSULE 200 MG PO (23:14)
[2023-09-07] MEDS: ENOXAPARIN 100MG/ML SYRINGE 95 MG SQ (23:50)
[2023-09-07] MEDS: LEVOFLOXACIN/D5W 750 MG/150 ML 750 MG/150 ML PIGGYBACK 100 MG IV (23:51)
[2023-09-08] VITALS (21 sets, daily range): BP systolic 62–140; BP diastolic 38–85; PULSE 60–97; RESP 14–24; TEMP 36.1–36.7; O2SAT 91–100; BMI 29.7
--- NOTE | 2023-09-08 01:13 | PC.NURSE ---
Addendum entered by Анна Nur RN 09/08/23 02:56: Pt took a shower around 2129; prior to and during that shower pt became extremely anxious and was heard yelling at . Staff went into the room at that time and pt stated that his shower had gotten too hot. At that time he was c/o weakness and was yelling at nurses. Pt stated he was anxious and made the comment him and his had ways to help with anxiety. at bedside agreed to this when it was stated. @ 2300 pt was hard to arouse and woke up long enough to take medications, but did not appear in distress or voice any concerns. During midnight rounds pt vitals were taken and were BP 91/54, HR 69, RR 20, Temp 97.4, pulse ox 92% @2L. RN spoke to charge nurse about events prior and about midnight vitals. Recommended to recheck at 0100. Those vitals are as follows: BP 62/38, HR 63; Manual BP was 72/40, O2 69% on 2L/NC. At this time, this RN called charge nurse, house carpenter and hospitalist. Hospitalist, house carpenter and charge nurse came to bedside. Due to pt medications given here at [facility] and prior statement made by pt, Flumazenil was administered x 2 doses. Oxygen was also increased to 4.5L/NC. After 1st admin, pt became more alert but still quickly drifted back off to sleep so 2nd dose was given per MD order. After 2nd dose pt became more alert, BP improved to 107/75, and O2 was able to be weaned back down to 2L/NC and was in mid to high 90s. Pt FSBS was also checked due to situation and pt being a diabetic and results were 60; 1 amp of D50 was given per hypoglycemia protocol and on recheck it was 149. Hospitalist came back to bedside and decided to continue to transfer pt to stepdown for precautionary measures. Original Note: Pt BP soft at this time tech reported 62/38. Pt lethargic and hard to wake. Pt requires 2L of O2 at this time and is sating from 85-92. Nurse x3 in room to evalute pt
--- NOTE | 2023-09-08 01:13 | EXP.RR ---
Acute Rapid Response Note Subjective Date Responded: 09/08/23 Time Responded: 12:55 Provider Note: Called by beside nurse. patient seen hypotensive and low saturation. patient found drowsy. easy arousable. Per nurse, patient earlier, was complaining of anxiety, and stated he has something to take . patient at bedside, patient denied been taking anything. MAR review. patient had his schedule dose of alprazolam 0.5mg. one dose 0.2 of flumazenil, started seen improving on the mental status. Second dose given. patient fully recovery after. normalized BP and O2 sat. patient was also having 61 of BS. AbG does not showed significant movement. We are to hold norepinephrine, alprazolam, gabapentin, and continue monitoring Objective Findings: Vital Signs - Last 4 Hours Temperature 97.4 F L 09/08/23 00:00 Temperature Source Oral 09/08/23 00:00 Pulse Rate 69 09/08/23 00:00 Respiratory Rate 20 09/08/23 00:00 Blood Pressure 91/54 L 09/08/23 00:00 Blood Pressure Mean 66 09/08/23 00:00 Blood Pressure Source Automatic Cuff 09/08/23 00:00 Blood Pressure Position Sitting 09/07/23 18:02 02 Sat by Pulse Oximetry 92 L 09/08/23 00:00 Oxygen Delivery Method Nasal Cannula 09/08/23 00:00 Oxygen Flow Rate (LPM) 2 09/08/23 00:00 Lab Results for Past 12 Hours 09/07/23 21:30: Troponin I 0.53 H 09/07/23 20:22: POC Glucose 186 H 09/07/23 18:33: Troponin I 0.54 H 09/07/23 15:38: SARS-CoV-2 (PCR) Not detected, Influenza A Untype (PCR) Not detected, Influenza Type B (PCR) Not detected 09/07/23 15:10: WBC 9.2, RBC 6.18, Hgb 17.9, Hct 57.4 H, MCV 92.9, MCH 28.9, MCHC 31.1 L, RDW 14.5, Plt Count 202, MPV 9.3, Neut % (Auto) 64.7, Lymph % (Auto) 25.4, [place] % (Auto) 6.3, Eos % (Auto) 1.5, Baso % (Auto) 2.1 H, Neut # (Auto) 6.0, Lymph # (Auto) 2.3, [place] # (Auto) 0.6, Eos # (Auto) 0.1, Baso # (Auto) 0.2, PT 15.0 H, INR 1.42 H, D-Dimer 1.18 H, Sodium 132 L, Potassium 4.1, Chloride 99, Carbon Dioxide 27, Anion Gap 10.1, BUN 28 H, Creatinine 1.40 H, Estimated Creat Clear 82, Estimated GFR 54 L, Est GFR ( Amer) 65, Glucose 241 H, Calcium 9.1, Total Bilirubin 2.2 H, AST 58, ALT 51, Alkaline Phosphatase 189 H, Troponin I 0.59 H, NT-Pro-B Natriuret Pep 3420 H, Total Protein 6.7, Albumin 3.5, Globulin 3.2, Albumin/Globulin Ratio 1.1, TSH 6.00 H, Thyroxine (T4) 6.1 My Orders Category Date Time Status air sampling and monitoring CONT Care 09/07/23 20:53 Active Oxygen, Apply Nasal Cannula 2 lpm Care 09/07/23 23:12 Active Cardiology Consult [Consult to Cardiology] [CONS] Cons 09/07/23 20:53 Active Routine Pulmonology Consult [Consult to Pulmonology] [CONS] Cons 09/07/23 23:13 Active Routine Finger Stick Blood Glucose NEEDED Lab 09/07/23 20:50 Active Hemoglobin A1C AMLAB Lab 09/08/23 06:00 Ordered Lipid Panel AMLAB Lab 09/08/23 06:00 Ordered 0.9 % Sodium Chloride 1000ML [Sod Chlor 0.9% 1000mL Bag Med 09/08/23 01:00 Ordered ] 1,000 ml IV 75 mls/hr 0.9 % Sodium Chloride [Saline Flush 10mL Syringe] Med 09/08/23 00:57 Ordered 10 ml IV NEEDED PRN Amlodipine Besylate [Norvasc 10mg tablet] Med 09/07/23 20:55 Ordered 10 mg PO DAILY Aspirin [Aspirin 81mg Chewable Tablet] Med 09/08/23 09:00 Ordered 81 mg PO DAILY Atorvastatin Calcium [Lipitor 40mg Tablet] Med 09/07/23 21:00 Ordered 80 mg PO HS Benzonatate [Tessalon Perles 100mg capsule] Med 04/02/24 23:10 Ordered 200 mg PO TID Enoxaparin Sodium [Lovenox 100mg/mL syringe] Med 09/07/23 23:15 Ordered 95 mg SQ Q12H Furosemide [Lasix 40mg tablet] Med 09/07/23 21:00 Ordered 40 mg PO DAILY Gabapentin [Neurontin 600mg tablet] Med 09/07/23 21:00 Ordered 600 mg PO TID Insulin Lispro Protamin/Lispro [HumaLOG Mix 75/25 3mL Med 09/07/23 21:00 Ordered flexpen] 28 unit SQ HS Insulin Lispro Protamin/Lispro [HumaLOG Mix 75/25 3mL Med 09/08/23 07:00 Ordered flexpen] 30 unit SQ AM Insulin Lispro [humaLOG 100 units/mL 3mL vial (SSI)] Med 09/07/23 21:00 Ordered See Protocol SQ ACHS Ipratropium/Albuterol Sulfate [Duoneb 3mL neb] Med 09/08/23 00:00 Discontinued 3 ml IH Q6RT Ipratropium/Albuterol Sulfate [Duoneb 3mL neb] Med 09/07/23 23:07 Ordered 3 ml IH Q6RT PRN LORazepam [Ativan 0.5mg tablet] Med 09/07/23 21:00 Ordered 0.5 mg PO BID Levofloxacin/D5w 750 mg/150 ml [Levofloxacin 750mg/ Med 09/07/23 23:15 Ordered 150mL premix] 750 mg in 150 ml IV Q24H Metoprolol Tartrate [Lopressor 50mg tablet] Med 09/07/23 21:00 Ordered 75 mg PO BID Nicotine [Nicoderm 21mg/24hr Patch] Med 09/07/23 21:00 Ordered 21 mg TD DAILY Norepinephrine Bitartrate/D5w [Norepinephrine 8mg/250mL Med 09/08/23 00:57 Ordered -D5W Premix] 8 mg in 250 ml IV 8 mcg/min ramipriL [Altace 10mg capsule] Med 09/07/23 21:00 Ordered 10 mg PO BID ABG [Arterial Blood Gas] Stat RT 09/08/23 00:59 Ordered Rapid Response Exam General General appearance: alert and obtunded Head Head exam: atraumatic and normocephalic Eye Eye exam: Present normal appearance and EOMI ENT ENT exam: Present normal exam Neck Neck exam: Present normal inspection Chest Chest inspection: Present normal inspection Expanded Respiratory Exam Location: Right: decreased breath sounds and Lower: decreased breath sounds Abdominal Exam Abdominal exam: Present soft exam: Present normal inspection Extremities Exam Extremities exam: Present normal inspection Neurological Exam Neurological exam: Present alert Skin Skin exam: Present warm and dry RR Procedures/Assess/Plan Additional Bedside Procedures Meds used: flumazenil 0.2mg x2. IVF @75ml Arterial blood draw: Yes Reevaluation(s) Time: 01:29 Reevaluation #1: patient reevaluated after first dose of flumazenil. patient started improving on mental status, O2 sat and BP. sencond dose given Time: 01:51 Reevaluation #2: patient fully recovery alert and oriented. awake. normalized BP and O2 sat. (1) Benzodiazepine overdose: Status: Acute Qualifiers: Encounter type: initial encounter Injury intent: undetermined intent Qualified Code(s): T42.4X4A - Poisoning by benzodiazepines, undetermined, initial encounter (2) Pulmonary embolism on right: Status: Acute (3) Acute heart failure: Status: Acute Qualifiers: Heart failure type: unspecified Qualified Code(s): I50.9 - Heart failure, unspecified (4) Recent myocardial infarction: Status: Acute (5) COPD (chronic obstructive pulmonary disease): Status: Acute Qualifiers: COPD type: unspecified COPD Qualified Code(s): J44.9 - Chronic obstructive pulmonary disease, unspecified (6) CAD (coronary artery disease): Status: Acute Qualifiers: Associated angina: with unspecified angina Coronary Disease-Associated Artery/Lesion type: unspecified vessel or lesion type [place] vs. 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 patient seen hypotensive and low saturation. patient found drowsy. easy arousable. Per nurse, patient earlier, was complaining of anxiety, and stated he has something to take . patient at bedside, patient denied been taking anything. MAR review. patient had his schedule dose of alprazolam 0.5mg. one dose 0.2 of flumazenil, started seen improving on the mental status. Second dose given. patient fully recovery after. normalized BP and O2 sat. patient was also having 61 of BS. AbG does not showed significant movement. We are to hold norepinephrine, alprazolam, gabapentin, and continue monitoring.
[2023-09-08] MEDS: FLUMAZENIL 0.1 MG/ML 0.200000000000000011 MG IV ×2 (01:19→01:25)
[2023-09-08 01:29] LABS: ABG HCO3 20.6 mmhg (22.0-26.0); ABG Oxygen Saturation 95 % (90-100); ABG PCO2 28.5 mmhg (35.0-45.0); ABG PH 7.48 mmol/L (7.35-7.45); ABG PO2 76.7 mmhg (80-100); ABG TCO2 21.4 mmhg (23-27)
[2023-09-08 01:31] LABS: Allen's Test Acceptable; Oxygen 4.5 L NC %; Source Left Brachial
[2023-09-08 01:56] LABS: POC Glucose,Bedside 60 (70-110)
--- NOTE | 2023-09-08 02:04 | PC.NURSE ---
took over patient care at 2am once patient was moved to step down
[2023-09-08] MEDS: DEXTROSE 50% 50ML SYRINGE (CRASH CART) 50 ML IVP (02:05)
[2023-09-08 02:24] LABS: POC Glucose,Bedside 149 (70-110)
[2023-09-08 03:10] LABS: Basophils # 0.1 K/mm3 (0-0.2); Basophils % 1.6 % (0.1-2.0); Eosinophils % 0.5 % (0.1-12.0); Lymphocytes # 1.2 K/mm3 (0.7-4.5); Lymphocytes % 15.1 % (10-50); Mean Corpuscular HGB Conc 30.7 g/dL (31.8-35.4); Mean Corpuscular Hemoglobin 28.9 pg (27.0-31.2); Mean Corpuscular Volume 94.2 fl (80-94); Mean Platelet Volume 9.4 fl (7.4-10.4); Monocytes % 12.4 % (1.7-9.3); Neutrophils # 5.7 K/mm3 (1.8-7.8); Neutrophils % 70.5 % (37.0-80.0); Platelet Count 175 K/mm3 (142-424); Red Blood Count 5.52 M/mm3 (4.60-6.20); Red Cell Distribution Width 14.6 % (11.5-17.5); White Blood Count 8.1 K/mm3 (4.8-10.8)
[2023-09-08 03:29] LABS: Troponin I 0.55 ng/ml (0.00-0.034)
[2023-09-08 03:40] LABS: POC Glucose,Bedside 172 (70-110)
[2023-09-08 03:41] LABS: Chloride 98 mmol/L (98-107); Potassium 3.5 mmoL/L (3.5-5.1); Sodium 133 mmol/L (136-145)
[2023-09-08 03:44] LABS: Anion Gap 10.5 mEq/L (5-15); Blood Urea Nitrogen 29 mg/dl (9-20); Calcium 8.5 mg/dl (8.4-10.2); Carbon Dioxide 28 mmol/L (22.0-30.0); Creatinine Clearance Estimated 81 mL/min (50-200); Estimated Glomerular Filt Rate 50 ml/min (>60); GFR (African American) 60 ML/MIN (>60); Glucose 105 mg/dl (74-100)
[2023-09-08 03:59] LABS: Chol/HDL Ratio 5.6 (1-3.5); Cholesterol 139 mg/dl (140-200); HDL Cholesterol 25 mg/dl (40-60); Triglycerides 51 mg/dl (30-150); VLDL Cholesterol 10 mg/dL (0-40)
[2023-09-08 04:10] LABS: Direct LDL Cholesterol 93.84 mg/dL (100-129)
--- NOTE | 2023-09-08 05:11 | PC.NURSE ---
Since arriving to room 217 patient has been more alert and is easily now arousable. Patient has eaten snacks and drank some pop. remains at bedside. patient been up to the bathroom twice to void. Patient is still on 2L NC. BP have been more stable see VS. no other issues since i took over care
[2023-09-08 05:31] LABS: POC Glucose,Bedside 127 (70-110)
--- NOTE | 2023-09-08 08:21 | HMH.PHAINT1 ---
Pharmacy Intervention Comments: HOME MEDICATIONS VERIFIED VIA OUTSIDE PHARMACY FILL DATES AND H&P NOTE
[2023-09-08] MEDS: BENZONATATE 100MG CAPSULE 200 MG PO ×3 (09:02→20:17)
[2023-09-08] MEDS: ASPIRIN 81MG CHEWABLE TABLET 81 MG PO (09:03)
[2023-09-08] MEDS: FUROSEMIDE 40 MG TABLET PO (09:03)
--- NOTE | 2023-09-08 09:42 | P.CONS_ITS ---
History of Present Illness History of present illness: Mr. Rodriguez is a 47-year-old female with reported history of CAD status post CABG, hypertension dyslipidemia insulin-dependent diabetes mellitus tobacco abuse presented to the ER with worsening chest discomfort shortness of breath and swelling in the abdomen and lower extremities. [facility] Disclaimer: The information contained in this section may have been updated after the patient was seen, as this information can be updated by other users. Medical History (Updated 09/08/23 @ 12:11 by Maynor Valverde MD) Pleural effusion, bilateral Heart failure Low Back Pain History of abuse of recreational drug Tobacco abuse Pulmonary HTN Recent ST elevation myocardial infarction (STEMI) CAD (coronary artery disease) HTN (hypertension) Hyperlipidemia Diabetes Family History (Updated 09/07/23 @ 18:00 by Anne Avery, RN) Other No significant family history Social History (Updated 09/07/23 @ 18:01 by Anne Avery, RN) Smoking Status: Current every day smoker tobacco type: cigarettes packs per day: 1 alcohol intake: former substance use type: former substance user, marijuana, crack/cocaine, amphetamines and opiates current occupational status: unemployed Travel in the last 8 weeks: None household members: spouse and children caffeine: Yes Review of Systems Constitutional Constitutional: Reports anorexia, Reports body ache(s), Reports fatigue, Reports poor appetite and Reports lethargy Eyes Eyes: Denies eye discharge, Denies dry eyes, Denies irritation and Denies itchy eyes ENT Ears, Nose, Mouth, and Throat: Denies epistaxis, Denies facial pain, Denies lip swelling and Denies throat swelling *Cardiovascular Cardiovascular: Reports dyspnea, Reports dyspnea on exertion, Reports leg edema and Reports orthopnea *Respiratory Respiratory: Reports chest congestion, Reports cough, Reports dyspnea, Reports dyspnea on exertion, Denies excessive phlegm production, Denies hemoptysis and Denies wheezing *Gastrointestinal Gastrointestinal: Denies abdominal pain, Denies belching and Denies cramping Comments: Abdominal distention *Musculoskeletal Musculoskeletal: Reports back pain, Reports myalgias and Reports other (No small joint swelling or Pain) Psychiatric Psychiatric: Denies homicidal ideation and Denies suicidal ideation Endocrine Endocrine: Reports fatigue and Denies heat intolerance Hematologic/Lymphatic Hematologic/Lymphatic: Denies easy bleeding and Denies lymphadenopathy Allergic/Immunologic Allergic/Immunologic: Denies itchy eyes, Denies lip swelling, Denies throat swelling and Denies wheezing Pulmonology Exam Inpatient Vital signs and Labs for Last 24 Hours: Temp Pulse Resp BP Pulse Ox O2 Del Method O2 Flow Rate 98.1 F 66 18 90/64 L 100 Nasal Cannula 2 09/08/23 09:13 09/08/23 08:00 09/08/23 08:00 09/08/23 08:00 09/08/23 08:00 09/08/23 08:00 09/08/23 08:00 Laboratory Results - last 24 hr 09/07/23 15:10: WBC 9.2, RBC 6.18, Hgb 17.9, Hct 57.4 H, MCV 92.9, MCH 28.9, M CHC 31.1 L, RDW 14.5, Plt Count 202, MPV 9.3, Neut % (Auto) 64.7, Lymph % (Auto) 25.4, [place] % (Auto) 6.3, Eos % (Auto) 1.5, Baso % (Auto) 2.1 H, Neut # (Auto) 6.0, Lymph # (Auto) 2.3, [place] # (Auto) 0.6, Eos # (Auto) 0.1, Baso # (Auto) 0.2, PT 15.0 H, INR 1.42 H, D-Dimer 1.18 H, Sodium 132 L, Potassium 4.1, Chloride 99, Carbon Dioxide 27, Anion Gap 10.1, BUN 28 H, Creatinine 1.40 H, Estimated Creat Clear 82, Estimated GFR 54 L, Est GFR ( Amer) 65, Glucose 241 H, Calcium 9.1, Total Bilirubin 2.2 H, AST 58, ALT 51, Alkaline Phosphatase 189 H, Troponin I 0.59 H, NT-Pro-B Natriuret Pep 3420 H, Total Protein 6.7, Albumin 3.5, Globulin 3.2, Albumin/Globulin Ratio 1.1, TSH 6.00 H, Thyroxine (T4) 6.1 09/07/23 15:38: SARS-CoV-2 (PCR) Not detected, Influenza A Untype (PCR) Not detected, Influenza Type B (PCR) Not detected 09/07/23 18:33: Troponin I 0.54 H 09/07/23 20:22: POC Glucose 186 H 04/02/24 21:30: Troponin I 0.53 H 09/08/23 00:59: Specimen Source Left brachial, O2 % 4.5 l nc, ABG pH 7.48 H, ABG pCO2 28.5 L, ABG pO2 76.7 L, ABG HCO3 20.6 L, ABG Total CO2 21.4 L, ABG O2 Saturation 95, ABG Base Excess -3.0 L, Anand Test Acceptable 09/08/23 01:49: POC Glucose 60 L 09/08/23 02:16: POC Glucose 149 H 09/08/23 02:55: WBC 8.1, RBC 5.52, Hgb 16.0 D, Hct 52.0, MCV 94.2 H, MCH 28.9, MCHC 30.7 L, RDW 14.6, Plt Count 175, MPV 9.4, Neut % (Auto) 70.5, Lymph % (Auto) 15.1, [place] % (Auto) 12.4 H, Eos % (Auto) 0.5, Baso % (Auto) 1.6, Neut # (Auto) 5.7, Lymph # (Auto) 1.2, [place] # (Auto) 1.0, Eos # (Auto) 0.0, Baso # (Auto) 0.1, Sodium 133 L, Potassium 3.5, Chloride 98, Carbon Dioxide 28, Anion Gap 10.5, BUN 29 H, Creatinine 1.50 H, Estimated Creat Clear 81, Estimated GFR 50 L, Est GFR ( Amer) 60, Glucose 105 H D, Hemoglobin A1c 13.0 H, Calcium 8.5, Troponin I 0.55 H, Triglycerides 51, Cholesterol 139 L, LDL Cholesterol Direct 93.84 L, VLDL Cholesterol 10, HDL Cholesterol 25 L, Cholesterol/HDL Ratio 5.6 H 09/08/23 03:31: POC Glucose 172 H 09/08/23 05:24: POC Glucose 127 H I & O for Labs for Last 24 Hours: Intake & Output 09/05/23 09/06/23 09/07/23 09/08/23 23:59 23:59 23:59 23:59 Intake Total 360 / 560 440 / 440 Output Total 0 / 0 0 / 0 Balance 360 / 560 440 / 440 Weight 212 lb 3 oz 212 lb 11.2 oz Constitutional: Present moderate distress Head: Present normocephalic and atraumatic ENT: Present normal exam, normal oropharynx and mucous membranes moist Neck: Present normal inspection and full ROM Respiratory: Present respiratory distress and able to speak in complete sentences; Absent wheezes or crackles Comment:: Decreased breath sounds bilateral lower lung keller Cardiac: Present S1/S2, Tachycardia and radial pulses present GI: Present soft and distention; Absent tenderness or guarding Skin: Present intact; Absent cyanosis or jaundice Neuro: Present alert, awake and oriented x 3 Extremities: Present normal inspection; Absent clubbing or cyanosis Psychiatric: Present normal affect and cooperative Meds Home Medications and Allergies Home Medications Medication Instructions Recorded Confirmed Type lancets 30 gauge #25 ea 07/03/19 09/07/23 History blood sugar diagnostic 07/07/19 09/07/23 History blood sugar diagnostic (OneTouch #100 ea 02/02/20 09/07/23 Rx Verio test strips) pen needle, diabetic 32 gauge x ##100 05/11/22 09/07/23 Rx 5/32 (BD Ultra-Fine Pearl Pen Needle) furosemide 40 mg tablet 40 mg PO DAILY 09/07/23 09/07/23 History New Prescriptions to Start Prescriptions: Allergies Allergy/AdvReac Type Severity Reaction Status Date / Time ANESTHETICS,GENERAL Allergy Unknown I-RASH Uncoded 01/28/21 09:54 Results Laboratory Findings 09/08/23 02:55 09/08/23 02:55 ABG ABG pH 7.48 mmol/L (7.35-7.45) H 09/08/23 00:59 ABG pCO2 28.5 mmhg (35.0-45.0) L 09/08/23 00:59 ABG pO2 76.7 mmhg (80-100) L 09/08/23 00:59 ABG O2 Saturation 95 % (90-100) 09/08/23 00:59 PT/INR, D-dimer PT 15.0 seconds (10.1-12.5) H 09/07/23 15:10 INR 1.42 (0.9-1.1) H 09/07/23 15:10 D-Dimer 1.18 ug/mL (0.0-0.5) H 09/07/23 15:10 Abnormal lab findings: Abnormal Labs 09/07/23 09/07/23 09/07/23 15:10 18:33 20:22 Hct 57.4 H MCV MCHC 31.1 L [place] % (Auto) Baso % (Auto) 2.1 H PT 15.0 H INR 1.42 H D-Dimer 1.18 H ABG pH ABG pCO2 ABG pO2 ABG HCO3 ABG Total CO2 ABG Base Excess Sodium 132 L BUN 28 H Creatinine 1.40 H Estimated GFR 54 L Glucose 241 H POC Glucose 186 H Hemoglobin A1c Total Bilirubin 2.2 H Alkaline Phosphatase 189 H Troponin I 0.59 H 0.54 H NT-Pro-B Natriuret Pep 3420 H Cholesterol LDL Cholesterol Direct HDL Cholesterol Cholesterol/HDL Ratio TSH 6.00 H 09/07/23 09/08/23 09/08/23 21:30 00:59 01:49 Hct MCV MCHC [place] % (Auto) Baso % (Auto) PT INR D-Dimer ABG pH 7.48 H ABG pCO2 28.5 L ABG pO2 76.7 L ABG HCO3 20.6 L ABG Total CO2 21.4 L ABG Base Excess -3.0 L Sodium BUN Creatinine Estimated GFR Glucose POC Glucose 60 L Hemoglobin A1c Total Bilirubin Alkaline Phosphatase Troponin I 0.53 H NT-Pro-B Natriuret Pep Cholesterol LDL Cholesterol Direct HDL Cholesterol Cholesterol/HDL Ratio TSH 09/08/23 09/08/23 09/08/23 02:16 02:55 03:31 Hct MCV 94.2 H MCHC 30.7 L [place] % (Auto) 12.4 H Baso % (Auto) PT INR D-Dimer ABG pH ABG pCO2 ABG pO2 ABG HCO3 ABG Total CO2 ABG Base Excess Sodium 133 L BUN 29 H Creatinine 1.50 H Estimated GFR 50 L Glucose 105 H D POC Glucose 149 H 172 H Hemoglobin A1c 13.0 H Total Bilirubin Alkaline Phosphatase Troponin I 0.55 H NT-Pro-B Natriuret Pep Cholesterol 139 L LDL Cholesterol Direct 93.84 L HDL Cholesterol 25 L Cholesterol/HDL Ratio 5.6 H TSH 09/08/23 05:24 Hct MCV MCHC [place] % (Auto) Baso % (Auto) PT INR D-Dimer ABG pH ABG pCO2 ABG pO2 ABG HCO3 ABG Total CO2 ABG Base Excess Sodium BUN Creatinine Estimated GFR Glucose POC Glucose 127 H Hemoglobin A1c Total Bilirubin Alkaline Phosphatase Troponin I NT-Pro-B Natriuret Pep Cholesterol LDL Cholesterol Direct HDL Cholesterol Cholesterol/HDL Ratio TSH Assessment and Plan *Assessment and plan (1) Pulmonary embolism on right: Status: Acute Category: Medical Code(s): I26.99 - Other pulmonary embolism without acute cor pulmonale (2) Pleural effusion, bilateral: Status: Acute Category: Medical Code(s): J90 - Pleural effusion, not elsewhere classified Plan Mr. Rodriguez is a 47-year-old female with reported history of CAD status post CABG, hypertension dyslipidemia insulin-dependent diabetes mellitus tobacco abuse presented to the ER with worsening chest discomfort shortness of breath and swelling in the abdomen and lower extremities. Admits smoking history. Denies any prior respiratory complaints except for the last 2 to 3 weeks with worsening respiratory symptoms. Denies any IV drug abuse. Hep C antibody and HIV nonreactive from January 2021.Hep B IgM positive from 2020. CTA upon admission right lower lobe segmental pulmonary embolism. Right upper lobe fissural based opacity noted. Bilateral pleural effusions right greater than left. Ascites noted. Cardiomegaly noted. Afebrile. Hemodynamically stable. Leukocytosis. The likely etiology of the pleural effusions are from cirrhosis however given cardiomegaly possibility of high-output cardiac failure cannot be completely ruled out in the setting of cirrhosis. Plan: -Oxygen supplementation as needed to maintain O2 saturation goal of 90 to 95%. Weaned to room air this morning. Will perform 6-minute walk testing prior to discharge. -Continue Lovenox and initiate warfarin with INR goal of 2-3 for the noted pulmonary embolism in the setting of cirrhosis. -Continue Levofloxacin to complete a total of 5-day course. Will closely monitor INR as patient will be initiated on warfarin given drug interactions -Will hold off on performing thoracentesis for the noted bilateral pleural effusions. Recommend evaluating for possible paracentesis. -Evaluation and management and transplant referral for the noted cirrhosis by primary team. # For the noted opacity in the right upper lobe will follow the patient as an outpatient basis and consider repeat imaging # Thank you for involving pulmonary in this patient care. Will continue to follow.
--- NOTE | 2023-09-08 10:31 | P.CONCA_ITS ---
History of Present Illness History of Present Illness Consult date: 09/08/23 Requesting physician: Paxton Rios Consult reason: chest pain and shortness of breath Chief complaint: Cough, chest tightness, shortness of air, swelling History of present illness: This is a 47-year-old white male with past medical history of coronary artery disease status post CABG in 2019, hypertension, hyperlipidemia, insulin-dependen t diabetes mellitus, medical noncompliance, tobacco use, substance abuse with methamphetamines and heart failure with reduced ejection fraction presented to emergency department with complaints of cough, chest tightness, shortness of air and bilateral leg swelling x 10 days. Patient reports he has not been taking his medications as prescribed. Upon presentation to emergency department EKG shows sinus tachycardia at a rate of 100 without acute ischemic changes noted. Labs were as follow: WBC 8.1, hemoglobin 16, sodium 133, potassium 3.5, creatinine 1.5, hemoglobin A1c 13, troponin 0.54, LDL of 93 and positive D- dimer. Patient underwent a CTA of chest which showed a right lower lobe PE, mild pulmonary edema, bilateral pleural effusions, cirrhosis and ascites and possible pneumonia. Patient was given Lasix 80 mg x 1 in emergency department and admitted for diuresis and treatment of PE. This morning patient is resting comfortably reports shortness of air has improved. [facility] Disclaimer: The information contained in this section may have been updated after the patient was seen, as this information can be updated by other users. Medical History (Updated 09/08/23 @ 12:11 by Maynor Valverde MD) Pleural effusion, bilateral Heart failure Low Back Pain History of abuse of recreational drug Tobacco abuse Pulmonary HTN Recent ST elevation myocardial infarction (STEMI) CAD (coronary artery disease) HTN (hypertension) Hyperlipidemia Diabetes Family History (Updated 09/07/23 @ 18:00 by Anne Avery RN) Other No significant family history Social History (Updated 09/07/23 @ 18:01 by Anne Avery RN) Smoking Status: Current every day smoker tobacco type: cigarettes packs per da y: 1 alcohol intake: former substance use type: former substance user, marijuana, crack/cocaine, amphetamines and opiates current occupational status: unemployed Travel in the last 8 weeks: None household members: spouse and children caffeine: Yes Review of Systems *Cardiovascular Cardiovascular: Reports chest pain, Reports dyspnea and Reports leg edema *Respiratory Respiratory: Reports dyspnea Exam Data for Last 24 hours Vital signs and Labs for Last 24 Hours: Temp Pulse Resp BP Pulse Ox O2 Del Method O2 Flow Rate 98.1 F 70 18 110/78 100 Nasal Cannula 2 09/08/23 09:13 09/08/23 10:00 09/08/23 10:00 09/08/23 10:00 09/08/23 10:00 09/08/23 10:00 09/08/23 10:00 Laboratory Results - last 24 hr 09/07/23 15:10: WBC 9.2, RBC 6.18, Hgb 17.9, Hct 57.4 H, MCV 92.9, MCH 28.9, MCHC 31.1 L, RDW 14.5, Plt Count 202, MPV 9.3, Neut % (Auto) 64.7, Lymph % (Auto) 25.4, [place] % (Auto) 6.3, Eos % (Auto) 1.5, Baso % (Auto) 2.1 H, Neut # (Auto) 6.0, Lymph # (Auto) 2.3, [place] # (Auto) 0.6, Eos # (Auto) 0.1, Baso # (Auto) 0.2, PT 15.0 H, INR 1.42 H, D-Dimer 1.18 H, Sodium 132 L, Potassium 4.1, Chloride 99, Carbon Dioxide 27, Anion Gap 10.1, BUN 28 H, Creatinine 1.40 H, Estimated Creat Clear 82, Estimated GFR 54 L, Est GFR ( Amer) 65, Glucose 241 H, Calcium 9.1, Total Bilirubin 2.2 H, AST 58, ALT 51, Alkaline Phosphatase 189 H, Troponin I 0.59 H, NT-Pro-B Natriuret Pep 3420 H, Total Protein 6.7, Albumin 3.5, Globulin 3.2, Albumin/Globulin Ratio 1.1, TSH 6.00 H, Thyroxine (T4) 6.1 09/07/23 15:38: SARS-CoV-2 (PCR) Not detected, Influenza A Untype (PCR) Not detected, Influenza Type B (PCR) Not detected 09/07/23 18:33: Troponin I 0.54 H 09/07/23 20:22: POC Glucose 186 H 09/07/23 21:30: Troponin I 0.53 H 09/08/23 00:59: Specimen Source Left brachial, O2 % 4.5 l nc, ABG pH 7.48 H, ABG pCO2 28.5 L, ABG pO2 76.7 L, ABG HCO3 20.6 L, ABG Total CO2 21.4 L, ABG O2 Saturation 95, ABG Base Excess -3.0 L, Anand Test Acceptable 09/08/23 01:49: POC Glucose 60 L 09/08/23 02:16: POC Glucose 149 H 09/08/23 02:55: WBC 8.1, RBC 5.52, Hgb 16.0 D, Hct 52.0, MCV 94.2 H, MCH 28.9, MCHC 30.7 L, RDW 14.6, Plt Count 175, MPV 9.4, Neut % (Auto) 70.5, Lymph % (Auto) 15.1, [place] % (Auto) 12.4 H, Eos % (Auto) 0.5, Baso % (Auto) 1.6, Neut # (Auto) 5.7, Lymph # (Auto) 1.2, [place] # (Auto) 1.0, Eos # (Auto) 0.0, Baso # (Auto) 0.1, Sodium 133 L, Potassium 3.5, Chloride 98, Carbon Dioxide 28, Anion Gap 10.5, BUN 29 H, Creatinine 1.50 H, Estimated Creat Clear 81, Estimated GFR 50 L, Est GFR ( Amer) 60, Glucose 105 H D, Hemoglobin A1c 13.0 H, Calcium 8.5, Troponin I 0.55 H, Triglycerides 51, Cholesterol 139 L, LDL Cholesterol Direct 93.84 L, VLDL Cholesterol 10, HDL Cholesterol 25 L, Cholesterol/HDL Ratio 5.6 H 09/08/23 03:31: POC Glucose 172 H 09/08/23 05:24: POC Glucose 127 H I & O for Last 24 hours: Intake & Output 09/05/23 09/06/23 09/07/23 09/08/23 23:59 23:59 23:59 23:59 Intake Total 360 / 560 440 / 440 Output Total 0 / 0 0 / 0 Balance 360 / 560 440 / 440 Weight 212 lb 3 oz 212 lb 11.2 oz Constitutional Constitutional: no acute distress *Routine Respiratory Exam Respiratory: Present CTA bilaterally and symmetric chest movement *Routine Cardiovascular Exam Cardiovascular: Present RRR, Normal S1 and Normal S2 *Routine Abdominal Exam Abdominal: Present soft and normoactive bowel sounds; Absent tenderness *Routine Extremities Exam Extremities: Present edema, full ROM and normal capillary refill *Routine Skin Exam Skin: Present intact, dry and warm Detailed Neck Exam: Thyroids Thyroid: Absent bruit Meds Home Medications and Allergies Home Medications Medication Instructions Recorded Confirmed Type lancets 30 gauge #25 ea 07/03/19 09/07/23 History blood sugar diagnostic 07/07/19 09/07/23 History blood sugar diagnostic (OneTouch #100 ea 02/02/20 09/07/23 Rx Verio test strips) pen needle, diabetic 32 gauge x ##100 05/11/22 09/07/23 Rx /32 (BD Ultra-Fine Pearl Pen Needle) furosemide 40 mg tablet 40 mg PO DAILY 09/07/23 09/07/23 History New Prescriptions to Start Prescriptions: Allergies Allergy/AdvReac Type Severity Reaction Status Date / Time ANESTHETICS,GENERAL Allergy Unknown I-RASH Uncoded 01/28/21 09:54 Assessment and Plan *Assessment and plan (1) Benzodiazepine overdose: Status: Acute Qualifiers: Encounter type: initial encounter Injury intent: undetermined intent Qualified Code(s): T42.4X4A - Poisoning by benzodiazepines, undetermined, initial encounter Category: Medical Code(s): T42.4X1A - Poisoning by benzodiazepines, accidental (unintentional), initial encounter (2) Polysubstance (including opioids) dependence without physiological dependence: Status: Acute Category: Medical Code(s): F19.20 - Other psychoactive substance dependence, uncomplicated (3) Non compliance with medical treatment: Status: Acute Category: Medical Code(s): Z91.199 - Patient's noncompliance with other medical treatment and regimen due to unspecified reason (4) Pulmonary embolism on right: Status: Acute Category: Medical Code(s): I26.99 - Other pulmonary embolism without acute cor pulmonale (5) Heart failure with reduced ejection fraction: Status: Acute Category: Medical Code(s): I50.20 - Unspecified systolic (congestive) heart failure (6) CAD (coronary artery disease): Status: Acute Qualifiers: Associated angina: with unspecified angina Coronary Disease-Associated Artery/Lesion type: unspecified vessel or lesion type [place] vs. transplanted heart: [place] heart Qualified Code(s): I25.119 - Atherosclerotic heart disease of [place] coronary artery with unspecified angina pectoris Category: Medical Code(s): I25.10 - Atherosclerotic heart disease of [place] coronary artery without angina pectoris (7) Elevated troponin: Status: Acute Category: Medical Code(s): R79.89 - Other specified abnormal findings of blood chemistry (8) Hypertension with goal to be determined: Status: Acute Category: Medical Code(s): I10 - Essential (primary) hypertension Plan Acute pulmonary embolism PESI score 69, low risk -Peripheral right lower lobe pulmonary emboli noted on CTA chest -Patient started on weight-based Lovenox twice daily -Coumadin started per pulmonology -Preliminary echo shows an ejection fraction of 30% with mild reduction in RV function, dilated RV, mild MR and TR. Acute on chronic HFrEF- NYHA III -Mild pulmonary edema, bilateral pleural effusions and ascites noted on CT chest -Echo 2018- EF 45, repeat shows an estimated EF of 30% with mild reduction in RV function, dilated RV and mild MR and TR -History of medical non compliance -Increase Lasix to 80 mg IV twice daily -Will diurese patient first and then adjust medications for heart failure CAD s/p CABG Acute myocardial injury in the setting of acute illness versus NSTEMI -Top 0.54-0.53-0.55 -EKG negative for acute ischemic changes -Given patient's history of coronary artery disease with CABG and reduced ejection fraction we will proceed with left heart catheterization tomorrow to further evaluate coronary artery disease. Discussed risk versus benefits with patient he is agreeable to proceed. -continue aspirin 81 mg daily and Lipitor 80 mg daily. Patient currently receiving Lovenox injection for PE. Medication noncompliance Substance abuse-methamphetamine use Benzodiazepine overdose -Defer to primary service CV summary 09/08/2023: Echocardiogram shows a reduced ejection fraction of 30%, dilated right ventricle with reduction in RV function, mild MR and TR. Continue to diurese with increased dose of Lasix 80 mg IV twice daily. Continue with for now. Will proceed with left heart catheterization tomorrow, please keep patient n.p.o. after midnight and hold Lovenox tomorrow. Coumadin has been ordered per pulmonology, will hold until after left heart catheterization tomorrow, restart after.
[2023-09-08] MEDS: METOPROLOL TARTRATE 50MG TABLET 75 MG PO ×2 (10:49→20:16)
[2023-09-08] MEDS: ENOXAPARIN 100MG/ML SYRINGE 95 MG SQ ×2 (10:53→23:04)
[2023-09-08 11:08] LABS: POC Glucose,Bedside 127 (70-110)
[2023-09-08] MEDS: WARFARIN 5MG TABLET 5 MG PO (12:41)
[2023-09-08] MEDS: FUROSEMIDE 40MG/4ML VIAL 40 MG IV (13:01)
--- NOTE | 2023-09-08 13:33 | CT_ITS ---
FINAL REPORT CLINICAL HISTORY: fall, lac on back of head COMPARISON: None FINDINGS: Axial images of the head were obtained without contrast. Coronal and sagittal reformatted images were also obtained.This study was performed with techniques to keep radiation doses as low as reasonably achievable (ALARA). Individualized dose reduction techniques using automated exposure control or adjustment of mA and/or kV according to the patient's size were employed. There is no evidence of intracranial hemorrhage or mass. The ventricular size is within normal limits. There is no evidence of shift of the midline structures. No abnormal extra axial fluid collection is identified. No skull abnormality is seen on the bone window images. IMPRESSION: No acute intracranial abnormality. Reviewed, Interpreted and Dictated by Lul Castellanos III, MD Transcribed by Jessica Arrizaa Authenticated and [facility]
[2023-09-08 13:37] LABS: POC Glucose,Bedside 133 (70-110)
[2023-09-08 13:42] LABS: Eosinophils # 0.1 K/mm3 (0.0-0.4); Lymphocytes % 22.8 % (10-50); Mean Corpuscular Hemoglobin 29.3 pg (27.0-31.2)
[2023-09-08 13:50] LABS: Basophils # 0.1 K/mm3 (0-0.2); Basophils % 1.5 % (0.1-2.0); Lymphocytes # 2.2 K/mm3 (0.7-4.5); Mean Corpuscular HGB Conc 30.8 g/dL (31.8-35.4); Mean Corpuscular Volume 95.4 fl (80-94); Mean Platelet Volume 9.6 fl (7.4-10.4); Monocytes # 0.7 K/mm3 (0.1-1.0); Monocytes % 7.3 % (1.7-9.3); Neutrophils # 6.5 K/mm3 (1.8-7.8); Neutrophils % 67.4 % (37.0-80.0); Platelet Count 223 K/mm3 (142-424); Red Blood Count 6.31 M/mm3 (4.60-6.20); Red Cell Distribution Width 14.7 % (11.5-17.5); White Blood Count 9.6 K/mm3 (4.8-10.8)
[2023-09-08 13:51] LABS: Hemoglobin 18.5 g/dL (14.1-18.0)
[2023-09-08 13:53] LABS: Hematocrit 59.6 % (42.0-52.0)
--- NOTE | 2023-09-08 14:00 | PC.NURSE ---
Pt brought to trauma room [address] Ngo to see/treat. Cleansing laceration site with hibiclens
[2023-09-08 14:03] LABS: Chloride 97 mmol/L (98-107); Potassium 3.8 mmoL/L (3.5-5.1); Sodium 131 mmol/L (136-145)
[2023-09-08 14:06] LABS: Anion Gap 12.8 mEq/L (5-15); Blood Urea Nitrogen 32 mg/dl (9-20); Calcium 8.6 mg/dl (8.4-10.2); Carbon Dioxide 25 mmol/L (22.0-30.0); Creatinine Clearance Estimated 76 mL/min (50-200); Estimated Glomerular Filt Rate 46 ml/min (>60); GFR (African American) 56 ML/MIN (>60); Glucose 104 mg/dl (74-100)
--- NOTE | 2023-09-08 14:14 | EXP.EVENT.NO ---
Patient was upstairs, fell, sustained laceration on back of his head. 4 cm linear. Patient was brought down to the emergency department, cleaned up, 4 sunil were placed with adequate closure after 5 mL of 1% lidocaine injected subcutaneously. Patient tolerated without issue.
[2023-09-08 14:49] LABS: INR 1.89 (0.9-1.1); Prothrombin Time 19.6 seconds (10.1-12.5)
--- NOTE | 2023-09-08 14:52 | PC.NURSE ---
Addendum entered by Elicia Jackson RN 09/08/23 16:08: PT WAS WITNESSED FALLING BY RECEPTION CLERK. Original Note: PT LEFT TO GO TO WORK AT 1230. PT HAS BEEN ANXIOUS ON AND OFF T/O THE SHIFT AND BECAME EVEN MORE ANXIOUS AFTER LEFT. PT STATES MY KNOWS HOW TO CALM ME DOWN . WHEN PT BECOMES ANXIOUS HE IS UNABLE TO GET COMFORTABLE IN THE BED. PT HYPERVENTILATES AND DESATS TO THE 80'S. STAFF OFFERED TO SIT PT IN THE CHAIR AND HE REFUSED. STAFF HAS BEEN ASSISTING PT WITH URINAL AND HELPING PT FOCUS ON DEEP BREATHING TO HELP WITH ANXIETY. PT WAS SLEEPING AT 1315 AND VERY QUICKLY WENT TO SIT UP ON THE SOB AND FELL OUT OF THE BED ON THE FLOOR RESULTING IN A LACERATION ON THE BACK OF THE HEAD. VSS. ARRIVED TO BEDSIDE. NEW ORDERS RECEIVED. AFTER HEAD CT PT WAS TRANSPORTED TO ED ROOM FOR ER PHYSICIAN TO TREAT LACERATION. LACERATION WAS CLEANED WITH HIBICLENS AND LACERATION NOW HAS 4 HAKEEM. WHEN PT ARRIVED BACK TO THE ROOM HE ASKED FOR A DRINK AND A WARM BLANKET. PT HAS BEEN SLEEPING OFF AND ON AND WILL FREQUENTLY WAKE UP CURSING, HYPERVENTILATING AND STATES I DON'T KNOW WHAT IS WRONG WITH ME AND I DON'T KNOW WHAT TO DO . STAFF SITTING AT BEDSIDE AND BED SAFETY IS SET.
[2023-09-08 16:30] LABS: POC Glucose,Bedside 86 (70-110)
--- NOTE | 2023-09-08 16:44 | P.PN_ITS ---
Subjective *Date: 09/08/23 *Time: 16:44 Interval history: seen at bedside, he appears anxious, he denied CP, SOB, N/V Exam Data for Last 24 hours Vital signs and Labs for Last 24 Hours: Temp Pulse Resp BP Pulse Ox O2 Del Method O2 Flow Rate 97.0 F L 64 16 101/67 L 91 L Nasal Cannula 2 09/08/23 16:00 09/08/23 16:00 09/08/23 16:00 09/08/23 16:00 09/08/23 16:00 09/08/23 16:25 09/08/23 16:25 Laboratory Results - last 24 hr 09/07/23 18:33: Troponin I 0.54 H 09/07/23 20:22: POC Glucose 186 H 09/07/23 21:30: Troponin I 0.53 H 09/08/23 00:59: Specimen Source Left brachial, O2 % 4.5 l nc, ABG pH 7.48 H, ABG pCO2 28.5 L, ABG pO2 76.7 L, ABG HCO3 20.6 L, ABG Total CO2 21.4 L, ABG O2 Saturation 95, ABG Base Excess -3.0 L, Anand Test Acceptable 09/08/23 01:49: POC Glucose 60 L 09/08/23 02:16: POC Glucose 149 H 09/08/23 02:55: WBC 8.1, RBC 5.52, Hgb 16.0 D, Hct 52.0, MCV 94.2 H, MCH 28.9, MCHC 30.7 L, RDW 14.6, Plt Count 175, MPV 9.4, Neut % (Auto) 70.5, Lymph % (Auto) 15.1, [place] % (Auto) 12.4 H, Eos % (Auto) 0.5, Baso % (Auto) 1.6, Neut # (Auto) 5.7, Lymph # (Auto) 1.2, [place] # (Auto) 1.0, Eos # (Auto) 0.0, Baso # (Auto) 0.1, Sodium 133 L, Potassium 3.5, Chloride 98, Carbon Dioxide 28, Anion Gap 10.5, BUN 29 H, Creatinine 1.50 H, Estimated Creat Clear 81, Estimated GFR 50 L, Est GFR ( Amer) 60, Glucose 105 H D, Hemoglobin A1c 13.0 H, Calcium 8.5, Troponin I 0.55 H, Triglycerides 51, Cholesterol 139 L, LDL Cholesterol Direct 93.84 L, VLDL Cholesterol 10, HDL Cholesterol 25 L, Cholesterol/HDL Ratio 5.6 H 09/08/23 03:31: POC Glucose 172 H 09/08/23 05:24: POC Glucose 127 H 09/08/23 11:00: POC Glucose 127 H 09/08/23 13:23: POC Glucose 133 H 09/08/23 13:34: WBC 9.6, RBC 6.31 H, Hgb 18.5 H D, Hct 59.6 H, MCV 95.4 H, MCH 29.3, MCHC 30.8 L, RDW 14.7, Plt Count 223 D, MPV 9.6, Neut % (Auto) 67.4, Lymph % (Auto) 22.8, [place] % (Auto) 7.3, Eos % (Auto) 1.0, Baso % (Auto) 1.5, Neut # (Auto) 6.5, Lymph # (Auto) 2.2, [place] # (Auto) 0.7, Eos # (Auto) 0.1, Baso # (Auto) 0.1, PT 19.6 H, INR 1.89 H, Sodium 131 L, Potassium 3.8, Chloride 97 L, Carbon Dioxide 25, Anion Gap 12.8, BUN 32 H, Creatinine 1.60 H, Estimated Creat Clear 76, Estimated GFR 46 L, Est GFR ( Amer) 56 L, Glucose 104 H, Calcium 8.6 09/08/23 16:22: POC Glucose 86 I & O for Last 24 hours: Intake & Output 09/05/23 09/06/23 09/07/23 09/08/23 23:59 23:59 23:59 23:59 Intake Total 360 / 560 590 / 590 Output Total 0 / 0 100 / 100 Balance 360 / 560 490 / 490 Weight 96.247 kg 96.479 kg Constitutional Constitutional: no acute distress *Routine HEENT Exam Head: Present normocephalic Eye: Present EOMI and PERRL ENT: Present mucous membranes moist *Routine Neck Exam Neck: Present supple; Absent lymphadenopathy *Routine Respiratory Exam Respiratory: Present CTA bilaterally *Routine Cardiovascular Exam Cardiovascular: Present RRR *Routine Abdominal Exam Abdominal: Present soft and normoactive bowel sounds; Absent tenderness *Routine Extremities Exam Extremities: Absent cyanosis, clubbing or edema *Routine Skin Exam Skin: Present warm; Absent rash *Routine Neurological Exam Neurological: Present alert and oriented X3 Assessment and Plan *Assessment and plan (1) Pulmonary embolism on right: Status: Acute Category: Medical Code(s): I26.99 - Other pulmonary embolism without acute cor pulmonale (2) Acute heart failure: Status: Acute Qualifiers: Heart failure type: unspecified Qualified Code(s): I50.9 - Heart failure, unspecified Category: Medical Code(s): I50.9 - Heart failure, unspecified (3) Recent myocardial infarction: Status: Acute Category: Medical (4) COPD (chronic obstructive pulmonary disease): Status: Acute Qualifiers: COPD type: unspecified COPD Qualified Code(s): J44.9 - Chronic obstructive pulmonary disease, unspecified Category: Medical Code(s): J44.9 - Chronic obstructive pulmonary disease, unspecified (5) CAD (coronary artery disease): Status: Acute Qualifiers: Associated angina: with unspecified angina Coronary Disease-Associated Artery/Lesion type: unspecified vessel or lesion type [place] vs. transplanted heart: [place] heart Qualified Code(s): I25.119 - Atherosclerotic heart disease of [place] coronary artery with unspecified angina pectoris Category: Medical Code(s): I25.10 - Atherosclerotic heart disease of [place] coronary artery without angina pectoris (6) HTN (hypertension): Status: Chronic Qualifiers: Hypertension type: essential hypertension Qualified Code(s): I10 - Essential (primary) hypertension Category: Medical Code(s): I10 - Essential (primary) hypertension (7) Diabetes: Status: Chronic Qualifiers: Diabetes mellitus type: type 2 Diabetes mellitus skilled nursing insulin use: unspecified skilled nursing insulin use status Diabetes mellitus complication status: without complication Qualified Code(s): E11.9 - Type 2 diabetes mellitus without complications Category: Medical Code(s): E11.9 - Type 2 diabetes mellitus without complications (8) Non compliance with medical treatment: Status: Acute Category: Medical Code(s): Z91.199 - Patient's noncompliance with other medical treatment and regimen due to unspecified reason (9) Polysubstance (including opioids) dependence without physiological dependence: Status: Acute Category: Medical Code(s): F19.20 - Other psychoactive substance dependence, uncomplicated Plan 47-year-old male with a PMHx of CAD status post CABG, hypertension, hyperlipidemia, insulin-dependent diabetes, medication noncompliance, tobacco dependence, and substance abuse presenting with concern for cough, chest tightness, shortness of breath, swelling in his abdomen and lower extremities, and cracking of the skin in his lower extremities. initial work up included Labs that demonstrated elevated troponin, elevated D- dimer, elevated BNP, and CHRISTOPHER. Given elevated D-dimer, CT PE protocol was ordered. X-ray showed no obvious large area of focal consolidation. ED provider had an interactive discussion with radiologist who read the patient's CT PE protocol who noted he has distal PE with no right heart strain. He is hemodynamically stable and is resting comfortably on room air. As well as a lengthy discussion with the restaurant district manager, Dr. Rico, who advised obtaining formal echocardiogram and diuresing the patient with Lasix. all previous findings were discussed with the ED as well for detailed management. afterward we agreed for admission. Patient hemodinamically stable plan as follow: - Acute right PE. no right heart stream. hemodinamically stable: acute on chronic CHF Cardiology and pulmonology consult started on full dose lovenox. elevated d-dimer [place] confirmed. ECHO done. pending official reading. last on record form 2018 showed diminished EF 45%, with grade 1 diastolic disfunction CTA of chest reviewed CXR reviewed started on levaquin empirically lasix IV given. elevtated BNP. echo pending resume lasix 40mg PO BID. monitor for urinary output tessalon TID for cough Duoneb PRN for wheezing continue IV diuresis - Hx of CAD with recent STEMI., COPD, HTN: conditions reviewed reconciled home regimen optimize o2 sat monitor VS per unit protocols repeat and monitor morning labs, included lipid profile IDDM: suspected uncontrolled. last A1c 8.9. accucheck before meals. resume home insuline on sliding scale obtain a1c patient medically non complaint, with hx of polysubstance abuse, will complicate all aspect of care. pharmacy to verify suboxone. on nicotine patch on full dose lovenox. Protonix for Gi bleed ppx Full code plan for cardiac cath tomorrow, started on Coumadin - hold till PCI, monitor therapeutic INR
--- NOTE | 2023-09-08 16:51 | PC.NURSE ---
PT HAS NOT VOIDED SINCE IV LASIX AT 1300. BLADDER SCANNED WITH >366 ML'S. PT STATED HE DID NOT WANT A CATHETER SO HE WOULD ATTEMPT TO VOID ON HIS OWN. PT STOOD AT THE SOB WITH STAFF AND VOIDED 150 ML'S OF DARK NAVIN URINE.
--- NOTE | 2023-09-08 18:06 | PC.NURSE ---
PT IS SITTING UP ON THE SOB EATING DINNER. PT STATED HE WANTED TO WAIT TO SIGN THE CONSENT FOR HIS HEART CATH WHEN HIS RETURNED THIS EVENING.
--- NOTE | 2023-09-08 19:16 | PC.NURSE ---
Q30 minute checks done on patient starting at 1320 and continuing until 1900
[2023-09-08] MEDS: humaLOG 100 UNITS/ML 3ML VIAL (SSI) SQ (20:15)
[2023-09-08] MEDS: ATORVASTATIN 40MG TABLET 80 MG PO (20:16)
[2023-09-08] MEDS: FUROSEMIDE 100MG/10ML VIAL 80 MG IV (20:16)
[2023-09-08] MEDS: DOCUSATE SODIUM 100 MG CAPSULE PO (20:17)
--- NOTE | 2023-09-08 21:25 | PC.NURSE ---
Multiple attempts to get temperature reading oral and axillary, pt is too anxious to attempt rectal.
--- NOTE | 2023-09-08 22:27 | PC.NURSE ---
ROOM AIR SAT 95% Pt left on room air. Will continue to monitor
[2023-09-08] MEDS: LEVOFLOXACIN/D5W 750 MG/150 ML 750 MG/150 ML PIGGYBACK 100 MG IV (23:04)
--- NOTE | 2023-09-08 23:08 | PC.NURSE ---
Talked with cardiac cath nurse Emili about lovenox dose, she states it was okay to give.
[2023-09-09] VITALS (20 sets, daily range): BP systolic 93–145; BP diastolic 46–84; PULSE 50–94; RESP 12–22; TEMP 36.2–36.6; O2SAT 95–100; BMI 30.8
[2023-09-09] MEDS: ALUMINUM/MAGNESIUM/SIMETHICONE 30ML UDC 30 ML PO (03:31)
--- NOTE | 2023-09-09 05:07 | PC.NURSE ---
Pt is alert and oriented. Very agitated and anxious at times. Pt came to beside at 2230 and remains at bedside. Pt has not been able to have bowel movement, abdomen large and firm, bowel sounds active, patient does state he wishes he could have a bowel movement and request stool softener, ordered per TABITHA Soto. Pt has used urinal this shift, also pt ambulated to the restroom with unmeasured void due to pt quickly jumping out of bed and going to the bathroom. Pt remains on 1L NC, O2 sat >95%, when taking nasal cannula off, pt begins breathing fast and saying that he cant breathe, nasal cannula remains in place. Lungs sound clear except for left lower lobe which is diminished. Pt remains 1:1 with Q30 minute checks. Call light in reach.
[2023-09-09] MEDS: PANTOPRAZOLE 40MG VIAL 40 MG IV ×2 (05:29→20:36)
[2023-09-09] MEDS: SODIUM CHLORIDE 0.9% 10ML VIAL 10 ML IV ×2 (05:29→20:36)
[2023-09-09 07:53] LABS: Basophils # 0.2 K/mm3 (0-0.2); Basophils % 1.7 % (0.1-2.0); Eosinophils % 0.2 % (0.1-12.0); Hematocrit 56.6 % (42.0-52.0); Hemoglobin 17.7 g/dL (14.1-18.0); Lymphocytes # 2.4 K/mm3 (0.7-4.5); Lymphocytes % 20.7 % (10-50); Mean Corpuscular HGB Conc 31.3 g/dL (31.8-35.4); Mean Corpuscular Hemoglobin 29.1 pg (27.0-31.2); Mean Corpuscular Volume 92.8 fl (80-94); Mean Platelet Volume 9.7 fl (7.4-10.4); Monocytes # 1.1 K/mm3 (0.1-1.0); Monocytes % 9.2 % (1.7-9.3); Neutrophils # 7.9 K/mm3 (1.8-7.8); Neutrophils % 68.3 % (37.0-80.0); Platelet Count 208 K/mm3 (142-424); Red Cell Distribution Width 14.8 % (11.5-17.5); White Blood Count 11.6 K/mm3 (4.8-10.8)
[2023-09-09 07:57] LABS: Chloride 94 mmol/L (98-107)
[2023-09-09 07:58] LABS: INR 2.36 (0.9-1.1); Potassium 4.1 mmoL/L (3.5-5.1); Prothrombin Time 24.1 seconds (10.1-12.5); Sodium 126 mmol/L (136-145)
[2023-09-09 08:00] LABS: Blood Urea Nitrogen 38 mg/dl (9-20); Creatinine Clearance Estimated 74 mL/min (50-200); Estimated Glomerular Filt Rate 43 ml/min (>60); GFR (African American) 52 ML/MIN (>60)
[2023-09-09 08:01] LABS: Anion Gap 12.1 mEq/L (5-15); Carbon Dioxide 24 mmol/L (22.0-30.0); Glucose 157 mg/dl (74-100)
[2023-09-09] MEDS: ASPIRIN 81MG CHEWABLE TABLET 81 MG PO (08:29)
[2023-09-09] MEDS: DOCUSATE SODIUM 100 MG CAPSULE PO ×2 (08:30→20:36)
[2023-09-09] MEDS: METOPROLOL TARTRATE 50MG TABLET 75 MG PO (08:30)
[2023-09-09] MEDS: BENZONATATE 100MG CAPSULE 200 MG PO ×2 (08:30→20:36)
--- NOTE | 2023-09-09 08:52 | EXP.CARD.PN ---
Subjective Subjective Date: 09/09/23 Time: 08:00 Principal diagnosis: RLL PE, volume overload Interval history: Patient denies any new complaints, reports shortness is improved. Denies chest pain. Morning labs reviewed. Nurses report decrease UOP despite lasix. Exam Data for Last 24 hours Vital signs and Labs for Last 24 Hours: Temp Pulse Resp BP Pulse Ox O2 Del Method O2 Flow Rate 97.1 F L 70 20 129/79 95 Nasal Cannula 2 09/09/23 08:27 09/09/23 08:27 09/09/23 08:00 09/09/23 08:00 09/09/23 08:00 09/09/23 08:00 09/09/23 06:00 Laboratory Results - last 24 hr 09/08/23 11:00: POC Glucose 127 H 09/08/23 13:23: POC Glucose 133 H 09/08/23 13:34: WBC 9.6, RBC 6.31 H, Hgb 18.5 H D, Hct 59.6 H, MCV 95.4 H, MCH 29.3, MCHC 30.8 L, RDW 14.7, Plt Count 223 D, MPV 9.6, Neut % (Auto) 67.4, Lymph % (Auto) 22.8, [place] % (Auto) 7.3, Eos % (Auto) 1.0, Baso % (Auto) 1.5, Neut # (Auto) 6.5, Lymph # (Auto) 2.2, [place] # (Auto) 0.7, Eos # (Auto) 0.1, Baso # (Auto) 0.1, PT 19.6 H, INR 1.89 H, Sodium 131 L, Potassium 3.8, Chloride 97 L, Carbon Dioxide 25, Anion Gap 12.8, BUN 32 H, Creatinine 1.60 H, Estimated Creat Clear 76, Estimated GFR 46 L, Est GFR ( Amer) 56 L, Glucose 104 H, Calcium 8.6 09/08/23 16:22: POC Glucose 86 09/09/23 07:30: WBC 11.6 H, RBC 6.10, Hgb 17.7, Hct 56.6 H, MCV 92.8, MCH 29.1, MCHC 31.3 L, RDW 14.8, Plt Count 208, MPV 9.7, Neut % (Auto) 68.3, Lymph % (Auto) 20.7, [place] % (Auto) 9.2, Eos % (Auto) 0.2, Baso % (Auto) 1.7, Neut # (Auto) 7.9 H, Lymph # (Auto) 2.4, [place] # (Auto) 1.1 H, Eos # (Auto) 0.0, Baso # (Auto) 0.2, PT 24.1 H, INR 2.36 H, Sodium 126 L, Potassium 4.1, Chloride 94 L, Carbon Dioxide 24, Anion Gap 12.1, BUN 38 H, Creatinine 1.70 H, Estimated Creat Clear 74, Estimated GFR 43 L, Est GFR ( Amer) 52 L, Glucose 157 H D, Calcium 8.0 L I & O for Last 24 hours: Intake & Output 09/06/23 09/07/23 09/08/23 09/09/23 23:59 23:59 23:59 23:59 Intake Total 360 / 560 830 / 1460 630 / 630 Output Total 0 / 0 450 / 450 250 / 250 Balance 360 / 560 380 / 1010 380 / 380 Weight 212 lb 3 oz 212 lb 11.2 oz 220 lb Constitutional Constitutional: no acute distress *Routine HEENT Exam Head: Present normocephalic Eye: Present EOMI and PERRL ENT: Present mucous membranes moist *Routine Neck Exam Neck: Present supple; Absent lymphadenopathy *Routine Respiratory Exam Respiratory: Present CTA bilaterally *Routine Cardiovascular Exam Cardiovascular: Present RRR *Routine Abdominal Exam Abdominal: Present soft and normoactive bowel sounds; Absent tenderness *Routine Extremities Exam Extremities: Absent cyanosis, clubbing or edema *Routine Skin Exam Skin: Present warm; Absent rash *Routine Neurological Exam Neurological: Present alert and oriented X3 Progress Note: A&P Assessment and plan (1) Pulmonary embolism on right: Status: Acute (2) Acute heart failure: Status: Acute (3) Recent myocardial infarction: Status: Acute (4) COPD (chronic obstructive pulmonary disease): Status: Acute (5) CAD (coronary artery disease): Status: Acute (6) HTN (hypertension): Status: Chronic (7) Diabetes: Status: Chronic (8) Non compliance with medical treatment: Status: Acute (9) Polysubstance (including opioids) dependence without physiological dependence: Status: Acute Assessment and Plan Assessment and Plan for All Diagnoses:: Acute pulmonary embolism PESI score 69, low risk -Peripheral right lower lobe pulmonary emboli noted on CTA chest -Patient started on weight-based Lovenox twice daily and was given one dose of warfarin yesterday per pulmonary and then was held for [facility] today. Today INR is > 2. Will hold additional lovenox at this time and repeat INR this afternoon. Acute on chronic HFrEF- NYHA III -Mild pulmonary edema, bilateral pleural effusions and ascites noted on CT chest on admission -Echo 2023: Normal LV size with severe reduction in function EF 15%, septal wall appears akinetic, severe RV dilation with severe reduction in RV function. Severe biatrial dilation. Moderate to severe MR. Recommend outpatient MAYKEL to further evaluate severity of MR once patient is euvolemic and on optimal guideline directed medical therapy. -History of medical non compliance -Change Lasix to Bumex 2 mg twice daily due to decreased UOP reported by nurse. Dobutamine drip ordered. Plan for RHC tomorrow to assess volume status. -Will diurese patient first and then adjust medications for heart failure -Patient will need LifeVest placed prior to discharge home, order has been placed, FIT is pending. Cardiogenic shock -Lactic acid 2.4 -Elevated liver enzymes noted and INR rising -Decreased UOP noted today -Elevated creatinine -Soft blood pressure -Stop statin -Start Dobutamine drip -Beta troy was initiated yesterday per primary service, recommend holding during low cardiac output state. CAD s/p CABG Acute myocardial injury in the setting of acute illness versus NSTEMI -Top 0.54-0.53-0.55 -EKG negative for acute ischemic changes -Given patient's history of coronary artery disease with CABG and reduced ejection fraction we will proceed with left heart catheterization once creatinine has stabilized. -continue aspirin 81 mg daily. Statin on hold due to elevated liver enzymes. Lovenox on hold due to rising INR, concern for shock liver. Worsening kidney function -Creatinine up to to 1.7. Continue to monitor Medication noncompliance Substance abuse-methamphetamine use Benzodiazepine overdose -Defer to primary service CV summary 09/09/2023: Left heart cath that was scheduled for today is now on hold due to worsening kidney function with a creatinine up to 1.7. Nurse also reports decreased urinary output throughout the evening despite receiving Lasix 80 mg p.o. twice daily. Will change Lasix to Bumex 2 mg p.o. twice daily and continue to monitor kidney function. Liver enzymes and INR are rising. Hold Lovenox and warfarin. Statin stopped. Will initiate dobutamine drip. Plan for right heart cath tomorrow to further evaluate volume status and left heart cath if creatinine will allow.
[2023-09-09] MEDS: ENOXAPARIN 100MG/ML SYRINGE 100 MG SQ (09:30)
--- NOTE | 2023-09-09 09:51 | EXP.PULM.PN ---
Subjective *Date: 09/09/23 *Time: 12:59 Interval history: Patient denies any new respiratory complaints. Pulmonology Exam Inpatient Vital signs and Labs for Last 24 Hours: Temp Pulse Resp BP Pulse Ox O2 Del Method O2 Flow Rate 97.1 F L 70 20 129/79 95 Nasal Cannula 2 09/09/23 08:27 09/09/23 08:27 09/09/23 08:00 09/09/23 08:00 09/09/23 08:00 09/09/23 09:00 09/09/23 09:00 Laboratory Results - last 24 hr 09/08/23 11:00: POC Glucose 127 H 09/08/23 13:23: POC Glucose 133 H 09/08/23 13:34: WBC 9.6, RBC 6.31 H, Hgb 18.5 H D, Hct 59.6 H, MCV 95.4 H, MCH 29.3, MCHC 30.8 L, RDW 14.7, Plt Count 223 D, MPV 9.6, Neut % (Auto) 67.4, Lymph % (Auto) 22.8, [place] % (Auto) 7.3, Eos % (Auto) 1.0, Baso % (Auto) 1.5, Neut # (Auto) 6.5, Lymph # (Auto) 2.2, [place] # (Auto) 0.7, Eos # (Auto) 0.1, Baso # (Auto) 0.1, PT 19.6 H, INR 1.89 H, Sodium 131 L, Potassium 3.8, Chloride 97 L, Carbon Dioxide 25, Anion Gap 12.8, BUN 32 H, Creatinine 1.60 H, Estimated Creat Clear 76, Estimated GFR 46 L, Est GFR ( Amer) 56 L, Glucose 104 H, Calcium 8.6 09/08/23 16:22: POC Glucose 86 09/09/23 07:30: WBC 11.6 H, RBC 6.10, Hgb 17.7, Hct 56.6 H, MCV 92.8, MCH 29.1, MCHC 31.3 L, RDW 14.8, Plt Count 208, MPV 9.7, Neut % (Auto) 68.3, Lymph % (Auto) 20.7, [place] % (Auto) 9.2, Eos % (Auto) 0.2, Baso % (Auto) 1.7, Neut # (Auto) 7.9 H, Lymph # (Auto) 2.4, [place] # (Auto) 1.1 H, Eos # (Auto) 0.0, Baso # (Auto) 0.2, PT 24.1 H, INR 2.36 H, Sodium 126 L, Potassium 4.1, Chloride 94 L, Carbon Dioxide 24, Anion Gap 12.1, BUN 38 H, Creatinine 1.70 H, Estimated Creat Clear 74, Estimated GFR 43 L, Est GFR ( Amer) 52 L, Glucose 157 H D, Calcium 8.0 L Temp Pulse Resp BP Pulse Ox O2 Del Method O2 Flow Rate 98.1 F 66 18 90/64 L 100 Nasal Cannula 2 09/08/23 09:13 09/08/23 08:00 09/08/23 08:00 09/08/23 08:00 09/08/23 08:00 09/08/23 08:00 09/08/23 08:00 Laboratory Results - last 24 hr 09/07/23 15:10: WBC 9.2, RBC 6.18, Hgb 17.9, Hct 57.4 H, MCV 92.9, MCH 28.9, MCHC 31.1 L, RDW 14.5, Plt Count 202, MPV 9.3, Neut % (Auto) 64.7, Lymph % (Auto) 25.4, [place] % (Auto) 6.3, Eos % (Auto) 1.5, Baso % (Auto) 2.1 H, Neut # (Auto) 6.0, Lymph # (Auto) 2.3, [place] # (Auto) 0.6, Eos # (Auto) 0.1, Baso # (Auto) 0.2, PT 15.0 H, INR 1.42 H, D-Dimer 1.18 H, Sodium 132 L, Potassium 4.1, Chloride 99, Carbon Dioxide 27, Anion Gap 10.1, BUN 28 H, Creatinine 1.40 H, Estimated Creat Clear 82, Estimated GFR 54 L, Est GFR ( Amer) 65, Glucose 241 H, Calcium 9.1, Total Bilirubin 2.2 H, AST 58, ALT 51, Alkaline Phosphatase 189 H, Troponin I 0.59 H, NT-Pro-B Natriuret Pep 3420 H, Total Protein 6.7, Albumin 3.5, Globulin 3.2, Albumin/Globulin Ratio 1.1, TSH 6.00 H, Thyroxine (T4) 6.1 09/07/23 15:38: SARS-CoV-2 (PCR) Not detected, Influenza A Untype (PCR) Not detected, Influenza Type B (PCR) Not detected 09/07/23 18:33: Troponin I 0.54 H 09/07/23 20:22: POC Glucose 186 H 09/07/23 21:30: Troponin I 0.53 H 09/08/23 00:59: Specimen Source Left brachial, O2 % 4.5 l nc, ABG pH 7.48 H, ABG pCO2 28.5 L, ABG pO2 76.7 L, ABG HCO3 20.6 L, ABG Total CO2 21.4 L, ABG O2 Saturation 95, ABG Base Excess -3.0 L, Anand Test Acceptable 09/08/23 01:49: POC Glucose 60 L 09/08/23 02:16: POC Glucose 149 H 09/08/23 02:55: WBC 8.1, RBC 5.52, Hgb 16.0 D, Hct 52.0, MCV 94.2 H, MCH 28.9, MCHC 30.7 L, RDW 14.6, Plt Count 175, MPV 9.4, Neut % (Auto) 70.5, Lymph % (Auto) 15.1, [place] % (Auto) 12.4 H, Eos % (Auto) 0.5, Baso % (Auto) 1.6, Neut # (Auto) 5.7, Lymph # (Auto) 1.2, [place] # (Auto) 1.0, Eos # (Auto) 0.0, Baso # (Auto) 0.1, Sodium 133 L, Potassium 3.5, Chloride 98, Carbon Dioxide 28, Anion Gap 10.5, BUN 29 H, Creatinine 1.50 H, Estimated Creat Clear 81, Estimated GFR 50 L, Est GFR ( Amer) 60, Glucose 105 H D, Hemoglobin A1c 13.0 H, Calcium 8.5, Troponin I 0.55 H, Triglycerides 51, Cholesterol 139 L, LDL Cholesterol Direct 93.84 L, VLDL Cholesterol 10, HDL Cholesterol 25 L, Cholesterol/HDL Ratio 5.6 H 09/08/23 03:31: POC Glucose 172 H 09/08/23 05:24: POC Glucose 127 H I & O for Labs for Last 24 Hours: Intake & Output 09/06/23 09/07/23 09/08/23 09/09/23 23:59 23:59 23:59 23:59 Intake Total 360 / 560 830 / 1460 630 / 630 Output Total 0 / 0 450 / 450 250 / 250 Balance 360 / 560 380 / 1010 380 / 380 Weight 212 lb 3 oz 212 lb 11.2 oz 220 lb Intake & Output 09/05/23 09/06/23 09/07/23 09/08/23 23:59 23:59 23:59 23:59 Intake Total 360 / 560 440 / 440 Output Total 0 / 0 0 / 0 Balance 360 / 560 440 / 440 Weight 212 lb 3 oz 212 lb 11.2 oz Constitutional: Present moderate distress Head: Present normocephalic and atraumatic ENT: Present normal exam, normal oropharynx and mucous membranes moist Neck: Present normal inspection and full ROM Respiratory: Present respiratory distress and able to speak in complete sentences; Absent wheezes or crackles Comment:: Decreased breath sounds bilateral lower lung keller Cardiac: Present S1/S2, Tachycardia and radial pulses present GI: Present soft and distention; Absent tenderness or guarding Skin: Present intact; Absent cyanosis or jaundice Neuro: Present alert, awake and oriented x 3 Extremities: Present normal inspection; Absent clubbing or cyanosis Psychiatric: Present normal affect and cooperative Assessment and Plan *Assessment and plan (1) Pulmonary embolism on right: Status: Acute Category: Medical Code(s): I26.99 - Other pulmonary embolism without acute cor pulmonale (2) Pleural effusion, bilateral: Status: Acute Category: Medical Code(s): J90 - Pleural effusion, not elsewhere classified Plan Mr. Rodriguez is a 47-year-old female with reported history of CAD status post CABG, hypertension dyslipidemia insulin-dependent diabetes mellitus tobacco abuse presented to the ER with worsening chest discomfort shortness of breath and swelling in the abdomen and lower extremities. Admits smoking history. Denies any prior respiratory complaints except for the last 2 to 3 weeks with worsening respiratory symptoms. Denies any IV drug abuse. Hep C antibody and HIV nonreactive from January 2021.Hep B IgM positive from 2020. CTA upon admission right lower lobe segmental pulmonary embolism. Right upper lobe fissural based opacity noted. Bilateral pleural effusions right greater than left. Ascites noted. Cardiomegaly noted. Afebrile. Hemodynamically stable. Leukocytosis. The likely etiology of the pleural effusions are from cirrhosis however given cardiomegaly possibility of high-output cardiac failure cannot be completely ruled out in the setting of cirrhosis. Interval update: No acute respiratory vents overnight. Received first dose of warfarin yesterday. Currently on hold. Worsening renal function, worsening hyponatremia. Stable improvements, on 2 L saturating 95 to 100%. Will wean to room air as tolerated. Echo EF 15%. Plan: -Oxygen supplementation as needed to maintain O2 saturation goal of 90 to 95%. -Continue Lovenox bridging pending initiation of warfarin. Recommend to discharge the patient on warfarin with INR goal of 2-3. Coordinate with cardiology on cardiac catheterization and warfarin initiation. INR this morning 2.36 -Continue Levofloxacin to complete a total of 5-day course. Will closely monitor INR as patient will be initiated on warfarin given drug interactions -Will hold off on performing thoracentesis for the noted bilateral pleural effusions. Recommend evaluating for possible paracentesis. -Evaluation and management and transplant referral for the noted cirrhosis by primary team. # For the noted opacity in the right upper lobe will follow the patient as an outpatient basis and consider repeat imaging # Thank you for involving pulmonary in this patient care. Will continue to follow.
--- NOTE | 2023-09-09 10:08 | HMH.OTEV ---
OT Inpatient Evaluation Rehab OT IP Evaluation Start: 09/09/23 09:26 Freq: ONCE Status: Active Protocol: Document 09/09/23 10:03 ZULMA (Rec: 09/09/23 10:08 ZULMA [id number]) Rehab OT IP Assessment Subjective History This is a 47-year-old male with a PMHx of CAD status post CABG, hypertension, hyperlipidemia, insulin- dependent diabetes, medication noncompliance, tobacco dependence, and substance abuse presenting with concern for cough, chest tightness, shortness of breath, swelling in his abdomen and lower extremities, and cracking of the skin in his lower extremities. Patient reports that he has been feeling bad for approximately 10 days, but it got worse over the last 2 days. He notes that he has not been compliant with his medications. He states has been taking his fluid medication, Lasix, but he has not been taking his metoprolol or other medications. He admits that he smokes methamphetamine, but he has not done so in a few days. He denies any fevers, chills, vomiting, changes in bowel movements, or other concerns. He denies any history of IV drug use. Admitted for further treatment and management. Subjective I can get up. Analysis Patient's ADLs, bed mobility, transfers and ambulation during initial evaluation. Patient completed all tasks including toileting independently. No LOB noted. Objective Patient Orientation Person,Place,Time,Name,Age, Birthday,Year Right Upper Extremity Gross ROM WFL Left Upper Extremity Gross ROM WFL Bed Mobility bed mobility - supine/sit Assist Level Independent Transfer Training Sit/Stand/Pivot Transfer Assist Level Independent Chair Transfer Ability Independent Chair Transfer Technique Sit to/from Ambulatory Chair Transfer Assistive Devices None Upper Body Dressing Ability Independent Overall Commode/Toilet Transfer Ability Independent Commode/Toilet Transfer Technique Sit to/from Ambulatory Rehab OT IP prob,goals,plan Problems Date of Evaluation: 09/09/23 Rehab Potential Rehab Potential Innapropriate for Skilled Therapy Discharge Plan OT Discharge Plan Patient appears to be at baseline. Recommend patient to return home after medial d/c. Eval Complexity Eval Charge Codes 73989 - Low Complexity PHYSICIAN CERTIFICATION: I certify the specified therapy services for Sixto Rodriguez are required, authorized, and reviewed every 30 days.
--- NOTE | 2023-09-09 10:23 | HMH.PTEV ---
Physical Therapy Evaluation Rehab PT IP Evaluation Start: 09/09/23 09:26 Freq: ONCE Status: Active Protocol: Document 09/09/23 10:08 MAGGY (Rec: 09/09/23 10:23 MAGGY [id number]) Subjective/History History History Per H&P, This is a 47-year- old male with a PMHx of CAD status post CABG, hypertension , hyperlipidemia, insulin- dependent diabetes, medication noncompliance, tobacco dependence, and substance abuse presenting with concern for cough, chest tightness, shortness of breath, swelling in his abdomen and lower extremities, and cracking of the skin in his lower extremities. Patient reports that he has been feeling bad for approximately 10 days, but it got worse over the last 2 days. He notes that he has not been compliant with his medications. He states has been taking his fluid medication, Lasix, but he has not been taking his metoprolol or other medications. He admits that he smokes methamphetamine, but he has not done so in a few days. He denies any fevers, chills, vomiting, changes in bowel movements, or other concerns. He denies any history of IV drug use. Admitted for further treatment and management. Subjective Subjective The patient is agreeable to PT and oriented x4. Patient reports that he was completely independent prior to him getting sick. Reports that he did not use an assistive device and was able to dress himself independently. He reports that he lives in a one -story house with his with no KEVIN. New diagnosis of cancer in past 12 No months? Rehab PT IP Eval Objective Appearance Patient Behavior Appropriate,Patient Baseline Patient Orientation Person,Place,Time,Birthday Difficulty following instructions none Speech Pattern Clear,Patient Baseline Ambulation Patient Able to Ambulate Yes Ambulation Observation IP General Gait Pattern Observation No Deviations/Normal Ambulation Distance (feet) 20 Ambulation Assistive Device None Ambulation Ability Supervision/Stand by Balance Ability to Arise Able, w/o using arms Sitting Balance Steady, safe Standing Balance Narrow stance w/o support Dynamic Sitting Balance Ability Normal Dynamic Standing Balance Ability Normal Transfers Bed Transfer Ability Supervision/Stand by Chair Transfer Ability Supervision/Stand by Sit to Stand Bed Transfer Ability Independent Rehab PT IP prob,goals,plan Problems Date of Evaluation: 09/09/23 Discharge Plan PT Discharge Plan Patient presents for initial evaluation and presents at/ near baseline for all functional mobility. Skilled PT is not indicated for this patient during his acute stay. Upon discharge, the patient may be most appropriate for discharge to home. Eval Complexity Eval Charge Codes 54610 - High Complexity PHYSICIAN CERTIFICATION: I certify the specified therapy services for Sixto Rodriguez are required, authorized, and reviewed every 30 days.
--- NOTE | 2023-09-09 10:25 | CT_ITS ---
FINAL REPORT CLINICAL HISTORY: liver cirrhosis, ascites, abdominal pain, CKD COMPARISON: None FINDINGS: Axial CT images of the abdomen and pelvis were obtained without intravenous contrast. Coronal and sagittal reformatted images were also obtained.This study was performed with techniques to keep radiation doses as low as reasonably achievable (ALARA). Individualized dose reduction techniques using automated exposure control or adjustment of mA and/or kV according to the patient's size were employed. Abdomen: There are moderate right and small left pleural effusions present as well as cardiomegaly. Anasarca is present as well. There is moderate ascites. There is a small amount of residual contrast present in the kidneys and bladder. There is a mildly nodular hepatic contour, possibly related to the patient's diagnosis of cirrhosis of the liver. The spleen and pancreas have an unremarkable, unenhanced appearance. No mass or adenopathy is seen. No inflammatory process is identified. Diffuse vascular calcifications are present. Pelvis: Images of the pelvis reveal no evidence of ureteral dilation or ureteral stone. Free fluid is present in the pelvis as well. There is mild bladder wall thickening present. IMPRESSION: Bilateral pleural effusions, cardiomegaly, anasarca, and ascites along with a nodular hepatic contour, are consistent with the patient's clinical diagnosis of cirrhosis. Mild bladder wall thickening is present. Reviewed, Interpreted and Dictated by Lul Castellanos III, MD Transcribed by Jessica Arriaza Authenticated and [facility]
[2023-09-09 10:57] LABS: Alanine Aminotransferase 118 U/L (12-78); Albumin Level 2.8 g/dl (3.5-5.0); Alkaline Phosphatase 319 U/L (38-126); Aspartate Amino Transferase 186 U/L (17-59); Bilirubin, Conjugated 0.6 mg/dL (0.0-0.3); Bilirubin,Direct 1.7 mg/dl (0.0-0.4); Bilirubin,Indirect 1.2 mg/dL (0.0-0.9); Bilirubin,Total 2.9 mg/dl (0.2-1.3); Bilirubin,Unconjugated 1.2 mg/dL (0.0-1.1); Total Protein,Serum 5.7 g/dl (6.3-8.2)
[2023-09-09 10:58] LABS: Lactic Acid 2.4 mmol/L (0.7-2.1)
[2023-09-09] MEDS: DOBUTAMINE HCL/D5W 250 ML 7.48000000000000043 MG IV (11:47)
--- NOTE | 2023-09-09 12:26 | PC.NURSE ---
cardiology called and stated pt would need to be started on a dobutamine drip. pt will transfer back to step down. dubutamine drip started at 1147. bp 97/55.
[2023-09-09 14:34] LABS: Reflex Lactic Add Lactic Reflex
[2023-09-09 15:37] LABS: Prothrombin Time 26.4 seconds (10.1-12.5)
[2023-09-09 15:41] LABS: Lactic Acid Follow Up (RFLX 1) 2.3 mmol/L (0.7-2.1)
--- NOTE | 2023-09-09 16:21 | P.PN_ITS ---
Subjective *Date: 09/09/23 *Time: 16:21 Interval history: Patient denies any new respiratory complaints. He has fall yesterdy andhe hit his head on the ground and had laceration Exam Data for Last 24 hours Vital signs and Labs for Last 24 Hours: Temp Pulse Resp BP Pulse Ox O2 Del Method O2 Flow Rate 97.4 F L 66 18 98/54 L 97 Nasal Cannula 2 09/09/23 11:45 09/09/23 16:00 09/09/23 16:00 09/09/23 16:00 09/09/23 16:00 09/09/23 16:00 09/09/23 16:00 Laboratory Results - last 24 hr 09/08/23 16:22: POC Glucose 86 09/09/23 07:30: WBC 11.6 H, RBC 6.10, Hgb 17.7, Hct 56.6 H, MCV 92.8, MCH 29.1, MCHC 31.3 L, RDW 14.8, Plt Count 208, MPV 9.7, Neut % (Auto) 68.3, Lymph % (Auto) 20.7, [place] % (Auto) 9.2, Eos % (Auto) 0.2, Baso % (Auto) 1.7, Neut # (Auto) 7.9 H, Lymph # (Auto) 2.4, [place] # (Auto) 1.1 H, Eos # (Auto) 0.0, Baso # (Auto) 0.2, PT 24.1 H, INR 2.36 H, Sodium 126 L, Potassium 4.1, Chloride 94 L, Carbon Dioxide 24, Anion Gap 12.1, BUN 38 H, Creatinine 1.70 H, Estimated Creat Clear 74, Estimated GFR 43 L, Est GFR ( Amer) 52 L, Glucose 157 H D, Calcium 8.0 L 09/09/23 10:25: Lactate 2.4 H, Total Bilirubin 2.9 H, Direct Bilirubin 1.7 H, Conjugated Bilirubin 0.6 H, Indirect Bilirubin 1.2 H, Unconjugated Bilirubin 1.2 H, AST 186 H D, ALT 118 H D, Alkaline Phosphatase 319 H, Total Protein 5.7 L, Albumin 2.8 L 09/09/23 15:15: PT 26.4 H, INR 2.60 H, Lactate 2.3 H I & O for Last 24 hours: Intake & Output 09/06/23 09/07/23 09/08/23 09/09/23 23:59 23:59 23:59 23:59 Intake Total 360 / 560 830 / 1460 870 / 870 Output Total 0 / 0 450 / 450 400 / 400 Balance 360 / 560 380 / 1010 470 / 470 Weight 96.247 kg 96.479 kg 99.79 kg Constitutional Constitutional: no acute distress *Routine HEENT Exam Head: Present normocephalic Eye: Present EOMI and PERRL ENT: Present mucous membranes moist Comments: has sutures on skill left pariato temporal area *Routine Neck Exam Neck: Present supple; Absent lymphadenopathy *Routine Respiratory Exam Respiratory: Present distant breath sounds and diminished air movement *Routine Cardiovascular Exam Cardiovascular: Present RRR *Routine Abdominal Exam Abdominal: Present soft and normoactive bowel sounds; Absent tenderness *Routine Extremities Exam Extremities: Absent cyanosis, clubbing or edema *Routine Skin Exam Skin: Present warm; Absent rash *Routine Neurological Exam Neurological: Present alert and oriented X3 Assessment and Plan *Assessment and plan (1) Pulmonary embolism on right: Status: Acute Category: Medical Code(s): I26.99 - Other pulmonary embolism without acute cor pulmonale (2) Acute heart failure: Status: Acute Qualifiers: Heart failure type: unspecified Qualified Code(s): I50.9 - Heart failure, unspecified Category: Medical Code(s): I50.9 - Heart failure, unspecified (3) Recent myocardial infarction: Status: Acute Category: Medical (4) COPD (chronic obstructive pulmonary disease): Status: Acute Qualifiers: COPD type: unspecified COPD Qualified Code(s): J44.9 - Chronic obstructive pulmonary disease, unspecified Category: Medical Code(s): J44.9 - Chronic obstructive pulmonary disease, unspecified (5) CAD (coronary artery disease): Status: Acute Qualifiers: Associated angina: with unspecified angina Coronary Disease-Associated Artery/Lesion type: unspecified vessel or lesion type [place] vs. 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: unspecified 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 insulin use status Diabetes mellitus complication status: without complication Qualified Code(s): E11.9 - Type 2 diabetes mellitus without complications Category: Medical Code(s): E11.9 - Type 2 diabetes mellitus without complications (8) Non compliance with medical treatment: Status: Acute Category: Medical Code(s): Z91.199 - Patient's noncompliance with other medical treatment and regimen due to unspecified reason (9) Polysubstance (including opioids) dependence without physiological dependence: Status: Acute Category: Medical Code(s): F19.20 - Other psychoactive substance dependence, uncomplicated Plan 47-year-old male with a PMHx of CAD status post CABG, hypertension, hyperlipidemia, insulin-dependent diabetes, medication noncompliance, tobacco dependence, and substance abuse presenting with concern for cough, chest tightness, shortness of breath, swelling in his abdomen and lower extremities, and cracking of the skin in his lower extremities. initial work up included Labs that demonstrated elevated troponin, elevated D- dimer, elevated BNP, and CHRISTOPHER. Given elevated D-dimer, CT PE protocol was ordered. X-ray showed no obvious large area of focal consolidation. ED provider had an interactive discussion with radiologist who read the patient's CT PE protocol who noted he has distal PE with no right heart strain. He is hemodynamically stable and is resting comfortably on room air. As well as a lengthy discussion with the manager landscape, Dr. Rico, who advised obtaining formal echocardiogram and diuresing the patient with Lasix. all previous findings were discussed with the ED as well for detailed management. afterward we agreed for admission. Patient hemodinamically stable plan as follow: - Acute right PE. no right heart stream. hemodinamically stable: acute on chronic CHF Cardiology and pulmonology consult ECHO LVEF - 15%, akinetic septum CTA of chest reviewed CXR reviewed - has b/l effusions started on levaquin empirically lasix IV given. elevtated BNP. echo pending resume lasix 40mg PO BID. monitor for urinary output tessalon TID for cough Duoneb PRN for wheezing continue IV diuresis - Hx of CAD with recent STEMI., COPD, HTN: conditions reviewed reconciled home regimen optimize o2 sat monitor VS per unit protocols repeat and monitor morning labs, included lipid profile IDDM: suspected uncontrolled. last A1c 8.9. accucheck before meals. resume home insuline on sliding scale obtain a1c patient medically non complaint, with hx of polysubstance abuse, will complicate all aspect of care. pharmacy to verify suboxone. on nicotine patch on full dose lovenox. Protonix for Gi bleed ppx Full code plan for cardiac cath tomorrow, started on dobutamine, has cirrhosis - order hepatitis panel, monitor LFTs, started on Coumadin - hold till PCI, monitor therapeutic INR
[2023-09-09 16:30] LABS: POC Glucose,Bedside 139 (70-110)
[2023-09-09 16:39] LABS: POC Glucose,Bedside 137 (70-110)
[2023-09-09 17:20] LABS: Reflex Lactic (2 hrs) Add Lactic Reflex
[2023-09-09 18:01] LABS: Lactic Acid Follow up (RFLX 2) 2.7 mmol/L (0.7-2.1)
--- NOTE | 2023-09-09 19:26 | PC.NURSE ---
PT IS RESTING IN BED WITH FAMILY AT BEDSIDE. ALERT AND ORIENTED X4. PT HAS BEEN VERY AGITATED OVER NOT BEING ABLE TO SLEEP W/O INTERRUPTIONS AND WITH STAFF HAVING TO ASSIST HIM WITH USING THE URINAL. PT CONTINUES TO HAVE VERY MINIMAL UOP. REFUSED CATHETER. LUNG SOUNDS DIMINISHED. ABDOMEN FIRM/NON TENDER WITH HYPOACTIVE BOWEL SOUNDS. 2+ PITTING EDEMA NOTED TO BLE. WILL CONTINUE TO MONITOR.
[2023-09-09 20:49] LABS: POC Glucose,Bedside 138 (70-110)
[2023-09-09] MEDS: LEVOFLOXACIN/D5W 750 MG/150 ML 750 MG/150 ML PIGGYBACK 100 MG IV (22:31)
[2023-09-09] MEDS: BUMETANIDE 1MG/4ML VIAL 2 MG IV (22:32)
[2023-09-10] VITALS (27 sets, daily range): BP systolic 102–157; BP diastolic 63–105; PULSE 64–102; RESP 16–21; TEMP 35.8–37.2; O2SAT 93–100; BMI 30.7
--- NOTE | 2023-09-10 | IR_ITS ---
APPROVED REPORT Patient Location: Inpatient Improvement Specialist: TATIANA Toure RT (R) Informed consent was obtained prior to the procedure. COMPLICATIONS None Estimated Blood Loss: Less than 10 mls TECHNIQUE One percent lidocaine was used to anesthetize the left anterior aspect of the left wrist. The left radial artery was accessed via the Seldinger technique and a 6 [place] hydrophilic sheath was placed in the left radial artery. Following this one percent lidocaine was used to anesthetize the right anterior aspect of the right neck. The right internal jugular vein was accessed via the Seldinger technique and a 7 [place] sheath was placed in the right internal jugular vein. Following this an arterial cocktail was administered using 5000U heparin, 1mg Lidocaine and 800mcg nitroglycerin into the left radial sheath. A papa catheter was used to perform left heart catheterization left ventriculogram and selective coronary angiography while a [place] catheter was used to perform right heart catheterization. Saturations were obtained in the pulmonary artery and right atrium. At the end of the procedure the arterial sheath was removed good hemostasis was achieved using Traclet band. Patient was transferred to the postop holding area in stable condition for venous sheath removal. ANGIOGRAPHIC RESULTS The left main artery Was a large vessel was divided into circumflex and LAD. There was a 40% distal LAD stenosis The left anterior descending artery The LAD gave rise to 1 small first diagonal and a moderate to large second diagonal for being totally occluded in the stent. It was diffuse disease throughout the LAD. The large second LAD had about an 80% stenosis best seen in the JARA caudal view. The circumflex artery Gave rise to a moderate-sized first obtuse marginal and then was occluded and a stent. There was diffuse disease throughout the circumflex with no significant obstructive disease was noted in the patent portion The right coronary artery Right coronary artery had diffuse in-stent restenosis throughout. It was then occluded by competitive flow The left ventricular end-diastolic pressure 26 mmHg Graft angiography: ABDI to the LAD was widely patent. It supplied the distal LAD and a single diagonal also filled. Vein graft to the distal RCA was widely patent. It anastomosis in the mid PDA had filled back until it was secured by competitive flow The vein graft to the second obtuse marginal was widely patent. Hemodynamic findings Pulmonary artery wedge pressure showed a mean of 29 mmHg. PA pressure was 54/37 RV pressure was 56 with an end-diastolic pressure of 20 The RA pressure was 33 to over 20 with a mean of 28 PA sat was 68% RA sat was 66% AO sat was 98.9% Cardiac output was 4.0 L/min this is bisected IMPRESSION Patent vein grafts Significant pulmonary hypertension Elevated LVEDP Only 1 ischemic lesion which is a relatively small vessel. PLAN 1. Given that the patient has occluded all his previous stents and this would be a relatively small stent to begin with seems that medical management would be the appropriate choice unless he has intractable angina. 2. If intervention would be considered on the diagonal would probably access site in the groin of the right radial as left radial position proved difficult to find a guide catheter that would not adequately sit. Probably the best bet would be an XB 3.0 or an EBU 3.0 catheter. An AL 1.0 might be considered as well although I was unable to well engage it once wired probably would provide adequate support Electronically signed by : Arthur Prabhakar, 09/10/2023 11:52:37
--- NOTE | 2023-09-10 07:55 | P.PN_ITS ---
Subjective *Date: 09/10/23 *Time: 09:44 Interval history: No acute respiratory events overnight. Pulmonology Exam Inpatient Vital signs and Labs for Last 24 Hours: Temp Pulse Resp BP Pulse Ox O2 Del Method O2 Flow Rate 98.9 F 75 16 136/84 97 Nasal Cannula 2 09/10/23 04:00 09/10/23 06:05 09/10/23 06:00 09/10/23 06:00 09/10/23 06:05 09/10/23 06:44 09/10/23 06:44 Laboratory Results - last 24 hr 09/09/23 07:30: WBC 11.6 H, RBC 6.10, Hgb 17.7, Hct 56.6 H, MCV 92.8, MCH 29.1, MCHC 31.3 L, RDW 14.8, Plt Count 208, MPV 9.7, Neut % (Auto) 68.3, Lymph % (Auto) 20.7, [place] % (Auto) 9.2, Eos % (Auto) 0.2, Baso % (Auto) 1.7, Neut # (Auto) 7.9 H, Lymph # (Auto) 2.4, [place] # (Auto) 1.1 H, Eos # (Auto) 0.0, Baso # (Auto) 0.2, PT 24.1 H, INR 2.36 H, Sodium 126 L, Potassium 4.1, Chloride 94 L, Carbon Dioxide 24, Anion Gap 12.1, BUN 38 H, Creatinine 1.70 H, Estimated Creat Clear 74, Estimated GFR 43 L, Est GFR ( Amer) 52 L, Glucose 157 H D, Calcium 8.0 L 09/09/23 10:25: Lactate 2.4 H, Total Bilirubin 2.9 H, Direct Bilirubin 1.7 H, Conjugated Bilirubin 0.6 H, Indirect Bilirubin 1.2 H, Unconjugated Bilirubin 1.2 H, AST 186 H D, ALT 118 H D, Alkaline Phosphatase 319 H, Total Protein 5.7 L, Albumin 2.8 L 09/09/23 11:52: POC Glucose 139 H 09/09/23 15:15: PT 26.4 H, INR 2.60 H, Lactate 2.3 H 09/09/23 16:33: POC Glucose 137 H 09/09/23 17:32: Lactate 2.7 H 09/09/23 20:39: POC Glucose 138 H Temp Pulse Resp BP Pulse Ox O2 Del Method O2 Flow Rate 98.1 F 66 18 90/64 L 100 Nasal Cannula 2 09/08/23 09:13 09/08/23 08:00 09/08/23 08:00 09/08/23 08:00 09/08/23 08:00 09/08/23 08:00 09/08/23 08:00 Laboratory Results - last 24 hr 09/07/23 15:10: WBC 9.2, RBC 6.18, Hgb 17.9, Hct 57.4 H, MCV 92.9, MCH 28.9, MCHC 31.1 L, RDW 14.5, Plt Count 202, MPV 9.3, Neut % (Auto) 64.7, Lymph % (Auto) 25.4, [place] % (Auto) 6.3, Eos % (Auto) 1.5, Baso % (Auto) 2.1 H, Neut # (Auto) 6.0, Lymph # (Auto) 2.3, [place] # (Auto) 0.6, Eos # (Auto) 0.1, Baso # (Auto) 0.2, PT 15.0 H, INR 1.42 H, D-Dimer 1.18 H, Sodium 132 L, Potassium 4.1, Chloride 99, Carbon Dioxide 27, Anion Gap 10.1, BUN 28 H, Creatinine 1.40 H, Estimated Creat Clear 82, Estimated GFR 54 L, Est GFR ( Amer) 65, Glucose 241 H, Calcium 9.1, Total Bilirubin 2.2 H, AST 58, ALT 51, Alkaline Phosphatase 189 H, Troponin I 0.59 H, NT-Pro-B Natriuret Pep 3420 H, Total Protein 6.7, Albumin 3.5, Globulin 3.2, Albumin/Globulin Ratio 1.1, TSH 6.00 H, Thyroxine (T4) 6.1 09/07/23 15:38: SARS-CoV-2 (PCR) Not detected, Influenza A Untype (PCR) Not detected, Influenza Type B (PCR) Not detected 09/07/23 18:33: Troponin I 0.54 H 09/07/23 20:22: POC Glucose 186 H 09/07/23 21:30: Troponin I 0.53 H 09/08/23 00:59: Specimen Source Left brachial, O2 % 4.5 l nc, ABG pH 7.48 H, ABG pCO2 28.5 L, ABG pO2 76.7 L, ABG HCO3 20.6 L, ABG Total CO2 21.4 L, ABG O2 Saturation 95, ABG Base Excess -3.0 L, Anand Test Acceptable 09/08/23 01:49: POC Glucose 60 L 09/08/23 02:16: POC Glucose 149 H 09/08/23 02:55: WBC 8.1, RBC 5.52, Hgb 16.0 D, Hct 52.0, MCV 94.2 H, MCH 28.9, MCHC 30.7 L, RDW 14.6, Plt Count 175, MPV 9.4, Neut % (Auto) 70.5, Lymph % (Auto) 15.1, [place] % (Auto) 12.4 H, Eos % (Auto) 0.5, Baso % (Auto) 1.6, Neut # (Auto) 5.7, Lymph # (Auto) 1.2, [place] # (Auto) 1.0, Eos # (Auto) 0.0, Baso # (Auto) 0.1, Sodium 133 L, Potassium 3.5, Chloride 98, Carbon Dioxide 28, Anion Gap 10.5, BUN 29 H, Creatinine 1.50 H, Estimated Creat Clear 81, Estimated GFR 50 L, Est GFR ( Amer) 60, Glucose 105 H D, Hemoglobin A1c 13.0 H, Calcium 8.5, Troponin I 0.55 H, Triglycerides 51, Cholesterol 139 L, LDL Cholesterol Direct 93.84 L, VLDL Cholesterol 10, HDL Cholesterol 25 L, Cholesterol/HDL Ratio 5.6 H 09/08/23 03:31: POC Glucose 172 H 09/08/23 05:24: POC Glucose 127 H I & O for Labs for Last 24 Hours: Intake & Output 09/07/23 09/08/23 09/09/23 09/10/23 23:59 23:59 23:59 23:59 Intake Total 360 / 560 830 / 1460 1144 / 1294 150 / 150 Output Total 0 / 0 450 / 450 800 / 1300 1200 / 1200 Balance 360 / 560 380 / 1010 344 / -6 -1050 / -1050 Weight 212 lb 3 oz 212 lb 11.2 oz 219 lb 15.988 oz 219 lb 2.232 oz Intake & Output 09/05/23 09/06/23 09/07/23 09/08/23 23:59 23:59 23:59 23:59 Intake Total 360 / 560 440 / 440 Output Total 0 / 0 0 / 0 Balance 360 / 560 440 / 440 Weight 212 lb 3 oz 212 lb 11.2 oz Constitutional: Present moderate distress Head: Present normocephalic and atraumatic ENT: Present normal exam, normal oropharynx and mucous membranes moist Neck: Present normal inspection and full ROM Respiratory: Present respiratory distress and able to speak in complete sentences; Absent wheezes or crackles Comment:: Decreased breath sounds bilateral lower lung keller Cardiac: Present S1/S2, Tachycardia and radial pulses present GI: Present soft and distention; Absent tenderness or guarding Skin: Present intact; Absent cyanosis or jaundice Neuro: Present alert, awake and oriented x 3 Extremities: Present normal inspection; Absent clubbing or cyanosis Psychiatric: Present normal affect and cooperative Assessment and Plan *Assessment and plan (1) Pulmonary embolism on right: Status: Acute Category: Medical Code(s): I26.99 - Other pulmonary embolism without acute cor pulmonale (2) Pleural effusion, bilateral: Status: Acute Category: Medical Code(s): J90 - Pleural effusion, not elsewhere classified Plan Mr. Rodriguez is a 47-year-old female with reported history of CAD status post CABG, hypertension dyslipidemia insulin-dependent diabetes mellitus tobacco abuse presented to the ER with worsening chest discomfort shortness of breath and swelling in the abdomen and lower extremities. Admits smoking history. Denies any prior respiratory complaints except for the last 2 to 3 weeks with worsening respiratory symptoms. Denies any IV drug abuse. Hep C antibody and HIV nonreactive from January 2021.Hep B IgM positive from 2020. CTA upon admission right lower lobe segmental pulmonary embolism. Right upper lobe fissural based opacity noted. Bilateral pleural effusions right greater than left. Ascites noted. Cardiomegaly noted. Afebrile. Hemodynamically stable. Leukocytosis. Echo EF 15%. The likely etiology of the pleural effusions are from cirrhosis along with possible heart failure with reduced EF 15% setting of CABG and possible high- output cardiac failure with cirrhosis Interval update: No acute respiratory vents overnight. Continue to receive Lovenox. Received 1 dose of warfarin 5mg on 09/08/2023. Patient was placed back on oxygen overnight. Saturating 99% again today. Worsening renal function, total bilirubin AST and ALT. Plan: -Oxygen supplementation as needed to maintain O2 saturation goal of 90 to 95%. -Continue Lovenox bridging pending initiation of warfarin. Recommend to discharge the patient on warfarin with INR goal of 2-3. Coordinate with cardiology on cardiac catheterization and warfarin initiation. -Continue Levofloxacin to complete a total of 5-day course. Will closely monitor INR as patient will be initiated on warfarin given drug interactions -Will hold off on performing thoracentesis for the noted bilateral pleural effusions. Recommend evaluating for possible paracentesis. -Evaluation and management and transplant referral for the noted cirrhosis by primary team. # For the noted opacity in the right upper lobe will follow the patient as an outpatient basis and consider repeat imaging # Thank you for involving pulmonary in this patient care. Will continue to follow.
--- NOTE | 2023-09-10 08:13 | P.PN_ITS ---
Subjective *Date: 09/10/23 *Time: 08:13 Medical Exam Vital signs and Labs for Last 24 Hours: Vital Signs Temp Pulse Pulse Resp BP Pulse Ox O2 Del Method 09/10/23 07:43 Nasal Cannula 09/10/23 06:44 Nasal Cannula 09/10/23 06:05 75 97 Nasal Cannula 09/10/23 06:00 78 16 136/84 97 Nasal Cannula 09/10/23 05:04 74 09/10/23 05:00 Nasal Cannula 09/10/23 04:00 79 20 120/76 95 Nasal Cannula 09/10/23 04:00 98.9 F 09/10/23 03:00 Nasal Cannula 09/10/23 02:00 73 20 110/68 98 Nasal Cannula 09/10/23 01:00 Nasal Cannula 09/10/23 00:00 74 09/10/23 00:00 75 18 116/69 94 L Non-Rebreather 09/10/23 00:00 97.9 F 09/09/23 23:00 Nasal Cannula 09/09/23 22:00 75 18 114/74 96 Nasal Cannula 09/09/23 21:00 Nasal Cannula 09/09/23 20:30 96 Nasal Cannula 09/09/23 20:00 68 09/09/23 20:00 68 19 136/78 98 Nasal Cannula 09/09/23 20:00 71 97 Nasal Cannula 09/09/23 20:00 98 F 09/09/23 19:00 Nasal Cannula 09/09/23 18:00 74 20 117/67 96 Nasal Cannula 09/09/23 17:00 Nasal Cannula 09/09/23 17:00 64 20 101/56 L 97 Nasal Cannula 09/09/23 16:00 Nasal Cannula 09/09/23 16:00 70 09/09/23 16:00 66 18 98/54 L 97 Nasal Cannula 09/09/23 15:00 64 20 105/62 L 100 Nasal Cannula 09/09/23 14:51 Nasal Cannula 09/09/23 14:00 63 18 106/72 L 96 Nasal Cannula 09/09/23 13:00 62 18 102/63 L 97 Nasal Cannula 09/09/23 12:45 Nasal Cannula 09/09/23 12:00 50 L 09/09/23 12:00 61 20 97/55 L 97 Nasal Cannula 09/09/23 11:45 97.4 F L 09/09/23 11:00 Nasal Cannula 09/09/23 10:00 61 20 93/53 L 98 Nasal Cannula 09/09/23 09:00 Nasal Cannula 09/09/23 08:27 70 09/09/23 08:27 97.1 F L O2 Flow Rate 09/10/23 07:43 2 09/10/23 06:44 2 09/10/23 06:05 2 09/10/23 06:00 2 09/10/23 05:04 09/10/23 05:00 2 09/10/23 04:00 2 09/10/23 04:00 09/10/23 03:00 2 09/10/23 02:00 2 09/10/23 01:00 2 09/10/23 00:00 09/10/23 00:00 2 09/10/23 00:00 09/09/23 23:00 2 09/09/23 22:00 2 09/09/23 21:00 2 09/09/23 20:30 2 09/09/23 20:00 09/09/23 20:00 2 09/09/23 20:00 2 09/09/23 20:00 09/09/23 19:00 2 09/09/23 18:00 2 09/09/23 17:00 2 09/09/23 17:00 2 09/09/23 16:00 2 09/09/23 16:00 09/09/23 16:00 2 09/09/23 15:00 2 09/09/23 14:51 2 09/09/23 14:00 2 09/09/23 13:00 2 09/09/23 12:45 2 09/09/23 12:00 09/09/23 12:00 2 09/09/23 11:45 09/09/23 11:00 2 09/09/23 10:00 2 09/09/23 09:00 2 09/09/23 08:27 09/09/23 08:27 Intake and Output 09/09/23 09/10/23 09/10/23 23:59 07:59 15:59 Intake Total 274 / 1294 150 / 150 Output Total 400 / 1300 1700 / 1700 Balance -126 / -6 -1550 / -1550 Intake: Intake, Oral Amount 240 / 960 Intake, Total IV Amount 34 / 334 150 / 150 Dobutamine HCl/D5w 250 ml @ 2.5 34 / 34 MCG/KG/MIN 7.484 mls/hr IV . Q24H [facility] Rx#:[id number] Levofloxacin/D5w 750 mg/150 ml 150 / 150 750 mg In 150 ml @ 100 mls/hr IV Q24H [facility] Rx#:[id number] Output: Output, Urine Amount 400 / 1300 1700 / 1700 Other: Weight 99.4 kg Patient Weight 09/10/23 23:59 Weight 99.4 kg Laboratory Results - last 24 hr 09/09/23 07:30: PT 24.1 H, INR 2.36 H 09/09/23 10:25: Lactate 2.4 H, Total Bilirubin 2.9 H, Direct Bilirubin 1.7 H, Conjugated Bilirubin 0.6 H, Indirect Bilirubin 1.2 H, Unconjugated Bilirubin 1.2 H, AST 186 H D, ALT 118 H D, Alkaline Phosphatase 319 H, Total Protein 5.7 L, Albumin 2.8 L 09/09/23 11:52: POC Glucose 139 H 09/09/23 15:15: PT 26.4 H, INR 2.60 H, Lactate 2.3 H 09/09/23 16:33: POC Glucose 137 H 09/09/23 17:32: Lactate 2.7 H 09/09/23 20:39: POC Glucose 138 H I & O for Labs for Last 24 Hours: Intake & Output 09/07/23 09/08/23 09/09/23 09/10/23 23:59 23:59 23:59 23:59 Intake Total 360 / 560 830 / 1460 1144 / 1294 150 / 150 Output Total 0 / 0 450 / 450 800 / 1300 1700 / 1700 Balance 360 / 560 380 / 1010 344 / -6 -1550 / -1550 Weight 96.247 kg 96.479 kg 99.79 kg 99.4 kg The patient's infection will respond to the chosen ABx?: Yes (NO SPECIMAN, LABS UNCOLLECTED, AFEBRILE OVER 24 HOURS.) Is the patient receiving the right drug, dose, and route?: Yes Could a more targeted ABx be ordered?: No
--- NOTE | 2023-09-10 08:57 | P.PN_ITS ---
Subjective Subjective Date: 09/10/23 Time: 08:00 Principal diagnosis: RLL PE, volume overload Interval history: Patient reports increased urinary output since starting dobutamine drip. Vitals remains stable. Patient refused morning labs but is agreeable now. Patient is scheduled for a right heart cath today to further assess volume status and possibly left heart cath if kidney function has improved. Patient denies chest pain or shortness of breath. Exam Data for Last 24 hours Vital signs and Labs for Last 24 Hours: Temp Pulse Resp BP Pulse Ox O2 Del Method O2 Flow Rate 97.8 F 75 20 118/72 99 Nasal Cannula 2 09/10/23 08:00 09/10/23 08:00 09/10/23 08:00 09/10/23 08:00 09/10/23 08:00 09/10/23 08:00 09/10/23 07:43 Laboratory Results - last 24 hr 09/09/23 10:25: Lactate 2.4 H, Total Bilirubin 2.9 H, Direct Bilirubin 1.7 H, Conjugated Bilirubin 0.6 H, Indirect Bilirubin 1.2 H, Unconjugated Bilirubin 1.2 H, AST 186 H D, ALT 118 H D, Alkaline Phosphatase 319 H, Total Protein 5.7 L, Albumin 2.8 L 09/09/23 11:52: POC Glucose 139 H 09/09/23 15:15: PT 26.4 H, INR 2.60 H, Lactate 2.3 H 09/09/23 16:33: POC Glucose 137 H 09/09/23 17:32: Lactate 2.7 H 09/09/23 20:39: POC Glucose 138 H I & O for Last 24 hours: Intake & Output 09/07/23 09/08/23 09/09/23 09/10/23 23:59 23:59 23:59 23:59 Intake Total 360 / 560 830 / 1460 1144 / 1294 150 / 150 Output Total 0 / 0 450 / 450 800 / 1300 1700 / 1700 Balance 360 / 560 380 / 1010 344 / -6 -1550 / -1550 Weight 212 lb 3 oz 212 lb 11.2 oz 219 lb 15.988 oz 219 lb 2.232 oz Constitutional Constitutional: no acute distress *Routine Respiratory Exam Respiratory: Present symmetric chest movement *Routine Cardiovascular Exam Cardiovascular: Present RRR, Normal S1 and Normal S2 *Routine Abdominal Exam Abdominal: Present soft and normoactive bowel sounds; Absent tenderness *Routine Extremities Exam Extremities: Present edema, full ROM and normal capillary refill Comments: Edema is improving *Routine Skin Exam Skin: Present intact, dry and warm Detailed Neck Exam: Thyroids Thyroid: Absent bruit Progress Note: A&P Assessment and plan (1) Pulmonary embolism on right: Status: Acute (2) Pleural effusion, bilateral: Status: Acute Assessment and Plan Assessment and Plan for All Diagnoses:: Patient summary: This is a 47-year-old white male with past medical history of coronary artery disease status post CABG in 2019, hypertension, hyperlipidemia, insulin-dependent diabetes mellitus, medical noncompliance, tobacco use, substance abuse with methamphetamines, and a known history of heart failure with reduced ejection fraction who presented to emergency department on 09/07 with com plaints of cough, chest pain and shortness of breath with bilateral leg swelling x 10 days. Patient had stopped taking all of his heart failure medications and had not been evaluated per cardiology since 2019. Patient underwent a CTA chest which revealed a peripheral right lower lobe pulmonary emboli, cardiomegaly with possible mild changes of pulmonary edema and bilateral pleural effusions with cirrhosis and ascites. Patient was admitted for PE, volume overload and elevated trop of 0.54. Echo on 09/07 revealed an ejection fraction of 15%, akinetic septal wall, severe RV dilation with severe reduction in RV function, biatrial dilation and moderate to severe MR. Patient was started on Lasix 80 mg twice daily and scheduled for a LHC on 09/08. Patient was also started on Lovenox and warfarin for PE per pulmonology. Patient received 1 dose of warfarin and then it was placed on hold due to the planned LHC. Despite holding warfarin, INR continued to climb reaching 2.6. Lovenox was placed on hold as well on 09/08. Patient continued to have a decline in urinary output despite increasing diuretics. Lasix was switched to Bumex without improvement. Of note, primary service had resumed BB therapy for htn. Liver enzymes and lactic acid elevated on 09/08. Patient was started on a dobutamine drip for cardiogenic shock and BB was stopped. Since starting dobutamine drip patient reports increase in urinary output and vitals are stable. Morning labs today show improvement in LFTs and creatinine. Patient is to undergo a RHC and LHC today. Patient has been non compliant throughout hospital stay, refusing lab draws and catheter. Also, nursing staff voices concerns that patient may be taking home meds in bathroom. Patient did have an event on 09/07 where patient was found hypotensive, hypoxic and drowsy. Patient admitted to taking home dose of alprazolam 0.5 mg. Flumazenil was given and patient improved. Patient also sustained a fall resulting in a laceration to the back of his head. Patient was taken to the emergency department for sunil and underwent a CT head which was negative for acute process. Primary service is following. Acute pulmonary embolism PESI score 69, low risk -Peripheral right lower lobe pulmonary emboli noted on CTA chest -Patient started on weight-based Lovenox twice daily and was given one dose of warfarin per pulmonary. Warfarin was held for planned left heart cath on 09/08 which was postponed due to rising INR. -Continue to hold lovenox and coumadin due to INR of 2.47 Acute on chronic HFrEF- NYHA III -Mild pulmonary edema, bilateral pleural effusions and ascites noted on CT chest on admission -Echo 2023: Normal LV size with severe reduction in function EF 15%, septal wall appears akinetic, severe RV dilation with severe reduction in RV function. Severe biatrial dilation. Moderate to severe MR. Recommend outpatient MAYKEL to further evaluate severity of MR once patient is euvolemic and on optimal guideline directed medical therapy. -History of medical non compliance -Lasix was switched to Bumex 2 mg twice daily due to decreased UOP reported by nurse. No improvement was noted. Dobutamine drip started 09/08. -Patient reports improvement in urinary output since starting dobutamine drip. He refuses catheter. -Patient will need LifeVest placed prior to discharge home, order has been placed, FIT is pending. -Guideline directed medical therapy needs to be initiated once patient is euvolemic and kidney function has improved. Cardiogenic shock -Lactic acid 2.4 improving to 1.4 -Elevated liver enzymes and INR noted prior to initiation of dobutamine. Repeat L labs 09/09 show improvement with dobutamine. -Urinary output is improving -Elevated creatinine-improving -Soft blood pressure-improving -Continue dobutamine drip -No beta-blockers due to low cardiac output state. CAD s/p CABG Acute myocardial injury in the setting of acute illness versus NSTEMI -Top 0.54-0.53-0.55 -EKG negative for acute ischemic changes -Given patient's history of coronary artery disease with CABG and reduced ejection fraction we will proceed with left heart catheterization once creatinine has stabilized. -continue aspirin 81 mg daily. Statin on hold due to elevated liver enzymes. Lovenox on hold due to rising INR, concern for shock liver. Worsening kidney function -Creatinine up to to 1.7-1.4 Medication noncompliance Substance abuse-methamphetamine use Benzodiazepine overdose -Defer to primary service CV summary 09/10/2023: Creatinine and liver enzymes are improving on dobutamine drip. Patient reports increase in urinary output. Vitals remain stable. Recommend continuing dobutamine drip. Will proceed with right and left heart catheterization today. Cardiac meds: Aspirin 81 mg daily Bumex 2 mg IV twice daily Dobutamine drip Lovenox-currently on hold Warfarin-currently on hold Statin-currently on hold Addendum: s/p LHC and RHC. See results below. No stenting with elevated pressures noted. Start Bumex drip and continue over the weekend. Continue dobutamine drip and add Isordil for htn. Continue to hold lovenox/warfarin as long as IRN is above 2. If falls below 2 then resume lovenox at 1mg/kg BID for treatment of PE. Strict I&0s. Do not hold/stop drips without contacting cardiology first. LHC/RHC 09/09 Hemodynamic findings Pulmonary artery wedge pressure showed a mean of 29 mmHg. PA pressure was 54/37 RV pressure was 56 with an end-diastolic pressure of 20 The RA pressure was 33 to over 20 with a mean of 28 PA sat was 68% RA sat was 66% AO sat was 98.9% Cardiac output was 4.0 L/min this is bisected IMPRESSION Patent vein grafts Significant pulmonary hypertension Elevated LVEDP Only 1 ischemic lesion which is a relatively small vessel. PLAN 1. Given that the patient has occluded all his previous stents and this would be a relatively small stent to begin with seems that medical management would be the appropriate choice unless he has intractable angina. 2. If intervention would be considered on the diagonal would probably access site in the groin of the right radial as left radial position proved difficult to find a guide catheter that would not adequately sit. Probably the best bet would be an XB 3.0 or an EBU 3.0 catheter. An AL 1.0 might be considered as well although I was unable to well engage it once wired probably would provide adequate support
[2023-09-10 09:08] LABS: Basophils # 0.2 K/mm3 (0-0.2); Basophils % 2.3 % (0.1-2.0); Eosinophils % 0.4 % (0.1-12.0); Hematocrit 49.7 % (42.0-52.0); Hemoglobin 15.8 g/dL (14.1-18.0); Lymphocytes # 0.9 K/mm3 (0.7-4.5); Lymphocytes % 10.3 % (10-50); Mean Corpuscular HGB Conc 31.7 g/dL (31.8-35.4); Mean Corpuscular Hemoglobin 29.5 pg (27.0-31.2); Mean Corpuscular Volume 92.9 fl (80-94); Mean Platelet Volume 9.4 fl (7.4-10.4); Monocytes # 0.6 K/mm3 (0.1-1.0); Monocytes % 7.4 % (1.7-9.3); Neutrophils # 6.6 K/mm3 (1.8-7.8); Neutrophils % 79.7 % (37.0-80.0); Platelet Count 143 K/mm3 (142-424); Red Blood Count 5.35 M/mm3 (4.60-6.20); Red Cell Distribution Width 15.1 % (11.5-17.5); White Blood Count 8.3 K/mm3 (4.8-10.8)
[2023-09-10 09:11] LABS: Chloride 94 mmol/L (98-107)
[2023-09-10 09:12] LABS: Potassium 4.1 mmoL/L (3.5-5.1); Sodium 124 mmol/L (136-145)
[2023-09-10 09:14] LABS: Blood Urea Nitrogen 35 mg/dl (9-20); Creatinine Clearance Estimated 90 mL/min (50-200); Estimated Glomerular Filt Rate 54 ml/min (>60); GFR (African American) 65 ML/MIN (>60); Lactic Acid 1.4 mmol/L (0.7-2.1)
[2023-09-10 09:15] LABS: Alanine Aminotransferase 115 U/L (12-78); Albumin Level 2.6 g/dl (3.5-5.0); Alkaline Phosphatase 323 U/L (38-126); Anion Gap 9.1 mEq/L (5-15); Aspartate Amino Transferase 138 U/L (17-59); Bilirubin, Conjugated 0.1 mg/dL (0.0-0.3); Bilirubin,Direct 1.2 mg/dl (0.0-0.4); Bilirubin,Indirect 0.9 mg/dL (0.0-0.9); Bilirubin,Total 2.1 mg/dl (0.2-1.3); Bilirubin,Unconjugated 0.9 mg/dL (0.0-1.1); Calcium 7.5 mg/dl (8.4-10.2); Carbon Dioxide 25 mmol/L (22.0-30.0); Glucose 178 mg/dl (74-100); Total Protein,Serum 5.2 g/dl (6.3-8.2)
[2023-09-10 09:18] LABS: INR 2.47 (0.9-1.1); Prothrombin Time 25.1 seconds (10.1-12.5)
[2023-09-10] MEDS: BENZONATATE 100MG CAPSULE 200 MG PO ×3 (09:27→20:13)
[2023-09-10] MEDS: ASPIRIN 81MG CHEWABLE TABLET 81 MG PO (09:27)
[2023-09-10] MEDS: DOCUSATE SODIUM 100 MG CAPSULE PO ×2 (09:27→20:13)
--- NOTE | 2023-09-10 10:15 | PC.NURSE ---
pt to label pinker by wheel [id number]
--- NOTE | 2023-09-10 10:25 | PC.NURSE ---
Pt off floor in Mandarin Speaking [place].
[2023-09-10] MEDS: 0.9 % SODIUM CHLORIDE 500 ML 25 ML IV (10:27)
[2023-09-10] MEDS: VERAPAMIL 2.5MG/ML 2ML VIAL 2.5 MG IV (10:27)
[2023-09-10] MEDS: HEPARIN 1,000 UNITS/500ML NS (CATH LAB) 3000 UNIT IV (10:27)
[2023-09-10] MEDS: HEPARIN 1,000 UNITS/ML 10ML VIAL (CATH LAB) 10000 UNIT IV (10:27)
[2023-09-10] MEDS: NITROGLYCERIN 800MCG/8ML SYR (CATH LAB) 800 MCG IA (10:27)
[2023-09-10] MEDS: LIDOCAINE 1% 10ML MDV 20 ML IJ (10:28)
[2023-09-10] MEDS: diphenhydrAMINE 50MG/ML VIAL 50 MG IV (10:28)
[2023-09-10] MEDS: MIDAZOLAM HCL 1MG/1ML 5ML VIAL 1 MG IV (11:32)
[2023-09-10] MEDS: FENTANYL 100MCG/2ML VIAL 50 MCG IV (11:32)
--- NOTE | 2023-09-10 12:18 | PC.NURSE ---
Pt will be fitted for a LifeVest this afternoon.
[2023-09-10] MEDS: IOPAMIDOL-370 (76%);100ML BOTTLE 120 ML IV (12:25)
[2023-09-10 12:27] LABS: CATHL Arterial O2 SAT 67.5 % (90-100); CATHL Venous O2 SAT 65.9 % (75-80)
[2023-09-10 13:34] LABS: HBsAg Screen Negative (Negative); HCV Ab Non Reactive (Non Reactive); Hep A Ab, IGM Negative (Negative); Hep B Core Ab, IgM Indeterminate (Negative)
--- NOTE | 2023-09-10 13:43 | PC.NURSE ---
Sandra called and said that dobutamine and bumex gtt were to run through the weekend, also stated that none of his meds are to be held without someone talking to Gomez or Heidy
[2023-09-10] MEDS: BUMETANIDE 10 MG in 0.9 % SODIUM CHLORIDE 60 ML 5 MG IV ×2 (14:25→20:17)
[2023-09-10] MEDS: DOBUTAMINE HCL/D5W 250 ML 7.48000000000000043 MG IV (14:34)
[2023-09-10 14:36] LABS: POC Glucose,Bedside 151 (70-110)
--- NOTE | 2023-09-10 14:43 | PC.NURSE ---
Pt resting bed. Radial tracelet band on at this time. Dobutamine gtt and Bumex gtt infusing. Pt has had lunch and tolerated it well. Pt is currently being educated on LifeVest. New IV placed #20 9R) hand. Family at bedside.
[2023-09-10] MEDS: humaLOG 100 UNITS/ML 3ML VIAL (SSI) SQ ×2 (16:31→20:13)
--- NOTE | 2023-09-10 17:06 | EXP.PN ---
Subjective *Date: 09/10/23 *Time: 17:06 Interval history: Patient denies any new respiratory complaints.he feels ok, he is getting ready for cardiac cath whe I saw him, no acute events overnight Exam Data for Last 24 hours Vital signs and Labs for Last 24 Hours: Temp Pulse Resp BP Pulse Ox O2 Del Method O2 Flow Rate 96.4 F L 90 19 147/90 H 93 L Room Air 2 09/10/23 15:55 09/10/23 16:00 09/10/23 15:55 09/10/23 15:55 09/10/23 15:55 09/10/23 16:54 09/10/23 08:57 Laboratory Results - last 24 hr 09/09/23 11:45: Hepatitis A IgM Ab Negative, Hep Bs Antigen Negative, Hep B Core IgM Ab Indeterminate A, Hepatitis C Antibody Non reactive 09/09/23 17:32: Lactate 2.7 H 09/09/23 20:39: POC Glucose 138 H 09/10/23 08:58: WBC 8.3 D, RBC 5.35, Hgb 15.8, Hct 49.7, MCV 92.9, MCH 29.5, MCHC 31.7 L, RDW 15.1, Plt Count 143 D, MPV 9.4, Neut % (Auto) 79.7, Lymph % (Auto) 10.3, Snyder % (Auto) 7.4, Eos % (Auto) 0.4, Baso % (Auto) 2.3 H, Neut # (Auto) 6.6, Lymph # (Auto) 0.9, Snyder # (Auto) 0.6, Eos # (Auto) 0.0, Baso # (Auto) 0.2, PT 25.1 H, INR 2.47 H, Sodium 124 L, Potassium 4.1, Chloride 94 L, Carbon Dioxide 25, Anion Gap 9.1, BUN 35 H, Creatinine 1.40 H, Estimated Creat Clear 90, Estimated GFR 54 L, Est GFR ( Amer) 65 D, Glucose 178 H, Lactate 1.4, Calcium 7.5 L, Total Bilirubin 2.1 H, Direct Bilirubin 1.2 H, Conjugated Bilirubin 0.1, Indirect Bilirubin 0.9, Unconjugated Bilirubin 0.9, AST 138 H D, ALT 115 H, Alkaline Phosphatase 323 H, Total Protein 5.2 L, Albumin 2.6 L 09/10/23 11:30: ABG O2 Sat (Measured) 67.5 L, POC VBG O2 Sat (Marifer) 65.9 L 09/10/23 12:35: POC Glucose 151 H I & O for Last 24 hours: Intake & Output 09/07/23 09/08/23 09/09/23 09/10/23 23:59 23:59 23:59 23:59 Intake Total 360 / 560 830 / 1460 1144 / 1294 878.339 / 878.339 Output Total 0 / 0 450 / 450 800 / 1300 2850 / 2850 Balance 360 / 560 380 / 1010 344 / -6 -1971.661 / -1971.661 Weight 96.247 kg 96.479 kg 99.79 kg 99.4 kg Constitutional Constitutional: no acute distress *Routine HEENT Exam Head: Present normocephalic Eye: Present EOMI and PERRL ENT: Present mucous membranes moist Comments: has sutures on skill left pariato temporal area *Routine Neck Exam Neck: Present supple; Absent lymphadenopathy *Routine Respiratory Exam Respiratory: Present distant breath sounds and diminished air movement *Routine Cardiovascular Exam Cardiovascular: Present RRR *Routine Abdominal Exam Abdominal: Present soft and normoactive bowel sounds; Absent tenderness *Routine Extremities Exam Extremities: Absent cyanosis, clubbing or edema *Routine Skin Exam Skin: Present warm; Absent rash *Routine Neurological Exam Neurological: Present alert and oriented X3 Assessment and Plan *Assessment and plan (1) Pulmonary embolism on right: Status: Acute Category: Medical Code(s): I26.99 - Other pulmonary embolism without acute cor pulmonale (2) Acute heart failure: Status: Acute Qualifiers: Heart failure type: unspecified Qualified Code(s): I50.9 - Heart failure, unspecified Category: Medical Code(s): I50.9 - Heart failure, unspecified (3) Recent myocardial infarction: Status: Acute Category: Medical (4) COPD (chronic obstructive pulmonary disease): Status: Acute Qualifiers: COPD type: unspecified COPD Qualified Code(s): J44.9 - Chronic obstructive pulmonary disease, unspecified Category: Medical Code(s): J44.9 - Chronic obstructive pulmonary disease, unspecified (5) CAD (coronary artery disease): Status: Acute Qualifiers: Associated angina: with unspecified angina Coronary Disease-Associated Artery/Lesion type: unspecified vessel or lesion type [place] vs. 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 insulin use: unspecified penitentiary insulin use status Diabetes mellitus complication status: without complication Qualified Code(s): E11.9 - Type 2 diabetes mellitus without complications Category: Medical Code(s): E11.9 - Type 2 diabetes mellitus without complications (8) Non compliance with medical treatment: Status: Acute Category: Medical Code(s): Z91.199 - Patient's noncompliance with other medical treatment and regimen due to unspecified reason (9) Polysubstance (including opioids) dependence without physiological dependence: Status: Acute Category: Medical Code(s): F19.20 - Other psychoactive substance dependence, uncomplicated Plan 47-year-old male with a PMHx of CAD status post CABG, hypertension, hyperlipidemia, insulin-dependent diabetes, medication noncompliance, tobacco dependence, and substance abuse presenting with concern for cough, chest tightness, shortness of breath, swelling in his abdomen and lower extremities, and cracking of the skin in his lower extremities. initial work up included Labs that demonstrated elevated troponin, elevated D-dimer, elevated BNP, and CHRISTOPHER. Given elevated D-dimer, CT PE protocol was ordered. X-ray showed no obvious large area of focal consolidation. ED provider had an interactive discussion with radiologist who read the patient's CT PE protocol who noted he has distal PE with no right heart strain. He is hemodynamically stable and is resting comfortably on room air. As well as a lengthy discussion with the senior sales manager, Dr. Rico, who advised obtaining formal echocardiogram and diuresing the patient with Lasix. all previous findings were discussed with the ED as well for detailed management. afterward we agreed for admission. Patient hemodinamically stable plan as follow: - Acute right PE. no right heart stream. hemodinamically stable: acute on chronic CHF Cardiology and pulmonology consult ECHO LVEF - 15%, akinetic septum CTA of chest reviewed CXR reviewed - has b/l effusions started on levaquin empirically lasix IV given. elevtated BNP. echo pending resume lasix 40mg PO BID. monitor for urinary output tessalon TID for cough Duoneb PRN for wheezing continue IV diuresis with bumex and Dobutamine watch closely Na and Cr level, Na 124 today, monitor BMP q12hr on bumex s/p cardiac cath, no stentiing performed due to occluded venous grafts - Hx of CAD with recent STEMI., COPD, HTN: conditions reviewed reconciled home regimen optimize o2 sat monitor VS per unit protocols repeat and monitor morning labs, included lipid profile IDDM: suspected uncontrolled. last A1c 8.9. accucheck before meals. resume home insuline on sliding scale patient medically non complaint, with hx of polysubstance abuse, will complicate all aspect of care. pharmacy to verify suboxone. on nicotine patch on full dose lovenox. Protonix for Gi bleed ppx Full code plan for cardiac cath tomorrow, started on dobutamine, has cirrhosis - order hepatitis panel, monitor LFTs, started on Coumadin - hold given cirrhosis and INR >2
[2023-09-10 17:57] LABS: POC Glucose,Bedside 254 (70-110)
[2023-09-10] MEDS: ISOSORBIDE DINITRATE 10 MG TABLET PO (20:13)
[2023-09-10] MEDS: PANTOPRAZOLE 40MG VIAL 40 MG IV (20:13)
[2023-09-10 21:29] LABS: POC Glucose,Bedside 218 (70-110)
--- NOTE | 2023-09-10 21:45 | PC.NURSE ---
@7128 FAMILY AND/OR FRIENDS COME TO VISIT PT AND SMELL LIKE MARIJUANA / WEED.
--- NOTE | 2023-09-10 21:45 | PC.NURSE ---
@ 2100 THIS PT IS YELLING OUT FOR HELP SO THIS RN ENTERS THE ROOM AND ASKS WHY THE PT IS YELLING AND PT STATES THAT HE HAS TO PEE. THIS RN TRIED TO TELL THE PT THAT THERE IS AN EMPTY URINAL TO HIS LEFT, BUT THIS PT KEPT YELLING AT THIS RN ABOUT HOW HE HAS TO PEE AND THE URINAL ON HIS BEDSIDE TABLE WAS FULL. ONCE AGAIN THIS RN TRIED TO EXPLAIN TO THE PT THAT THERE IS ANOTHER URINAL TO HIS LEFT, BUT THE PT CONTINUED TO YELL AT THIS RN. PT STATES, I AM A FALLS RISK, I'M SICK, AND I NEED TO PISS. THIS RN CONTINUES TO EDUCATE PT THAT HE HAS MULTIPLE URINALS AROUND THIS BED SINCE HE IS ON A BUMEX GTT AND PT REFUSES TO LISTEN AND CONTINUES TO YELL AT THIS RN AND TELLS THIS RN TO GET THE FUCK OUT OF MY ROOM AND I'LL JUST PISS THE BED. THIS RN STATES OKAY, BUT THERE'S A URINAL TO YOUR LEFT AND THIS RN LEAVES THE ROOM. WHEN THIS RN AND TECH ENTERED THE ROOM TO EMPTY THE ALREADY FULL URINAL ON THE BEDSIDE TABLE AND TO FIX THE IV PUMP BEEPING, THE PT MUST OF FOUND THE EXTRA URINAL TO HIS LEFT, BECAUSE IT HAD BEEN USED INSTEAD OF THE PT PEEING IN THE BED ON HIMSELF. 5 TOTAL URINALS ARE AT BEDSIDE FOR PT'S CONVENIENCE AND THIS RN EDUCATED PT ABOUT HOW USING THE CALL LIGHT COULD PREVENT THESE SITUATIONS AND HIS URINALS CAN BE EMPTIED SOON THEY'RE USED IF HE WOULD HIT THE CALL LIGHT ONCE USED.
[2023-09-10] MEDS: LEVOFLOXACIN/D5W 750 MG/150 ML 750 MG/150 ML PIGGYBACK 100 MG IV (22:40)
[2023-09-11] VITALS (12 sets, daily range): BP systolic 105–145; BP diastolic 68–95; PULSE 70–100; RESP 14–22; TEMP 36.6–37.4; O2SAT 100; BMI 30.7
--- NOTE | 2023-09-11 03:51 | PC.NURSE ---
@ 0100 PT FAMILY MEMBER AT BEDSIDE NOTIFIED THIS RN THAT THE PT'S LIFE VEST KEPT ALARMING OVER AND OVER AND WOULDN'T STOP. THIS RN AND FAMILY MEMBER READ THE LIFE VEST MANUAL TO TRY AND FIGURE OUT WHY IT WAS ALARMING SO MUCH. THIS RN THINKS IT IS BECAUSE THE VEST ISN'T FITTED PROPERLY TO THE PT. THIS RN TOLD THE FAMILY MEMBER TO CALL THE 24/ NUMBER AND ASK THEM WHAT THEY SHOULD DO AND TO LET THEM KNOW THE PT IS ON CONT. HEART MONITORING IF THE PT NEEDS TO TAKE IF OFF TO STOP THE ALARMING. [employer] [facility] STATED THAT THEY WILL BE SENDING SOMEONE OUT TO ADJUST OR SIZE A NEW VEST FOR THE PT SO IT DOESN'T ALARM CONSTANTLY. THEY OK'D PT BEING OFF LIFE VEST LONG THE PT IS ON TELE. @ 0110: PT TOOK LIFE VEST OFF @0113: [facility] CALLED THIS RN TO NOTIFIED THIS RN THAT THE PT HAS DECIDED TO REMOVE HIS LIFE VEST AND THEY WILL NOT BE ABLE TO TRACK HIM AT THIS TIME AND TO MAKE SURE THE PT WAS CONNECTED TO TELE MONITORING. [employer] [facility] REP STATED THAT THEY WILL BE SENDING SOMEONE TO THE HOSPITAL TO FIT PT FOR LIFE VEST SO IT DOESN'T ALARM.
[2023-09-11 06:31] LABS: POC Glucose,Bedside 160 (70-110)
[2023-09-11] MEDS: humaLOG MIX 75/25 3ML FLEXPEN 30 UNIT SQ (06:36)
[2023-09-11] MEDS: humaLOG 100 UNITS/ML 3ML VIAL (SSI) SQ ×3 (06:37→20:58)
[2023-09-11 07:01] LABS: Basophils # 0.3 K/mm3 (0-0.2); Basophils % 3.6 % (0.1-2.0); Eosinophils % 0.3 % (0.1-12.0); Hematocrit 51.9 % (42.0-52.0); Hemoglobin 16.4 g/dL (14.1-18.0); Lymphocytes # 1.2 K/mm3 (0.7-4.5); Lymphocytes % 17.6 % (10-50); Mean Corpuscular HGB Conc 31.6 g/dL (31.8-35.4); Mean Corpuscular Hemoglobin 28.9 pg (27.0-31.2); Mean Corpuscular Volume 91.7 fl (80-94); Mean Platelet Volume 9.2 fl (7.4-10.4); Monocytes # 0.6 K/mm3 (0.1-1.0); Monocytes % 9.2 % (1.7-9.3); Neutrophils # 4.7 K/mm3 (1.8-7.8); Neutrophils % 69.4 % (37.0-80.0); Platelet Count 143 K/mm3 (142-424); Red Blood Count 5.66 M/mm3 (4.60-6.20); Red Cell Distribution Width 14.9 % (11.5-17.5); White Blood Count 6.8 K/mm3 (4.8-10.8)
[2023-09-11 07:03] LABS: INR 1.74 (0.9-1.1); Prothrombin Time 18.1 seconds (10.1-12.5)
[2023-09-11 07:19] LABS: Chloride 88 mmol/L (98-107); Sodium 127 mmol/L (136-145)
[2023-09-11 07:20] LABS: Potassium 3.1 mmoL/L (3.5-5.1)
[2023-09-11 07:22] LABS: Blood Urea Nitrogen 29 mg/dl (9-20); Creatinine Clearance Estimated 97 mL/min (50-200); Estimated Glomerular Filt Rate 59 ml/min (>60); GFR (African American) 71 ML/MIN (>60)
[2023-09-11 07:23] LABS: Anion Gap 7.1 mEq/L (5-15); Calcium 7.7 mg/dl (8.4-10.2); Carbon Dioxide 35 mmol/L (22.0-30.0); Glucose 190 mg/dl (74-100)
[2023-09-11] MEDS: ISOSORBIDE DINITRATE 10 MG TABLET PO ×3 (08:24→20:58)
[2023-09-11] MEDS: BENZONATATE 100MG CAPSULE 200 MG PO ×3 (08:24→20:58)
[2023-09-11] MEDS: DOCUSATE SODIUM 100 MG CAPSULE PO ×2 (08:24→20:58)
[2023-09-11] MEDS: ASPIRIN 81MG CHEWABLE TABLET 81 MG PO (08:24)
[2023-09-11] MEDS: BUMETANIDE 10 MG in 0.9 % SODIUM CHLORIDE 60 ML 5 MG IV ×2 (09:18→20:57)
--- NOTE | 2023-09-11 15:46 | EXP.PN ---
Subjective *Date: 09/11/23 *Time: 15:46 Interval history: Patient denies any new respiratory complaints.he feels much better today, his breathing is better as well Exam Data for Last 24 hours Vital signs and Labs for Last 24 Hours: Temp Pulse Resp BP Pulse Ox O2 Del Method O2 Flow Rate 98.5 F 90 19 117/75 100 Room Air 2 09/11/23 12:00 09/11/23 14:00 09/11/23 14:00 09/11/23 14:00 09/11/23 14:00 09/11/23 15:00 09/10/23 08:57 Laboratory Results - last 24 hr 09/10/23 16:10: POC Glucose 254 H 09/10/23 20:11: POC Glucose 218 H 09/11/23 06:17: WBC 6.8, RBC 5.66, Hgb 16.4, Hct 51.9, MCV 91.7, MCH 28.9, MCHC 31.6 L, RDW 14.9, Plt Count 143, MPV 9.2, Neut % (Auto) 69.4, Lymph % (Auto) 17.6, [place] % (Auto) 9.2, Eos % (Auto) 0.3, Baso % (Auto) 3.6 H, Neut # (Auto) 4.7, Lymph # (Auto) 1.2, [place] # (Auto) 0.6, Eos # (Auto) 0.0, Baso # (Auto) 0.3 H, PT 18.1 H, INR 1.74 H, Sodium 127 L, Potassium 3.1 L D, Chloride 88 L, Carbon Dioxide 35 H, Anion Gap 7.1, BUN 29 H, Creatinine 1.30 H, Estimated Creat Clear 97, Estimated GFR 59, Est GFR ( Amer) 71, Glucose 190 H, Calcium 7.7 L 09/11/23 06:23: POC Glucose 160 H I & O for Last 24 hours: Intake & Output 09/08/23 09/09/23 09/10/23 09/11/23 23:59 23:59 23:59 23:59 Intake Total 830 / 1460 1144 / 1294 907.672 / 907.672 683.083 / 683.083 Output Total 450 / 450 800 / 1300 4775 / 8800 25979 / 97235 Balance 380 / 1010 344 / -6 -3867.328 / -7892.328 -62921.917 / -32174.917 Weight 96.479 kg 99.79 kg 99.4 kg 99.4 kg Constitutional Constitutional: no acute distress *Routine HEENT Exam Head: Present normocephalic Eye: Present EOMI and PERRL ENT: Present mucous membranes moist Comments: has sutures on skill left pariato temporal area *Routine Neck Exam Neck: Present supple; Absent lymphadenopathy *Routine Respiratory Exam Respiratory: Present distant breath sounds and diminished air movement *Routine Cardiovascular Exam Cardiovascular: Present RRR *Routine Abdominal Exam Abdominal: Present soft and normoactive bowel sounds; Absent tenderness *Routine Extremities Exam Extremities: Absent cyanosis, clubbing or edema *Routine Skin Exam Skin: Present warm; Absent rash *Routine Neurological Exam Neurological: Present alert and oriented X3 Assessment and Plan *Assessment and plan (1) Pulmonary embolism on right: Status: Acute Category: Medical Code(s): I26.99 - Other pulmonary embolism without acute cor pulmonale (2) Acute heart failure: Status: Acute Qualifiers: Heart failure type: unspecified Qualified Code(s): I50.9 - Heart failure, unspecified Category: Medical Code(s): I50.9 - Heart failure, unspecified (3) Recent myocardial infarction: Status: Acute Category: Medical (4) COPD (chronic obstructive pulmonary disease): Status: Acute Qualifiers: COPD type: unspecified COPD Qualified Code(s): J44.9 - Chronic obstructive pulmonary disease, unspecified Category: Medical Code(s): J44.9 - Chronic obstructive pulmonary disease, unspecified (5) CAD (coronary artery disease): Status: Acute Qualifiers: Associated angina: with unspecified angina Coronary Disease-Associated Artery/Lesion type: unspecified vessel or lesion type [place] vs. transplanted heart: [place] heart Qualified Code(s): I25.119 - Atherosclerotic heart disease of [place] coronary artery with unspecified angina pectoris Category: Medical Code(s): I25.10 - Atherosclerotic heart disease of [place] coronary artery without angina pectoris (6) HTN (hypertension): Status: Chronic Qualifiers: Hypertension type: essential hypertension Qualified Code(s): I10 - Essential (primary) hypertension Category: Medical Code(s): I10 - Essential (primary) hypertension (7) Diabetes: Status: Chronic Qualifiers: Diabetes mellitus type: type 2 Diabetes mellitus executive director of nursing insulin use: unspecified shelter insulin use status Diabetes mellitus complication status: without complication Qualified Code(s): E11.9 - Type 2 diabetes mellitus without complications Category: Medical Code(s): E11.9 - Type 2 diabetes mellitus without complications (8) Non compliance with medical treatment: Status: Acute Category: Medical Code(s): Z91.199 - Patient's noncompliance with other medical treatment and regimen due to unspecified reason (9) Polysubstance (including opioids) dependence without physiological dependence: Status: Acute Category: Medical Code(s): F19.20 - Other psychoactive substance dependence, uncomplicated Plan 47-year-old male with a PMHx of CAD status post CABG, hypertension, hyperlipidemia, insulin-dependent diabetes, medication noncompliance, tobacco dependence, and substance abuse presenting with concern for cough, chest tightness, shortness of breath, swelling in his abdomen and lower extremities, and cracking of the skin in his lower extremities. initial work up included Labs that demonstrated elevated troponin, elevated D-dimer, elevated BNP, and CHRISTOPHER. Given elevated D-dimer, CT PE protocol was ordered. X-ray showed no obvious large area of focal consolidation. ED provider had an interactive discussion with radiologist who read the patient's CT PE protocol who noted he has distal PE with no right heart strain. He is hemodynamically stable and is resting comfortably on room air. As well as a lengthy discussion with the rotor blade installer, Dr. Rico, who advised obtaining formal echocardiogram and diuresing the patient with Lasix. all previous findings were discussed with the ED as well for detailed management. afterward we agreed for admission. Patient hemodinamically stable plan as follow: - Acute right PE. no right heart stream. hemodinamically stable: acute on chronic CHF Cardiology and pulmonology consult ECHO LVEF - 15%, akinetic septum CTA of chest reviewed CXR reviewed - has b/l effusions started on levaquin empirically lasix IV given. elevtated BNP. echo pending resume lasix 40mg PO BID. monitor for urinary output tessalon TID for cough Duoneb PRN for wheezing continue IV diuresis with bumex and Dobutamine watch closely Na and Cr level, Na 124 today, monitor BMP q12hr on bumex s/p cardiac cath, no stentiing performed due to occluded venous grafts - Hx of CAD with recent STEMI., COPD, HTN: conditions reviewed reconciled home regimen optimize o2 sat monitor VS per unit protocols repeat and monitor morning labs, included lipid profile IDDM: suspected uncontrolled. last A1c 8.9. accucheck before meals. resume home insuline on sliding scale patient medically non complaint, with hx of polysubstance abuse, will complicate all aspect of care. pharmacy to verify suboxone. on nicotine patch on full dose lovenox. Protonix for Gi bleed ppx Full code Plan 09/11/2023 started on dobutamine, continue Bumex has cirrhosis - order hepatitis panel, monitor LFTs, started on Coumadin continue to monitor BMP for monitoring Na and Cr He has lifevest now, likely dc on wednesday
[2023-09-11 17:40] LABS: POC Glucose,Bedside 188 (70-110)
[2023-09-11 17:40] LABS: POC Glucose,Bedside 109 (70-110)
[2023-09-11] MEDS: SODIUM CHLORIDE 0.9% 10ML VIAL 10 ML IV (20:57)
[2023-09-11] MEDS: PANTOPRAZOLE 40MG VIAL 40 MG IV (20:57)
[2023-09-11 21:18] LABS: POC Glucose,Bedside 221 (70-110)
[2023-09-11] MEDS: LEVOFLOXACIN/D5W 750 MG/150 ML 750 MG/150 ML PIGGYBACK 100 MG IV (23:34)
[2023-09-12] VITALS (13 sets, daily range): BP systolic 99–147; BP diastolic 54–95; PULSE 85–117; RESP 14–24; TEMP 36.6–37.6; O2SAT 100; BMI 25.5
[2023-09-12 00:40] LABS: Blood Urea Nitrogen 32 mg/dl (9-20); Chloride 79 mmol/L (98-107); Creatinine Clearance Estimated 114 mL/min (50-200); Estimated Glomerular Filt Rate 71 ml/min (>60); GFR (African American) 86 ML/MIN (>60); Glucose 167 mg/dl (74-100); Sodium 129 mmol/L (136-145)
[2023-09-12 00:47] LABS: Carbon Dioxide 37 mmol/L (22.0-30.0)
[2023-09-12 00:48] LABS: Anion Gap 15.7 mEq/L (5-15); Potassium 2.7 mmoL/L (3.5-5.1)
[2023-09-12] MEDS: POTASSIUM CHLORIDE 20MEQ TAB 40 MEQ PO ×2 (01:12→18:20)
[2023-09-12 01:13] LABS: Magnesium 1.7 mg/dl (1.6-2.3)
[2023-09-12 06:34] LABS: POC Glucose,Bedside 134 (70-110)
[2023-09-12] MEDS: DOBUTAMINE HCL/D5W 250 ML 7.48000000000000043 MG IV (07:30)
[2023-09-12 07:32] LABS: INR 1.25 (0.9-1.1); Prothrombin Time 13.3 seconds (10.1-12.5)
[2023-09-12 07:40] LABS: Basophils # 0.1 K/mm3 (0-0.2); Eosinophils # 0.1 K/mm3 (0.0-0.4); Eosinophils % 1.5 % (0.1-12.0); Hematocrit 54.4 % (42.0-52.0); Hemoglobin 16.9 g/dL (14.1-18.0); Lymphocytes # 1.6 K/mm3 (0.7-4.5); Lymphocytes % 25.5 % (10-50); Mean Corpuscular HGB Conc 31.1 g/dL (31.8-35.4); Mean Corpuscular Hemoglobin 28.2 pg (27.0-31.2); Mean Corpuscular Volume 90.7 fl (80-94); Mean Platelet Volume 9.2 fl (7.4-10.4); Monocytes # 0.6 K/mm3 (0.1-1.0); Monocytes % 10.1 % (1.7-9.3); Neutrophils # 3.9 K/mm3 (1.8-7.8); Neutrophils % 60.9 % (37.0-80.0); Platelet Count 122 K/mm3 (142-424); Red Cell Distribution Width 14.7 % (11.5-17.5); White Blood Count 6.4 K/mm3 (4.8-10.8)
[2023-09-12 09:53] LABS: Chloride 79 mmol/L (98-107); Potassium 3.2 mmoL/L (3.5-5.1); Sodium 125 mmol/L (136-145)
[2023-09-12 09:56] LABS: Blood Urea Nitrogen 29 mg/dl (9-20); Creatinine Clearance Estimated 95 mL/min (50-200); Estimated Glomerular Filt Rate 71 ml/min (>60); GFR (African American) 86 ML/MIN (>60)
[2023-09-12 09:57] LABS: Anion Gap 9.2 mEq/L (5-15); Calcium 8.4 mg/dl (8.4-10.2); Carbon Dioxide 40 mmol/L (22.0-30.0); Glucose 300 mg/dl (74-100)
[2023-09-12] MEDS: ENOXAPARIN 100MG/ML SYRINGE 100 MG SQ (10:26)
[2023-09-12] MEDS: NICOTINE 21MG/24HR PATCH 21 MG TD (10:26)
[2023-09-12] MEDS: ISOSORBIDE DINITRATE 10 MG TABLET PO ×3 (10:27→20:53)
[2023-09-12] MEDS: BENZONATATE 100MG CAPSULE 200 MG PO ×3 (10:27→20:53)
[2023-09-12] MEDS: ASPIRIN 81MG CHEWABLE TABLET 81 MG PO (10:28)
[2023-09-12] MEDS: DOCUSATE SODIUM 100 MG CAPSULE PO ×2 (10:28→20:53)
[2023-09-12 11:51] LABS: POC Glucose,Bedside 264 (70-110)
[2023-09-12] MEDS: humaLOG 100 UNITS/ML 3ML VIAL (SSI) SQ ×3 (12:04→20:53)
[2023-09-12] MEDS: LACTULOSE 20GM/30ML UDC 10 GM PO (12:05)
[2023-09-12] MEDS: BUMETANIDE 10 MG in 0.9 % SODIUM CHLORIDE 60 ML 5 MG IV ×2 (12:06→20:54)
--- NOTE | 2023-09-12 16:12 | P.PN_ITS ---
Subjective *Date: 09/12/23 *Time: 16:12 Interval history: patient is seen at bedside, he denied CP, SOB, N/V Exam Data for Last 24 hours Vital signs and Labs for Last 24 Hours: Temp Pulse Resp BP Pulse Ox O2 Del Method O2 Flow Rate 97.8 F 106 H 24 147/83 H 100 Room Air 100 09/12/23 16:00 09/12/23 14:00 09/12/23 14:00 09/12/23 14:00 09/12/23 14:00 09/12/23 15:00 09/11/23 17:00 Laboratory Results - last 24 hr 09/11/23 12:05: POC Glucose 188 H 09/11/23 17:30: POC Glucose 109 09/11/23 20:05: POC Glucose 221 H 09/12/23 00:15: Sodium 129 L, Potassium 2.7 L*, Chloride 79 L, Carbon Dioxide 37 H, Anion Gap 15.7 H, BUN 32 H, Creatinine 1.10, Estimated Creat Clear 114, Estimated GFR 71, Est GFR ( Amer) 86 D, Glucose 167 H, Calcium 8.0 L, Magnesium 1.7 09/12/23 06:26: POC Glucose 134 H 09/12/23 06:52: WBC 6.4, RBC 6.00, Hgb 16.9, Hct 54.4 H, MCV 90.7, MCH 28.2, MCHC 31.1 L, RDW 14.7, Plt Count 122 L, MPV 9.2, Neut % (Auto) 60.9, Lymph % (Auto) 25.5, [place] % (Auto) 10.1 H, Eos % (Auto) 1.5, Baso % (Auto) 2.0, Neut # ( Auto) 3.9, Lymph # (Auto) 1.6, [place] # (Auto) 0.6, Eos # (Auto) 0.1, Baso # (Auto) 0.1, PT 13.3 H, INR 1.25 H 09/12/23 09:30: Sodium 125 L, Potassium 3.2 L, Chloride 79 L, Carbon Dioxide 40 H, Anion Gap 9.2, BUN 29 H, Creatinine 1.10, Estimated Creat Clear 95, Estimated GFR 71, Est GFR ( Amer) 86, Glucose 300 H D, Calcium 8.4 09/12/23 11:44: POC Glucose 264 H I & O for Last 24 hours: Intake & Output 09/09/23 09/10/23 09/11/23 09/12/23 23:59 23:59 23:59 23:59 Intake Total 1144 / 1294 907.672 / 185.507 6537.333 / 0238.379 2151.333 / 2167.333 Output Total 800 / 1300 4775 / 8800 87889 / 27269 7050 / 7050 Balance 344 / -6 -3867.328 / -7892.328 -40251.667 / -43414.667 -4882.667 / - 4882.667 Weight 99.79 kg 99.4 kg 99.4 kg 82.781 kg Constitutional Constitutional: no acute distress *Routine HEENT Exam Head: Present normocephalic Eye: Present EOMI and PERRL ENT: Present mucous membranes moist Comments: has sutures on skill left pariato temporal area - healing well *Routine Neck Exam Neck: Present supple; Absent lymphadenopathy *Routine Respiratory Exam Respiratory: Present distant breath sounds and diminished air movement *Routine Cardiovascular Exam Cardiovascular: Present RRR *Routine Abdominal Exam Abdominal: Present soft and normoactive bowel sounds; Absent tenderness *Routine Extremities Exam Extremities: Absent cyanosis, clubbing or edema *Routine Skin Exam Skin: Present warm; Absent rash *Routine Neurological Exam Neurological: Present alert and oriented X3 Assessment and Plan *Assessment and plan (1) Pulmonary embolism on right: Status: Acute Category: Medical Code(s): I26.99 - Other pulmonary embolism without acute cor pulmonale (2) Acute heart failure: Status: Acute Qualifiers: Heart failure type: unspecified Qualified Code(s): I50.9 - Heart failure, unspecified Category: Medical Code(s): I50.9 - Heart failure, unspecified (3) Recent myocardial infarction: Status: Acute Category: Medical (4) COPD (chronic obstructive pulmonary disease): Status: Acute Qualifiers: COPD type: unspecified COPD Qualified Code(s): J44.9 - Chronic obstructive pulmonary disease, unspecified Category: Medical Code(s): J44.9 - Chronic obstructive pulmonary disease, unspecified (5) CAD (coronary artery disease): Status: Acute Qualifiers: Associated angina: with unspecified angina Coronary Disease-Associated Artery/Lesion type: unspecified vessel or lesion type [place] vs. transplanted heart: [place] heart Qualified Code(s): I25.119 - Atherosclerotic heart disease of [place] coronary artery with unspecified angina pectoris Category: Medical Code(s): I25.10 - Atherosclerotic heart disease of [place] coronary artery without angina pectoris (6) HTN (hypertension): Status: Chronic Qualifiers: Hypertension type: essential hypertension Qualified Code(s): I10 - Essential (primary) hypertension Category: Medical Code(s): I10 - Essential (primary) hypertension (7) Diabetes: Status: Chronic Qualifiers: Diabetes mellitus type: type 2 Diabetes mellitus retirement insulin use: unspecified 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 insulin use status Diabetes mellitus complication status: without complication Qualified Code(s): E11.9 - Type 2 diabetes mellitus without complications Category: Medical Code(s): E11.9 - Type 2 diabetes mellitus without complications (8) Non compliance with medical treatment: Status: Acute Category: Medical Code(s): Z91.199 - Patient's noncompliance with other medical treatment and regimen due to unspecified reason (9) Polysubstance (including opioids) dependence without physiological dependence: Status: Acute Category: Medical Code(s): F19.20 - Other psychoactive substance dependence, uncomplicated Plan 47-year-old male with a PMHx of CAD status post CABG, hypertension, hyperlipidemia, insulin-dependent diabetes, medication noncompliance, tobacco dependence, and substance abuse presenting with concern for cough, chest tightness, shortness of breath, swelling in his abdomen and lower extremities, and cracking of the skin in his lower extremities. initial work up included Labs that demonstrated elevated troponin, elevated D- dimer, elevated BNP, and CHRISTOPHER. Given elevated D-dimer, CT PE protocol was ordered. X-ray showed no obvious large area of focal consolidation. ED provider had an interactive discussion with radiologist who read the patient's CT PE protocol who noted he has distal PE with no right heart strain. He is hemodynamically stable and is resting comfortably on room air. As well as a lengthy discussion with the outreach director, Dr. Rico, who advised obtaining formal echocardiogram and diuresing the patient with Lasix. all previous findings were discussed with the ED as well for detailed management. afterward we agreed for admission. Patient hemodinamically stable plan as follow: - Acute right PE. no right heart stream. hemodinamically stable: acute on chronic CHF Cardiology and pulmonology consult ECHO LVEF - 15%, akinetic septum CTA of chest reviewed CXR reviewed - has b/l effusions started on levaquin empirically lasix IV given. elevtated BNP. echo pending resume lasix 40mg PO BID. monitor for urinary output tessalon TID for cough Duoneb PRN for wheezing continue IV diuresis with bumex and Dobutamine watch closely Na and Cr level, Na 125 today, closely monitor BMP on bumex s/p cardiac cath, no stentiing performed due to occluded venous grafts - Hx of CAD with recent STEMI., COPD, HTN: conditions reviewed reconciled home regimen optimize o2 sat monitor VS per unit protocols repeat and monitor morning labs, included lipid profile IDDM: suspected uncontrolled. last A1c 8.9. accucheck before meals. resume home insuline on sliding scale patient medically non complaint, with hx of polysubstance abuse, will complicate all aspect of care. pharmacy to verify suboxone. on nicotine patch on full dose lovenox. Protonix for Gi bleed ppx Full code continue on dobutamine, continue Bumex has cirrhosis - order hepatitis panel, monitor LFTs, started on Coumadin continue to monitor BMP for monitoring Na and Cr He has lifevest now, likely dc on wednesday
[2023-09-12 16:55] LABS: Chloride 79 mmol/L (98-107)
[2023-09-12 16:56] LABS: Potassium 3.2 mmoL/L (3.5-5.1); Sodium 122 mmol/L (136-145)
[2023-09-12 16:58] LABS: Blood Urea Nitrogen 30 mg/dl (9-20); Creatinine Clearance Estimated 105 mL/min (50-200); Estimated Glomerular Filt Rate 79 ml/min (>60); GFR (African American) 96 ML/MIN (>60)
[2023-09-12 16:59] LABS: Anion Gap 16.2 mEq/L (5-15); Calcium 8.5 mg/dl (8.4-10.2); Carbon Dioxide 30 mmol/L (22.0-30.0); Glucose 274 mg/dl (74-100); Magnesium 1.8 mg/dl (1.6-2.3)
[2023-09-12 17:10] LABS: POC Glucose,Bedside 274 (70-110)
--- NOTE | 2023-09-12 17:37 | PC.NURSE ---
Pt is currently resting in bed. C/O cramping to extremities. notified. Labs obtained and reported to MD Rios. New ordered received to give Potassium 40 mg PO once, Magnesium oxide 400 mg PO once. Bumex gtt infusing @ 1mg/hr. Dobutamine @2.5 mcg/kg/min. Pt has voided via urinal. No BM this shift. Call light within reach.
[2023-09-12] MEDS: MAGNESIUM OXIDE 400MG TABLET 400 MG PO (18:20)
[2023-09-12 20:52] LABS: POC Glucose,Bedside 272 (70-110)
[2023-09-12] MEDS: SODIUM CHLORIDE 0.9% 10ML VIAL 10 ML IV (20:53)
[2023-09-12] MEDS: PANTOPRAZOLE 40MG VIAL 40 MG IV (20:53)
[2023-09-12 21:34] LABS: Chloride 77 mmol/L (98-107); Potassium 3.4 mmoL/L (3.5-5.1); Sodium 121 mmol/L (136-145)
[2023-09-12 21:37] LABS: Blood Urea Nitrogen 29 mg/dl (9-20); Creatinine Clearance Estimated 116 mL/min (50-200); Estimated Glomerular Filt Rate 90 ml/min (>60); GFR (African American) 109 ML/MIN (>60)
[2023-09-12 21:38] LABS: Anion Gap 9.4 mEq/L (5-15); Calcium 8.7 mg/dl (8.4-10.2); Carbon Dioxide 38 mmol/L (22.0-30.0); Glucose 279 mg/dl (74-100)
[2023-09-13] VITALS (12 sets, daily range): BP systolic 93–141; BP diastolic 41–109; PULSE 79–107; RESP 16–22; TEMP 36.4–36.9; O2SAT 95–100; BMI 25.5
[2023-09-13] MEDS: ACETAMINOPHEN 325MG TAB 650 MG PO (02:03)
[2023-09-13 04:52] LABS: Basophils # 0.2 K/mm3 (0-0.2); Basophils % 2.3 % (0.1-2.0); Eosinophils # 0.2 K/mm3 (0.0-0.4); Eosinophils % 2.4 % (0.1-12.0); Hematocrit 54.8 % (42.0-52.0); Hemoglobin 17.6 g/dL (14.1-18.0); Lymphocytes # 1.4 K/mm3 (0.7-4.5); Lymphocytes % 17.4 % (10-50); Mean Corpuscular HGB Conc 32.1 g/dL (31.8-35.4); Mean Corpuscular Hemoglobin 29.3 pg (27.0-31.2); Mean Corpuscular Volume 91.3 fl (80-94); Mean Platelet Volume 9.3 fl (7.4-10.4); Monocytes # 0.8 K/mm3 (0.1-1.0); Monocytes % 10.3 % (1.7-9.3); Neutrophils # 5.5 K/mm3 (1.8-7.8); Neutrophils % 67.6 % (37.0-80.0); Platelet Count 126 K/mm3 (142-424); Red Blood Count 6.01 M/mm3 (4.60-6.20); Red Cell Distribution Width 14.4 % (11.5-17.5); White Blood Count 8.2 K/mm3 (4.8-10.8)
[2023-09-13 05:01] LABS: POC Glucose,Bedside 338 (70-110)
[2023-09-13] MEDS: humaLOG 100 UNITS/ML 3ML VIAL (SSI) SQ ×4 (06:08→21:31)
[2023-09-13] MEDS: humaLOG MIX 75/25 3ML FLEXPEN 30 UNIT SQ (06:08)
[2023-09-13] MEDS: BUMETANIDE 10 MG in 0.9 % SODIUM CHLORIDE 60 ML IV (07:33)
--- NOTE | 2023-09-13 07:36 | PC.NURSE ---
start of shift dobutamine running at 2.5 mcg/kg and bumex running at 1mg. Charting updated.
[2023-09-13] MEDS: ISOSORBIDE DINITRATE 10 MG TABLET PO ×3 (08:00→21:20)
[2023-09-13] MEDS: DOCUSATE SODIUM 100 MG CAPSULE PO ×2 (08:02→21:20)
[2023-09-13] MEDS: BENZONATATE 100MG CAPSULE 200 MG PO ×3 (08:02→21:20)
[2023-09-13] MEDS: ASPIRIN 81MG CHEWABLE TABLET 81 MG PO (08:05)
[2023-09-13 09:27] LABS: Chloride 78 mmol/L (98-107); Potassium 3.2 mmoL/L (3.5-5.1); Sodium 124 mmol/L (136-145)
[2023-09-13 09:30] LABS: Anion Gap 11.2 mEq/L (5-15); Blood Urea Nitrogen 29 mg/dl (9-20); Calcium 9.3 mg/dl (8.4-10.2); Carbon Dioxide 38 mmol/L (22.0-30.0); Creatinine Clearance Estimated 105 mL/min (50-200); Estimated Glomerular Filt Rate 79 ml/min (>60); GFR (African American) 96 ML/MIN (>60); Glucose 305 mg/dl (74-100)
--- NOTE | 2023-09-13 09:56 | EXP.PULM.PN ---
Subjective *Date: 09/13/23 *Time: 10:53 Interval history: No acute respiratory events over the weekend. Patient denies any new respiratory complaints. Improving respiratory status. Pulmonology Exam Inpatient Vital signs and Labs for Last 24 Hours: Temp Pulse Resp BP Pulse Ox O2 Del Method O2 Flow Rate 98.1 F 105 H 20 137/94 H 100 Room Air 100 09/13/23 08:00 09/13/23 08:00 09/13/23 08:00 09/13/23 08:00 09/13/23 08:00 09/13/23 09:00 09/11/23 17:00 Laboratory Results - last 24 hr 09/12/23 09:30: Sodium 125 L, Potassium 3.2 L, Chloride 79 L, Carbon Dioxide 40 H, Anion Gap 9.2, BUN 29 H, Creatinine 1.10, Estimated Creat Clear 95, Estimated GFR 71, Est GFR ( Amer) 86, Glucose 300 H D, Calcium 8.4 09/12/23 11:44: POC Glucose 264 H 09/12/23 16:32: Sodium 122 L, Potassium 3.2 L, Chloride 79 L, Carbon Dioxide 30, Anion Gap 16.2 H, BUN 30 H, Creatinine 1.00, Estimated Creat Clear 105, Estimated GFR 79, Est GFR ( Amer) 96, Glucose 274 H, Calcium 8.5, Magnesium 1.8 09/12/23 16:51: POC Glucose 274 H 09/12/23 20:43: POC Glucose 272 H 09/12/23 21:20: Sodium 121 L, Potassium 3.4 L, Chloride 77 L, Carbon Dioxide 38 H, Anion Gap 9.4, BUN 29 H, Creatinine 0.90, Estimated Creat Clear 116, Estimated GFR 90, Est GFR ( Amer) 109, Glucose 279 H, Calcium 8.7 09/13/23 04:45: WBC 8.2 D, RBC 6.01, Hgb 17.6, Hct 54.8 H, MCV 91.3, MCH 29.3, MCHC 32.1, RDW 14.4, Plt Count 126 L, MPV 9.3, Neut % (Auto) 67.6, Lymph % (Auto) 17.4, [place] % (Auto) 10.3 H, Eos % (Auto) 2.4, Baso % (Auto) 2.3 H, Neut # (Auto) 5.5, Lymph # (Auto) 1.4, [place] # (Auto) 0.8, Eos # (Auto) 0.2, Baso # (Auto) 0.2 09/13/23 04:53: POC Glucose 338 H* 09/13/23 08:59: Sodium 124 L, Potassium 3.2 L, Chloride 78 L, Carbon Dioxide 38 H, Anion Gap 11.2, BUN 29 H, Creatinine 1.00, Estimated Creat Clear 105, Estimated GFR 79, Est GFR ( Amer) 96, Glucose 305 H, Calcium 9.3 Temp Pulse Resp BP Pulse Ox O2 Del Method O2 Flow Rate 98.1 F 66 18 90/64 L 100 Nasal Cannula 2 09/08/23 09:13 09/08/23 08:00 09/08/23 08:00 09/08/23 08:00 09/08/23 08:00 09/08/23 08:00 09/08/23 08:00 Laboratory Results - last 24 hr 09/07/23 15:10: WBC 9.2, RBC 6.18, Hgb 17.9, Hct 57.4 H, MCV 92.9, MCH 28.9, MCHC 31.1 L, RDW 14.5, Plt Count 202, MPV 9.3, Neut % (Auto) 64.7, Lymph % (Auto) 25.4, [place] % (Auto) 6.3, Eos % (Auto) 1.5, Baso % (Auto) 2.1 H, Neut # (Auto) 6.0, Lymph # (Auto) 2.3, [place] # (Auto) 0.6, Eos # (Auto) 0.1, Baso # (Auto) 0.2, PT 15.0 H, INR 1.42 H, D-Dimer 1.18 H, Sodium 132 L, Potassium 4.1, Chloride 99, Carbon Dioxide 27, Anion Gap 10.1, BUN 28 H, Creatinine 1.40 H, Estimated Creat Clear 82, Estimated GFR 54 L, Est GFR ( Amer) 65, Glucose 241 H, Calcium 9.1, Total Bilirubin 2.2 H, AST 58, ALT 51, Alkaline Phosphatase 189 H, Troponin I 0.59 H, NT-Pro-B Natriuret Pep 3420 H, Total Protein 6.7, Albumin 3.5, Globulin 3.2, Albumin/Globulin Ratio 1.1, TSH 6.00 H, Thyroxine (T4) 6.1 09/07/23 15:38: SARS-CoV-2 (PCR) Not detected, Influenza A Untype (PCR) Not detected, Influenza Type B (PCR) Not detected 09/07/23 18:33: Troponin I 0.54 H 09/07/23 20:22: POC Glucose 186 H 09/07/23 21:30: Troponin I 0.53 H 09/08/23 00:59: Specimen Source Left brachial, O2 % 4.5 l nc, ABG pH 7.48 H, ABG pCO2 28.5 L, ABG pO2 76.7 L, ABG HCO3 20.6 L, ABG Total CO2 21.4 L, ABG O2 Saturation 95, ABG Base Excess -3.0 L, Anand Test Acceptable 09/08/23 01:49: POC Glucose 60 L 09/08/23 02:16: POC Glucose 149 H 09/08/23 02:55: WBC 8.1, RBC 5.52, Hgb 16.0 D, Hct 52.0, MCV 94.2 H, MCH 28.9, MCHC 30.7 L, RDW 14.6, Plt Count 175, MPV 9.4, Neut % (Auto) 70.5, Lymph % (Auto) 15.1, [place] % (Auto) 12.4 H, Eos % (Auto) 0.5, Baso % (Auto) 1.6, Neut # (Auto) 5.7, Lymph # (Auto) 1.2, [place] # (Auto) 1.0, Eos # (Auto) 0.0, Baso # (Auto) 0.1, Sodium 133 L, Potassium 3.5, Chloride 98, Carbon Dioxide 28, Anion Gap 10.5, BUN 29 H, Creatinine 1.50 H, Estimated Creat Clear 81, Estimated GFR 50 L, Est GFR ( Amer) 60, Glucose 105 H D, Hemoglobin A1c 13.0 H, Calcium 8.5, Troponin I 0.55 H, Triglycerides 51, Cholesterol 139 L, LDL Cholesterol Direct 93.84 L, VLDL Cholesterol 10, HDL Cholesterol 25 L, Cholesterol/HDL Ratio 5.6 H 09/08/23 03:31: POC Glucose 172 H 09/08/23 05:24: POC Glucose 127 H I & O for Labs for Last 24 Hours: Intake & Output 09/10/23 09/11/23 09/12/23 09/13/23 23:59 23:59 23:59 23:59 Intake Total 907.672 / 775.137 9350.333 / 9549.667 5575.333 / 2868.333 851.25 / 851.25 Output Total 4775 / 8800 31493 / 65382 8300 / 9400 4275 / 4275 Balance -3867.328 / -7892.328 -71115.667 / -44846.667 -5519.667 / -6531.667 -3423.75 / -3423.75 Weight 219 lb 2.232 oz 219 lb 2.232 oz 182 lb 8 oz 182 lb 7.978 oz Intake & Output 09/05/23 09/06/23 09/07/23 09/08/23 23:59 23:59 23:59 23:59 Intake Total 360 / 560 440 / 440 Output Total 0 / 0 0 / 0 Balance 360 / 560 440 / 440 Weight 212 lb 3 oz 212 lb 11.2 oz Constitutional: Present moderate distress Head: Present normocephalic and atraumatic ENT: Present normal exam, normal oropharynx and mucous membranes moist Neck: Present normal inspection and full ROM Respiratory: Present able to speak in complete sentences; Absent respiratory distress, wheezes or crackles Comment:: Decreased breath sounds bilateral lower lung keller Cardiac: Present S1/S2, Tachycardia and radial pulses present GI: Present soft and distention; Absent tenderness or guarding Skin: Present intact; Absent cyanosis or jaundice Neuro: Present alert, awake and oriented x 3 Extremities: Present normal inspection; Absent clubbing or cyanosis Psychiatric: Present normal affect and cooperative Assessment and Plan *Assessment and plan (1) Pulmonary embolism on right: Status: Acute Category: Medical Code(s): I26.99 - Other pulmonary embolism without acute cor pulmonale (2) Pleural effusion, bilateral: Status: Acute Category: Medical Code(s): J90 - Pleural effusion, not elsewhere classified Plan Mr. Rodriguez is a 47-year-old female with reported history of CAD status post CABG, hypertension dyslipidemia insulin-dependent diabetes mellitus tobacco abuse presented to the ER with worsening chest discomfort shortness of breath and swelling in the abdomen and lower extremities. Admits smoking history. Denies any prior respiratory complaints except for the last 2 to 3 weeks with worsening respiratory symptoms. Denies any IV drug abuse. Hep C antibody and HIV nonreactive from January 2021.Hep B IgM positive from 2020. CTA upon admission right lower lobe segmental pulmonary embolism. Right upper lobe fissural based opacity noted. Bilateral pleural effusions right greater than left. Ascites noted. Cardiomegaly noted. Afebrile. Hemodynamically stable. Leukocytosis. Echo EF 15%. The likely etiology of the pleural effusions are from cirrhosis along with possible heart failure with reduced EF 15% setting of CABG and possible high-output cardiac failure with cirrhosis Interval update: No acute respiratory vents over the weekend. Stable oxygen requirements. Afebrile. Hemodynamically stable. Stable WBC. Continue to receive Lovenox. INR less than 2 Completed 5-day course of levofloxacin. Completed cardiac catheterization procedure. Plan: -Continue Lovenox bridging pending initiation of warfarin. Recommend to discharge the patient on warfarin with INR goal of 2-3. -Will hold off on performing thoracentesis for the noted bilateral pleural effusions. Recommend evaluating for possible paracentesis. -Evaluation and management and transplant referral for the noted cirrhosis by primary team. # For the noted opacity in the right upper lobe will follow the patient as an outpatient basis and consider repeat imaging # Thank you for involving pulmonary in this patient care. Will follow the patient in pulmonary clinic in 2 weeks post discharge. Patient also needs a Coumadin clinic referral and appointment prior to discharge.
[2023-09-13] MEDS: ENOXAPARIN 100MG/ML SYRINGE 100 MG SQ (10:47)
[2023-09-13] MEDS: POTASSIUM CHLORIDE 20MEQ TAB 40 MEQ PO (10:48)
[2023-09-13] MEDS: SACUBITRIL/VALSARTAN 24-26MG TABLET 1 EACH PO ×2 (10:48→21:20)
[2023-09-13] MEDS: EMPAGLIFLOZIN 10MG TABLET 10 MG PO (10:48)
[2023-09-13] MEDS: BUMETANIDE 1 MG TABLET PO ×2 (10:48→16:35)
--- NOTE | 2023-09-13 11:10 | EXP.CARD.PN ---
Subjective Subjective Date: 09/13/23 Time: 09:00 Principal diagnosis: RLL PE, volume overload, HFrEF Interval history: The patient states that he feels very well this morning. He denies any chest pain or pressure. He denies any shortness of breath or edema. He denies any fever, chills, nausea, vomiting, diarrhea, PND or orthopnea. The patient states that he is ready to be discharged today. However, he remains on a dobutamine and Bumex drip this morning. Exam Data for Last 24 hours Vital signs and Labs for Last 24 Hours: Temp Pulse Resp BP Pulse Ox O2 Del Method O2 Flow Rate 98.1 F 107 H 20 141/94 H 100 Room Air 100 09/13/23 08:00 09/13/23 10:00 09/13/23 10:00 09/13/23 10:00 09/13/23 08:00 09/13/23 10:00 09/11/23 17:00 Laboratory Results - last 24 hr 09/12/23 11:44: POC Glucose 264 H 09/12/23 16:32: Sodium 122 L, Potassium 3.2 L, Chloride 79 L, Carbon Dioxide 30, Anion Gap 16.2 H, BUN 30 H, Creatinine 1.00, Estimated Creat Clear 105, Estimated GFR 79, Est GFR ( Amer) 96, Glucose 274 H, Calcium 8.5, Magnesium 1.8 09/12/23 16:51: POC Glucose 274 H 09/12/23 20:43: POC Glucose 272 H 09/12/23 21:20: Sodium 121 L, Potassium 3.4 L, Chloride 77 L, Carbon Dioxide 38 H, Anion Gap 9.4, BUN 29 H, Creatinine 0.90, Estimated Creat Clear 116, Estimated GFR 90, Est GFR ( Amer) 109, Glucose 279 H, Calcium 8.7 09/13/23 04:45: WBC 8.2 D, RBC 6.01, Hgb 17.6, Hct 54.8 H, MCV 91.3, MCH 29.3, MCHC 32.1, RDW 14.4, Plt Count 126 L, MPV 9.3, Neut % (Auto) 67.6, Lymph % (Auto) 17.4, [place] % (Auto) 10.3 H, Eos % (Auto) 2.4, Baso % (Auto) 2.3 H, Neut # (Auto) 5.5, Lymph # (Auto) 1.4, [place] # (Auto) 0.8, Eos # (Auto) 0.2, Baso # (Auto) 0.2 09/13/23 04:53: POC Glucose 338 H* 09/13/23 08:59: Sodium 124 L, Potassium 3.2 L, Chloride 78 L, Carbon Dioxide 38 H, Anion Gap 11.2, BUN 29 H, Creatinine 1.00, Estimated Creat Clear 105, Estimated GFR 79, Est GFR ( Amer) 96, Glucose 305 H, Calcium 9.3 I & O for Last 24 hours: Intake & Output 09/10/23 09/11/23 09/12/23 09/13/23 23:59 23:59 23:59 23:59 Intake Total 907.672 / 496.743 1378.333 / 8271.708 8725.333 / 2868.333 851.25 / 851.25 Output Total 4775 / 8800 20821 / 55729 8300 / 9400 4275 / 4275 Balance -3867.328 / -7892.328 -83082.667 / -09749.667 -5519.667 / -6531.667 -3423.75 / -3423.75 Weight 219 lb 2.232 oz 219 lb 2.232 oz 182 lb 8 oz 182 lb 7.978 oz Constitutional Constitutional: no acute distress *Routine Respiratory Exam Respiratory: Present symmetric chest movement *Routine Cardiovascular Exam Cardiovascular: Present RRR, Normal S1 and Normal S2 *Routine Abdominal Exam Abdominal: Present soft and normoactive bowel sounds; Absent tenderness *Routine Extremities Exam Extremities: Present full ROM and normal capillary refill; Absent cyanosis, clubbing or edema *Routine Skin Exam Skin: Present intact, dry and warm Detailed Neck Exam: Thyroids Thyroid: Absent bruit Progress Note: A&P Assessment and plan (1) Heart failure with reduced ejection fraction: Status: Acute (2) Pulmonary embolism on right: Status: Acute (3) Pleural effusion, bilateral: Status: Acute (4) Benzodiazepine overdose: Status: Acute (5) Polysubstance (including opioids) dependence without physiological dependence: Status: Acute (6) Non compliance with medical treatment: Status: Acute (7) CAD (coronary artery disease): Status: Acute (8) Elevated troponin: Status: Acute (9) A-fib: Status: Acute (10) LV dysfunction: Status: Chronic (11) HTN (hypertension): Status: Chronic (12) Hyperlipidemia: Status: Chronic (13) Tobacco abuse: Status: Chronic (14) COPD (chronic obstructive pulmonary disease): Status: Acute Assessment and Plan Assessment and Plan for All Diagnoses:: Plan: 1. The patient was admitted to the hospital with a non-STEMI and HFrEF. He underwent left cardiac catheterization and had patent coronary artery disease. He is status post coronary artery bypass grafting. He will need to remain on aspirin. 2. The patient did have an acute exacerbation of HFrEF. His ejection fraction is 15%. He had an akinetic septal wall and severe RV dilatation. The patient was started on dobutamine drip due to cardiogenic shock. He also was started on a Bumex drip for diuresis. This morning the patient remains on a Bumex drip and dobutamine drip. He has continued to have diuresis with these medications. We will transition these over to oral medications at this time so we can start working to get the patient discharged. Stop the dobutamine drip and stop the Bumex drip today. Start Bumex 1 mg p.o. twice daily for diuresis. 3. Start Jardiance 10 mg daily for HFrEF since he is euvolemic now. 4. Start Entresto 24/26 mg p.o. twice daily for HFrEF. 5. Continue to hold beta-troy at this time. The patient was initially started on a beta-troy which caused him to go into cardiogenic shock. Consider adding a beta-troy on an outpatient basis once he has recovered from his acute exacerbation of HFrEF. 6. The patient does have severe LV dysfunction with an EF of 15%. He is at increased risk for sudden cardiac due to his severe LV dysfunction. He does have a LifeVest in place. 7. Continue isosorbide dinitrate for his HFrEF. 8. The patient does have an acute pulmonary embolus. He was initially started on weight-based Lovenox and given a dose of warfarin per pulmonology. His INR jumped all the way to 2.47 after 1 dose of the warfarin. Warfarin was then stopped and he has remained on Lovenox for anticoagulation. Warfarin was chosen initially due to the patient having cirrhosis of the liver. However, the patient is historically medically noncompliant with his care and warfarin dosing and monitoring would be very difficult in this patient. Recommend stopping Lovenox and switching him over to Xarelto 15 mg p.o. BID x 3 weeks for long-term anticoagulation, then 20 mg daily thereafter. 9. The patient's renal function has improved and his creatinine is normal at 0.90. 10. His blood pressure is well-controlled. 11. His LDL goal is less than 55. His LDL is 93. No statin at this time due to the cirrhosis of the liver. 12. PAFib is sinus today. now on Xarelto for anticoagulation. 13. Further recommendations will be made pending the patient's response to treatment. Once the patient is tolerating oral medications then he can be discharged home from a cardiac standpoint with a LifeVest in place and a follow-up in cardiology clinic next Wednesday with Dr. Ponce. Thank you for the opportunity to have participate in the care of this patient. All recommendations and orders are per Dr. Ponce.
--- NOTE | 2023-09-13 11:21 | PC.NURSE ---
patient stated he was going to walk off the unit to the cafeteria or outside. patient advised that we would not be able to monitor him and was encouraged to stay on the floor. patient still refused and stated he was going to the cafeteria. patient was accompanied on the walk by student nurse Linda Dey and nurse Oralia Arredondo. Patient left floor at 11:00 and returned at 11:17.
--- NOTE | 2023-09-13 11:33 | PC.NURSE ---
During AM assessment patient stated he would like something to help his bowels move. He stated he had not had a bowel movement since last Wednesday 09/06. Provider was notified and he entered an order for a suppository. When taking the suppository to the patient the patient said he didn't know what that was and he was not taking it. The patient was educated on suppositories at that time and still, the patient refused. He then requested a enema.Provider was notified of the patients refusal and request. Provider stated he would put in an order for an enema.
[2023-09-13 11:38] LABS: POC Glucose,Bedside 250 (70-110)
[2023-09-13 16:16] LABS: POC Glucose,Bedside 175 (70-110)
--- NOTE | 2023-09-13 16:21 | EXP.PN ---
Subjective *Date: 09/13/23 *Time: 16:21 Interval history: No acute respiratory events over the weekend. Patient denies any new respiratory complaints. Improving respiratory status. Exam Data for Last 24 hours Vital signs and Labs for Last 24 Hours: Temp Pulse Resp BP Pulse Ox O2 Del Method O2 Flow Rate 97.6 F 100 H 22 130/89 97 Room Air 100 09/13/23 11:46 09/13/23 12:12 09/13/23 12:00 09/13/23 12:00 09/13/23 12:00 09/13/23 15:00 09/11/23 17:00 Laboratory Results - last 24 hr 09/12/23 16:32: Sodium 122 L, Potassium 3.2 L, Chloride 79 L, Carbon Dioxide 30, Anion Gap 16.2 H, BUN 30 H, Creatinine 1.00, Estimated Creat Clear 105, Estimated GFR 79, Est GFR ( Amer) 96, Glucose 274 H, Calcium 8.5, Magnesium 1.8 09/12/23 16:51: POC Glucose 274 H 09/12/23 20:43: POC Glucose 272 H 09/12/23 21:20: Sodium 121 L, Potassium 3.4 L, Chloride 77 L, Carbon Dioxide 38 H, Anion Gap 9.4, BUN 29 H, Creatinine 0.90, Estimated Creat Clear 116, Estimated GFR 90, Est GFR ( Amer) 109, Glucose 279 H, Calcium 8.7 09/13/23 04:45: WBC 8.2 D, RBC 6.01, Hgb 17.6, Hct 54.8 H, MCV 91.3, MCH 29.3, MCHC 32.1, RDW 14.4, Plt Count 126 L, MPV 9.3, Neut % (Auto) 67.6, Lymph % (Auto) 17.4, [place] % (Auto) 10.3 H, Eos % (Auto) 2.4, Baso % (Auto) 2.3 H, Neut # (Auto) 5.5, Lymph # (Auto) 1.4, [place] # (Auto) 0.8, Eos # (Auto) 0.2, Baso # (Auto) 0.2 09/13/23 04:53: POC Glucose 338 H* 09/13/23 08:59: Sodium 124 L, Potassium 3.2 L, Chloride 78 L, Carbon Dioxide 38 H, Anion Gap 11.2, BUN 29 H, Creatinine 1.00, Estimated Creat Clear 105, Estimated GFR 79, Est GFR ( Amer) 96, Glucose 305 H, Calcium 9.3 09/13/23 11:31: POC Glucose 250 H 09/13/23 16:08: POC Glucose 175 H I & O for Last 24 hours: Intake & Output 09/10/23 09/11/23 09/12/23 09/13/23 23:59 23:59 23:59 23:59 Intake Total 907.672 / 770.569 2997.333 / 2935.488 1242.333 / 2868.333 1021.25 / 1021.25 Output Total 4775 / 8800 64455 / 69521 8300 / 9400 4875 / 4875 Balance -3867.328 / -7892.328 -08195.667 / -82241.667 -5519.667 / -6531.667 -3853.75 / -3853.75 Weight 99.4 kg 99.4 kg 82.781 kg 82.78 kg Constitutional Constitutional: no acute distress *Routine HEENT Exam Head: Present normocephalic Eye: Present EOMI and PERRL ENT: Present mucous membranes moist Comments: has sutures on skill left pariato temporal area - healing well *Routine Neck Exam Neck: Present supple; Absent lymphadenopathy *Routine Respiratory Exam Respiratory: Present distant breath sounds and diminished air movement *Routine Cardiovascular Exam Cardiovascular: Present RRR *Routine Abdominal Exam Abdominal: Present soft and normoactive bowel sounds; Absent tenderness *Routine Extremities Exam Extremities: Absent cyanosis, clubbing or edema *Routine Skin Exam Skin: Present warm; Absent rash *Routine Neurological Exam Neurological: Present alert and oriented X3 Assessment and Plan *Assessment and plan (1) Pulmonary embolism on right: Status: Acute Category: Medical Code(s): I26.99 - Other pulmonary embolism without acute cor pulmonale (2) Acute heart failure: Status: Acute Qualifiers: Heart failure type: unspecified Qualified Code(s): I50.9 - Heart failure, unspecified Category: Medical Code(s): I50.9 - Heart failure, unspecified (3) Recent myocardial infarction: Status: Acute Category: Medical (4) COPD (chronic obstructive pulmonary disease): Status: Acute Qualifiers: COPD type: unspecified COPD Qualified Code(s): J44.9 - Chronic obstructive pulmonary disease, unspecified Category: Medical Code(s): J44.9 - Chronic obstructive pulmonary disease, unspecified (5) CAD (coronary artery disease): Status: Acute Qualifiers: Associated angina: with unspecified angina Coronary Disease-Associated Artery/Lesion type: unspecified vessel or lesion type [place] vs. transplanted heart: [place] heart Qualified Code(s): I25.119 - Atherosclerotic heart disease of [place] coronary artery with unspecified angina pectoris Category: Medical Code(s): I25.10 - Atherosclerotic heart disease of [place] coronary artery without angina pectoris (6) HTN (hypertension): Status: Chronic Qualifiers: Hypertension type: essential hypertension Qualified Code(s): I10 - Essential (primary) hypertension Category: Medical Code(s): I10 - Essential (primary) hypertension (7) Diabetes: Status: Chronic Qualifiers: Diabetes mellitus type: type 2 Diabetes mellitus termite treater insulin use: unspecified termite treater insulin use status Diabetes mellitus complication status: without complication Qualified Code(s): E11.9 - Type 2 diabetes mellitus without complications Category: Medical Code(s): E11.9 - Type 2 diabetes mellitus without complications (8) Non compliance with medical treatment: Status: Acute Category: Medical Code(s): Z91.199 - Patient's noncompliance with other medical treatment and regimen due to unspecified reason (9) Polysubstance (including opioids) dependence without physiological dependence: Status: Acute Category: Medical Code(s): F19.20 - Other psychoactive substance dependence, uncomplicated Plan 47-year-old male with a PMHx of CAD status post CABG, hypertension, hyperlipidemia, insulin-dependent diabetes, medication noncompliance, tobacco dependence, and substance abuse presenting with concern for cough, chest tightness, shortness of breath, swelling in his abdomen and lower extremities, and cracking of the skin in his lower extremities. initial work up included Labs that demonstrated elevated troponin, elevated D-dimer, elevated BNP, and CHRISTOPHER. Given elevated D-dimer, CT PE protocol was ordered. X-ray showed no obvious large area of focal consolidation. ED provider had an interactive discussion with radiologist who read the patient's CT PE protocol who noted he has distal PE with no right heart strain. He is hemodynamically stable and is resting comfortably on room air. As well as a lengthy discussion with the retail beauty specialist, Dr. Rico, who advised obtaining formal echocardiogram and diuresing the patient with Lasix. all previous findings were discussed with the ED as well for detailed management. afterward we agreed for admission. Patient hemodinamically stable plan as follow: - Acute right PE. no right heart stream. hemodinamically stable: acute on chronic CHF - improved started on PO bumex 1mg BID, jardiance Cardiology and pulmonology consulted, Cardiology recommends xarelto and pulmonary recommends warfarin at DC, patient has known history of non-compliance issues as well as insurance issues ECHO LVEF - 15%, akinetic septum CTA of chest reviewed CXR reviewed - has b/l effusions, may need repeat CXR as OP, f/u with pulmonary as OP tessalon TID for cough Duoneb PRN for wheezing discontinue IV diuresis with bumex and Dobutamine watch closely Na and Cr level, Na 125 today, closely monitor BMP on bumex, Na today 124 s/p cardiac cath, no stentiing performed due to occluded venous grafts - Hx of CAD with recent STEMI., COPD, HTN: conditions reviewed reconciled home regimen optimize o2 sat monitor VS per unit protocols repeat and monitor morning labs, included lipid profile IDDM: suspected uncontrolled. last A1c 8.9. accucheck before meals. resume home insuline on sliding scale patient medically non complaint, with hx of polysubstance abuse, will complicate all aspect of care. pharmacy to verify suboxone. on nicotine patch on full dose lovenox. Protonix for Gi bleed ppx Full code continue to monitor BMP for monitoring Na and Cr, Na today 124 - await further improvement He has lifevest now, likely dc tomorrow Cardiology and pulmonology consulted, Cardiology recommends xarelto and pulmonary recommends warfarin at DC, patient has known history of non-compliance issues as well as insurance issues, need to clarify with patient and insurance coverage
--- NOTE | 2023-09-13 16:26 | PC.NURSE ---
All documentation and care provided by Linda Dey RN was completed under my direct supervision. Oralia Arredondo RN
[2023-09-13] MEDS: RIVAROXABAN 15MG TABLET 15 MG PO (16:35)
--- NOTE | 2023-09-13 16:44 | PC.NURSE ---
patient is currently sitting on the side of the bed. He is a/ox4. He has had no complains of pain during this shift. Patients lungs are clear and slightly diminished bilaterally throughout. Patients bowel sounds are active and he is passing flatus but he has c/o not being able to have a bowel movement since last Wednesday 09/06. An enema was ordered earlier in the shift. pt was offered enema numerous times and has refused thus far. upon reassessment round he stated he would do the enema after he ate dinner. patient has been up to the bathroom independently this shift. He also took a walk to the cafeteria, pt had been advised by staff that it was preferable he stay on the unit so he could be appropriately monitored. pt declined to stay on unit and went to cafeteria so staff followed with pt. pt had no apparent trouble during ambulation to cafe. Both IV's in bilateral upper extremities are intact and patent and currently covered with tegaderm. Patient did not voice any concerns at this time. Call light within reach.
[2023-09-13] MEDS: SODIUM PHOS/BIPHOSPHATE FLEET 133ML ENEMA 133 ML RC (18:04)
[2023-09-13] MEDS: SODIUM CHLORIDE 0.9% 10ML VIAL 10 ML IV (21:20)
[2023-09-13] MEDS: PANTOPRAZOLE 40MG VIAL 40 MG IV (21:20)
[2023-09-13 21:27] LABS: Chloride 81 mmol/L (98-107); Sodium 121 mmol/L (136-145)
[2023-09-13 21:28] LABS: Potassium 4.2 mmoL/L (3.5-5.1)
[2023-09-13 21:31] LABS: Anion Gap 9.2 mEq/L (5-15); Blood Urea Nitrogen 33 mg/dl (9-20); Calcium 8.8 mg/dl (8.4-10.2); Carbon Dioxide 35 mmol/L (22.0-30.0); Creatinine Clearance Estimated 95 mL/min (50-200); Estimated Glomerular Filt Rate 71 ml/min (>60); GFR (African American) 86 ML/MIN (>60); Glucose 290 mg/dl (74-100)
[2023-09-13 21:34] LABS: POC Glucose,Bedside 247 (70-110)
[2023-09-14] VITALS: PULSE 95
[2023-09-14 04:00] VITALS: BP 124/59; PULSE 102; PULSE 105; RESP 16; TEMP 37.1; O2SAT 96; BMI 25.5
[2023-09-14] MEDS: humaLOG 100 UNITS/ML 3ML VIAL (SSI) SQ ×2 (06:56→10:21)
[2023-09-14] MEDS: humaLOG MIX 75/25 3ML FLEXPEN 30 UNIT SQ (06:56)
[2023-09-14 06:59] LABS: POC Glucose,Bedside 257 (70-110)
[2023-09-14 08:00] VITALS: BP 102/59; PULSE 96; RESP 20; TEMP 36.6; O2SAT 97
[2023-09-14] MEDS: EMPAGLIFLOZIN 10MG TABLET 10 MG PO (08:49)
[2023-09-14] MEDS: BUMETANIDE 1 MG TABLET PO (08:49)
[2023-09-14] MEDS: SACUBITRIL/VALSARTAN 24-26MG TABLET 1 EACH PO (08:49)
[2023-09-14] MEDS: ISOSORBIDE DINITRATE 10 MG TABLET PO ×2 (08:49→12:10)
[2023-09-14] MEDS: RIVAROXABAN 15MG TABLET 15 MG PO (08:49)
[2023-09-14] MEDS: DOCUSATE SODIUM 100 MG CAPSULE PO (08:49)
[2023-09-14] MEDS: BENZONATATE 100MG CAPSULE 200 MG PO ×2 (08:49→12:10)
[2023-09-14] MEDS: ASPIRIN 81MG CHEWABLE TABLET 81 MG PO (08:49)
[2023-09-14] MEDS: SODIUM CHLORIDE 1,000MG TABLET 500 MG PO (08:50)
--- NOTE | 2023-09-14 09:02 | PC.NURSE ---
Md. manzo to give bp/ heart medication and bumex this am.
--- NOTE | 2023-09-14 09:38 | P.PN_ITS ---
Subjective *Date: 09/14/23 *Time: 10:55 Interval history: No acute respiratory events overnight. Patient denies any new respiratory complaints. Pulmonology Exam Inpatient Vital signs and Labs for Last 24 Hours: Temp Pulse Resp BP Pulse Ox O2 Del Method O2 Flow Rate 97.8 F 96 H 20 102/59 L 97 Room Air 100 09/14/23 08:00 09/14/23 08:00 09/14/23 08:00 09/14/23 08:00 09/14/23 08:00 09/14/23 08:47 09/11/23 17:00 Laboratory Results - last 24 hr 09/13/23 11:31: POC Glucose 250 H 09/13/23 16:08: POC Glucose 175 H 09/13/23 20:58: Sodium 121 L, Potassium 4.2 D, Chloride 81 L, Carbon Dioxide 35 H, Anion Gap 9.2, BUN 33 H, Creatinine 1.10, Estimated Creat Clear 95, Estimated GFR 71, Est GFR ( Amer) 86, Glucose 290 H, Calcium 8.8 09/13/23 21:26: POC Glucose 247 H 09/14/23 06:52: POC Glucose 257 H Temp Pulse Resp BP Pulse Ox O2 Del Method O2 Flow Rate 98.1 F 66 18 90/64 L 100 Nasal Cannula 2 09/08/23 09:13 09/08/23 08:00 09/08/23 08:00 09/08/23 08:00 09/08/23 08:00 09/08/23 08:00 09/08/23 08:00 Laboratory Results - last 24 hr 09/07/23 15:10: WBC 9.2, RBC 6.18, Hgb 17.9, Hct 57.4 H, MCV 92.9, MCH 28.9, MCHC 31.1 L, RDW 14.5, Plt Count 202, MPV 9.3, Neut % (Auto) 64.7, Lymph % (Auto) 25.4, [place] % (Auto) 6.3, Eos % (Auto) 1.5, Baso % (Auto) 2.1 H, Neut # (Auto) 6.0, Lymph # (Auto) 2.3, [place] # (Auto) 0.6, Eos # (Auto) 0.1, Baso # (Auto) 0.2, PT 15.0 H, INR 1.42 H, D-Dimer 1.18 H, Sodium 132 L, Potassium 4.1, Chloride 99, Carbon Dioxide 27, Anion Gap 10.1, BUN 28 H, Creatinine 1.40 H, Estimated Creat Clear 82, Estimated GFR 54 L, Est GFR ( Amer) 65, Glucose 241 H, Calcium 9.1, Total Bilirubin 2.2 H, AST 58, ALT 51, Alkaline Phosphatase 189 H, Troponin I 0.59 H, NT-Pro-B Natriuret Pep 3420 H, Total Protein 6.7, Albumin 3.5, Globulin 3.2, Albumin/Globulin Ratio 1.1, TSH 6.00 H, Thyroxine (T4) 6.1 09/07/23 15:38: SARS-CoV-2 (PCR) Not detected, Influenza A Untype (PCR) Not detected, Influenza Type B (PCR) Not detected 09/07/23 18:33: Troponin I 0.54 H 09/07/23 20:22: POC Glucose 186 H 09/07/23 21:30: Troponin I 0.53 H 09/08/23 00:59: Specimen Source Left brachial, O2 % 4.5 l nc, ABG pH 7.48 H, ABG pCO2 28.5 L, ABG pO2 76.7 L, ABG HCO3 20.6 L, ABG Total CO2 21.4 L, ABG O2 Saturation 95, ABG Base Excess -3.0 L, Anand Test Acceptable 09/08/23 01:49: POC Glucose 60 L 09/08/23 02:16: POC Glucose 149 H 09/08/23 02:55: WBC 8.1, RBC 5.52, Hgb 16.0 D, Hct 52.0, MCV 94.2 H, MCH 28.9, MCHC 30.7 L, RDW 14.6, Plt Count 175, MPV 9.4, Neut % (Auto) 70.5, Lymph % (Auto) 15.1, [place] % (Auto) 12.4 H, Eos % (Auto) 0.5, Baso % (Auto) 1.6, Neut # (Auto) 5.7, Lymph # (Auto) 1.2, [place] # (Auto) 1.0, Eos # (Auto) 0.0, Baso # (Auto) 0.1, Sodium 133 L, Potassium 3.5, Chloride 98, Carbon Dioxide 28, Anion Gap 10.5, BUN 29 H, Creatinine 1.50 H, Estimated Creat Clear 81, Estimated GFR 50 L, Est GFR ( Amer) 60, Glucose 105 H D, Hemoglobin A1c 13.0 H, Calcium 8.5, Troponin I 0.55 H, Triglycerides 51, Cholesterol 139 L, LDL Cholesterol Direct 93.84 L, VLDL Cholesterol 10, HDL Cholesterol 25 L, Cholesterol/HDL Ratio 5.6 H 09/08/23 03:31: POC Glucose 172 H 09/08/23 05:24: POC Glucose 127 H I & O for Labs for Last 24 Hours: Intake & Output 09/11/23 09/12/23 09/13/23 09/14/23 23:59 23:59 23:59 23:59 Intake Total 1341.333 / 1165.635 0132.333 / 2868.333 1501.25 / 1501.25 500 / 500 Output Total 37156 / 08080 8300 / 9400 6875 / 6875 1700 / 1700 Balance -56149.667 / -07781.667 -5519.667 / -6531.667 -5373.75 / -5373.75 -1200 / -1200 Weight 219 lb 2.232 oz 182 lb 8 oz 182 lb 7.978 oz 182 lb 7.978 oz Intake & Output 09/05/23 09/06/23 09/07/23 09/08/23 23:59 23:59 23:59 23:59 Intake Total 360 / 560 440 / 440 Output Total 0 / 0 0 / 0 Balance 360 / 560 440 / 440 Weight 212 lb 3 oz 212 lb 11.2 oz Constitutional: Present moderate distress Head: Present normocephalic and atraumatic ENT: Present normal exam, normal oropharynx and mucous membranes moist Neck: Present normal inspection and full ROM Respiratory: Present able to speak in complete sentences; Absent prolonged expiratory phase, respiratory distress, rhonchi, wheezes or crackles Comment:: Decreased breath sounds bilateral lower lung keller Cardiac: Present S1/S2, Tachycardia and radial pulses present GI: Present soft and distention; Absent tenderness or guarding Skin: Present intact; Absent cyanosis or jaundice Neuro: Present alert, awake and oriented x 3 Extremities: Present normal inspection; Absent clubbing or cyanosis Psychiatric: Present normal affect and cooperative Assessment and Plan *Assessment and plan (1) Pulmonary embolism on right: Status: Acute Category: Medical Code(s): I26.99 - Other pulmonary embolism without acute cor pulmonale (2) Pleural effusion, bilateral: Status: Acute Category: Medical Code(s): J90 - Pleural effusion, not elsewhere classified Plan Mr. Rodriguez is a 47-year-old female with reported history of CAD status post CABG, hypertension dyslipidemia insulin-dependent diabetes mellitus tobacco abuse presented to the ER with worsening chest discomfort shortness of breath and swelling in the abdomen and lower extremities. Admits smoking history. Denies any prior respiratory complaints except for the last 2 to 3 weeks with worsening respiratory symptoms. Denies any IV drug abuse. Hep C antibody and HIV nonreactive from January 2021.Hep B IgM positive from 2020. CTA upon admission right lower lobe segmental pulmonary embolism. Right upper lobe fissural based opacity noted. Bilateral pleural effusions right greater than left. Ascites noted. Cardiomegaly noted. Afebrile. Hemodynamically stable. Leukocytosis. Echo EF 15%. The likely etiology of the pleural effusions are from cirrhosis along with possible heart failure with reduced EF 15% setting of CABG and possible high- output cardiac failure with cirrhosis Interval update: No acute respiratory events overnight. Continued remain on room air. Continue to receive Lovenox BID. Started on Xeralto by cardiology. Will switch to Lovenox BID for the noted PE Completed 5-day course of levofloxacin. Completed cardiac catheterization procedure. Plan: -Recommend to Continue Lovenox BID for the noted pulmonary embolism. Will hold off on transition to warfarin at this point of time given cardiology concerns on this patient being noncompliant given their prior clinical care experience with this patient. -Will hold off on performing thoracentesis for the noted bilateral pleural effusions. Recommend evaluating for possible paracentesis. -Evaluation and management and transplant referral for the noted cirrhosis by primary team. # For the noted opacity in the right upper lobe will follow the patient as an outpatient basis and consider repeat imaging # Thank you for involving pulmonary in this patient care. Will follow the patient in pulmonary clinic in 2 weeks post discharge.
--- NOTE | 2023-09-14 09:42 | PC.NURSE ---
agree with supervisor public health nursing assessment
[2023-09-14 10:15] LABS: POC Glucose,Bedside 186 (70-110)
--- NOTE | 2023-09-14 10:41 | EXP.CARD.PN ---
Subjective Subjective Date: 09/14/23 Time: 09:00 Principal diagnosis: RLL PE, volume overload, HFrEF Interval history: The patient feels well today. He denies any chest pain or pressure. He denies any shortness of breath or edema. He denies any fever, chills, nausea, vomiting, diarrhea, PND or orthopnea. Feels very well today and is ready to be discharged home. Exam Data for Last 24 hours Vital signs and Labs for Last 24 Hours: Temp Pulse Resp BP Pulse Ox O2 Del Method O2 Flow Rate 97.8 F 96 H 20 102/59 L 97 Room Air 100 09/14/23 08:00 09/14/23 08:00 09/14/23 08:00 09/14/23 08:00 09/14/23 08:00 09/14/23 08:47 09/11/23 17:00 Laboratory Results - last 24 hr 09/13/23 11:31: POC Glucose 250 H 09/13/23 16:08: POC Glucose 175 H 09/13/23 20:58: Sodium 121 L, Potassium 4.2 D, Chloride 81 L, Carbon Dioxide 35 H, Anion Gap 9.2, BUN 33 H, Creatinine 1.10, Estimated Creat Clear 95, Estimated GFR 71, Est GFR ( Amer) 86, Glucose 290 H, Calcium 8.8 09/13/23 21:26: POC Glucose 247 H 09/14/23 06:52: POC Glucose 257 H 09/14/23 10:07: POC Glucose 186 H I & O for Last 24 hours: Intake & Output 09/11/23 09/12/23 09/13/23 09/14/23 23:59 23:59 23:59 23:59 Intake Total 1341.333 / 1605.760 5082.333 / 2868.333 1501.25 / 1501.25 500 / 500 Output Total 19268 / 07590 8300 / 9400 6875 / 6875 2600 / 2600 Balance -72241.667 / -34907.667 -5519.667 / -6531.667 -5373.75 / -5373.75 -2100 / -2100 Weight 219 lb 2.232 oz 182 lb 8 oz 182 lb 7.978 oz 182 lb 7.978 oz Constitutional Constitutional: no acute distress *Routine Respiratory Exam Respiratory: Present symmetric chest movement *Routine Cardiovascular Exam Cardiovascular: Present RRR, Normal S1 and Normal S2 *Routine Abdominal Exam Abdominal: Present soft and normoactive bowel sounds; Absent tenderness *Routine Extremities Exam Extremities: Present full ROM and normal capillary refill; Absent cyanosis, clubbing or edema *Routine Skin Exam Skin: Present intact, dry and warm Detailed Neck Exam: Thyroids Thyroid: Absent bruit Progress Note: A&P Assessment and plan (1) Heart failure with reduced ejection fraction: Status: Acute (2) CAD (coronary artery disease): Status: Acute (3) Pulmonary embolism on right: Status: Acute (4) Pleural effusion, bilateral: Status: Acute (5) Elevated troponin: Status: Acute (6) A-fib: Status: Acute (7) LV dysfunction: Status: Chronic (8) COPD (chronic obstructive pulmonary disease): Status: Acute (9) HTN (hypertension): Status: Chronic (10) Hyperlipidemia: Status: Chronic (11) Noncompliance: Status: Acute (12) Hx of CABG: Status: Acute (13) Hyponatremia: Status: Acute Assessment and Plan Assessment and Plan for All Diagnoses:: Plan: 1. The patient was admitted to the hospital with a non-STEMI and HFrEF. He underwent left cardiac catheterization and had patent coronary artery disease. He is status post coronary artery bypass grafting. He will need to remain on aspirin. 2. The patient did have an acute exacerbation of HFrEF. His ejection fraction is 15%. He had an akinetic septal wall and severe RV dilatation. The was previously on a dobutamine drip due to cardiogenic shock. He also was started on a Bumex drip for diuresis. The dobutamine drip was stopped yesterday and he was started on oral Bumex. He has been tolerating this well. He does remain hyponatremic so we will decrease his Bumex to 1 mg p.o. daily. 3. Continue Jardiance and Entresto for HFrEF. 4. Continue to hold beta-blockers at this time. The patient was initially started on a beta-troy which caused him to go into cardiogenic shock. Consider adding a beta-troy on an outpatient basis once he has recovered from his acute exacerbation of HFrEF. 5. The patient does have severe LV dysfunction with an EF of 15%. He is at increased risk for sudden cardiac due to his severe LV dysfunction. He does have a LifeVest in place. 6. Continue isosorbide dinitrate for his HFrEF. 7. Paroxysmal atrial fibrillation in sinus rhythm today. 8. The patient does have an acute pulmonary embolus. He was started on Xarelto yesterday. However, the patient is now diagnosed with cirrhosis which we suspect is related to his hepatic congestion at the time of diagnosis. In the setting of presumed cirrhosis, we will withhold of starting NOAC. Alternatively, he will be discharged on Coumadin versus Lovenox temporarily. As an outpatient, we will reinvestigate the diagnosis of cirrhosis as he is more euvolemic. If his liver function improves and his liver morphology on imaging does not demonstrate evidence of cirrhosis, we will reinvestigate his indication for NOAC. There is concern that he may not be compliant with Coumadin dosing and monitoring or administering Lovenox injections due to his extensive history of medical noncompliance. 9. The patient's renal function has normalized. 10. His blood pressure is well-controlled. 11. His LDL goal is less than 55. His LDL is 93. No statin at this time due to the cirrhosis of the liver. 12. The patient remains hyponatremic today. He refused labs this morning. Will repeat a BMP at this time. If his sodium is improving then he can be discharged today on oral sodium replacement with a BMP on Wednesday before his follow-up appointment. 13. No further recommendations at this time from a cardiac standpoint. The patient is stable for discharge home today from a cardiac standpoint. He is to follow-up on Wednesday in cardiology clinic with Dr. Ponce. He can be discharged on the following cardiac medications: Aspirin 81 mg daily, Bumex 1 mg p.o. daily, Jardiance 10 mg p.o. daily, isosorbide dinitrate 10 mg 3 times daily, Protonix 40 mg daily, Entresto 24 twice daily. Anticoagulation/Coumadin dosing per pulmonology. Thank you for the opportunity to have participate in the care of this patient. All recommendations and orders are per Dr. Ponce.
[2023-09-14 11:52] VITALS: BP 124/76; PULSE 101; RESP 22; TEMP 36.4; O2SAT 100
[2023-09-14 12:32] LABS: Basophils # 0.2 K/mm3 (0-0.2); Basophils % 1.9 % (0.1-2.0); Eosinophils # 0.5 K/mm3 (0.0-0.4); Eosinophils % 4.6 % (0.1-12.0); Hematocrit 55.2 % (42.0-52.0); Hemoglobin 17.8 g/dL (14.1-18.0); Lymphocytes # 2.2 K/mm3 (0.7-4.5); Mean Corpuscular HGB Conc 32.3 g/dL (31.8-35.4); Mean Corpuscular Hemoglobin 29.5 pg (27.0-31.2); Mean Corpuscular Volume 91.4 fl (80-94); Monocytes % 8.8 % (1.7-9.3); Neutrophils % 64.7 % (37.0-80.0); Platelet Count 136 K/mm3 (142-424); Red Blood Count 6.04 M/mm3 (4.60-6.20); Red Cell Distribution Width 14.5 % (11.5-17.5); White Blood Count 10.8 K/mm3 (4.8-10.8)
[2023-09-14 12:39] LABS: Chloride 80 mmol/L (98-107); Potassium 4.1 mmoL/L (3.5-5.1); Sodium 124 mmol/L (136-145)
[2023-09-14 12:41] LABS: Blood Urea Nitrogen 29 mg/dl (9-20); Creatinine Clearance Estimated 105 mL/min (50-200); Estimated Glomerular Filt Rate 79 ml/min (>60); GFR (African American) 96 ML/MIN (>60)
[2023-09-14 12:42] LABS: Alanine Aminotransferase 62 U/L (12-78); Albumin Level 3.8 g/dl (3.5-5.0); Albumin/Globulin Ratio 1.2 (1.1-1.8); Alkaline Phosphatase 294 U/L (38-126); Aspartate Amino Transferase 59 U/L (17-59); Calcium 9.2 mg/dl (8.4-10.2); Globulin 3.2 g/dL (1.3-3.2); Glucose 218 mg/dl (74-100)
[2023-09-14 12:50] LABS: Anion Gap 12.1 mEq/L (5-15); Carbon Dioxide 36 mmol/L (22.0-30.0)
--- NOTE | 2023-09-14 14:56 | EXP.DC.SUM ---
General Admission date:: 09/07/23 Discharge date: 09/14/23 HPI HPI HPI: This is a 47-year-old male with a PMHx of CAD status post CABG, hypertension, hyperlipidemia, insulin-dependent diabetes, medication noncompliance, tobacco dependence, and substance abuse presenting with concern for cough, chest tightness, shortness of breath, swelling in his abdomen and lower extremities, and cracking of the skin in his lower extremities. Patient reports that he has been feeling bad for approximately 10 days, but it got worse over the last 2 days. He notes that he has not been compliant with his medications. He states has been taking his fluid medication, Lasix, but he has not been taking his metoprolol or other medications. He admits that he smokes methamphetamine, but he has not done so in a few days. He denies any fevers, chills, vomiting, changes in bowel movements, or other concerns. He denies any history of IV drug use. Admitted for further treatment and management. Hospital Course Hospital Course Hospital Course: 47-year-old male with a PMHx of CAD status post CABG, hypertension, hyperlipidemia, insulin-dependent diabetes, medication noncompliance, tobacco dependence, and substance abuse presenting with concern for cough, chest tightness, shortness of breath, swelling in his abdomen and lower extremities, and cracking of the skin in his lower extremities. initial work up included Labs that demonstrated elevated troponin, elevated D-dimer, elevated BNP, and CHRISTOPHER. Given elevated D-dimer, CT PE protocol was ordered. X-ray showed no obvious large area of focal consolidation. ED provider had an interactive discussion with radiologist who read the patient's CT PE protocol who noted he has distal PE with no right heart strain. He is hemodynamically stable and is resting comfortably on room air. As well as a lengthy discussion with the button tacker, Dr. Rico, who advised obtaining formal echocardiogram and diuresing the patient with Lasix. Admitted to medicine for further management. Responded well to diuresis and treatment for his heart failure. Patient down over 30 L. Meeting criteria for discharge home with further management as an outpatient with cardiology and pulmonology. Problems addressed as follows: - Acute right PE. no right heart stream. hemodinamically stable: - acute on chronic heart failure with reduced ejection fraction Patient admitted for heart failure, volume overload, PE. Pulmonology and cardiology were consulted. Was initiated on Bumex and dobutamine. Responded well to this regimen over the course the weekend with excessive diuresis. Echo obtained during admission showing 15% EF with akinetic septum. CTA of the chest showed right PE. Patient initiated on anticoagulation. Given his cirrhosis and child Gordon class C, pulmonology recommends continuing Lovenox therapeutically at discharge at a dose of 1 mg/kg twice daily. Will hold off on transition to warfarin at this point of time given cardiology concerns on this patient being noncompliant given their prior clinical care experience with this patient. If fails this regimen, would benefit from Coumadin. Will plan to treat for at least 3 months. Patient noted to have effusions on chest imaging. Showing improvement with diuresis. Continued breathing treatments with DuoNebs and Tessalon Perles for cough. Given his clinical improvement with diuresis, stable to discharge home to continue treatment as an outpatient. -Cardiology recommends the patient follow-up on Wednesday in cardiology clinic with Dr. Ponce. He can be discharged on the following cardiac medications: Aspirin 81 mg daily, Bumex 1 mg p.o. daily, Jardiance 10 mg p.o. daily, isosorbide dinitrate 10 mg 3 times daily, Protonix 40 mg daily, Entresto 24/ twice daily. Anticoagulation/Coumadin dosing per pulmonology. -Of note, status post heart cath with no stenting performed due to occluded venous grafts. Noted to have elevated right-sided pressures. Hyponatremia: Sodium has down trended with diuresis. Noted to be 124 on day of discharge. Will supplement for 1 week with 500 mg sodium chloride tablet twice daily. Repeat labs in 3 to 5 days. Order sent. IDDM: Diabetes poorly controlled. Last A1c 8.9. Recommended continuing home regimen which he reports he has been noncompliant with. Stressed the importance of taking his combo insulin twice daily at 30 units subcu. With the addition of Jardiance as above, anticipate potential improvement and diabetic control. Will need repeat A1c and 3 months. patient medically non complaint, with hx of polysubstance abuse, will complicate all aspect of care. pharmacy to verify suboxone. on nicotine patch Cirrhosis: -Will need referral to for evaluation of possible transplant as an outpatient. Total time spent on discharge 45 minutes in counseling, documentation, chart review, and direct care with patient. Exam Data for Last 24 hours Vital signs and Labs for Last 24 Hours: Temp Pulse Resp BP Pulse Ox O2 Del Method O2 Flow Rate 97.5 F L 101 H 22 124/76 100 Room Air 100 09/14/23 11:52 09/14/23 11:52 09/14/23 11:52 09/14/23 11:52 09/14/23 11:52 09/14/23 11:52 09/11/23 17:00 Laboratory Results - last 24 hr 09/13/23 16:08: POC Glucose 175 H 09/13/23 20:58: Sodium 121 L, Potassium 4.2 D, Chloride 81 L, Carbon Dioxide 35 H, Anion Gap 9.2, BUN 33 H, Creatinine 1.10, Estimated Creat Clear 95, Estimated GFR 71, Est GFR ( Amer) 86, Glucose 290 H, Calcium 8.8 09/13/23 21:26: POC Glucose 247 H 09/14/23 06:52: POC Glucose 257 H 09/14/23 10:07: POC Glucose 186 H 09/14/23 12:23: WBC 10.8 D, RBC 6.04, Hgb 17.8, Hct 55.2 H, MCV 91.4, MCH 29.5, MCHC 32.3, RDW 14.5, Plt Count 136 L, MPV 9.0, Neut % (Auto) 64.7, Lymph % (Auto) 20.0, [place] % (Auto) 8.8, Eos % (Auto) 4.6, Baso % (Auto) 1.9, Neut # (Auto) 7.0, Lymph # (Auto) 2.2, [place] # (Auto) 1.0, Eos # (Auto) 0.5 H, Baso # (Auto) 0.2, Sodium 124 L, Potassium 4.1, Chloride 80 L, Carbon Dioxide 36 H, Anion Gap 12.1, BUN 29 H, Creatinine 1.00, Estimated Creat Clear 105, Estimated GFR 79, Est GFR ( Amer) 96, Glucose 218 H D, Calcium 9.2, Magnesium 2.0 D, Total Bilirubin 1.0, AST 59, ALT 62, Alkaline Phosphatase 294 H, Total Protein 7.0 D, Albumin 3.8, Globulin 3.2, Albumin/Globulin Ratio 1.2 I & O for Last 24 hours: Intake & Output 09/11/23 09/12/23 09/13/23 09/14/23 23:59 23:59 23:59 23:59 Intake Total 1341.333 / 7006.217 3784.333 / 2868.333 1501.25 / 1501.25 1040 / 1040 Output Total 24442 / 8300 / 9400 6875 / 6875 3300 / 3300 Balance -19450.667 / -01991.667 -5519.667 / -6531.667 -5373.75 / -5373.75 -2260 / -2260 Weight 99.4 kg 82.781 kg 82.78 kg 82.78 kg Constitutional Constitutional: no acute distress, average body habitus, chronically ill appearing and cooperative *Routine HEENT Exam Head: Present normocephalic Eye: Present EOMI and PERRL ENT: Present mucous membranes moist *Routine Neck Exam Neck: Present supple; Absent lymphadenopathy Routine Chest/Breast/Axilla Exam Comments: LifeVest in place *Routine Respiratory Exam Respiratory: Present CTA bilaterally; Absent rhonchi, wheezes or crackles *Routine Cardiovascular Exam Cardiovascular: Present RRR and murmur *Routine Abdominal Exam Abdominal: Present soft and normoactive bowel sounds; Absent tenderness *Routine Rectal Exam Patient deferred: visual exam *Routine Exam Patient deferred: penile exam *Routine Extremities Exam Extremities: Present edema (Trace bilateral lower extremities); Absent cyanosis or clubbing *Routine Skin Exam Skin: Present warm; Absent rash Comments: Healing stasis dermatitis *Routine Neurological Exam Neurological: Present alert, oriented X3 and moving all extremities; Absent altered mental status Results Data Completed and Pending Labs on day of discharge: Labs from last 24 hours 09/14/23 09/14/23 09/14/23 12:23 10:07 06:52 WBC 10.8 D RBC 6.04 Hgb 17.8 Hct 55.2 H MCV 91.4 MCH 29.5 MCHC 32.3 RDW 14.5 Plt Count 136 L MPV 9.0 Neut % (Auto) 64.7 Lymph % (Auto) 20.0 [place] % (Auto) 8.8 Eos % (Auto) 4.6 Baso % (Auto) 1.9 Neut # (Auto) 7.0 Lymph # (Auto) 2.2 [place] # (Auto) 1.0 Eos # (Auto) 0.5 H Baso # (Auto) 0.2 Sodium 124 L Potassium 4.1 Chloride 80 L Carbon Dioxide 36 H Anion Gap 12.1 BUN 29 H Creatinine 1.00 Estimated Creat Clear 105 Estimated GFR 79 Est GFR ( Amer) 96 Glucose 218 H D POC Glucose 186 H 257 H Calcium 9.2 Magnesium 2.0 D Total Bilirubin 1.0 AST 59 ALT 62 Alkaline Phosphatase 294 H Total Protein 7.0 D Albumin 3.8 Globulin 3.2 Albumin/Globulin Ratio 1.2 09/13/23 09/13/23 09/13/23 21:26 20:58 16:08 WBC RBC Hgb Hct MCV MCH MCHC RDW Plt Count MPV Neut % (Auto) Lymph % (Auto) [place] % (Auto) Eos % (Auto) Baso % (Auto) Neut # (Auto) Lymph # (Auto) [place] # (Auto) Eos # (Auto) Baso # (Auto) Sodium 121 L Potassium 4.2 D Chloride 81 L Carbon Dioxide 35 H Anion Gap 9.2 BUN 33 H Creatinine 1.10 Estimated Creat Clear 95 Estimated GFR 71 Est GFR ( Amer) 86 Glucose 290 H POC Glucose 247 H 175 H Calcium 8.8 Magnesium Total Bilirubin AST ALT Alkaline Phosphatase Total Protein Albumin Globulin Albumin/Globulin Ratio DS: Diagnosis Discharge Diagnosis (1) Heart failure with reduced ejection fraction: Status: Acute Code(s): I50.20 - Unspecified systolic (congestive) heart failure (2) CAD (coronary artery disease): Status: Acute Code(s): I25.10 - Atherosclerotic heart disease of [place] coronary artery without angina pectoris Qualifiers: Associated angina: with unspecified angina Coronary Disease-Associated Artery/Lesion type: unspecified vessel or lesion type [place] vs. transplanted heart: [place] heart Qualified Code(s): I25.119 - Atherosclerotic heart disease of [place] coronary artery with unspecified angina pectoris (3) Pulmonary embolism on right: Status: Acute Code(s): I26.99 - Other pulmonary embolism without acute cor pulmonale (4) Pleural effusion, bilateral: Status: Acute Code(s): J90 - Pleural effusion, not elsewhere classified (5) Elevated troponin: Status: Acute Code(s): R79.89 - Other specified abnormal findings of blood chemistry (6) A-fib: Status: Acute Code(s): I48.91 - Unspecified atrial fibrillation Qualifiers: Atrial fibrillation type: unspecified Qualified Code(s): I48.91 - Unspecified atrial fibrillation (7) LV dysfunction: Status: Chronic Code(s): I51.9 - Heart disease, unspecified (8) COPD (chronic obstructive pulmonary disease): Status: Acute Code(s): J44.9 - Chronic obstructive pulmonary disease, unspecified Qualifiers: COPD type: unspecified COPD Qualified Code(s): J44.9 - Chronic obstructive pulmonary disease, unspecified (9) HTN (hypertension): Status: Chronic Code(s): I10 - Essential (primary) hypertension Qualifiers: Hypertension type: essential hypertension Qualified Code(s): I10 - Essential (primary) hypertension (10) Hyperlipidemia: Status: Chronic Code(s): E78.5 - Hyperlipidemia, unspecified Qualifiers: Hyperlipidemia type: unspecified Qualified Code(s): E78.5 - Hyperlipidemia, unspecified (11) Noncompliance: Status: Acute Code(s): Z91.19 - Patient's noncompliance with other medical treatment and regimen (12) Hx of CABG: Status: Acute Code(s): Z95.1 - Presence of aortocoronary bypass graft (13) Hyponatremia: Status: Acute Code(s): E87.1 - Hypo-osmolality and hyponatremia Meds Home Medications and Allergies Home Medications Medication Instructions Recorded Confirmed Type lancets 30 gauge #25 ea 07/03/19 09/07/23 History pen needle, diabetic 32 gauge x ##100 05/11/22 09/07/23 Rx (BD Ultra-Fine Pearl Pen Needle) aspirin 81 mg chewable tablet 81 mg PO DAILY 30 days #30 tabs 09/13/23 Rx empagliflozin 10 mg tablet 10 mg PO DAILY 30 days #30 tabs 09/13/23 Rx (Jardiance) metformin 1,000 mg tablet 1,000 mg PO BID 30 days #60 tabs 09/13/23 Rx sacubitril 24 mg-valsartan 26 mg 1 tab PO BID 30 days #60 tabs 09/13/23 Rx tablet (Entresto) bumetanide 1 mg tablet 1 mg PO DAILY 30 days #30 tabs 09/14/23 Rx enoxaparin 80 mg/0.8 mL 80 mg (0.8 mL) SQ Q12H 30 days #48 09/14/23 Rx subcutaneous syringe mL insulin lispro protamine-lispro 30 unit (0.3 mL) SQ BIDWMEAL 30 09/14/23 Rx 100 unit/mL (75-25) subcutaneous days #18 mL pen (Humalog Mix 75-25 KwikPen) isosorbide dinitrate 10 mg tablet 10 mg PO TID 30 days #90 tabs 09/14/23 Rx pantoprazole 40 mg tablet,delayed 40 mg PO HS 30 days #30 tabs 09/14/23 Rx release sodium chloride 1,000 mg soluble 500 mg (1/2 x 1,000 mg) PO BID 10 09/14/23 Rx tablet days #10 tabs New Prescriptions to Start Prescriptions: aspirin Gabriel,Paxton bumetanide David,Vaughn empagliflozin [Jardiance] Gabriel,Paxton enoxaparin David,Vaughn insulin lispro protamin-lispro [Humalog Mix 75-25 KwikPen] David,Vaughn isosorbide dinitrate David,Vaughn metformin Gabriel,Paxton pantoprazole David,Vaughn sacubitril-valsartan [Entresto] Gabriel,Paxton sodium chloride Vaughn Hernandez Allergies Allergy/AdvReac Type Severity Reaction Status Date / Time Anesthetics - Amide Type - AdvReac Rash Verified 09/09/23 07:48 [facility] - Claudia Type- AdvReac Rash Verified 09/09/23 07:48 Parabens Discharge Plan Disposition Patient Disposition: Home, Self-Care Condition: Fair Discharge Order Discharge Orders: Discharge Order (Routine); Ordered 09/14/23 Ordered By: Vaughn Hernandez Follow up Plan Follow up with: Maynor Valverde MD [Physician] - 09/21/23 1:45 pm Rock Ponce MD [Staff Physician] - 09/20/23 2:30 pm (f/u w/ dr tyrell rojas) Prescriptions/Medication Reconciliation: New aspirin 81 mg Tablet,Chewable 81 mg PO DAILY 30 Days Qty: 30 0RF Jardiance 10 mg Tablet 10 mg PO DAILY 30 Days Qty: 30 0RF Entresto 24-26 mg Tablet 1 tab PO BID 30 Days Qty: 60 0RF metformin 1,000 mg tablet 1,000 mg PO BID 30 Days Qty: 60 0RF insulin lispro protamin-lispro [Humalog Mix 75-25 KwikPen] 100 unit/mL (75-25) Insulin Pen 30 unit SQ BIDWMEAL 30 Days Qty: 18 0RF enoxaparin 80 mg/0.8 mL Syringe 80 mg SQ Q12H 30 Days Qty: 48 0RF bumetanide 1 mg Tablet 1 mg PO DAILY 30 Days Qty: 30 0RF sodium chloride 1,000 mg Tablet,Soluble 500 mg PO BID 10 Days Qty: 10 0RF isosorbide dinitrate 10 mg Tablet 10 mg PO TID 30 Days Qty: 90 0RF pantoprazole 40 mg Tablet,Delayed Release (Dr/Ec) 40 mg PO HS 30 Days Qty: 30 0RF Continued (DME) lancets 30 gauge misc 1 gauge .ROUTE .MEDSUPPLY Qty: 25 Rx Instructions: As directed (DME) pen needle, diabetic [BD Ultra-Fine Pearl Pen Needle] 32 gauge x 5/32 needle See Rx Instructions .ROUTE .COMPLEX Qty: 100 2RF Dose Instruction: USE DIRECTED Rx Instructions: USE DIRECTED Discontinued (DME) OneTouch Verio test strips Strip See Rx Instructions .ROUTE .MEDSUPPLY Qty: 100 12RF Rx Instructions: As directed furosemide 40 mg tablet 40 mg PO DAILY Rx Instructions: TAKE ONE TABLET BY MOUTH ONCE A DAY FOR DIURETIC (DME) blood sugar diagnostic 1 EACH strip See Rx Instructions .Route .MEDSUPPLY Rx Instructions: check sugar twice daily Other Ambulatory Orders: Comprehensive Metabolic Panel (Routine) Timeframe: 3 Days Facility: [facility] - Location: Laboratory Ordered By: Vaughn Hernandez Problem Reconciliation Problems Reviewed?: Yes Patient Discharge Instructions ACTIVITY: Ambulate as tolerated DIET: continue same diet Patient Instructions: Heart-Healthy Diet, Calorie-Counting Diet, DI for Heart Failure, DI for Pulmonary Embolism, DI for Cardiac Catheterization, DI for Surgical Site Infection Providers Primary Care Provider: Joe Bowen Admit Provider: Paxton Rios Attending Provider: Paxton Rios
--- NOTE | 2023-09-14 16:00 | HMH.PHAINT1 ---
Pharmacy Intervention Comments: DISCHARGE MEDICATION COUNSELING WAS PROVIDED TO PATIENT ON INDICATION, DOSE, AND POSSIBLE SIDE EFFECTS OF NEW MEDICATIONS WELL STOPPING FUROSEMIDE. PRESCRIPTIONS WERE BEING FILL AT [facility]. PATIENT VERBALIZED UNDERSTANDING AND HAD NO FURTHER QUESTIONS.
--- NOTE | 2023-09-16 11:20 | CARE MANAGER ---
Unable to reach patient via phone to discuss recent discharge. Call attempted x 2 and voicemail left.
== END 2023-09-14 16:23 | disposition home or self-care (01) | DRG 286 ==
LOC: ER 16:02 → 2ND 17:51
PROVIDERS: Internal Medicine; Internal Medicine Adolescent Medicine; Internal Medicine Cardiovascular Disease; Internal Medicine Pulmonary Disease; Nurse Practitioner; Nurse Practitioner Critical Care Medicine; Nurse Practitioner Family; Admitting Provider Internal Medicine; Emergency Provider Emergency Medicine; PCP Internal Medicine; Visit Provider Internal Medicine
PROC: 4A023N7 Measurement of Cardiac Sampling and Pressure, Left Heart, Percutaneous Approach (ICD-10-PCS; principal; 2023-09-10 08:30)
DX: I11.0 Hypertensive heart disease with heart failure (principal); I26.99 Other pulmonary embolism without acute cor pulmonale; I50.23 Acute on chronic systolic (congestive) heart failure; R57.0 Cardiogenic shock; F19.20 Other psychoactive substance dependence, uncomplicated; T42.4X4A Poisoning by benzodiazepines, undetermined, initial encounter; J44.9 Chronic obstructive pulmonary disease, unspecified; I25.119 Atherosclerotic heart disease of native coronary artery with unspecified angina pectoris; E11.9 Type 2 diabetes mellitus without complications; Z91.199 Patient's noncompliance with other medical treatment and regimen due to unspecified reason; I25.10 Atherosclerotic heart disease of native coronary artery without angina pectoris; Z95.1 Presence of aortocoronary bypass graft; E78.5 Hyperlipidemia, unspecified; I27.20 Pulmonary hypertension, unspecified; F17.210 Nicotine dependence, cigarettes, uncomplicated; Z79.4 Long term (current) use of insulin; K74.60 Unspecified cirrhosis of liver; I48.0 Paroxysmal atrial fibrillation
CPT/HCPCS: 93459; 36415; 70450; 71046; 71275; 74176; 80048; 80053; 80061; 80074; 80076; 82803; 82810; 82962; 83036; 83605; 83735; 83880; 84436; 84443; 84484; 85025; 85378; 85610; 87636; 93005; 93306; 93454; 94761; 97163; 97165; 99152; 99153; 99285; C1725; C1769; C1894; J1250; J1644; J1956; Q9957; Q9967

== ENCOUNTER 2023-10-05 18:25 | Inpatient (IN) | payer MEDICAID, SELFPAY ==
[2023-10-05 18:26] VITALS: BP 139/93; PULSE 96; RESP 14; TEMP 37.1; O2SAT 92; BMI 31.5
--- NOTE | 2023-10-05 18:35 | ECG_ITS ---
APPROVED REPORT Exam: Resting ECG HR:107 bpm ECG Measurements Heart Rate 107 AXES NH 148 P 73 QRSd 105 QRS 136 QT 347 T 0 QTc 410 Conclusion SINUS TACHYCARDIA WITH OCCASIONAL VENTRICULAR PREMATURE COMPLEXES INCOMPLETE RIGHT BUNDLE BRANCH BLOCK [90+ ms QRS DURATION, TERMINAL R IN V1/V2, 40+ ms S IN I/aVL/V4/V5/V6] POSSIBLE RIGHT VENTRICULAR HYPERTROPHY [SOME/ALL OF: PROMINENT R IN V1, LATE TRANSITION, RAD, MARLENE, SSS] ANTEROLATERAL MYOCARDIAL INFARCTION , OF INDETERMINATE AGE [40+ ms Q WAVE IN I/aVL/V3-V6] ABNORMAL ECG UNCONFIRMED REPORT Electronically signed by : Vaughn Gonzalez, 10/05/2023 23:13:20
[2023-10-05 18:44] VITALS: BMI 37.3
--- NOTE | 2023-10-05 18:45 | PC.NURSE ---
pt is diaphoretic and red all over his body. fsbs 43. amp of d50 given. pt is confused and slow to respond. states he called her at 1500 to leave work because he was not feeling well. pt is supposed to be wearing a lifevest which states he does not wear. pt states he has been using methamphetamine daily and has edema all over his body.
--- NOTE | 2023-10-05 18:45 | XR_ITS ---
PROCEDURE INFORMATION: Exam: XR Chest Exam date and time: 10/05/2023 6:49 PM Age: 48 years old Clinical indication: Shortness of breath; Prior surgery; Surgery date: <1 month; Surgery type: Heart cath; Additional info: SOA TECHNIQUE: Imaging protocol: Radiologic exam of the chest. Views: 1 view. COMPARISON: CT ANGIO CHEST PE PROTOCOL 09/07/2023 5:03 PM FINDINGS: Lungs: Interval improvement of mild infiltrate/atelectasis in the right lower lung. Pleural spaces: Interval improvement pleural fluid in the right lower chest. No pneumothorax. Heart/Mediastinum: Cardiac silhouette is mildly enlarged and stable. Bones/joints: Sternotomy wires in place. IMPRESSION: Improving right-sided pleural fluid mild infiltrate/atelectasis in the right lower lung
[2023-10-05] MEDS: DEXTROSE 50% 50ML SYRINGE (CRASH CART) 50 ML IVP (18:47)
--- NOTE | 2023-10-05 18:54 | PC.NURSE ---
RAD at [facility]
[2023-10-05 18:57] LABS: Basophils % 0.3 % (0.1-2.0); Chloride 91 mmol/L (98-107); Eosinophils # 0.1 K/mm3 (0.0-0.4); Eosinophils % 0.7 % (0.1-12.0); Hematocrit 50.5 % (42.0-52.0); Hemoglobin 16.1 g/dL (14.1-18.0); Lymphocytes # 0.6 K/mm3 (0.7-4.5); Lymphocytes % 7.8 % (10-50); Mean Corpuscular HGB Conc 31.8 g/dL (31.8-35.4); Mean Corpuscular Hemoglobin 28.3 pg (27.0-31.2); Mean Corpuscular Volume 88.9 fl (80-94); Mean Platelet Volume 8.2 fl (7.4-10.4); Monocytes # 0.3 K/mm3 (0.1-1.0); Monocytes % 3.4 % (1.7-9.3); Neutrophils # 6.6 K/mm3 (1.8-7.8); Neutrophils % 87.8 % (37.0-80.0); Platelet Count 256 K/mm3 (142-424); Potassium 3.2 mmoL/L (3.5-5.1); Red Blood Count 5.68 M/mm3 (4.60-6.20); Red Cell Distribution Width 16.1 % (11.5-17.5); Sodium 121 mmol/L (136-145); White Blood Count 7.5 K/mm3 (4.8-10.8)
[2023-10-05 19:00] VITALS: BP 120/80; PULSE 105; RESP 24; O2SAT 96
[2023-10-05 19:00] LABS: Alanine Aminotransferase 150 U/L (12-78); Albumin Level 3.2 g/dl (3.5-5.0); Albumin/Globulin Ratio 1.1 (1.1-1.8); Alkaline Phosphatase 319 U/L (38-126); Anion Gap 9.2 mEq/L (5-15); Aspartate Amino Transferase 149 U/L (17-59); Bilirubin,Total 2.4 mg/dl (0.2-1.3); Blood Urea Nitrogen 33 mg/dl (9-20); Calcium 8.1 mg/dl (8.4-10.2); Carbon Dioxide 24 mmol/L (22.0-30.0); Creatinine Clearance Estimated 130 mL/min (50-200); Estimated Glomerular Filt Rate 64 ml/min (>60); GFR (African American) 78 ML/MIN (>60); Total Protein,Serum 6.2 g/dl (6.3-8.2)
[2023-10-05 19:07] LABS: MANUAL DIFFERENTIAL MANUAL DIFFERENTIAL (MANUAL DIFF)
--- NOTE | 2023-10-05 19:09 | HMH.EDGENADL ---
Discharge Plan Disposition Patient Disposition: Home, Self-Care Clinical Impressions Clinical Impression: Heart failure with reduced left ventricular function, Anasarca, Hypoglycemia, Abnormal transaminases, Cirrhosis, Chronic hepatitis B, Acute hyponatremia, Myocardial injury Discharge ED Provider: Aiyana Gonzalez General Adult HPI General Chief complaint: Shortness of Breath/Dyspnea Stated complaint: fluid retention Time Seen by Provider: 10/05/23 18:33 Mode of Arrival: Wheelchair Source of Information: Spouse Limitations: Altered Mental Status Description of Symptoms (Recalled from ER Triage Doc. by RN): pt is diaphoretic, red all over, fluid overload History of Present Illness HPI narrative: Patient is a 48-year-old male with a history of methamphetamine abuse coronary disease status post CABG in 2019 presents today with significant shortness of breath and whole body edema. Recently was evaluated in the hospital having an echo which showed an ejection fraction of 15% also had a cardiac MRI that was consistent with this and also showed severe mitral regurg. Had a right and left heart cath which demonstrated patent vein grafts severe pulmonary hypertension and essentially completely occluded old stents of the small vessel no further interventions were done at that time he was medically managed. He was supposed to be wearing a LifeVest but he has not been compliant with this. Most recent meth use was yesterday. Also he is diabetic took insulin yesterday evening has had not had much to eat since that time. Presents today with whole body pain and edema shortness of breath and diaphoresis. Related Data Home Medications Medication Instructions Recorded Confirmed lancets 30 gauge #25 ea 07/03/19 09/20/23 Previous Rx's Medication Instructions Recorded pen needle, diabetic 32 gauge x ##100 05/11/22 (BD Ultra-Fine Pearl Pen Needle) enoxaparin 80 mg/0.8 mL 80 mg (0.8 mL) SQ Q12H 30 days #48 09/14/23 subcutaneous syringe mL insulin lispro protamine-lispro 30 unit (0.3 mL) SQ BIDWMEAL 30 09/14/23 100 unit/mL (75-25) subcutaneous days #18 mL pen (Humalog Mix 75-25 KwikPen) sodium chloride 1,000 mg soluble 500 mg (1/2 x 1,000 mg) PO BID 10 09/14/23 tablet days #10 tabs aspirin 81 mg chewable tablet 81 mg PO DAILY 30 days #30 tabs 09/28/23 bumetanide 1 mg tablet 1 mg PO DAILY 30 days #30 tabs 09/28/23 empagliflozin 10 mg tablet 10 mg PO DAILY 30 days #30 tabs 09/28/23 (Jardiance) isosorbide mononitrate 30 mg 30 mg PO DAILY #30 tabs 09/28/23 tablet,extended release 24 hr metformin 1,000 mg tablet 1,000 mg PO BID 30 days #60 tabs 09/28/23 metoprolol succinate 25 mg 6.25 mg (1/4 x 25 mg) PO DAILY #30 09/28/23 tablet,extended release 24 hr tabs (Toprol XL) pantoprazole 40 mg tablet,delayed 40 mg PO HS 30 days #30 tabs 09/28/23 release sacubitril 24 mg-valsartan 26 mg 1 tab PO BID #60 tabs 09/28/23 tablet (Entresto) spironolactone 25 mg tablet 25 mg PO DAILY #30 tabs 09/28/23 (Aldactone) Allergies Allergy/AdvReac Type Severity Reaction Status Date / Time Anesthetics - Amide Type - AdvReac Rash Verified 09/20/23 14:41 [facility] - Claudia Type- AdvReac Rash Verified 09/20/23 14:41 Parabens PFSH PFSH Disclaimer: The information contained in this section may have been updated after the patient was seen, as this information can be updated by other users. Medical History Hyponatremia COPD (chronic obstructive pulmonary disease) LV dysfunction A-fib CAD (coronary artery disease) Elevated troponin Pleural effusion, bilateral Heart failure Low Back Pain History of abuse of recreational drug Tobacco abuse Pulmonary HTN Recent ST elevation myocardial infarction (STEMI) SEPTEMBER 2018. CAD (coronary artery disease) HTN (hypertension) Hyperlipidemia Diabetes Surgical History Stented coronary artery Hx of CABG Family History Other No significant family history Social History Smoking Status: Current every day smoker tobacco type: cigarettes packs per day: 1 alcohol intake: former substance use type: former substance user, marijuana, crack/cocaine, amphetamines and opiates current occupational status: unemployed Travel in the last 8 weeks: None household members: spouse and children caffeine: Yes ROS Obtained: Yes All systems reviewed & no additional complaints except as documented Physical Exam General General appearance: in distress and other (Diaphoretic very ill in appearance) Respiratory Respiratory exam: Present other (In mild distress coarse breath sounds throughout diminished breath sounds at the base) Cardiovascular Cardiovascular exam: Present other (Tachycardia) Abdominal Exam Abdominal exam: Present distention and other (Abdominal wall and presacral edema) Extremities Exam Extremities exam: Present other (Weeping diffuse and extensive bilateral lower extremity edema) Neurological Exam Neurological exam: Present alert and oriented X3 Medical Decision Making Meek Inquiry Pt receiving controlled substance: No Vital Signs: 10/05/23 18:26 Temperature 98.8 F Temperature Source Oral Pulse Rate [Right] 96 H Respiratory Rate 14 Blood Pressure [Right Arm] 139/93 H Blood Pressure Mean [Right Arm] 108 02 Sat by Pulse Oximetry 92 L Oxygen Delivery Method Room Air Lab Data Lab results reviewed: Yes I reviewed the patient's lab results. Lab Results 10/05/23 18:42: WBC 7.5, RBC 5.68, Hgb 16.1, Hct 50.5, MCV 88.9, MCH 28.3, MCHC 31.8, RDW 16.1, Plt Count 256, MPV 8.2, Neut % (Auto) 87.8 H, Lymph % (Auto) 7.8 L, [place] % (Auto) 3.4, Eos % (Auto) 0.7, Baso % (Auto) 0.3, Neut # (Auto) 6.6, Lymph # (Auto) 0.6 L, [place] # (Auto) 0.3, Eos # (Auto) 0.1, Baso # (Auto) 0.0, Total Counted 100, Neutrophils % (Manual) 82 H, Band Neutrophils % 1.0, Lymphocytes % (Manual) 14, Atypical Lymphs % 1.0, Monocytes % (Manual) 2, Platelet Estimate Normal, RBC Morphology Normal, PT 14.4 H, INR 1.36 H, Sodium 121 L, Potassium 3.2 L, Chloride 91 L, Carbon Dioxide 24, Anion Gap 9.2, BUN 33 H, Creatinine 1.20, Estimated Creat Clear 130, Estimated GFR 64, Est GFR ( Amer) 78, Glucose 42 L, Random Glucose 42 L*, Lactate 2.4 H, Calcium 8.1 L, Total Bilirubin 2.4 H, AST 149 H, ALT 150 H, Alkaline Phosphatase 319 H, Troponin I 0.38 H, NT-Pro-B Natriuret Pep 5270 H, Total Protein 6.2 L, Albumin 3.2 L, Globulin 3.0, Albumin/Globulin Ratio 1.1 10/05/23 18:42 10/05/23 18:42 Orders (Tests/Meds): ED MEDICATIONS Discontinued Medications Generic Name Dose Route Start Last Admin Trade Name Freq PRN Reason Stop Dose Admin Bumetanide 1 mg 10/05/23 19:02 10/05/23 19:15 Bumetanide 1mg/4ml Vial IV 10/05/23 19:03 1 mg ONCE ONE Administration Dextrose 50 ml 10/05/23 18:46 10/05/23 18:47 Dextrose 50% 50ml Syringe (Crash Cart) IVP 10/05/23 18:47 50 ml ONCE ONE Administration Morphine Sulfate 4 mg 10/05/23 19:04 10/05/23 19:15 Morphine 4mg/Ml Syringe IV 10/05/23 19:05 4 mg ONCE ONE Administration ORDERS Category Date Time Status POCUS Point of Care (ER Only) Stat Exams 10/05/23 18:39 Completed XR chest portable Stat Exams 10/05/23 18:45 Completed BNP [NT Pro Brain Natriuretic Pep.] Stat Lab 10/05/23 18:42 Completed Complete Blood Count Auto Diff Stat Lab 10/05/23 18:42 Completed Comprehensive Metabolic Panel Stat Lab 10/05/23 18:42 Completed Glucose,Random Stat Lab 10/05/23 18:42 Completed Lactic Acid Stat Lab 10/05/23 18:42 Completed PT INR [Prothrombin Time INR] Stat Lab 10/05/23 18:42 Completed Trop I [Troponin I] Stat Lab 10/05/23 18:42 Completed Troponin I Q3H Lab 10/05/23 22:00 Ordered Troponin I Q3H Lab 10/06/23 01:00 Ordered ECG Data Tracing #1: I reviewed this ECG and interpreted as documented below: Ventricular rate of 107 sinus tachycardia Q waves in the anterior precordial leads consistent with old [place] no acute ischemic changes noted incomplete right bundle branch block abnormal EKG HEART Score History (anamnesis): Moderately suspicious ECG: Non-specific disturbance Age: 45-65 years Risk factors: Atherosclerosis history Troponin: 1-3x normal limit HEART Score: 6 Medical Decision Narrative: Very ill-appearing 48-year-old male presenting today with diffuse whole body edema anasarca and diaphoresis. He is hypoglycemic and amp of D50 was given to him. This is most likely secondary to insulin use without eating much. His ejection fraction on bedside ultrasound is severely depressed consistent with recent imaging. He has diffuse pulmonary edema and pleural effusions also has diffuse soft tissue edema as well as diffuse abdominal ascites. He has known hepatitis B states that he has been told that he has cirrhosis and he continues to do illicit drugs. I will discuss the case with our edging machine feeder and reassess it in the meantime we will initiate IV diuresis. Pads been placed on his chest in the event of a significant dysrhythmia Reassessment 8:10 PM patient's liver function is a bit worse with AST bilirubin getting worse INR slightly worsened as well. Creatinine is stable at 1.2. Mildly elevated troponin consistent with myocardial injury. I discussed the case with Dr. Rico we will initiate milrinone at 0.2 mics per KG per minute as well as Bumex infusion at 1 mg/h after an additional bolus of 3 mg IV of Bumex on top of the 1 that I have already ordered. Patient was given pain control in the emergency department for the diffuse edema and stretching sensation that he is feeling. He was admitted after discussing the case with Eber with hospital medicine for further evaluation and management. Procedures Miscellaneous Procedure Procedure Performed: Limited cardiac ultrasound Indication: Dyspnea Identified structures: The heart was visualized in the parasternal long axis, parastenal short axis, apical four chamber and subxyphiod views. The IVC was visualized in the short axis and long axis at its entry into the right atrium. Findings: Significant dilatation of all chambers severely depressed LVEF no pericardial effusion Impression: Severely depressed left ventricular ejection fraction with dilated chambers Images were saved to permanent archive The study was technically adequate CPT: 98305-27 This study was performed by me, and I personally interpreted all images/videos. Based on my clinical judgement, these images were adequate and did not necessitate further imaging. Limited lung ultrasound A focused ultrasound exam of the pleural spaces was performed to evaluate for pneumothorax, pulmonary edema, pleural effusion and/or consolidation. The ultrasound was performed with the following indications, as noted in the H&P: Dyspnea Identified structures: [RIGHT and/or LEFT] thoracic cavities were examined. Findings: Bilateral lung sliding present B-lines throughout all lung keller bilateral pleural effusions noted no consolidation Impression: Bilateral B-lines and pleural effusions consistent with pulmonary edema and small pleural effusions Images were saved to permanent archive The study was technically adequate CPT 04644-22 This study was performed by md, and I personally interpreted all images/videos. Based on my clinical judgement, these images were adequate and did not necessitate further imaging. Limited EFAST ultrasound Indication: Abdominal swelling Views: [LUQ, RUQ, Pelvis, Limited Cardiac, Limited Thoracic] Interpretation: No pericardial effusion however there is free fluid in the right upper quadrant left upper quadrant and suprapubic regions all consistent with diffuse extensive ascites Impression: Positive EFAST ultrasound Images were saved to permanent archive The study was technically adequate CPT 65716-91 (limited cardiac) 44300-27 (limited abdominal) 62981-10 (chest) This study was performed by md, and I personally interpreted all images/videos. Based on my clinical judgement, these images were adequate and did necessitate further imaging. Critical Care Critical Care Time Critical Care Time: Yes Attestation: On 10/05/23, the high probability of a clinically significant, sudden or life threatening deterioration of the following system(s) required my full and direct attention, intervention and personal management. The time I documented below is in addition to time spent performing reported procedures but includes the following listed in this critical care notation. Total Time Total Critical Care Time: 65
[2023-10-05] MEDS: BUMETANIDE 1MG/4ML VIAL 1 MG IV (19:15)
[2023-10-05] MEDS: MORPHINE 4MG/ML SYRINGE 4 MG IV ×2 (19:15→20:53)
[2023-10-05 19:17] LABS: INR 1.36 (0.9-1.1); Prothrombin Time 14.4 seconds (10.1-12.5)
[2023-10-05 19:21] LABS: Glucose 42 mg/dl (74-100); Glucose,Random 42 mg/dL (74-100); Lactic Acid 2.4 mmol/L (0.7-2.1); Troponin I 0.38 ng/ml (0.00-0.034)
[2023-10-05 19:31] VITALS: BP 100/68; PULSE 92; RESP 16; O2SAT 97
[2023-10-05 19:32] LABS: Lymphocytes % 14 % (10-50); Monocytes % 2 % (2-9); Neutrophils % 82 % (42-76); Platelet Estimate Normal; RBC Morphology Normal; Total Cells Counted 100
[2023-10-05 19:37] LABS: NT Pro Brain Natriuretic Pep. 5270 pg/mL (0-125)
--- NOTE | 2023-10-05 19:40 | PC.NURSE ---
Patient provided with 2 ham sandwiches, pudding, blankets, and water.
[2023-10-05 20:00] VITALS: BP 101/69; RESP 16; O2SAT 97
--- NOTE | 2023-10-05 20:16 | PC.NURSE ---
notified housekeeping supervisor ofadmission
--- NOTE | 2023-10-05 20:23 | EXP.HP ---
History of Present Illness *Admission Date: 10/05/23 *Reason for visit:: SOB *History of present illness: This is a 48-year-old morbidly obese male medically non compliance with a history of methamphetamine abuse coronary disease status post CABG in 2019, HFrEF, end stage, on life vest, IDDM uncontrolled presented today with significant shortness of breath and whole body edema. patient also discharged from this facility after PE hospitalization. Patient does not cooperate much with the interview. History taken from ED documentation: Patient, recently was evaluated in the hospital having an echo which showed an ejection fraction of 15% also had a cardiac MRI that was consistent with this and also showed severe mitral regurg. Had a right and left heart cath which demonstrated patent vein grafts severe pulmonary hypertension and essentially completely occluded old stents of the small vessel no further interventions were done at that time he was medically managed. He was supposed to be wearing a LifeVest but he has not been compliant with this. Most recent meth use was yesterday. Also he is diabetic took insulin yesterday evening has had not had much to eat since that time. Presents today with whole body pain and edema shortness of breath and diaphoresis. Cardiology consulted. Admitted for further treatment and management. [facility] Disclaimer: The information contained in this section may have been updated after the patient was seen, as this information can be updated by other users. Medical History (Updated 10/06/23 @ 11:36 by Roxann Fernandez APRN) Paroxysmal atrial fibrillation Cardiogenic shock Hyponatremia COPD (chronic obstructive pulmonary disease) LV dysfunction A-fib CAD (coronary artery disease) Elevated troponin Pleural effusion, bilateral Heart failure Low Back Pain History of abuse of recreational drug Tobacco abuse Pulmonary HTN Recent ST elevation myocardial infarction (STEMI) CAD (coronary artery disease) HTN (hypertension) Hyperlipidemia Diabetes Surgical History Stented coronary artery Hx of CABG Family History Other No significant family history Social History Smoking Status: Current every day smoker tobacco type: cigarettes packs per day: 1 alcohol intake: former substance use type: former substance user, marijuana, crack/cocaine, amphetamines and opiates current occupational status: unemployed Travel in the last 8 weeks: None household members: spouse and children caffeine: Yes Review of Systems Review of Systems Review of systems:: unable to obtain Meds Home Medications and Allergies Home Medications Medication Instructions Recorded Confirmed Type enoxaparin 80 mg/0.8 mL 80 mg (0.8 mL) SQ Q12H 30 days #48 09/14/23 10/06/23 Rx subcutaneous syringe mL insulin lispro protamine-lispro 30 unit (0.3 mL) SQ BIDWMEAL 30 09/14/23 10/06/23 Rx 100 unit/mL (75-25) subcutaneous days #18 mL pen (Humalog Mix 75-25 KwikPen) aspirin 81 mg chewable tablet 81 mg PO DAILY 30 days #30 tabs 09/28/23 10/06/23 Rx bumetanide 1 mg tablet 1 mg PO DAILY 30 days #30 tabs 09/28/23 10/06/23 Rx empagliflozin 10 mg tablet 10 mg PO DAILY 30 days #30 tabs 09/28/23 10/06/23 Rx (Jardiance) isosorbide mononitrate 30 mg 30 mg PO DAILY #30 tabs 09/28/23 10/06/23 Rx tablet,extended release 24 hr metformin 1,000 mg tablet 1,000 mg PO BID 30 days #60 tabs 09/28/23 10/06/23 Rx metoprolol succinate 25 mg 6.25 mg (1/4 x 25 mg) PO DAILY #30 09/28/23 10/06/23 Rx tablet,extended release 24 hr tabs (Toprol XL) pantoprazole 40 mg tablet,delayed 40 mg PO HS 30 days #30 tabs 09/28/23 10/06/23 Rx release sacubitril 24 mg-valsartan 26 mg 1 tab PO BID #60 tabs 09/28/23 10/06/23 Rx tablet (Entresto) spironolactone 25 mg tablet 25 mg PO DAILY #30 tabs 09/28/23 10/06/23 Rx (Aldactone) New Prescriptions to Start Prescriptions: Allergies Allergy/AdvReac Type Severity Reaction Status Date / Time Anesthetics - Amide Type - AdvReac Rash Verified 09/20/23 14:41 [facility] - Claudia Type- AdvReac Rash Verified 09/20/23 14:41 Parabens Exam Data for Last 24 hours Vital signs and Labs for Last 24 Hours: Temp Pulse Resp BP Pulse Ox O2 Del Method 98.8 F 96 H 14 139/93 H 92 L Room Air 10/05/23 18:26 10/05/23 18:26 10/05/23 18:26 10/05/23 18:26 10/05/23 18:26 10/05/23 18:26 Laboratory Results - last 24 hr 10/05/23 18:42: WBC 7.5, RBC 5.68, Hgb 16.1, Hct 50.5, MCV 88.9, MCH 28.3, MCHC 31.8, RDW 16.1, Plt Count 256, MPV 8.2, Neut % (Auto) 87.8 H, Lymph % (Auto) 7.8 L, Douglas % (Auto) 3.4, Eos % (Auto) 0.7, Baso % (Auto) 0.3, Neut # (Auto) 6.6, Lymph # (Auto) 0.6 L, Douglas # (Auto) 0.3, Eos # (Auto) 0.1, Baso # (Auto) 0.0, Total Counted 100, Neutrophils % (Manual) 82 H, Band Neutrophils % 1.0, Lymphocytes % (Manual) 14, Atypical Lymphs % 1.0, Monocytes % (Manual) 2, Platelet Estimate Normal, RBC Morphology Normal, PT 14.4 H, INR 1.36 H, Sodium 121 L, Potassium 3.2 L, Chloride 91 L, Carbon Dioxide 24, Anion Gap 9.2, BUN 33 H, Creatinine 1.20, Estimated Creat Clear 130, Estimated GFR 64, Est GFR ( Amer) 78, Glucose 42 L, Random Glucose 42 L*, Lactate 2.4 H, Calcium 8.1 L, Total Bilirubin 2.4 H, AST 149 H, ALT 150 H, Alkaline Phosphatase 319 H, Troponin I 0.38 H, NT-Pro-B Natriuret Pep 5270 H, Total Protein 6.2 L, Albumin 3.2 L, Globulin 3.0, Albumin/Globulin Ratio 1.1 Temp Pulse Resp BP Pulse Ox O2 Del Method 98.0 F 94 H 22 142/101 H 94 L Room Air 09/07/23 19:54 09/07/23 19:54 09/07/23 19:54 09/07/23 19:54 09/07/23 19:54 09/07/23 19:54 Laboratory Results - last 24 hr 09/07/23 15:10: WBC 9.2, RBC 6.18, Hgb 17.9, Hct 57.4 H, MCV 92.9, MCH 28.9, MCHC 31.1 L, RDW 14.5, Plt Count 202, MPV 9.3, Neut % (Auto) 64.7, Lymph % (Auto) 25.4, Douglas % (Auto) 6.3, Eos % (Auto) 1.5, Baso % (Auto) 2.1 H, Neut # (Auto) 6.0, Lymph # (Auto) 2.3, Douglas # (Auto) 0.6, Eos # (Auto) 0.1, Baso # (Auto) 0.2, PT 15.0 H, INR 1.42 H, D-Dimer 1.18 H, Sodium 132 L, Potassium 4.1, Chloride 99, Carbon Dioxide 27, Anion Gap 10.1, BUN 28 H, Creatinine 1.40 H, Estimated Creat Clear 82, Estimated GFR 54 L, Est GFR ( Amer) 65, Glucose 241 H, Calcium 9.1, Total Bilirubin 2.2 H, AST 58, ALT 51, Alkaline Phosphatase 189 H, Troponin I 0.59 H, NT-Pro-B Natriuret Pep 3420 H, Total Protein 6.7, Albumin 3.5, Globulin 3.2, Albumin/Globulin Ratio 1.1, TSH 6.00 H, Thyroxine (T4) 6.1 09/07/23 15:38: SARS-CoV-2 (PCR) Not detected, Influenza A Untype (PCR) Not detected, Influenza Type B (PCR) Not detected 09/07/23 18:33: Troponin I 0.54 H 09/07/23 20:22: POC Glucose 186 H I & O for Last 24 hours: Intake & Output 10/02/23 10/03/23 10/04/23 10/05/23 23:59 23:59 23:59 23:59 Weight 124.738 kg Intake & Output 09/04/23 09/05/23 09/06/23 09/07/23 23:59 23:59 23:59 23:59 Intake Total 360 / 360 Output Total 0 / 0 Balance 360 / 360 Weight 96.247 kg Constitutional Constitutional: mild distress and cooperative *Routine HEENT Exam Head: Present normocephalic Eye: Present EOMI and PERRL ENT: Present mucous membranes moist *Routine Neck Exam Neck: Present supple; Absent lymphadenopathy *Routine Respiratory Exam Respiratory: Present CTA bilaterally, distant breath sounds, diminished air movement and symmetric chest movement; Absent respiratory distress *Routine Cardiovascular Exam Cardiovascular: Present RRR *Routine Abdominal Exam Abdominal: Present soft and normoactive bowel sounds; Absent tenderness *Routine Rectal Exam Rectal:: deferred *Routine Genitalia Exam Genitalia:: deferred *Routine Extremities Exam Extremities: Absent cyanosis, clubbing or edema *Routine Skin Exam Skin: Present warm; Absent rash *Routine Neurological Exam Neurological: Present alert and oriented X3 H&P: Result Imaging and Cardiology EKG: Status: image reviewed by me, Preliminary report and final report Chest x-ray: Status: image reviewed by me, Preliminary report and final report Assessment and Plan *Assessment and plan (1) Anasarca: Status: Acute Category: Medical Code(s): R60.1 - Generalized edema (2) Heart failure with reduced left ventricular function: Status: Acute Category: Medical Code(s): I50.20 - Unspecified systolic (congestive) heart failure (3) Recent myocardial infarction: Status: Acute Category: Medical (4) Stented coronary artery: Status: Chronic Category: Surgical Code(s): Z95.5 - Presence of coronary angioplasty implant and graft (5) Hx of CABG: Status: Acute Category: Surgical Code(s): Z95.1 - Presence of aortocoronary bypass graft (6) CAD (coronary artery disease): Status: Acute Qualifiers: Associated angina: with unspecified angina Coronary Disease-Associated Artery/Lesion type: unspecified vessel or lesion type [place] vs. transplanted heart: [place] heart Qualified Code(s): I25.119 - Atherosclerotic heart disease of [place] coronary artery with unspecified angina pectoris Category: Medical Code(s): I25.10 - Atherosclerotic heart disease of [place] coronary artery without angina pectoris (7) COPD (chronic obstructive pulmonary disease): Status: Acute Qualifiers: COPD type: unspecified COPD Qualified Code(s): J44.9 - Chronic obstructive pulmonary disease, unspecified Category: Medical Code(s): J44.9 - Chronic obstructive pulmonary disease, unspecified (8) HTN (hypertension): Status: Chronic Qualifiers: Hypertension type: essential hypertension Qualified Code(s): I10 - Essential (primary) hypertension Category: Medical Code(s): I10 - Essential (primary) hypertension (9) Diabetes: Status: Chronic Qualifiers: Diabetes mellitus complication status: without complication Diabetes mellitus 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: 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 Diabetes mellitus type: type 2 Qualified Code(s): E11.9 - Type 2 diabetes mellitus without complications Category: Medical Code(s): E11.9 - Type 2 diabetes mellitus without complications (10) Polysubstance (including opioids) dependence without physiological dependence: Status: Acute Category: Medical Code(s): F19.20 - Other psychoactive substance dependence, uncomplicated (11) Non compliance with medical treatment: Status: Acute Category: Medical Code(s): Z91.199 - Patient's noncompliance with other medical treatment and regimen due to unspecified reason Plan 48-year-old morbidly obese male medically non compliance with a history of methamphetamine abuse coronary disease status post CABG in 2019, HFrEF, end stage, on life vest, IDDM uncontrolled presented today with significant shortness of breath and whole body edema. On arrival patient presented critically ill, with anasarca, diaphoresis, hypoglycemic. labs was obtained. BS in the 40's. hyponatremia, worsened liver function and elevated troponin. bedside echo performed by ED showed almost no EF. consistent with his last ECHO. Cardiology was consulted started on Milrinone and Bumex drip. Medicine was consulted for admission. Agreed for it. Plan as follow: Anasarca: Acute on chronic decompensation HFrEF: Admit patient for medical treatment monitor for O2 sat. currently on RA. O2 PRN Cardiology and pulmonology consult started on full dose lovenox. trending troponin. elevated last ECHO reviewed CXR reviewed on bumex and milrinone drip. elevtated BNP. insert conrad for accurate monitor of urinary output Duoneb PRN for wheezing fluid restriction 1.5L daily to improve Na daily weight - Hx of CAD with recent STEMI.,s/p CABG, COPD, HTN, recent PE: conditions reviewed reconciled home regimen optimize o2 sat monitor VS per unit protocols repeat and monitor morning labs, IDDM: Uncontrolled presented with hypogycemia: improved after D50 IVP given, Cont PRN until diet could be advanced. suspected uncontrolled. last A1c 8.9. accucheck before meals. resume home insuline on sliding scale patient medically non complaint, with hx of polysubstance abuse, will complicate all aspect of care. pharmacy to verify suboxone. on nicotine patch requested to bring and wear life vest. on full dose lovenox. Protonix for Gi bleed ppx Full code Attending attestation Patient was seen and evaluated at the bedside myself, agree with PB note.
--- NOTE | 2023-10-05 20:51 | PC.NURSE ---
attempted to call report to 2nd floor RN however RN did not answer phone and charge nurse was in the middle of post mortem care. SENIOR MEDICAL TRANSCRIPTIONIST just advised for them to call me back for report
[2023-10-05] MEDS: BUMETANIDE 10 MG in 0.9 % SODIUM CHLORIDE 60 ML IV (21:02)
[2023-10-05] MEDS: BUMETANIDE 0.25 MG/ML 10ML 3 MG IV (21:03)
--- NOTE | 2023-10-05 21:17 | PC.NURSE ---
Nurse to nurse report given Noam BURNETT
[2023-10-05 21:45] VITALS: BP 101/69; PULSE 92; RESP 16; TEMP 37.1; O2SAT 97
--- NOTE | 2023-10-05 21:45 | PC.NURSE ---
patient being transferred to floor
--- NOTE | 2023-10-05 21:51 | PC.NURSE ---
Patient arrived top floor via stretcher from Ed at 21:48.
[2023-10-05 21:54] VITALS: PULSE 95
[2023-10-05] MEDS: MORPHINE 2MG/ML SYRINGE 2 MG IV (22:11)
[2023-10-05] MEDS: MILRINONE LACTATE 20 MG in 0.9 % SODIUM CHLORIDE 80 ML 7.48000000000000043 MG IV (22:33)
[2023-10-05 22:37] LABS: Troponin I 0.41 ng/ml (0.00-0.034)
[2023-10-05 23:04] LABS: Reflex Lactic Add Lactic Reflex
[2023-10-05] MEDS: KCl 20mEq/100ml 100 ML 50 MEQ IV (23:20)
[2023-10-05] MEDS: PANTOPRAZOLE 40MG VIAL 40 MG IV (23:20)
[2023-10-05] MEDS: ENOXAPARIN 40MG/0.4ML SYRINGE 40 MG SQ (23:21)
[2023-10-05 23:43] LABS: Lactic Acid Follow Up (RFLX 1) 3.6 mmol/L (0.7-2.1)
[2023-10-06] VITALS (11 sets, daily range): BP systolic 57–128; BP diastolic 37–68; PULSE 99–130; RESP 18–30; TEMP 37.7; O2SAT 79–100; BMI 37.2
[2023-10-06 00:09] LABS: Amphetamine/Metha Screen,Urine Negative ng/ml (<1000)
[2023-10-06 00:10] LABS: Barbiturates Screen,Urine Negative ng/ml (<200); Benzodiazepines Screen,Urine Negative ng/ml (<200)
[2023-10-06 00:11] LABS: Cannabinoid Screen,Urine Negative ng/ml (<50)
[2023-10-06 00:12] LABS: Cocaine Screen,Urine Negative ng/ml (<300); Methadone Screen,Urine Negative ng/ml (<300)
[2023-10-06 00:13] LABS: Opiate Screen,Urine Positive ng/ml (<300)
[2023-10-06] MEDS: DEXTROSE 50% 50ML SYRINGE (CRASH CART) 50 ML IVP ×2 (00:16→06:06)
[2023-10-06 00:22] LABS: Phencyclidine Screen,Urine Negative ng/ml (<25)
[2023-10-06] MEDS: MORPHINE 2MG/ML SYRINGE 2 MG IV ×2 (00:23→06:16)
[2023-10-06 00:26] LABS: POC Glucose,Bedside 53 (70-110)
[2023-10-06 01:04] LABS: Reflex Lactic (2 hrs) Add Lactic Reflex
[2023-10-06] MEDS: KCl 20mEq/100ml 100 ML 50 MEQ IV ×2 (01:34→03:27)
[2023-10-06 01:43] LABS: Troponin I 0.38 ng/ml (0.00-0.034)
[2023-10-06] MEDS: MORPHINE 4MG/ML SYRINGE 4 MG IV (02:00)
--- NOTE | 2023-10-06 02:31 | CA_ITS ---
FINAL REPORT CLINICAL HISTORY: rule out DVT, full body edema, heart failure, dm, htn, hld, smoker, used meth yesterday Pt combative, moved thru out exam, very limited images uncooperative pt. FINDINGS: Multiple transverse and longitudinal scans were performed of the femoral popliteal deep venous system, with augmentation and compression maneuvers. Normal phasic flow was noted in the visualized deep venous system. No intraluminal increased echogenicity is noted to suggest thrombus. There is normal compression and augmentation of the venous structures. No abnormal venous collaterals are seen. IMPRESSION: No evidence of deep venous thrombosis of the bilateral lower extremities. Reviewed, Interpreted and Dictated by Keith Kiser MD Transcribed by Jessy Pinto Authenticated and [facility]
[2023-10-06] MEDS: LORazepam 2MG/ML VIAL 2 MG IV (02:33)
[2023-10-06] MEDS: BUMETANIDE 10 MG in 0.9 % SODIUM CHLORIDE 60 ML IV (05:33)
[2023-10-06 06:37] LABS: Basophils % 1.4 % (0.1-2.0); Eosinophils % 0.3 % (0.1-12.0); Hematocrit 47.5 % (42.0-52.0); Hemoglobin 14.9 g/dL (14.1-18.0); Lymphocytes # 0.4 K/mm3 (0.7-4.5); Lymphocytes % 12.5 % (10-50); Mean Corpuscular HGB Conc 31.4 g/dL (31.8-35.4); Mean Corpuscular Hemoglobin 28.7 pg (27.0-31.2); Mean Corpuscular Volume 91.6 fl (80-94); Mean Platelet Volume 8.8 fl (7.4-10.4); Monocytes # 0.4 K/mm3 (0.1-1.0); Neutrophils # 2.2 K/mm3 (1.8-7.8); Neutrophils % 72.9 % (37.0-80.0); Platelet Count 171 K/mm3 (142-424); Red Blood Count 5.19 M/mm3 (4.60-6.20); Red Cell Distribution Width 15.9 % (11.5-17.5)
[2023-10-06 06:44] LABS: Alanine Aminotransferase 103 U/L (12-78); Albumin Level 2.6 g/dl (3.5-5.0); Albumin/Globulin Ratio 0.9 (1.1-1.8); Alkaline Phosphatase 208 U/L (38-126); Anion Gap 13.8 mEq/L (5-15); Aspartate Amino Transferase 114 U/L (17-59); Bilirubin,Total 2.4 mg/dl (0.2-1.3); Blood Urea Nitrogen 35 mg/dl (9-20); Calcium 7.5 mg/dl (8.4-10.2); Carbon Dioxide 25 mmol/L (22.0-30.0); Chloride 93 mmol/L (98-107); Creatinine Clearance Estimated 111 mL/min (50-200); Estimated Glomerular Filt Rate 54 ml/min (>60); GFR (African American) 65 ML/MIN (>60); Globulin 2.8 g/dL (1.3-3.2); Magnesium 1.8 mg/dl (1.6-2.3); Phosphorous 3.5 mg/dl (2.5-4.5); Potassium 5.8 mmoL/L (3.5-5.1); Sodium 126 mmol/L (136-145); Total Protein,Serum 5.4 g/dl (6.3-8.2)
[2023-10-06 07:00] LABS: Glucose 39 mg/dl (74-100)
--- NOTE | 2023-10-06 08:12 | PC.NURSE ---
0740 began assessment on pt, pt is noted to be thrashing about in bed, moaning and groaning. very few words are able to be understood. pt noted to be grasping at leads and pacer pads on his chest and attempting to rip them off. pt had mittens in place to attempt to prevent pt dislodging iv and monitoring devices. 0748 during assessment pulse in left foot was able to be dopplered. pulse unable to be located in right foot. 0749 M Brit contacted to attempt to locate pulse in r foot as well. 2nd RN unable to locate pulse in r foot. [address] Rios staff unable to locate pulse in right foot.
[2023-10-06] MEDS: MILRINONE LACTATE 20 MG in 0.9 % SODIUM CHLORIDE 80 ML 7.48000000000000043 MG IV (09:30)
[2023-10-06] MEDS: EPINEPHrine 0.1 MG/ML 10ML SYRINGE (CRASH CART) 1 MG IV ×4 (10:49→11:00)
[2023-10-06] MEDS: SODIUM BICARB 8.4% 50ML SYRINGE (CRASH CART) 50 MEQ IV ×2 (10:50→10:57)
[2023-10-06] MEDS: CALCIUM CHLORIDE 1GM/10ML SYRINGE (CRASH CART) 1 GM IV ×2 (10:51→11:01)
--- NOTE | 2023-10-06 11:04 | EXP.EVENT.NO ---
note. Code blue called, patient had multiple rounds of ACLS protocol, patient was intubated as well during the ACLS protocol, patient could not survive the Cardiac arrest. patient , no pupilary response to light and no pulses, no respiratory or heart sounds, patient declared . Empathy was given to family. Time of - 11.04AM
--- NOTE | 2023-10-06 11:24 | EXP.EVENT.NO ---
Regular pulmonary consult was placed on this patient at 10:34 Am this morning. Upon chart review this patient was declared at 11:04 AM. Pulmonary did not get a chance to evaluate this patient prior to his demise.
--- NOTE | 2023-10-06 11:24 | EXP.EVENT.NO ---
Rapid response was activated on this patient while was working my shift in the emergency department. I immediately presented to bedside where ACLS was underway. Patient was being bagged. Brief history of this patient he is a substance abuser and is in severe cardiogenic shock on milrinone. ACLS was continued. Definitive airway placed with MAC 3 glide scope go and appropriately sized ET tube visualized through the cords, misting through the tube, bilateral breath sounds. Patient underwent multiple rounds of ACLS with epinephrine, calcium chloride, bicarbonate administered. Originally patient had severely decreased ejection fraction on pulse checks with dopplerable femoral pulse which was subsequently lost. ACLS resumed, patient underwent multiple additional rounds and the case was discussed with cardiology at bedside, unfortunately patient is already maximized on his heart failure therapy and further efforts are likely futile. [id number] ultrasound at bedside conducted during pulse check shows no organized cardiac activity, rhythm on ZOLL asystole. Given patient's known pathology, multiple rounds of asystolic cardiac arrest with appropriate ACLS medications administered further resuscitation efforts were discontinued and unfortunately patient at 11:05 AM. Please see hospitalist note and cardiology note for full details regarding patient's care. Procedure: Procedure performed was intubation, performed by Isacc Miles. Indication was cardiac arrest. [place] scope go with MAC 3 attachment was advanced into the vallecula, oropharynx and supraglottic space suctioned with Guerda at bedside. 8.0 ET tube passed through the cords with success, 18 cm at the teeth.
--- NOTE | 2023-10-06 11:25 | EXP.CARD.CON ---
History of Present Illness History of Present Illness Consult date: 10/06/23 Requesting physician: Paxton Rios Chief complaint: soa History of present illness: This is a 48-year-old white gentleman who presented to the emergency department with complaints of shortness of breath. The patient has a past medical history of coronary artery disease status post coronary artery bypass grafting, end-stage HFrEF with an ejection fraction of 15% on LifeVest, uncontrolled type 2 diabetes, hypertension, hyperlipidemia, medical noncompliance and methamphetamine use. The patient does not cooperate with any of my exam and does not answer any of my questions. He does not follow any commands and is very combative during my examination. All of his history is obtained from his who is at the bedside. She states that when he was discharged from the hospital a few weeks ago he was unable to get one of his medications due to the pharmacy not having the medicine. Then they did not have transportation to go chicken picker the medicine so there were a few days where he did not take any diuretics. Following this he was able to fill all of his medications and was taking them appropriately. He was seen in outpatient cardiology clinic and at that time he was doing well and taking all of his medications. His states that her father was dying in hospice so she had to leave to go to [place] and while she was gone she found out that he stopped taking all of his medications and started to have worsening shortness of breath and swelling. She states that when she got back to [place] the patient was unable to locate or tell her where any of his medications were and he was unable to find his LifeVest as well. She states that they went multiple places searching for his medications and did have the cardiology office give him a new list of his medicines. She states that he was able to find some of the medications and did restart them but he was never fully taking all of his medications again. She states that his symptoms continued to worsen. He did go to the emergency department at [facility] at some point as well when she returned to [place]. He was told to restart his diuretics and discharged from their emergency department. His symptoms continued to worsen so he came back to the emergency department here. The patient was found to be in cardiogenic shock and admitted to the hospital. He was started on a milrinone drip and a Bumex drip last night. His reports that he had not been complaining of any chest pain or pressure. He had been short of breath and having lower extremity edema. She states that he had been very confused which she attributed to him being fluid overloaded. During his evaluation in the emergency department last night the patient did report that he had currently been using methamphetamines and his was unaware. [facility] Disclaimer: The information contained in this section may have been updated after the patient was seen, as this information can be updated by other users. Medical History (Updated 10/06/23 @ 11:36 by Roxann Fernandez APRN) Paroxysmal atrial fibrillation Cardiogenic shock Hyponatremia COPD (chronic obstructive pulmonary disease) LV dysfunction A-fib CAD (coronary artery disease) Elevated troponin Pleural effusion, bilateral Heart failure Low Back Pain History of abuse of recreational drug Tobacco abuse Pulmonary HTN Recent ST elevation myocardial infarction (STEMI) CAD (coronary artery disease) HTN (hypertension) Hyperlipidemia Diabetes Surgical History Stented coronary artery Hx of CABG Family History Other No significant family history Social History Smoking Status: Current every day smoker tobacco type: cigarettes packs per day: 1 alcohol intake: former substance use type: former substance user, marijuana, crack/cocaine, amphetamines and opiates current occupational status: unemployed Travel in the last 8 weeks: None household members: spouse and children caffeine: Yes Review of Systems Review of Systems Review of systems:: unable to obtain (Patient combative and had no purposeful response) Exam Data for Last 24 hours Vital signs and Labs for Last 24 Hours: Temp Pulse Resp BP Pulse Ox O2 Del Method 99.8 F H 123 H 24 109/67 L 100 Room Air 10/06/23 08:00 10/06/23 10:00 10/06/23 10:00 10/06/23 10:00 10/06/23 10:10/06/23 10:00 Laboratory Results - last 24 hr 10/05/23 18:42: WBC 7.5, RBC 5.68, Hgb 16.1, Hct 50.5, MCV 88.9, MCH 28.3, MCHC 31.8, RDW 16.1, Plt Count 256, MPV 8.2, Neut % (Auto) 87.8 H, Lymph % (Auto) 7.8 L, Ellis % (Auto) 3.4, Eos % (Auto) 0.7, Baso % (Auto) 0.3, Neut # (Auto) 6.6, Lymph # (Auto) 0.6 L, Ellis # (Auto) 0.3, Eos # (Auto) 0.1, Baso # (Auto) 0.0, Total Counted 100, Neutrophils % (Manual) 82 H, Band Neutrophils % 1.0, Lymphocytes % (Manual) 14, Atypical Lymphs % 1.0, Monocytes % (Manual) 2, Platelet Estimate Normal, RBC Morphology Normal, PT 14.4 H, INR 1.36 H, Sodium 121 L, Potassium 3.2 L, Chloride 91 L, Carbon Dioxide 24, Anion Gap 9.2, BUN 33 H, Creatinine 1.20, Estimated Creat Clear 130, Estimated GFR 64, Est GFR ( Amer) 78, Glucose 42 L, Random Glucose 42 L*, Lactate 2.4 H, Calcium 8.1 L, Total Bilirubin 2.4 H, AST 149 H, ALT 150 H, Alkaline Phosphatase 319 H, Troponin I 0.38 H, NT-Pro-B Natriuret Pep 5270 H, Total Protein 6.2 L, Albumin 3.2 L, Globulin 3.0, Albumin/Globulin Ratio 1.1 10/05/23 22:03: Troponin I 0.41 H 10/05/23 23:19: Lactate 3.6 H 10/05/23 23:53: Urine Opiates Screen Positive H, Urine Methadone Screen Negative, Ur Barbituates Screen Negative, Ur Phencyclidine Scrn Negative, Ur Amphetamines Screen Negative, U Benzodiazepines Scrn Negative, Urine Cocaine Screen Negative, U Marijuana (THC) Screen Negative 10/06/23 00:08: POC Glucose 53 L 10/06/23 01:15: Lactate 5.0 H, Troponin I 0.38 H 10/06/23 05:36: WBC 3.0 L D, RBC 5.19, Hgb 14.9, Hct 47.5, MCV 91.6, MCH 28.7, MCHC 31.4 L, RDW 15.9, Plt Count 171 D, MPV 8.8, Neut % (Auto) 72.9, Lymph % (Auto) 12.5, Ellis % (Auto) 13.0 H, Eos % (Auto) 0.3, Baso % (Auto) 1.4, Neut # (Auto) 2.2, Lymph # (Auto) 0.4 L, Ellis # (Auto) 0.4, Eos # (Auto) 0.0, Baso # (Auto) 0.0, Sodium 126 L, Potassium 5.8 H D, Chloride 93 L, Carbon Dioxide 25, Anion Gap 13.8, BUN 35 H, Creatinine 1.40 H, Estimated Creat Clear 111, Estimated GFR 54 L, Est GFR ( Amer) 65, Glucose 39 L*, Calcium 7.5 L, Phosphorus 3.5, Magnesium 1.8, Total Bilirubin 2.4 H, AST 114 H, ALT 103 H D, Alkaline Phosphatase 208 H, Total Protein 5.4 L, Albumin 2.6 L D, Globulin 2.8, Albumin/Globulin Ratio 0.9 L I & O for Last 24 hours: Intake & Output 10/03/23 10/04/23 10/05/23 10/06/23 23:59 23:59 23:59 23:59 Intake Total 146.834 / 146.834 Output Total 225 / 775 1450 / 1450 Balance -225 / -775 -1303.166 / -1303.166 Weight 275 lb 275 lb 0.003 oz Constitutional Constitutional: no acute distress, obese, chronically ill appearing, combative and agitated *Routine HEENT Exam Head: Present normocephalic Eye: Present EOMI and PERRL ENT: Present mucous membranes moist *Routine Neck Exam Neck: Present supple; Absent lymphadenopathy Routine Chest/Breast/Axilla Exam Comments: LifeVest in place *Routine Respiratory Exam Respiratory: Present decreased breath sounds and distant breath sounds; Absent rales, respiratory distress, rhonchi, wheezes or crackles *Routine Cardiovascular Exam Cardiovascular: Present RRR, Normal S1, Normal S2 and tachycardia *Routine Abdominal Exam Abdominal: Present soft and normoactive bowel sounds *Routine Rectal Exam Patient deferred: visual exam *Routine Exam Patient deferred: penile exam *Routine Extremities Exam Extremities: Present edema (Trace bilateral lower extremities); Absent cyanosis or clubbing *Routine Skin Exam Skin: Present warm; Absent rash Comments: Healing stasis dermatitis *Routine Neurological Exam Neurological: Present altered mental status and moving all extremities Routine Psychiatric Exam Psychiatric: Present agitated and unable to assess Meds Home Medications and Allergies Home Medications Medication Instructions Recorded Confirmed Type enoxaparin 80 mg/0.8 mL 80 mg (0.8 mL) SQ Q12H 30 days #48 09/14/23 10/06/23 Rx subcutaneous syringe mL insulin lispro protamine-lispro 30 unit (0.3 mL) SQ BIDWMEAL 30 09/14/23 10/06/23 Rx 100 unit/mL (75-25) subcutaneous days #18 mL pen (Humalog Mix 75-25 KwikPen) aspirin 81 mg chewable tablet 81 mg PO DAILY 30 days #30 tabs 09/28/23 10/06/23 Rx bumetanide 1 mg tablet 1 mg PO DAILY 30 days #30 tabs 09/28/23 10/06/23 Rx empagliflozin 10 mg tablet 10 mg PO DAILY 30 days #30 tabs 09/28/23 10/06/23 Rx (Jardiance) isosorbide mononitrate 30 mg 30 mg PO DAILY #30 tabs 09/28/23 10/06/23 Rx tablet,extended release 24 hr metformin 1,000 mg tablet 1,000 mg PO BID 30 days #60 tabs 09/28/23 10/06/23 Rx metoprolol succinate 25 mg 6.25 mg (1/4 x 25 mg) PO DAILY #30 09/28/23 10/06/23 Rx tablet,extended release 24 hr tabs (Toprol XL) pantoprazole 40 mg tablet,delayed 40 mg PO HS 30 days #30 tabs 09/28/23 10/06/23 Rx release sacubitril 24 mg-valsartan 26 mg 1 tab PO BID #60 tabs 09/28/23 10/06/23 Rx tablet (Entresto) spironolactone 25 mg tablet 25 mg PO DAILY #30 tabs 09/28/23 10/06/23 Rx (Aldactone) New Prescriptions to Start Prescriptions: Allergies Allergy/AdvReac Type Severity Reaction Status Date / Time Anesthetics - Amide Type - AdvReac Rash Verified 09/20/23 14:41 [facility] - Claudia Type- AdvReac Rash Verified 09/20/23 14:41 Parabens Assessment and Plan *Assessment and plan (1) Cardiogenic shock: Status: Acute Category: Medical Code(s): R57.0 - Cardiogenic shock (2) Anasarca: Status: Acute Category: Medical Code(s): R60.1 - Generalized edema (3) Abnormal transaminases: Status: Acute Category: Medical Code(s): R74.8 - Abnormal levels of other serum enzymes (4) Chronic hepatitis B: Status: Acute Category: Medical Code(s): B18.1 - Chronic viral hepatitis B without delta-agent (5) Myocardial injury: Status: Acute Category: Medical Code(s): I5A - Non-ischemic myocardial injury (non-traumatic) (6) CAD (coronary artery disease): Status: Acute Qualifiers: Associated angina: without angina Coronary Disease-Associated Artery/Lesion type: unspecified vessel or lesion type [place] vs. transplanted heart: [place] heart Qualified Code(s): I25.10 - Atherosclerotic heart disease of [place] coronary artery without angina pectoris Category: Medical Code(s): I25.10 - Atherosclerotic heart disease of [place] coronary artery without angina pectoris (7) A-fib: Status: Acute Qualifiers: Atrial fibrillation type: unspecified Qualified Code(s): I48.91 - Unspecified atrial fibrillation Category: Medical Code(s): I48.91 - Unspecified atrial fibrillation (8) LV dysfunction: Status: Chronic Category: Medical Code(s): I51.9 - Heart disease, unspecified (9) COPD (chronic obstructive pulmonary disease): Status: Acute Qualifiers: COPD type: unspecified COPD Qualified Code(s): J44.9 - Chronic obstructive pulmonary disease, unspecified Category: Medical Code(s): J44.9 - Chronic obstructive pulmonary disease, unspecified (10) Hx of CABG: Status: Acute Category: Surgical Code(s): Z95.1 - Presence of aortocoronary bypass graft (11) Stented coronary artery: Status: Chronic Category: Surgical Code(s): Z95.5 - Presence of coronary angioplasty implant and graft (12) Heart failure with reduced ejection fraction: Status: Acute Category: Medical Code(s): I50.20 - Unspecified systolic (congestive) heart failure (13) Elevated troponin: Status: Acute Category: Medical Code(s): R79.89 - Other specified abnormal findings of blood chemistry (14) Hyperlipidemia: Status: Chronic Qualifiers: Hyperlipidemia type: unspecified Qualified Code(s): E78.5 - Hyperlipidemia, unspecified Category: Medical Code(s): E78.5 - Hyperlipidemia, unspecified (15) HTN (hypertension): Status: Chronic Qualifiers: Hypertension type: essential hypertension Qualified Code(s): I10 - Essential (primary) hypertension Category: Medical Code(s): I10 - Essential (primary) hypertension (16) Noncompliance: Status: Acute Category: Medical Code(s): Z91.19 - Patient's noncompliance with other medical treatment and regimen (17) Drug use: Status: Acute Category: Social Hx Code(s): F19.90 - Other psychoactive substance use, unspecified, uncomplicated (18) Paroxysmal atrial fibrillation: Status: Acute Category: Medical Code(s): I48.0 - Paroxysmal atrial fibrillation (19) Pulmonary embolism on right: Status: Acute Category: Medical Code(s): I26.99 - Other pulmonary embolism without acute cor pulmonale Plan Plan: 1. The patient was admitted to the hospital with cardiogenic shock. The patient had severe LV dysfunction and severe HFrEF. He was supposed to have a LifeVest in place but had removed this. The patient was initially admitted and started on IV diuretics. Dr. Rico was called through the night and the patient was switched over to a milrinone drip and a Bumex drip. He had around 1500 mL of urine output overnight. Will need to more aggressively diurese the patient due to his cardiogenic shock as he should have had a bigger response from the milrinone. Will give him chlorothiazide 500 mg IV twice daily in addition to the milrinone drip and Bumex drip. 2. Will consider a right cardiac catheterization today to further evaluate his cardiogenic shock and intracardial pressures to see if he is responding to the milrinone at all. If his cardiomyopathy and cardiac output have worsened then we may need to consider placement of an intra-aortic balloon pump or Impella device and transfer the patient to a tertiary care facility. Right heart cath will also help to guide how much more aggressively we need to diurese the patient. Will discuss this with Dr. Rico today to see if he is agreeable with right cardiac catheterization. 3. The patient does have a history of a recent PE as well as paroxysmal atrial fibrillation. He should be on therapeutic dosing of Lovenox. Will change his Lovenox to 1 mg/kg SQ twice daily. 4. The patient does have an elevated troponin. This is most likely mild myocardial injury from his severe cardiogenic shock. No plans for left cardiac catheterization at this time. Recent left cardiac catheterization showed patent CAD and patent vein grafts. 5. Patient is tachycardic which is most likely secondary to his cardiogenic shock. Will hold off on his beta-troy at this time due to his severe cardiogenic shock. 6. He does have elevated liver enzymes which is most likely from his history of hepatitis B and hepatic congestion secondary to his cardiogenic shock. 7. His blood pressure is well-controlled. 8. His LDL goal is less than 55. His LDL in September 2023 was 93. Not currently on a statin due to elevated liver enzymes and history of hep B. 9. The patient is diabetic. He will need aggressive control of his diabetes. Will defer management this to the hospitalist. 10. The patient has used methamphetamines currently. He is likely exhibiting some features of withdrawal from illicit drugs. He is combative this morning. He is not answering any my questions or following any of my commands. He is awake but his mental status altered. His vital signs are stable except for him being tachycardic. 11. The patient has historically been noncompliant with his medications and medical regimen. He has not been taking his medications as directed. Long discussion with the about the patient being compliant with his medications or this cardiogenic shock and severe LV dysfunction will likely not recover and ultimately cause . she verbalized understanding. Thank you for the opportunity to help participate in the care of this patient. All recommendations and orders are per Dr. Ponce. Addendum: Rapid response was activated on the patient around 1046 this morning. Cardiology immediately responded to the bedside. ACLS was in progress and the patient was being bagged. Definitive airway was placed with an ET tube. Patient underwent multiple rounds of ACLS with epinephrine, calcium chloride, and bicarbonate administered. Initially the patient did have dopplerable femoral pulses and then they were lost. ACLS was resumed. He underwent multiple rounds of additional ACLS. See code sheet for full details of ACLS and medication administration. The patient had no organized cardiac activity and was in asystole. Resuscitation efforts were discontinued and the patient around 11:04 AM.
--- NOTE | 2023-10-06 11:35 | PC.NURSE ---
1041 pt bp noted to be 69/38 by Ronald Leon 1044 bp 57/37 by ronald leon rn 1045 attempted to recheck pt bp, pt noted to be unresponsive and face discolored. unable to arouse pt with sternal rub. Rapid response red called on pt at this time. breathing noted to be non labored and deep. pt at bedside. 1046 pt went into respiratory arrest, code blue called. 1046 CPR started 1048 pulse check, no pulse. compressions resumed 1049 epi admin 1050 1 amp sodium bicarb admin 1051 Calcium Chloride admin 1052 pulse check, no pulse noted. cpr resumed 1053 pt intubated with 8.0 ETT. color changed noted. breath sounds bilaterally with Ambu bag. 1053 epi admin 1054 pulse check, pt pulse noted, nohemi. minimal cardiac movement noted on US by Dr Miles 1055 Pt lost pulse. CPR restarted. 1056 epi admin 1057 1 amp sodium bicarb 1058 Pulse check, no pulse detected. CPR resumed 1100 Epi admin 1100 Pulse check, no pulse detected. CPR resumed 1101 Calcium Chloride admin 1102 Pulse Check. no pulse detected. CPR resumed 1105 Pulse Check. no pulse detected. efforts terminated 1105 Time of
--- NOTE | 2023-10-06 14:19 | PC.NURSE ---
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 1120 Pt ruled out as coroners case 1127 Notified GI of pt . pt ruled out for donation Yao Pinedo
--- NOTE | 2023-10-11 14:41 | EXP.DEATH.NO ---
Pronouncement Note Date and Time of Date of : 10/06/23 Time of : 11:05 PCOD Preliminary cause of : Heart failure Contributing Factors (1) Cardiogenic shock: (2) Anasarca: (3) Abnormal transaminases: (4) Chronic hepatitis B: (5) Myocardial injury: (6) CAD (coronary artery disease): (7) A-fib: (8) LV dysfunction: (9) COPD (chronic obstructive pulmonary disease): (10) Hx of CABG: (11) Stented coronary artery: (12) Heart failure with reduced ejection fraction: (13) Elevated troponin: (14) Hyperlipidemia: (15) HTN (hypertension): (16) Noncompliance: (17) Drug use: (18) Paroxysmal atrial fibrillation: (19) Pulmonary embolism on right: Additional Data Attending physician: Paxton Rios MD Autopsy should be considered if:: Unknown or unanticipated medical complications Cause is not known with certainty on clinical grounds Would allay concerns of the public/family regarding Unexplained/unexpected apparently natural and not subject to a forensic medical jurisdiction DOA Within 24 hours of admission Sustained or apparently sustained injury while in the hospital Result of high risk, infectious and contagious disease Obstetric and pediatric arising from environmental or occupational hazard Unexplained/unexpected from dental, medical, or surgical diagnostic procedures and/or therapies Would disclose a known or suspected illness which also may have a bearing on survivors or recipients of transplanted organs Autopsy requested?: No Does not meet criteria yarn skeins examiner notified?: Yes Organ bank notified?: Yes Advance directives: No
== END 2023-10-06 14:01 | disposition expired | DRG 291 ==
LOC: ER 18:58 → 2ND 20:38
PROVIDERS: Nurse Practitioner Family; Admitting Provider Internal Medicine; Emergency Provider Student in an Organized Health Care Education/Training Program; PCP Internal Medicine; Visit Provider Internal Medicine
DX: I11.0 Hypertensive heart disease with heart failure (principal); I50.23 Acute on chronic systolic (congestive) heart failure; B18.1 Chronic viral hepatitis B without delta-agent; E87.1 Hypo-osmolality and hyponatremia; F19.20 Other psychoactive substance dependence, uncomplicated; T82.855A Stenosis of coronary artery stent, initial encounter; I5A Non-ischemic myocardial injury (non-traumatic); Z95.5 Presence of coronary angioplasty implant and graft; R57.0 Cardiogenic shock; I25.10 Atherosclerotic heart disease of native coronary artery without angina pectoris; E78.5 Hyperlipidemia, unspecified; I48.0 Paroxysmal atrial fibrillation; E11.649 Type 2 diabetes mellitus with hypoglycemia without coma; Z95.1 Presence of aortocoronary bypass graft; Z79.4 Long term (current) use of insulin; J44.9 Chronic obstructive pulmonary disease, unspecified; I27.20 Pulmonary hypertension, unspecified; Z91.199 Patient's noncompliance with other medical treatment and regimen due to unspecified reason; K74.60 Unspecified cirrhosis of liver; Y83.1 Surgical operation with implant of artificial internal device as the cause of abnormal reaction of the patient, or of later complication, without mention of misadventure at the time of the procedure; F17.210 Nicotine dependence, cigarettes, uncomplicated; I50.84 End stage heart failure; I46.9 Cardiac arrest, cause unspecified
CPT/HCPCS: 31500; 36415; 71045; 80053; 80307; 82947; 82962; 83605; 83735; 83880; 84100; 84484; 85007; 85025; 85610; 93005; 93970; 99291; J2260